=== PATIENT | female | born 1960 | race Caucasian/White ===

== ENCOUNTER 2017-03-10 09:42 | Emergency (ER) | payer MEDICARE, OTHER ==
[2017-03-10 09:48] VITALS: BP 132/76; PULSE 74; RESP 20; TEMP 98.1
--- NOTE | 2017-03-10 10:08 | ED ---
General Adult HPI - General Chief complaint: Extremity Injury, Lower Stated complaint: toe injury rt foot Time Seen by Provider: 03/10/17 09:52 Source: patient, RN notes reviewed Mode of arrival: ambulatory Limitations: no limitations - History of Present Illness Initial comments: Patient is a 57-year-old female who presents emergency room today with chief complaint of an injury to the right great toe. Patient does admit that she stubbed the toe which lifted the toenail up. She states very tender. She will to urgent care but because of her von Willebrand's disease. Advised come here to the emergency room. Patient denies any other complaints or symptoms. States locally tender. Patient denies any recent fever, chills, shortness of breath, chest pain, back pain, abdominal pain, nausea or vomiting, numbness or tingling, dysuria or hematuria, constipation or diarrhea, headaches or visual changes, or any other complaints. - Related Data Allergies Allergy/AdvReac Type Severity Reaction Status Date / Time aspirin Allergy Unknown Verified 03/10/17 09:57 codeine Allergy Unknown Verified 03/10/17 09:57 ibuprofen [From Motrin] Allergy Unknown Verified 03/10/17 09:57 Iodinated Contrast- Oral and Allergy Unknown Verified 03/10/17 09:57 IV Dye isosorbide [From Imdur] Allergy Unknown Verified 03/10/17 09:57 latex Allergy Unknown Verified 03/10/17 09:57 Review of Systems ROS Statement: Those systems with pertinent positive or pertinent negative responses have been documented in the HPI. ROS Other: All systems not noted in ROS Statement are negative. Past Medical History Past Medical History: GERD/Reflux Additional Past Medical History / Comment(s): von willebrand disease, diverticulitis, migraines, chronic back pain, RLS History of Any Multi-Drug Resistant Organisms: None Reported Past Psychological History: No Psychological Hx Reported Smoking Status: Former smoker Past Alcohol Use History: None Reported Past Drug Use History: None Reported General Exam - General Exam Comments Initial Comments: General: The patient is awake and alert, in no distress, and does not appear acutely ill. Neck: The neck is supple, there is no tenderness or JVD. Cardiovascular: There is a regular rate and rhythm. No murmur, rub or gallop is appreciated. Respiratory: Lungs are clear to auscultation, respirations are non-labored, breath sounds are equal. No wheezes, stridor, rales, or rhonchi. Musculoskeletal: Full range motion. Sensation intact. Pulses bilateral 2+ per strength 5/5. Neurological: A&O x 3. CN II-XII intact, There are no obvious motor or sensory deficits. Coordination appears grossly intact. Speech is normal. Skin: Patient's right great toe toenail is intact at the nail base. Psychiatric: Normal mood and affect. Limitations: no limitations Course Vital Signs 03/10/17 09:45 Temperature 98.1 F Pulse Rate 74 Respiratory 20 Rate Blood Pressure 132/76 O2 Sat by Pulse 100 Oximetry Medical Decision Making - Medical Decision Making Vital that if we are the toenail off that we would typically should back in underneath the nailbed to keep the nail fold open. Advised that we typically with stitch this in place. Offered to stitch in place other option is to leave the Band-Aid over top the nailbed along with to possibly follow up on its own. Disposition Clinical Impression: Injury of toenail of right foot Disposition: HOME SELF-CARE Condition: Good Instructions: Nail Avulsion (ED) Additional Instructions: Please us band aid over top to hold nail in place. Please be aware that the nail may fall off on its own. Please watch for any signs of infection which may include increased pain, redness, fever, chills. Please return for any signs of infection. Please return to emergency room if the symptoms increase or worsen or for any other concerns. Referrals: Stefan He DO [Primary Care Provider] - 1-2 days Time of Disposition: 10:08
== END 2017-03-10 10:39 | disposition home or self-care (01) ==
LOC: EC 09:42
DX: S99.921A Unspecified injury of right foot, initial encounter (principal); Z88.5 Allergy status to narcotic agent; Z88.6 Allergy status to analgesic agent; Z88.8 Allergy status to other drugs, medicaments and biological substances; Z91.040 Latex allergy status; Z91.041 Radiographic dye allergy status; Z87.891 Personal history of nicotine dependence; W22.09XA Striking against other stationary object, initial encounter
CPT/HCPCS: 99283

== ENCOUNTER → 2017-05-07 | Outpatient (CLI) | payer MEDICARE ==
[~2017-05-07] MED LIST: DENOSUMAB 60 MG/ML 1 ML SYRINGE SQ ONE; IRON SUCROSE 200 MG in SODIUM CHLORIDE 0.9% 100 ML IVPB ONE; SODIUM CHLORIDE 0.9% 500 ML in EMPTY BAG 1 BAG IV PRN
[2017-05-07 10:22] VITALS: BP 143/83; PULSE 83; RESP 16; TEMP 97.7
== END | disposition home or self-care (01) ==
LOC: PROCWHC3 09:53
PROVIDERS: ATTEND Physician Assistant
DX: M81.0 Age-related osteoporosis without current pathological fracture (principal); D50.8 Other iron deficiency anemias
CPT/HCPCS: J1756; J0897; 96365

== ENCOUNTER 2017-06-20 19:17 | Observation (INO) | payer MEDICARE ==
[2017-06-20] MEDS ORDERED: SODIUM CHLORIDE 0.9% 1,000 ML IV ONE (19:48)
[2017-06-20] MEDS ORDERED: ONDANSETRON 4 MG/2 ML VIAL IVP STA (19:49)
[2017-06-20 20:03] LABS: Anisocytosis Slight; Basophils % (A) 1 %; Eosinophils # (A) 0.3 k/uL (0-0.7); Eosinophils % (A) 4 %; HGB 11.3 gm/dL (11.4-16.0); Hypochromasia Slight; Lymphocytes # (A) 1.6 k/uL (1.0-4.8); Lymphocytes % (A) 22 %; MCH 26.2 pg (25.0-35.0); MCHC 31.3 g/dL (31.0-37.0); MCV 83.8 fL (80.0-100.0); Monocytes # (A) 0.4 k/uL (0-1.0); Monocytes % (A) 5 %; Neutrophils # (A) 4.9 k/uL (1.3-7.7); Neutrophils % (A) 66 %; Platelet Count 279 k/uL (150-450); RDW 17.2 % (11.5-15.5); WBC 7.4 k/uL (3.8-10.6)
[2017-06-20 20:11] LABS: INR 0.9 (<1.2); Partial Thromboplastin Time 23.8 sec (22.0-30.0); Prothrombin Time 9.4 sec (9.0-12.0)
[2017-06-20 20:12] LABS: ALT 34 U/L (9-52); AST 24 U/L (14-36); Albumin 3.6 g/dL (3.5-5.0); Alkaline Phosphatase 61 U/L (38-126); Anion Gap 8 mmol/L; Blood Urea Nitrogen 15 mg/dL (7-17); Calcium 7.8 mg/dL (8.4-10.2); Carbon Dioxide 24 mmol/L (22-30); Chloride 110 mmol/L (98-107); Glucose 105 mg/dL (74-99); Magnesium 2.3 mg/dL (1.6-2.3); Potassium 4.8 mmol/L (3.5-5.1); Sodium 142 mmol/L (137-145); Total Bilirubin 0.1 mg/dL (0.2-1.3); Total Protein 6.3 g/dL (6.3-8.2)
--- NOTE | 2017-06-20 20:27 | XR ---
EXAMINATION TYPE: XR chest 2V DATE OF EXAM: 06/20/2017 COMPARISON: NONE HISTORY: Syncopal episode. TECHNIQUE: Frontal and lateral views of the chest are obtained. FINDINGS: There is no focal air space opacity, pleural effusion, or pneumothorax seen. The cardiac silhouette size is upper limits of normal. The osseous structures are intact. Minimal multilevel de generative changes of the thoracic spine are noted. IMPRESSION: No acute cardiopulmonary process.
--- NOTE | 2017-06-20 20:53 | CT ---
EXAMINATION TYPE: CT abdomen pelvis wo con DATE OF EXAM: 06/20/2017 COMPARISON: NONE HISTORY: Vomiting, umbilical pain with history of gastric bypass. CT DLP: 1158 mGycm Automated exposure control for dose reduction was used. TECHNIQUE: Helical acquisition of images was performed from the lung bases through the pelvis. FINDINGS: There is limited evaluation of both the hollow and solid viscera given the lack of intraven ous and oral contrast. LUNG BASES: Minimal bibasilar subsegmental atelectasis is present. LIVER/GB: The liver is grossly unremarkable. Gallbladder surgically absent. PANCREAS: Unremarkable unenhanced morphology. SPLEEN: No splenomegaly. ADRENALS: No discrete nodule. KIDNEYS: No evidence of hydronephrosis. Punctate 1 to 2 mm right lower pole nonobstructing renal calc ulus is seen. No left-sided renal calculi. FREE AIR: No free air is visualized RETROPERITONEAL ADENOPATHY: None visualized REPRODUCTIVE ORGANS: The uterus is surgically absent. URINARY BLADDER: Incompletely distended. PELVIC ADENOPATHY: None visualized. OSSEOUS STRUCTURES: Mild multilevel degenerative changes of the visualized thoracal lumbar spine. Mi ld levoscoliotic curvature of the lumbar spine is noted. BOWEL: Surgical sutures are seen around the gastric fundus with a small hiatal hernia noted and arou nd the gastric body from a gastric bypass procedure. Gastric contents are noted within the gastric eli dy without dilation. Within the Judith limb there is no proximal dilatation. There is a normal course o f the attached small bowel without clustering or posterior position that would be concerning for inte rnal hernia. No swirling of vessels. Focal mild dilation of the entero-entero left mid abdominal anas tomotic site measures up to 4.3 cm and contains small bowel feces sign indicative of stasis. No proxi mal or distal bowel dilatation or decompression. The appendix is air-filled and within normal limits. Moderate amount retained stool is seen throughout the nondilated colon. Surgical aracelis are noted a long the right anterior abdominal wall creating spray artifact. IMPRESSION: 1. NO EVIDENCE OF BOWEL OBSTRUCTION. MILD FOCAL DILATATION OF THE LEFT MID ABDOMINAL ENTERO-ENTERO AN ASTOMOTIC SITE WITH SMALL BOWEL FECES SIGN AND RELATES TO ILEUS. NO OTHER EVIDENCE OF SMALL BOWEL OBS TRUCTION SUCH PROXIMAL DILATATION OR DISTAL DECOMPRESSION. 2. PUNCTATE NONOBSTRUCTING RIGHT 1 TO 2 MM LOWER POLE RENAL CALCULUS.
[2017-06-20] MEDS ORDERED: HYDROcodone/APAP 10-325MG 1 EACH TAB PO ONE (21:20)
[2017-06-20] MEDS ORDERED: ONDANSETRON 4 MG/2 ML VIAL IVP PRN (21:33)
[2017-06-20] MEDS ORDERED: NALOXONE 0.4 MG/ML 1 ML VIAL IV PRN (21:33)
--- NOTE | 2017-06-20 21:33 | ED ---
Syncope HPI - General Chief Complaint: Syncope Stated Complaint: syncope Time Seen by Provider: 06/20/17 19:33 Source: EMS Mode of arrival: EMS Limitations: no limitations - History of Present Illness Initial Comments: This is a 57-year-old female with a history of gastric bypass who presents emergency department for syncopal episode. The patient states that she was transferring from her chair to her couch when she suddenly and it up on the floor. The patient states that she does not remember any preceding symptoms. No lightheadedness, chest pain, shortness of breath. She states that she's been eating and drinking normally. She does admit to some vomiting and diarrhea today however states that this is intermittent because of her gastric bypass. She admits to a little bit a right-sided abdominal pain which is new. No fevers or chills. No palpitations at this time. She states that right now she feels a little generalized malaise but otherwise no other complaints. - Related Data Home Medications Medication Instructions Recorded Confirmed ALPRAZolam [Xanax] 0.5 mg PO TID PRN 06/20/17 06/20/17 Cholecalciferol (Vitamin D3) 2,000 unit PO DAILY 06/20/17 06/20/17 [Vitamin D3] Denosumab [Prolia] 60 mg SQ Q180D 06/20/17 06/20/17 Desmopressin [Ddavp] 0.2 mg PO DAILY PRN 06/20/17 06/20/17 Dexlansoprazole [Dexilant] 60 mg PO DAILY 06/20/17 06/20/17 Eplerenone 25 mg PO BID 06/20/17 06/20/17 Fluticasone Nasal [place] [Flonase 1 spray EA NOSTRIL DAILY 06/20/17 06/20/17 Nasal [place]] Hydrocodone/Acetaminophen [[place] 1 tab PO QID PRN 06/20/17 06/20/17 10-325] Neupro 8mg Patch 1 patch TOPICAL DAILY 06/20/17 06/20/17 Nystatin [Nystop] 1 applic TOPICAL TID 06/20/17 06/20/17 SUMAtriptan SUCCINATE [Imitrex] 100 mg PO DAILY PRN 06/20/17 06/20/17 buPROPion HCL [Wellbutrin SR] 150 mg PO TID 06/20/17 06/20/17 tiZANidine HCL [Zanaflex] 2 mg PO TID 06/20/17 06/20/17 Allergies Allergy/AdvReac Type Severity Reaction Status Date / Time aspirin Allergy Unknown Verified 06/20/17 19:35 codeine Allergy Unknown Verified 06/20/17 19:35 ibuprofen [From Motrin] Allergy Unknown Verified 06/20/17 19:35 Iodinated Contrast- Oral and Allergy Unknown Verified 06/20/17 19:35 IV Dye isosorbide [From Imdur] Allergy Unknown Verified 06/20/17 19:35 latex Allergy Unknown Verified 06/20/17 19:35 Sulfa (Sulfonamide Allergy Unknown Verified 06/20/17 19:35 Antibiotics) Review of Systems ROS Statement: Those systems with pertinent positive or pertinent negative responses have been documented in the HPI. ROS Other: All systems not noted in ROS Statement are negative. Past Medical History Past Medical History: GERD/Reflux Additional Past Medical History / Comment(s): von willebrand disease, diverticulitis, migraines, chronic back pain, RLS History of Any Multi-Drug Resistant Organisms: None Reported Past Surgical History: Adenoidectomy, Cholecystectomy, Hysterectomy, Joint Replacement, Orthopedic Surgery, Tonsillectomy Past Psychological History: No Psychological Hx Reported Smoking Status: Former smoker Past Alcohol Use History: Rare Past Drug Use History: None Reported General Exam - General Exam Comments Initial Comments: Constitutional: Awake alert Appears comfortable Head: Normocephalic atraumatic Eyes: no conjunctival injection No scleral icterus EOMI Neck: No JVD Supple Heart: Regular rate rhythm normal S1-S2 no murmurs Lungs: Clear to auscultation bilaterally No wheezing No rales Abdomen: Soft nondistended tenderness in the right upper quadrant Extremities: Non edematous DP pulses intact Radial pulses intact Neuro: A&Ox3 No focal neurologic deficits Psych: Appropriate mood and affect Limitations: no limitations Course Vital Signs 06/20/17 19:32 Temperature 98 F Pulse Rate 90 Respiratory 18 Rate Blood Pressure 148/85 O2 Sat by Pulse 96 Oximetry EKG Findings - EKG Comments: EKG Findings:: EKG showing normal sinus rhythm with a rate of 91. No abnormal ST segment changes or T-wave inversions. QTC is 455. Other intervals normal. No ectopy. Medical Decision Making - Medical Decision Making Is a 57-year-old female who presented for a single episode. Workup appears essentially unremarkable. EKG normal. I'm concerned because the patient had actually no preceding symptoms and feel that she needs monitoring in the hospital and possible cardiac evaluation. Spoke with Dr. Beck who accepts admission. The patient family were updated and agree. All questions were answered. - Lab Data Result diagrams: 06/20/17 19:20 06/20/17 19:20 Lab Results 06/20/17 06/20/17 06/20/17 Range/Units 19:20 19:20 19:20 WBC 7.4 (3.8-10.6) k/uL RBC 4.30 (3.80-5.40) m/uL Hgb 11.3 L (11.4-16.0) gm/dL Hct 36.0 (34.0-46.0) % MCV 83.8 (80.0-100.0) fL MCH 26.2 (25.0-35.0) pg MCHC 31.3 (31.0-37.0) g/dL RDW 17.2 H (11.5-15.5) % Plt Count 279 (150-450) k/uL Neutrophils % 66 % Lymphocytes % 22 % Monocytes % 5 % Eosinophils % 4 % Basophils % 1 % Neutrophils # 4.9 (1.3-7.7) k/uL Lymphocytes # 1.6 (1.0-4.8) k/uL Monocytes # 0.4 (0-1.0) k/uL Eosinophils # 0.3 (0-0.7) k/uL Basophils # 0.0 (0-0.2) k/uL Hypochromasia Slight Anisocytosis Slight PT (9.0-12.0) sec INR (<1.2) APTT (22.0-30.0) sec Sodium 142 (137-145) mmol/L Potassium 4.8 (3.5-5.1) mmol/L Chloride 110 H (98-107) mmol/L Carbon Dioxide 24 (22-30) mmol/L Anion Gap 8 mmol/L BUN 15 (7-17) mg/dL Creatinine 0.60 (0.52-1.04) mg/dL Est GFR (MDRD) Af Amer >60 (>60 ml/min/1.73 sqM) Est GFR (MDRD) Non-Af >60 (>60 ml/min/1.73 sqM) Glucose 105 H (74-99) mg/dL Calcium 7.8 L (8.4-10.2) mg/dL Magnesium 2.3 (1.6-2.3) mg/dL Total Bilirubin 0.1 L (0.2-1.3) mg/dL AST 24 (14-36) U/L ALT 34 (9-52) U/L Alkaline Phosphatase 61 (38-126) U/L Troponin I (0.000-0.034) ng/mL Total Protein 6.3 (6.3-8.2) g/dL Albumin 3.6 (3.5-5.0) g/dL Blood Type O Positive Blood Type Recheck No Antibody Screen NEGATIVE Spec Expiration Date 06/23/2017 - 231906/20/17 06/20/17 Range/Units 19:20 19:20 WBC (3.8-10.6) k/uL RBC (3.80-5.40) m/uL Hgb (11.4-16.0) gm/dL Hct (34.0-46.0) % MCV (80.0-100.0) fL MCH (25.0-35.0) pg MCHC (31.0-37.0) g/dL RDW (11.5-15.5) % Plt Count (150-450) k/uL Neutrophils % % Lymphocytes % % Monocytes % % Eosinophils % % Basophils % % Neutrophils # (1.3-7.7) k/uL Lymphocytes # (1.0-4.8) k/uL Monocytes # (0-1.0) k/uL Eosinophils # (0-0.7) k/uL Basophils # (0-0.2) k/uL Hypochromasia Anisocytosis PT 9.4 (9.0-12.0) sec INR 0.9 (<1.2) APTT 23.8 (22.0-30.0) sec Sodium (137-145) mmol/L Potassium (3.5-5.1) mmol/L Chloride (98-107) mmol/L Carbon Dioxide (22-30) mmol/L Anion Gap mmol/L BUN (7-17) mg/dL Creatinine (0.52-1.04) mg/dL Est GFR (MDRD) Af Amer (>60 ml/min/1.73 sqM) Est GFR (MDRD) Non-Af (>60 ml/min/1.73 sqM) Glucose (74-99) mg/dL Calcium (8.4-10.2) mg/dL Magnesium (1.6-2.3) mg/dL Total Bilirubin (0.2-1.3) mg/dL AST (14-36) U/L ALT (9-52) U/L Alkaline Phosphatase (38-126) U/L Troponin I <0.012 (0.000-0.034) ng/mL Total Protein (6.3-8.2) g/dL Albumin (3.5-5.0) g/dL Blood Type Blood Type Recheck Antibody Screen Spec Expiration Date Disposition Clinical Impression: Syncope Disposition: ADMITTED IP TO THIS [facility] Condition: Stable
[2017-06-20] MEDS ORDERED: ALPRAZolam 0.5 MG TAB PO PRN (21:34)
[2017-06-20] MEDS ORDERED: SUMAtriptan SUCCINATE 50 MG TAB PO PRN (21:34)
[2017-06-20] MEDS ORDERED: DESMOPRESSIN 0.2 MG TAB PO PRN (21:34)
[2017-06-20] MEDS ORDERED: HYDROcodone/APAP 10-325MG 1 EACH TAB PO PRN (21:34)
[2017-06-20] MEDS ORDERED: DENOSUMAB 60 MG/ML 1 ML SYRINGE SQ SCH (21:45)
--- NOTE | 2017-06-20 22:17 | XR ---
EXAMINATION TYPE: XR ankle complete RT DATE OF EXAM: 06/20/2017 COMPARISON: NONE HISTORY: Pain TECHNIQUE: 3 views FINDINGS: There is a large plantar calcaneal spur. There are screws fusing the navicular cuneiform celso int. Ankle mortise is anatomic. I see no fracture. IMPRESSION: Previous surgery. No fracture seen. Calcaneal spurring.
[2017-06-21] MEDS ORDERED: HYDROmorphone 1 MG/ML 1 ML SYRINGE IVP PRN (00:31)
[2017-06-21] MEDS ORDERED: SODIUM CHLORIDE 0.9% 1,000 ML IV SCH (00:45)
[2017-06-21] MEDS: NYSTATIN 100,000 UNIT/GM POWD 15 GM TOPICAL SCH ×2 (01:07→10:19)
[2017-06-21] MEDS: buPROPion SR 150 MG TABLET.ER PO SCH ×2 (01:07→12:09)
[2017-06-21 01:56] LABS: Appearance,Urine Clear (Clear); Bacteria,Urine Rare /hpf; Bilirubin,Urine Negative (Negative); Blood,Urine Negative (Negative); Color,Urine Yellow; Glucose,Urine (UA) Negative (Negative); Ketones,Urine Negative (Negative); Leukocyte Esterase,Urine Small (Negative); Mucus,Urine Rare /hpf; Nitrite,Urine Negative (Negative); PH, Urine 5.5 (5.0-8.0); Protein,Urine Negative (Negative); RBC,Urine 1 /hpf (0-5); Specific Gravity,Urine 1.017 (1.001-1.035); Squamous Epithelial Cell,Urine 2 /hpf (0-4); Urobilinogen,Urine <2.0 mg/dL (<2.0); WBC,Urine 3 /hpf (0-5)
[2017-06-21] MEDS ORDERED: PANTOPRAZOLE 40 MG TABLET PO SCH (07:30)
[2017-06-21 08:00] VITALS: BP 126/75; PULSE 89; RESP 18; TEMP 97.5
[2017-06-21] MEDS ORDERED: CHOLECALCIFEROL 1,000 UNIT TAB PO SCH (09:00)
[2017-06-21] MEDS ORDERED: FLUTICASONE 50MCG/SPRAY NASAL 16GM EA NOSTRIL SCH (09:00)
[2017-06-21] MEDS ORDERED: NEUPRO 8 MG TOPICAL SCH (09:00)
[2017-06-21] MEDS ORDERED: SPIRONOLACTONE 25 MG TAB PO SCH (09:00)
--- NOTE | 2017-06-21 11:01 | HP ---
HISTORY AND PHYSICAL DATE OF SERVICE: 06/20/2017. CHIEF COMPLAINT: Syncope. HISTORY OF PRESENT ILLNESS: This 57-year-old woman with a past medical history of GERD, von Willebrand disease, diverticulitis, migraines, chronic back pain, being followed by Dr. Erazo in the outpatient setting, has recently moved to the area. The patient apparently fell down when moving to the bed and patient apparent syncopal episode and the patient taken to [facility] and admitted for further evaluation and treatment. There is no history of any fever, rigors. No history of headache, loss of consciousness. The patient also had history of Judith-en-Y bypass. The patient also complaining of vague abdominal discomfort, especially on moving. The patient underwent abdominal- pelvis CAT scan which showed probably ileus. Otherwise, there is no history of any fever, rigors. No headache, loss of conscious or seizures. PAST MEDICAL HISTORY: Judith-en-Y bypass, GERD, von Willebrand disease, tonsillectomy and adenoidectomy. MEDICATIONS PRIOR TO ADMISSION: Include home medications are: 1. Imitrex 100 mg daily p.r.n. 2. [place] 1 tablet q.i.d. p.r.n. 3. Desmopressin 0.2 mg daily p.r.n. 4. Prolia 60 mg q.180. 5. Zanaflex 2 mg p.o. t.i.d. 6. Neupro 8 mg patch 1 patch daily. 7. Nystop 1 application b.i.d. 8. Flonase once daily. 9. Eplerenone 25 mg p.o. b.i.d. 10.Dexilant 60 mg. 11.Vitamin D3 2000 daily. 13.Xanax 0.5 mg t.i.d. p.r.n. ALLERGIES: ASPIRIN, CODEINE, IBUPROFEN, IODINATED CONTRAST, ISOSORBIDE, LATEX, SULFA. FAMILY HISTORY: No history of heart disease or strokes in the family. SOCIAL HISTORY: Rare alcohol intake and previous history of smoking. REVIEW OF SYSTEMS: ENT: No diminished hearing or diminished vision. CARDIOVASCULAR: No angina or palpitations. RESPIRATORY: As mentioned earlier. GI: As mentioned earlier. : No dysuria. NERVOUS: No numbness. Otherwise mentioned earlier. ALLERGY/IMMUNOLOGY: No asthma, hay fever. MUSCULOSKELETAL: As mentioned earlier. HEMATOLOGY/ONCOLOGY: No history of anemia. ENDOCRINE: No history of diabetes, hypothyroidism. CONSTITUTIONAL: As mentioned earlier. DERMATOLOGY: Negative. RHEUMATOLOGY: Negative. PSYCHIATRY: As mentioned earlier. PHYSICAL EXAMINATION: The patient alert and oriented x3. Pulse is 77, blood pressure is 119/75. No orthostatic dizziness. Respirations is 14, temp 98 degrees, pulse ox 94% on room air. HEENT: Conjunctivae normal. Oral mucosa moist. NECK: No jugular venous distention. No carotid bruits. No lymph node enlargement. CARDIOVASCULAR: S1, S2 muffled. No S3. No S4. RESPIRATORY: Breath sounds diminished in the bases. No rhonchi. No crackles. ABDOMEN: Soft, obese, nontender. No mass palpable. No guarding. No rigidity. LEGS: No edema. No swelling. NERVOUS SYSTEM: Higher functions as mentioned earlier. Moves all 4 limbs. No focal motor or sensory deficits. LYMPHATIC: No lymphadenopathy in neck or axillae. SKIN: No ulcer, rash or bleeding. LABS: At this time show WBC 7.8, hemoglobin is 11.3. Otherwise 0.1. ASSESSMENT: 1. Syncope for evaluation, possibly vasovagal. 2. Anemia, possibly nutritional. 3. History of Judith-en-Y bypass. 4. History of von Willebrand's. 5. History of diverticulitis. 6. History of migraine. 7. Chronic back pain. 8. History of restless legs. 9. History of cholecystectomy. 10.History of gastroesophageal reflux disease. RECOMMENDATIONS AND DISCUSSION: In this 57-year-old woman who presented with multiple complex medical issues, will monitor the patient closely. Continue the current medial management and symptomatic treatment. Will monitor the patient closely, orthostatic vitals. Otherwise, telemetry and IV fluids, surgical consultation. Resume the home medications. Prognosis guarded because of multiple complex medical issues. Further recommendations to follow. Will increase ambulation. Patient will need outpatient followup, also. Discussed with the patient, who understands and agrees. MMODL / IJN: [id number] / MTDD
[2017-06-21] MEDS ORDERED: SUMAtriptan SUCCINATE 50 MG TAB PO STA (12:03)
[2017-06-21 13:33] LABS: Urine Alcohol Negative (Negative); Urine Barbiturate Negative (Negative); Urine Cocaine Negative (Negative); Urine Methadone Negative (Negative); Urine Opiates Positive (Negative); Urine Phencyclidine Negative (Negative)
--- NOTE | 2017-06-21 14:27 | P.GSCN ---
History of Present Illness Reason for Consult: Abdominal pain History of present illness: The patient has been discharged. She can follow-up with her bariatric surgeon Past Medical History Past Medical History: GERD/Reflux Additional Past Medical History / Comment(s): von willebrand disease, diverticulitis, migraines, chronic back pain, RLS History of Any Multi-Drug Resistant Organisms: None Reported Past Surgical History: Adenoidectomy, Cholecystectomy, Hysterectomy, Joint Replacement, Orthopedic Surgery, Tonsillectomy Past Anesthesia/Blood Transfusion Reactions: No Reported Reaction Past Psychological History: No Psychological Hx Reported Smoking Status: Never smoker Past Alcohol Use History: Rare Past Drug Use History: None Reported Medications and Allergies Home Medications Medication Instructions Recorded Confirmed Type ALPRAZolam [Xanax] 0.5 mg PO TID PRN 06/20/17 06/20/17 History Cholecalciferol (Vitamin D3) 2,000 unit PO DAILY 06/20/17 06/20/17 History [Vitamin D3] Denosumab [Prolia] 60 mg SQ Q180D 06/20/17 06/20/17 History Desmopressin [Ddavp] 0.2 mg PO DAILY PRN 06/20/17 06/20/17 History Dexlansoprazole [Dexilant] 60 mg PO DAILY 06/20/17 06/20/17 History Eplerenone 25 mg PO BID 06/20/17 06/20/17 History Fluticasone Nasal [place] [Flonase 1 spray EA NOSTRIL DAILY 06/20/17 06/20/17 History Nasal [place]] Hydrocodone/Acetaminophen [[place] 1 tab PO QID PRN 06/20/17 06/20/17 History 10-325] Neupro 8mg Patch 1 patch TOPICAL DAILY 06/20/17 06/20/17 History Nystatin [Nystop] 1 applic TOPICAL TID 06/20/17 06/20/17 History SUMAtriptan SUCCINATE [Imitrex] 100 mg PO DAILY PRN 06/20/17 06/20/17 History buPROPion HCL [Wellbutrin SR] 150 mg PO TID 06/20/17 06/20/17 History tiZANidine HCL [Zanaflex] 2 mg PO TID 06/20/17 06/20/17 History Allergies Allergy/AdvReac Type Severity Reaction Status Date / Time aspirin Allergy Unknown Verified 06/20/17 19:35 codeine Allergy Unknown Verified 06/20/17 19:35 ibuprofen [From Motrin] Allergy Unknown Verified 06/20/17 19:35 Iodinated Contrast- Oral and Allergy Unknown Verified 06/20/17 19:35 IV Dye isosorbide [From Imdur] Allergy Unknown Verified 06/20/17 19:35 latex Allergy Unknown Verified 06/20/17 19:35 Sulfa (Sulfonamide Allergy Unknown Verified 06/20/17 19:35 Antibiotics) Surgical - Exam Osteopathic Statement: *. No significant issues noted on an osteopathic structural exam other than those noted in the History and Physical/Consult. Vital Signs Temp Pulse Resp BP Pulse Ox 98 F 90 18 148/85 96 06/20/17 19:32 06/20/17 19:32 06/20/17 19:32 06/20/17 19:32 06/20/17 19:32 Results - Labs 06/20/17 19:20 06/20/17 19:20 Abnormal Lab Results - Last 24 Hours (Table) 06/20/17 06/20/17 06/21/17 Range/Units 19:20 19:20 01:00 Hgb 11.3 L (11.4-16.0) gm/dL RDW 17.2 H (11.5-15.5) % Chloride 110 H (98-107) mmol/L Glucose 105 H (74-99) mg/dL Calcium 7.8 L (8.4-10.2) mg/dL Total Bilirubin 0.1 L (0.2-1.3) mg/dL Ur Leukocyte Esterase Small H (Negative) Urine Bacteria Rare H (None) /hpf Urine Mucus Rare H (None) /hpf Microbiology - Last 24 Hours (Table) 06/21/17 01:00 Urine Culture - Preliminary Urine,Clean Catch Diabetes panel 06/20/17 Range/Units 19:20 Sodium 142 (137-145) mmol/L Potassium 4.8 (3.5-5.1) mmol/L Chloride 110 H (98-107) mmol/L Carbon Dioxide 24 (22-30) mmol/L BUN 15 (7-17) mg/dL Creatinine 0.60 (0.52-1.04) mg/dL Glucose 105 H (74-99) mg/dL Calcium 7.8 L (8.4-10.2) mg/dL AST 24 (14-36) U/L ALT 34 (9-52) U/L Alkaline Phosphatase 61 (38-126) U/L Total Protein 6.3 (6.3-8.2) g/dL Albumin 3.6 (3.5-5.0) g/dL Calcium panel 06/20/17 Range/Units 19:20 Calcium 7.8 L (8.4-10.2) mg/dL Albumin 3.6 (3.5-5.0) g/dL Pituitary panel 06/20/17 Range/Units 19:20 Sodium 142 (137-145) mmol/L Potassium 4.8 (3.5-5.1) mmol/L Chloride 110 H (98-107) mmol/L Carbon Dioxide 24 (22-30) mmol/L BUN 15 (7-17) mg/dL Creatinine 0.60 (0.52-1.04) mg/dL Glucose 105 H (74-99) mg/dL Calcium 7.8 L (8.4-10.2) mg/dL Adrenal panel 06/20/17 Range/Units 19:20 Sodium 142 (137-145) mmol/L Potassium 4.8 (3.5-5.1) mmol/L Chloride 110 H (98-107) mmol/L Carbon Dioxide 24 (22-30) mmol/L BUN 15 (7-17) mg/dL Creatinine 0.60 (0.52-1.04) mg/dL Glucose 105 H (74-99) mg/dL Calcium 7.8 L (8.4-10.2) mg/dL Total Bilirubin 0.1 L (0.2-1.3) mg/dL AST 24 (14-36) U/L ALT 34 (9-52) U/L Alkaline Phosphatase 61 (38-126) U/L Total Protein 6.3 (6.3-8.2) g/dL Albumin 3.6 (3.5-5.0) g/dL Assessment and Plan Plan: Follow-up with bariatric surgery
--- NOTE | 2017-06-21 16:05 | P.DS ---
Providers Date of admission: 06/20/17 21:33 Attending physician: Mili Beck Consults: 06/21/17 00:34 Consult Physician Routine Consulting Provider: Hadley Crump Consult Reason/Comments: abd pain Do you want consulting provider notified?: Yes Primary care physician: Shiva Erazo [facility] Course: This 57-year-old woman with a past medical history multiple medical problems being followed by Dr. Shiva Miramontes in the outpatient setting was admitted with syncope possibly vasovagal syncope was considered. Patient improved significantly. The patient had no orthostatic hypotension. Patient also had vague abdominal discomfort. Ileus was suspected. Patient improved significantly. Patient be discharged in a stable condition with guarded prognosis with further plans to follow up with the primary physician and as well as surgery in the outpatient setting. An neurology evaluation also has been recommended. As an outpatient. On exam vitals are stable. Cardio S1 and S2 normal. Respirator system. Clear to auscultation. Abdomen soft nontender. Nervous system no focal deficit. Final diagnosis 1. Syncope for prevention possibly vasovagal 2. Anemia possibly nutritional 3. History of Vielka-en-Y bypass 4. History of von Willebrand's disease 5. History of diverticulitis. 6. History of migraine. 7. Chronic back continue 8. History of the restless leg syndrome. 9. History of cholecystectomy. 10. History of GERD. Patient Condition at Discharge: Stable Plan - Discharge Summary Discharge Rx Participant: No New Discharge Prescriptions: Continue Denosumab [Prolia] 60 mg SQ Q180D tiZANidine HCL [Zanaflex] 2 mg PO TID Neupro 8mg Patch 1 patch TOPICAL DAILY Hydrocodone/Acetaminophen [[place] 10-325] 1 tab PO QID PRN PRN Reason: Pain Nystatin [Nystop] 1 applic TOPICAL TID Fluticasone Nasal [place] [Flonase Nasal [place]] 1 spray EA NOSTRIL DAILY Eplerenone 25 mg PO BID Dexlansoprazole [Dexilant] 60 mg PO DAILY Cholecalciferol (Vitamin D3) [Vitamin D3] 2,000 unit PO DAILY buPROPion HCL [Wellbutrin SR] 150 mg PO TID ALPRAZolam [Xanax] 0.5 mg PO TID PRN PRN Reason: Anxiety SUMAtriptan SUCCINATE [Imitrex] 100 mg PO DAILY PRN PRN Reason: Migraine Headache Desmopressin [Ddavp] 0.2 mg PO DAILY PRN PRN Reason: BLEEDING DISORDER Discharge Medication List ALPRAZolam [Xanax] 0.5 mg PO TID PRN 06/20/17 [History] Cholecalciferol (Vitamin D3) [Vitamin D3] 2,000 unit PO DAILY 06/20/17 [History] Denosumab [Prolia] 60 mg SQ Q180D 06/20/17 [History] Desmopressin [Ddavp] 0.2 mg PO DAILY PRN 06/20/17 [History] Dexlansoprazole [Dexilant] 60 mg PO DAILY 06/20/17 [History] Eplerenone 25 mg PO BID 06/20/17 [History] Fluticasone Nasal [place] [Flonase Nasal [place]] 1 spray EA NOSTRIL DAILY 06/20/17 [History] Hydrocodone/Acetaminophen [[place] 10-325] 1 tab PO QID PRN 06/20/17 [History] Neupro 8mg Patch 1 patch TOPICAL DAILY 06/20/17 [History] Nystatin [Nystop] 1 applic TOPICAL TID 06/20/17 [History] SUMAtriptan SUCCINATE [Imitrex] 100 mg PO DAILY PRN 06/20/17 [History] buPROPion HCL [Wellbutrin SR] 150 mg PO TID 06/20/17 [History] tiZANidine HCL [Zanaflex] 2 mg PO TID 06/20/17 [History] Follow up Appointment(s)/Referral(s): Jose Harrington MD [STAFF PHYSICIAN] - 2 Weeks (syncope, ? tia??) Shiva Erazo DO [Primary Care Provider] - 1-2 days Hadley Crump MD [STAFF PHYSICIAN] - 1 Week (abd pain, vielka-n y) Patient Instructions/Handouts: Heart Healthy Diet (DC), Syncope (DC) Activity/Diet/Wound Care/Special Instructions: diet cardiac act limited till f/u Discharge Disposition: HOME SELF-CARE
== END 2017-06-21 14:51 | disposition home or self-care (01) ==
LOC: EC 19:17 → 5MS5E 21:33
PROVIDERS: ADMIT Hospitalist; ATTEND Hospitalist
DX: R55 Syncope and collapse (principal); R10.11 Right upper quadrant pain; D64.9 Anemia, unspecified; Z98.84 Bariatric surgery status; K21.9 Gastro-esophageal reflux disease without esophagitis; D68.0 Von Willebrand disease; G25.81 Restless legs syndrome; G43.909 Migraine, unspecified, not intractable, without status migrainosus; G89.29 Other chronic pain; M54.9 Dorsalgia, unspecified; K57.30 Diverticulosis of large intestine without perforation or abscess without bleeding; Z90.49 Acquired absence of other specified parts of digestive tract; Z87.891 Personal history of nicotine dependence; Z79.51 Long term (current) use of inhaled steroids; Z79.899 Other long term (current) drug therapy; Z88.5 Allergy status to narcotic agent; Z88.2 Allergy status to sulfonamides; Z88.8 Allergy status to other drugs, medicaments and biological substances; Z88.6 Allergy status to analgesic agent; Z91.041 Radiographic dye allergy status; Z91.040 Latex allergy status; W18.39XA Other fall on same level, initial encounter
CPT/HCPCS: 99285 ×2; 96374 ×2; 96361 ×3; 96376; 96375; 36415; 93005; 86900; 86901; 80053; 83735; 84484; 85025; 85610; 85730; 86850; 81001; 80306; 87086; 71020; 73610; 74176; G0378 ×2; S0106; J2405 ×2; J1170

== ENCOUNTER → 2017-07-08 | Outpatient (CLI) | payer MEDICARE ==
--- NOTE | 2017-07-09 10:33 | MM ---
Reason for exam: screening (asymptomatic). Last mammogram was performed 1 year and 2 months ago. Physical Findings: A clinical breast exam by your physician is recommended on an annual basis and results should be correlated with mammographic findings. MG 3D Screening Mammo W/Cad Bilateral CC, MLO, and XCCL view(s) were taken. Prior study comparison: April 30, 2016, mammogram, performed at [facility]. April 27, 2015, mammogram, performed at [facility]. March 17, 2014, mammogram, performed at [facility]. There are scattered fibroglandular densities. There is chronic nodularity bilaterally. No significant changes when compared with prior studies. ASSESSMENT: Benign, BI-RAD 2 RECOMMENDATION: Routine screening mammogram of both breasts in 1 year.
== END | disposition home or self-care (01) ==
LOC: RADMAMWWP 09:28
PROVIDERS: ATTEND Family Medicine
DX: Z12.31 Encounter for screening mammogram for malignant neoplasm of breast (principal)
CPT/HCPCS: 77063; 77067

== ENCOUNTER 2017-07-15 11:00 | Day surgery (SDC) | payer MEDICARE ==
[2017-07-11 10:18] VITALS: BMI 37.9
[~2017-07-15 11:00] MED LIST changes: -DENOSUMAB 60 MG/ML 1 ML SYRINGE SQ ONE; -IRON SUCROSE 200 MG in SODIUM CHLORIDE 0.9% 100 ML IVPB ONE; +LACTATED RINGERS 1,000 ML IV SCH; +LIDOCAINE 1% 20 ML VIAL (10MG/ML) FOR IV START INTRADERMA PRN; -SODIUM CHLORIDE 0.9% 500 ML in EMPTY BAG 1 BAG IV PRN
[2017-07-15 11:37] VITALS: RESP 18; TEMP 97.7
[2017-07-15] MEDS ORDERED: LIDOCAINE 1% INJ 10MG/ML (20 ML MDV) ONE (12:13)
[2017-07-15] MEDS ORDERED: PROPOFOL 10 MG/ML 20 ML VIAL IV ONE (12:13)
--- NOTE | 2017-07-15 12:17 | P.GSHP ---
History of Present Illness H&P Date: 07/15/17 Chief Complaint: GERD, GI bleed, diarrhea 77-year-old female who presents today for EGD and colonoscopy. She's had a previous history of gastric bypass. Patient's echo points of GERD diarrhea and GI bleed. Past Medical History Past Medical History: GERD/Reflux Additional Past Medical History / Comment(s): Von Willebrand Disease, diverticulitis, migraines, chronic back pain, RLS History of Any Multi-Drug Resistant Organisms: None Reported Past Surgical History: Adenoidectomy, Cholecystectomy, Hysterectomy, Joint Replacement, Orthopedic Surgery, Tonsillectomy Past Anesthesia/Blood Transfusion Reactions: No Reported Reaction Smoking Status: Never smoker - Past Family History Mother Family Medical History: Cancer Father Family Medical History: Cancer Medications and Allergies Home Medications Medication Instructions Recorded Confirmed Type ALPRAZolam [Xanax] 0.5 mg PO TID PRN 06/20/17 07/15/17 History Cholecalciferol (Vitamin D3) 2,000 unit PO DAILY 06/20/17 07/11/17 History [Vitamin D3] Denosumab [Prolia] 60 mg SQ Q180D 06/20/17 07/11/17 History Desmopressin [Ddavp] 0.2 mg NASAL DAILY PRN 06/20/17 07/11/17 History Dexlansoprazole [Dexilant] 60 mg PO DAILY 06/20/17 07/11/17 History Eplerenone 75 mg PO HS 06/20/17 07/15/17 History Fluticasone Nasal [place] [Flonase 1 spray EA NOSTRIL DAILY 06/20/17 07/11/17 History Nasal [place]] Hydrocodone/Acetaminophen [[place] 1 tab PO QID PRN 06/20/17 07/11/17 History 10-325] Neupro 8mg Patch 1 patch TOPICAL DAILY 06/20/17 07/11/17 History Nystatin [Nystop] 1 applic TOPICAL TID 06/20/17 07/15/17 History SUMAtriptan SUCCINATE [Imitrex] 100 mg PO DAILY PRN 06/20/17 07/15/17 History buPROPion HCL [Wellbutrin SR] 250 mg PO QAM 06/20/17 07/11/17 History tiZANidine HCL [Zanaflex] 2 mg PO TID 06/20/17 07/11/17 History Allergies Allergy/AdvReac Type Severity Reaction Status Date / Time aspirin Allergy has Von Verified 07/15/17 11:37 Willebrands Disease ibuprofen [From Motrin] Allergy has Von Verified 07/15/17 11:37 Willebrands Disease Iodinated Contrast- Oral and Allergy Anaphylaxis Verified 07/15/17 11:37 IV Dye isosorbide [From Imdur] Allergy Rash/Hives Verified 07/15/17 11:37 latex Allergy Anaphylaxis Verified 07/15/17 11:37 Sulfa (Sulfonamide Allergy Rash/Hives Verified 07/15/17 11:37 Antibiotics) codeine AdvReac agitation Verified 07/15/17 11:37 and restless leg symptoms increased Surgical - Exam Vital Signs Temp Pulse Resp BP Pulse Ox 97.7 F 80 18 126/84 97 07/15/17 11:34 07/15/17 11:34 07/15/17 11:34 07/15/17 11:34 07/15/17 11:34 - General well developed, no distress - Eyes PERRL - ENT normal pinna - Neck no masses - Respiratory normal expansion - Cardiovascular Rhythm: regular - Abdomen Abdomen: soft, non tender Assessment and Plan Assessment: GERD, GI bleed. We'll perform EGD and colonoscopy.
--- NOTE | 2017-07-15 12:47 | P.OP ---
Date of Procedure: 07/15/17 Preoperative Diagnosis: GERD GI bleed Diarrhea Postoperative Diagnosis: Status post Judith-en-Y gastric bypass Mild esophagitis Diverticulosis Mild internal hemorrhoids Procedure(s) Performed: EGD Colonoscopy Anesthesia: MAC Surgeon: Hadley Crump Pathology: other (Antrum) Condition: stable Disposition: PACU Description of Procedure: The patient's placed on the endoscopy table in the lateral position. She received IV sedation. The gastroscope was placed oropharynx and passed in the esophagus and the patient a previous Judith-en-Y gastric bypass. The gastrojejunostomy. We just below the GE junction at 38 cm. There is no incision any obstruction of the jejunum. The scope was brought back to the distal esophagus this was minimal inflamed a biopsies performed. Scope was then withdrawn. Next digital rectal exam was performed which revealed a few internal hemorrhoids. The flexible colonoscope was then placed patient anus passed throughout the entire colon. The ileocecal valve was visualized. The cecum, ascending and transverse colon appeared normal. In the descending and sigmoid colon there is mild diverticular changes. Scope was then brought back and rectum this appeared normal. Scope was withdrawn for patient.
[2017-07-15 13:15] VITALS: BP 113/77; PULSE 82
== END 2017-07-15 13:27 | disposition home or self-care (01) ==
LOC: ORWHC2ENDO 11:00
PROVIDERS: ATTEND Surgery
DX: K57.30 Diverticulosis of large intestine without perforation or abscess without bleeding (principal); K64.8 Other hemorrhoids; Z98.84 Bariatric surgery status; K21.0 Gastro-esophageal reflux disease with esophagitis; D68.0 Von Willebrand disease; G43.909 Migraine, unspecified, not intractable, without status migrainosus; M54.9 Dorsalgia, unspecified; G89.29 Other chronic pain; G25.81 Restless legs syndrome; F41.9 Anxiety disorder, unspecified; F32.9 Major depressive disorder, single episode, unspecified; Z79.51 Long term (current) use of inhaled steroids; Z79.899 Other long term (current) drug therapy; Z88.6 Allergy status to analgesic agent; Z91.041 Radiographic dye allergy status; Z88.8 Allergy status to other drugs, medicaments and biological substances; Z91.040 Latex allergy status; Z88.2 Allergy status to sulfonamides; Z88.5 Allergy status to narcotic agent; Z87.891 Personal history of nicotine dependence
CPT/HCPCS: 88305; 45378; 43239; J2001; J2704

== ENCOUNTER → 2017-09-11 | Outpatient (CLI) | payer MEDICARE ==
--- NOTE | 2017-09-11 13:37 | US ---
EXAMINATION TYPE: US carotid duplex BILAT DATE OF EXAM: 09/11/2017 COMPARISON: NONE CLINICAL HISTORY: R55 SYNCOPE. Pt states syncope EXAM MEASUREMENTS: RIGHT: Peak Systolic Velocity (PSV) cm/sec ----- Right CCA: 120.0 ----- Right ICA: 110.8 ----- Right ECA: 89.7 ICA/CCA ratio: 0.9 RIGHT: End Diastole cm/sec ----- Right CCA: 37.2 ----- Right ICA: 39.6 ----- Right ECA: 17.1 LEFT: Peak Systolic Velocity (PSV) cm/sec ----- Left CCA: 87.5 ----- Left ICA: 103.0 ----- Left ECA: 105.6 ICA/CCA ratio: 1.2 LEFT: End Diastole cm/sec ----- Left CCA: 23.7 ----- Left ICA: 44.8 ----- Left ECA: 7.2 VERTEBRALS (direction of flow): Right Vertebral: Antegrade Left Vertebral: Antegrade Rhythm: Normal No significant stenosis seen IMPRESSION: No evidence for hemodynamically significant stenosis. Criteria for Assigning % of Stenosis / Diameter reduction (Estimation based on the indirect measurements of the internal carotid artery velocities (ICA PSV). 1. Normal (no stenosis)=ICA PSV < 125 cm/s: ratio < 2.0: ICA EDV<40 cm/s. 2. Less than 50% stenosis=ICA PSV < 125 cm/s: ratio < 2.0: ICA EDV<40 cm/s. 3. 50 to 69% stenosis=ICA PSV of 125 to 230 cm/s: ration 2.0 ? 4.0: ICA EDV 40-100 cm/s. 4. Greater than 70% stenosis to near occlusion= ICA PSV > 230 cm/s: ratio > 4.0: ICA EDV > 100 cm/s. 5. Near occlusion= ICA PSV velocities may be low or undetectable: variable ratio and ICA EDV. 6. Total occlusion=unable to detect flow.
== END | disposition home or self-care (01) ==
LOC: RADUSWWP 12:56
PROVIDERS: ATTEND Psychiatry & Neurology Neurology
DX: R55 Syncope and collapse (principal)
CPT/HCPCS: 93880

== ENCOUNTER 2018-01-14 17:41 | Emergency (ER) | payer MEDICARE, OTHER ==
[2018-01-14 18:24] VITALS: RESP 20; TEMP 98
--- NOTE | 2018-01-14 19:23 | ED ---
Extremity Problem HPI - General Source: patient Mode of arrival: wheelchair Limitations: no limitations <Radha Jimenez - Last Filed: 01/15/18 17:05> <Emeka Whyte - Last Filed: 01/20/18 07:51> - General Chief complaint: Extremity Problem,Nontraumatic Stated complaint: bilat leg swelling Time Seen by Provider: 01/14/18 18:50 - History of Present Illness Initial comments: 58-year-old female patient presents to the emergency department today for evaluation of swelling to her bilateral lower extremities. Patient states that she has been dealing with swelling for the last several months. Patient states that she is being treated with Lasix by her primary care physician. States she is prescribed 40 mg daily however has to take 80 mg a day to see any relief and swelling. Patient states she has also been having exertional dyspnea with this. States she has been having intermittent palpitations. Patient states she did have an episode of chest pressure earlier today that did resolve. Patient denies any dizziness or weakness. Patient does have a history of von Willebrand's disease as well as DVT. She is not currently taking any anticoagulants. Patient is concerned she may have blood clots in her legs. States that she has new redness and shininess to her legs. States that she does have intermittent pain in her calves, but no tenderness. States that she has felt chilled over the last day and did have a temperature of 99.9F at home. She does take [place] at home for pain control. Patient denies any recent rash, abdominal pain, nausea, vomiting, diarrhea, constipation, back pain, numbness, tingling, dizziness, weakness, hematuria, dysuria, urinary urgency, urinary frequency, headache, visual changes, or any other complaints. (Radha Jimenez) - Related Data Home Medications Medication Instructions Recorded Confirmed ALPRAZolam [Xanax] 0.5 mg PO TID PRN 06/20/17 09/29/17 Cholecalciferol (Vitamin D3) 2,000 unit PO DAILY 06/20/17 09/29/17 [Vitamin D3] Denosumab [Prolia] 60 mg SQ Q180D 06/20/17 09/29/17 Desmopressin [Ddavp] 0.2 mg NASAL DAILY PRN 06/20/17 09/29/17 Dexlansoprazole [Dexilant] 60 mg PO AC-[id number] 06/20/17 09/29/17 Fluticasone Nasal [place] [Flonase 1 spray EA NOSTRIL DAILY PRN 06/20/17 09/29/17 Nasal [place]] Hydrocodone/Acetaminophen [[place] 1 tab PO QID PRN 06/20/17 09/29/17 10-325] Neupro 8mg Patch 1 patch TOPICAL DAILY 06/20/17 09/29/17 Nystatin [Nystop] 1 applic TOPICAL TID 06/20/17 09/29/17 SUMAtriptan SUCCINATE [Imitrex] 100 mg PO DAILY PRN 06/20/17 09/29/17 buPROPion HCL [Wellbutrin SR] 150 mg PO TID 06/20/17 09/29/17 tiZANidine HCL [Zanaflex] 2 mg PO TID 06/20/17 09/29/17 Iron Infusion 1 injection IM Q60D 09/29/17 09/29/17 Spironolactone [Aldactone] 25 mg PO BID 09/29/17 09/29/17 Previous Rx's Medication Instructions Recorded Furosemide [Lasix] 40 mg PO DAILY #30 tablet 09/30/17 Allergies Allergy/AdvReac Type Severity Reaction Status Date / Time aspirin Allergy has Von Verified 01/14/18 18:24 Willebrands Disease ibuprofen [From Motrin] Allergy has Von Verified 01/14/18 18:24 Willebrands Disease Iodinated Contrast- Oral and Allergy Anaphylaxis Verified 01/14/18 18:24 IV Dye isosorbide [From Imdur] Allergy Rash/Hives Verified 01/14/18 18:24 latex Allergy Anaphylaxis Verified 01/14/18 18:24 Sulfa (Sulfonamide Allergy Rash/Hives Verified 01/14/18 18:24 Antibiotics) codeine AdvReac agitation Verified 01/14/18 18:24 and restless leg symptoms increased Review of Systems ROS Other: All systems not noted in ROS Statement are negative. <Radha Jimenez - Last Filed: 01/15/18 17:05> ROS Other: All systems not noted in ROS Statement are negative. <Emeka Whyte - Last Filed: 01/20/18 07:51> ROS Statement: Those systems with pertinent positive or pertinent negative responses have been documented in the HPI. Past Medical History Past Medical History: Deep Vein Thrombosis (DVT), GERD/Reflux Additional Past Medical History / Comment(s): Von Willebrand Disease, diverticulitis, migraines, chronic back pain, RLS History of Any Multi-Drug Resistant Organisms: None Reported Past Surgical History: Adenoidectomy, Bariatric Surgery, Cholecystectomy, Hysterectomy, Joint Replacement, Orthopedic Surgery, Tonsillectomy Additional Past Surgical History / Comment(s): nury foot surgery, nury knee replaced, nury rotator cuffs, vielka en Y Past Anesthesia/Blood Transfusion Reactions: No Reported Reaction Past Psychological History: No Psychological Hx Reported Smoking Status: Former smoker Past Alcohol Use History: Rare Past Drug Use History: None Reported - Past Family History Mother Family Medical History: Cancer Father Family Medical History: Cancer <Radha Jimenez - Last Filed: 01/15/18 17:05> General Exam Limitations: no limitations General appearance: alert, in no apparent distress, other (This is a well- developed, well-nourished adult female patient in no acute distress. Vital signs upon presentation are temperature 98.0F, pulse 78, respirations 20, blood pressure 111/75, pulse ox 99% on room air.) Eye exam: Present: normal appearance, PERRL, EOMI. Absent: scleral icterus, conjunctival injection, periorbital swelling ENT exam: Present: normal exam, normal oropharynx, mucous membranes moist Respiratory exam: Present: normal lung sounds bilaterally. Absent: respiratory distress, wheezes, rales, rhonchi, stridor Cardiovascular Exam: Present: regular rate, normal rhythm, normal heart sounds. Absent: systolic murmur, diastolic murmur, rubs, gallop, clicks GI/Abdominal exam: Present: soft, normal bowel sounds. Absent: distended, tenderness, guarding, rebound, rigid Extremities exam: Present: full ROM, normal capillary refill, pedal edema (2+ pitting), other (Patient has 2+ pitting edema to the lower legs and bilateral feet. There is some minimal erythema, no warmth, skin is shiny. No wounds or drainage. Patient has multiple old scars to her bilateral feet from previous surgeries. Skin is otherwise pink, warm, and dry. Cap refills less than 3 seconds. Pedal and posttibial pulses are 2+ and equal bilaterally.). Absent: normal inspection, tenderness, joint swelling, calf tenderness Neurological exam: Present: alert, oriented X3, CN II-XII intact Psychiatric exam: Present: normal affect, normal mood Skin exam: Present: warm, dry, intact, normal color. Absent: rash <Radha Jimenez - Last Filed: 01/15/18 17:05> Vital Signs 01/14/18 01/14/18 18:22 21:00 Temperature 98.0 F Pulse Rate 78 70 Respiratory 20 20 Rate Blood Pressure 111/75 132/73 O2 Sat by Pulse 99 98 Oximetry Medical Decision Making - Lab Data Result diagrams: 01/14/18 20:55 01/14/18 20:55 - Radiology Data Radiology results: report reviewed <Radha Jimenez - Last Filed: 01/15/18 17:05> - Lab Data Result diagrams: 01/14/18 20:55 01/14/18 20:55 <Emeka Whyte - Last Filed: 01/20/18 07:51> - Medical Decision Making 58-year-old female patient presented to the emergency department today for evaluation of bilateral lower extremity swelling and pain. Physical examination did reveal 2+ pitting edema to the left and right lower leg and feet. Pulses were intact. Skin was warm, pink, and dry. Labs reviewed and are unremarkable. Ultrasound of both lower extremities is negative for DVT. There is no signs or symptoms of cellulitis or infection. Patient is afebrile. BNP was within normal range. I did discuss findings and results with the patient. She'll be given on IV dose of 40 mg of Lasix here in the department. She is instructed to continue taking her home Lasix as directed and to follow- up with her primary care physician for recheck as soon as possible to discuss Lasix dosing. She was instructed to keep legs elevated. Return parameters were discussed in detail. She verbalizes understanding and agrees with this plan. (Radha Jimenez) Resident/PA attestation: I, Dr. Emeka Whyte, personally saw and examined the patient. I have reviewed and agree with the resident/PA findings, including all diagnostic interpretations and treatment plans as written unless otherwise stated. I was present for the sosa portions of any procedures performed and inclusive time noted for any critical care statement. (Emeka Whyte) - Lab Data Lab Results 01/14/18 01/14/18 01/14/18 Range/Units 20:55 20:55 20:55 WBC 6.4 (3.8-10.6) k/uL RBC 4.14 (3.80-5.40) m/uL Hgb 12.6 (11.4-16.0) gm/dL Hct 37.7 (34.0-46.0) % MCV 91.0 (80.0-100.0) fL MCH 30.5 (25.0-35.0) pg MCHC 33.5 (31.0-37.0) g/dL RDW 13.3 (11.5-15.5) % Plt Count 257 (150-450) k/uL Neutrophils % 58 % Lymphocytes % 28 % Monocytes % 6 % Eosinophils % 6 % Basophils % 0 % Neutrophils # 3.7 (1.3-7.7) k/uL Lymphocytes # 1.8 (1.0-4.8) k/uL Monocytes # 0.4 (0-1.0) k/uL Eosinophils # 0.4 (0-0.7) k/uL Basophils # 0.0 (0-0.2) k/uL PT (9.0-12.0) sec INR (<1.2) APTT (22.0-30.0) sec D-Dimer (<0.60) mg/L FEU Sodium 141 (137-145) mmol/L Potassium 4.2 (3.5-5.1) mmol/L Chloride 108 H (98-107) mmol/L Carbon Dioxide 27 (22-30) mmol/L Anion Gap 6 mmol/L BUN 13 (7-17) mg/dL Creatinine 0.51 L (0.52-1.04) mg/dL Est GFR (CKD-EPI)AfAm >90 (>60 ml/min/1.73 sqM) Est GFR (CKD-EPI)NonAf >90 (>60 ml/min/1.73 sqM) Glucose 81 (74-99) mg/dL Calcium 8.8 (8.4-10.2) mg/dL Total Bilirubin 0.2 (0.2-1.3) mg/dL AST 30 (14-36) U/L ALT 34 (9-52) U/L Alkaline Phosphatase 65 (38-126) U/L Total Creatine Kinase 56 (30-135) U/L CK-MB (CK-2) 1.2 (0.0-2.4) ng/mL CK-MB (CK-2) Rel Index 2.1 Troponin I <0.012 (0.000-0.034) ng/mL NT-Pro-B Natriuret Pep pg/mL Total Protein 6.1 L (6.3-8.2) g/dL Albumin 3.6 (3.5-5.0) g/dL 01/14/18 01/14/18 Range/Units 20:55 20:55 WBC (3.8-10.6) k/uL RBC (3.80-5.40) m/uL Hgb (11.4-16.0) gm/dL Hct (34.0-46.0) % MCV (80.0-100.0) fL MCH (25.0-35.0) pg MCHC (31.0-37.0) g/dL RDW (11.5-15.5) % Plt Count (150-450) k/uL Neutrophils % % Lymphocytes % % Monocytes % % Eosinophils % % Basophils % % Neutrophils # (1.3-7.7) k/uL Lymphocytes # (1.0-4.8) k/uL Monocytes # (0-1.0) k/uL Eosinophils # (0-0.7) k/uL Basophils # (0-0.2) k/uL PT 9.5 (9.0-12.0) sec INR 1.0 (<1.2) APTT 23.6 (22.0-30.0) sec D-Dimer 0.37 (<0.60) mg/L FEU Sodium (137-145) mmol/L Potassium (3.5-5.1) mmol/L Chloride (98-107) mmol/L Carbon Dioxide (22-30) mmol/L Anion Gap mmol/L BUN (7-17) mg/dL Creatinine (0.52-1.04) mg/dL Est GFR (CKD-EPI)AfAm (>60 ml/min/1.73 sqM) Est GFR (CKD-EPI)NonAf (>60 ml/min/1.73 sqM) Glucose (74-99) mg/dL Calcium (8.4-10.2) mg/dL Total Bilirubin (0.2-1.3) mg/dL AST (14-36) U/L ALT (9-52) U/L Alkaline Phosphatase (38-126) U/L Total Creatine Kinase (30-135) U/L CK-MB (CK-2) (0.0-2.4) ng/mL CK-MB (CK-2) Rel Index Troponin I (0.000-0.034) ng/mL NT-Pro-B Natriuret Pep 395 pg/mL Total Protein (6.3-8.2) g/dL Albumin (3.5-5.0) g/dL - Radiology Data Venous Doppler duplex of the bilateral lower extremities was obtained. Report was reviewed in its entirety. Impression by Dr. Francis Dawson shows negative for DVT, right and left lower extremities. (Radha Jimenez) Disposition Is patient prescribed a controlled substance at d/c from ED?: No <Radha Jimenez - Last Filed: 01/15/18 17:05> <Emeka Whyte - Last Filed: 01/20/18 07:51> Clinical Impression: Lower extremity edema Disposition: HOME SELF-CARE Condition: Good Referrals: Shiva Erazo DO [Primary Care Provider] - 1-2 days
[2018-01-14 21:02] VITALS: BP 132/73; PULSE 70
--- NOTE | 2018-01-14 21:12 | US ---
EXAMINATION TYPE: US venous doppler duplex LE DATE OF EXAM: 01/14/2018 8:36 PM COMPARISON: NONE CLINICAL HISTORY: Pain. Pain and edema SIDE PERFORMED: Bilateral TECHNIQUE: The lower extremity deep venous system is examined utilizing real time linear array sonog amauri with graded compression, doppler sonography and color-flow sonography. VESSELS IMAGED: External Iliac Vein (EIV) Common Femoral Vein Deep Femoral Vein Greater Saphenous Vein * Femoral Vein Popliteal Vein Small Saphenous Vein * Proximal Calf Veins (* superficial vessels) DESCRIPTION: Grayscale, color doppler, spectral doppler imaging performed of the deep veins of the lo wer extremities. There is normal flow, compressibility, vascular waveforms. IMPRESSION: NEGATIVE FOR DVT, RIGHT AND LEFT LOWER EXTREMITIES.
[2018-01-14 21:13] LABS: Basophils % (A) 0 %; Eosinophils # (A) 0.4 k/uL (0-0.7); Eosinophils % (A) 6 %; HCT 37.7 % (34.0-46.0); HGB 12.6 gm/dL (11.4-16.0); Lymphocytes # (A) 1.8 k/uL (1.0-4.8); Lymphocytes % (A) 28 %; MCH 30.5 pg (25.0-35.0); MCHC 33.5 g/dL (31.0-37.0); Mean Platelet Volume 7.5; Monocytes # (A) 0.4 k/uL (0-1.0); Monocytes % (A) 6 %; Neutrophils # (A) 3.7 k/uL (1.3-7.7); Neutrophils % (A) 58 %; Platelet Count 257 k/uL (150-450); RBC 4.14 m/uL (3.80-5.40); RDW 13.3 % (11.5-15.5); WBC 6.4 k/uL (3.8-10.6)
[2018-01-14 21:21] LABS: ALT 34 U/L (9-52); AST 30 U/L (14-36); Albumin 3.6 g/dL (3.5-5.0); Alkaline Phosphatase 65 U/L (38-126); Anion Gap 6 mmol/L; Blood Urea Nitrogen 13 mg/dL (7-17); Calcium 8.8 mg/dL (8.4-10.2); Carbon Dioxide 27 mmol/L (22-30); Chloride 108 mmol/L (98-107); Glucose 81 mg/dL (74-99); Potassium 4.2 mmol/L (3.5-5.1); Sodium 141 mmol/L (137-145); Total Bilirubin 0.2 mg/dL (0.2-1.3); Total Protein 6.1 g/dL (6.3-8.2)
[2018-01-14 21:28] LABS: D-Dimer 0.37 mg/L FEU (<0.60); Partial Thromboplastin Time 23.6 sec (22.0-30.0); Prothrombin Time 9.5 sec (9.0-12.0)
[2018-01-14] MEDS ORDERED: SUMAtriptan SUCCINATE 50 MG TAB PO STA (21:53)
[2018-01-14 21:56] LABS: Creatine Kinase 56 U/L (30-135)
[2018-01-14] MEDS ORDERED: FUROSEMIDE 10 MG/ML 4 ML VIAL ONE (23:04)
[2018-01-15 04:09] LABS: Creatine Kinase MB 1.2 ng/mL (0.0-2.4); Troponin I <0.012 ng/mL (0.000-0.034)
== END 2018-01-14 23:45 | disposition home or self-care (01) ==
LOC: EC 17:41
DX: R60.0 Localized edema (principal); L53.9 Erythematous condition, unspecified; M79.661 Pain in right lower leg; M79.662 Pain in left lower leg; R06.00 Dyspnea, unspecified; R00.2 Palpitations; K21.9 Gastro-esophageal reflux disease without esophagitis; G25.81 Restless legs syndrome; G89.29 Other chronic pain; Z87.891 Personal history of nicotine dependence; Z79.899 Other long term (current) drug therapy; Z88.2 Allergy status to sulfonamides; Z88.5 Allergy status to narcotic agent; Z88.6 Allergy status to analgesic agent; Z88.8 Allergy status to other drugs, medicaments and biological substances; Z91.040 Latex allergy status; Z91.041 Radiographic dye allergy status; Z96.653 Presence of artificial knee joint, bilateral
CPT/HCPCS: 36415; 80053; 82550; 82553; 83880; 84484; 85025; 85379; 85610; 85730; 93970; 99284

== ENCOUNTER → 2019-06-02 | Outpatient (CLI) | payer MEDICARE ==
[2019-06-02 12:27] VITALS: BP 127/86; PULSE 99; RESP 16
--- NOTE | 2019-06-03 14:28 | P.PAINCN ---
History of Present Illness - Reason for Consult Consult date: 06/02/19 - History of Present Illness This is 59 years old female with a history of Von Willebrand disease, and chronic pain syndrome,she had chronic ,and severe low back pain, started more than 20 years ago, she is complaining of severe low back pain with radiation to the buttocks bilaterally and into the posterior and lateral aspect of both legs, the pain is constant and increased with any activity, she denies any fever or night sweats, she denies any change in the bowel movement or urination, but she reported that the intensity of the pain interfering with the quality of life, she tried interventional pain management at different institution without any long-term benefit, and she is currently on [place] 10/325 every 8 hours and Neurontin 600 mg twice a day, she is getting prescription refills from her primary care but she reports the current medication is not helping enough to control the pain, which she feels some weakness in her lower extremity, but she is able to ambulate without difficulty, and she had some numbness and tingling in the lower extremities Past Medical History Past Medical History: Deep Vein Thrombosis (DVT), GERD/Reflux Additional Past Medical History / Comment(s): Von Willebrand Disease, diverticulitis, migraines, chronic back pain, RLS History of Any Multi-Drug Resistant Organisms: None Reported Past Surgical History: Adenoidectomy, Bariatric Surgery, Cholecystectomy, Hysterectomy, Joint Replacement, Orthopedic Surgery, Tonsillectomy Additional Past Surgical History / Comment(s): nury foot surgery, nury knee replaced, nury rotator cuffs, vielka en Y Past Anesthesia/Blood Transfusion Reactions: No Reported Reaction Past Psychological History: No Psychological Hx Reported Smoking Status: Former smoker Past Alcohol Use History: Rare Past Drug Use History: None Reported - Past Family History Mother Family Medical History: Cancer Father Family Medical History: Cancer Medications and Allergies Home Medications Medication Instructions Recorded Confirmed Type Cholecalciferol (Vitamin D3) 2,000 unit PO DAILY 06/20/17 06/02/19 History [Vitamin D3] Fluticasone Nasal [place] [Flonase 1 spray EA NOSTRIL DAILY PRN 06/20/17 06/02/19 History Nasal [place]] Hydrocodone/Acetaminophen [[place] 10 tab PO TID 06/20/17 06/02/19 History 10-325] Neupro 8mg Patch 1 patch TOPICAL DAILY 06/20/17 06/02/19 History Nystatin [Nystop] 1 applic TOPICAL TID 06/20/17 06/02/19 History SUMAtriptan SUCCINATE [Imitrex] 100 mg PO DAILY PRN 06/20/17 06/02/19 History Iron Infusion 1 injection IM Q60D 09/29/17 06/02/19 History Furosemide [Lasix] 40 mg PO DAILY #30 tablet 09/30/17 06/02/19 Rx buPROPion SR [Wellbutrin Sr] 150 mg PO TID 05/07/18 06/02/19 History Ddavp 1 ml INTRANASAL DIRECTED 06/02/19 06/02/19 History Desmopressin Acetate [Ddavp Inj] 1 injection IM DIRECTED 06/02/19 06/02/19 History Desmopressin Intranasal [Ddavp 1 unit NASAL DIRECTED 06/02/19 06/02/19 History Nasal [place]] Furosemide [Lasix] 1 tab PO DAILY 06/02/19 06/02/19 History Gabapentin [Neurontin] 1 cap BID 06/02/19 06/02/19 History Protonix 40 mg PO BID 06/02/19 06/02/19 History Allergies Allergy/AdvReac Type Severity Reaction Status Date / Time aspirin Allergy has Von Verified 05/07/18 10:14 Willebrands Disease ibuprofen [From Motrin] Allergy has Von Verified 05/07/18 10:14 Willebrands Disease Iodinated Contrast Media Allergy Anaphylaxis Verified 05/07/18 10:14 [Iodinated Contrast- Oral and IV Dye] isosorbide [From Imdur] Allergy Rash/Hives Verified 05/07/18 10:14 latex Allergy Anaphylaxis Verified 05/07/18 10:14 Sulfa (Sulfonamide Allergy Rash/Hives Verified 05/07/18 10:14 Antibiotics) codeine AdvReac agitation Verified 05/07/18 10:14 and restless leg symptoms increased Physical Exam REVIEW OF ORGAN SYSTEMS: CONSTITUTIONAL: No fevers or chills. No recent weight loss. EYES: denies troubles with vision. HEENT: No difficulties with hearing. No nosebleeds. No difficulty swallowing. RESPIRATORY: Denies any troubles with breathing or dyspnea on exertion. CARDIOVASCULAR: Denies any chest pain, palpitations, or recent heart attacks. GASTROINTESTINAL: Denies fatty food intolerance. Has change in bowel habits and gas bloat. GENITOURINARY: Denies any blood in urine. Has increased urinary frequency. NEUROLOGICAL: + numbness and tingling along the distal extremities. No seizure disorders or headaches. MUSCULOSKELETAL: Has back pain with radiation to the buttock bilaterally. SKIN:no skin cancer. No rash. PSYCHIATRIC: Denies current depression or suicidal thoughts. ENDOCRINE: Denies current thyroid disorders. Denies any blood sugar glucose intolerance. HEME/LYMPHATIC: VON WILLBRAND Disease. History of deep v enous thrombosis. ALLERGY/IMMUNOLOGY: No immunoglobulin therapy. No immune deficiencies. BREAST: Denies current breast lumps, pain or nipple dis charge. Physical Examinations : Constitutiona : Cooperative , not in acute distress . HEENT : nech : supple , no Lymphadenopathy , normal thyroid size . : eyes no ptosis , no icterus, no photophobia . . neurologic : Cranial nerve II to XII intact , no focal neurological deffecit . psychatric : alert , oriented X 3 , appropriate affect , intact judgment and insight . Lymphatic : no Lymphadenopathy . musculoskeltal : Lumber spine moter stegnth lower extremities ,thigh and legs 5/5 Right side , 5/5 Left side deep tendon reflexes : normal Knee Jerk , normal ankle Jerk lumber facet Loading Test= positive Right , positive Left Range of motion of the lumbar spine Flexion 30 degrees, extension 10 degrees strait leg raising test , positive at 45 degree Fabere test= positive Right , and positive left . Sever tenderness over the Sacroiliac joint on the Right , and Left sides Gaenslen test= positive bilaterally. Seated flexion test= positive bilaterally. Results Comments: MRI of the lumbar spine( Thumb MRI )= multilevel lumbar degenerative disc disease at L3 4 and L4 5 and L5-S1 and multilevel lumbar facet arthropathy at L3 4 and L4 5 and L5-S1 Assessment and Plan Plan: Assessment and plan=1-bilateral sacroiliitis. 2-lumbar spondylosis with lumbar facet arthropathy. 3-lumbar degenerative disc disease. Currently most of the pain, is coming from the sacroiliitis, patient would be good candidate to have bilateral sacroiliac joint steroid injections under fluoroscopy guidance, and also we have to check if she needs DDAVP infusion before the procedure, if she continued to have pain after the sacroiliac joint steroid injection, then we will consider doing diagnostic medial branch block lumbar area, treatment plan discussed with the patient and she agreed with the preceding, patient currently using Spencer 10/325 when necessary and Neurontin twice a day and she is getting prescription refills from her primary care Time with Patient: Greater than 30 PQRS Measure Charge Sheet Measure #130: Documentation of Current Meds in Medical Chart: Patient's medications documented in chart Measure #226: Tobacco Use: Screen & Cessation Intervention: Pt screened for tobacco use AND intervention given Measure #111: Pneumonia Vaccination: Pneumococcal vaccine administered or previously received Measure #47: Advance Care Plan: Advance care planning discussed & documented, pt chose/unable to give Measure #412: Opioid Treatment Agreement: No documentation of signed opioid treatment agreement Measure #408: Opioid Therapy Follow-up Evaluation: Patient had NO f/u eval minimum every 3 months during opioid therapy Measure #317: Preventitive Care & Scrn High Bld Press & F/U: Normal blood pressure, f/u not required Measure #128: Body Mass Index (BMI) Screening & Follow-up: BMI documented ABOVE normal parameters - f/u documented Measure #131: Pain Assessment & Follow-up: Pain positive & plan documented, Follow-up scheduled Measure #431: Unhealthy Alcohol Use Preventative Care & Scrn: Patient identified as unhealthy alcohol user; counseling given PQRS Narrative: Smoking Status Former smoker Blood Pressure 127/86 Pain Intensity [Lower Back] 9 Scale Used Numeric (1 - 10) Hx Alcohol Use (MH) Yes: occasionally Home Medications: Ambulatory Orders Cholecalciferol (Vitamin D3) [Vitamin D3] 2,000 unit PO DAILY 06/20/17 Fluticasone Nasal [place] [Flonase Nasal [place]] 1 spray EA NOSTRIL DAILY PRN 06/20 Hydrocodone/Acetaminophen [[place] 10-325] 10 tab PO TID 06/20/17 Neupro 8mg Patch 1 patch TOPICAL DAILY 06/20/17 Nystatin [Nystop] 1 applic TOPICAL TID 06/20/17 SUMAtriptan SUCCINATE [Imitrex] 100 mg PO DAILY PRN 06/20/17 Iron Infusion 1 injection IM Q60D 09/29/17 Furosemide [Lasix] 40 mg PO DAILY #30 tablet 09/30/17 buPROPion SR [Wellbutrin Sr] 150 mg PO TID 05/07/18 Ddavp 1 ml INTRANASAL DIRECTED 06/02/19 Desmopressin Acetate [Ddavp Inj] 1 injection IM DIRECTED 06/02/19 Desmopressin Intranasal [Ddavp Nasal [place]] 1 unit NASAL DIRECTED 06/02/19 Furosemide [Lasix] 1 tab PO DAILY 06/02/19 Gabapentin [Neurontin] 1 cap BID 06/02/19 Protonix 40 mg PO BID 06/02/19
== END | disposition home or self-care (01) ==
LOC: PNWHC3 12:04
PROVIDERS: ATTEND Specialist
DX: M46.1 Sacroiliitis, not elsewhere classified (principal); M47.816 Spondylosis without myelopathy or radiculopathy, lumbar region; M51.36 Other intervertebral disc degeneration, lumbar region; G89.29 Other chronic pain; K21.9 Gastro-esophageal reflux disease without esophagitis; I82.409 Acute embolism and thrombosis of unspecified deep veins of unspecified lower extremity; Z88.8 Allergy status to other drugs, medicaments and biological substances; Z88.2 Allergy status to sulfonamides; Z88.5 Allergy status to narcotic agent; Z91.041 Radiographic dye allergy status; Z79.891 Long term (current) use of opiate analgesic; Z79.899 Other long term (current) drug therapy; Z87.891 Personal history of nicotine dependence
CPT/HCPCS: 99201

== ENCOUNTER 2019-06-24 08:51 | Emergency (ER) | payer MEDICARE ==
[2019-06-24 09:15] VITALS: RESP 20; TEMP 97.9
[2019-06-24] MEDS ORDERED: SODIUM CHLORIDE 0.9% 1,000 ML IV ONE (09:26)
[2019-06-24] MEDS ORDERED: PANTOPRAZOLE 40 MG/10 ML VIAL IVP STA (09:26)
--- NOTE | 2019-06-24 09:26 | ED ---
Fall HPI - General Chief Complaint: Fall Stated Complaint: Fall Time Seen by Provider: 06/24/19 09:01 Source: patient, EMS, RN notes reviewed, old records reviewed Mode of arrival: EMS - History of Present Illness Initial Comments: 59-year-old female presents emergency department today after a fall. Patient reports that she was on a step ladder reaching up into her cabinet when she stepped backward. Patient reports that she fell onto the edge of the counter and landed on her left hip, lower back and tailbone. Patient reports she's had pain with any movement. She states she laid on the ground for an hour and then called her chair and called EMS for help. Patient states that she's had history of von Willebrand disease. Patient has had previous orthopedic surgeries. Has a known history of degenerative changes within her spine. - Related Data Home Medications Medication Instructions Recorded Confirmed Fluticasone Nasal [place] [Flonase 1 spray EA NOSTRIL BID PRN 06/20/17 06/24/19 Nasal [place]] SUMAtriptan SUCCINATE [Imitrex] 100 mg PO BID PRN 06/20/17 06/24/19 buPROPion SR [Wellbutrin Sr] 450 mg PO DAILY 05/07/18 06/24/19 Desmopressin Intranasal [Ddavp 1 spray EA NOSTRIL DAILY PRN 06/02/19 06/24/19 Nasal [place]] Furosemide [Lasix] 80 mg PO DAILY 06/02/19 06/24/19 EPINEPHrine (Auto Inject) [Epipen] 0.3 mg IM ONCE PRN 06/24/19 06/24/19 Gabapentin 600 mg PO DAILY 06/24/19 06/24/19 Gabapentin [Neurontin] 1,200 mg PO HS 06/24/19 06/24/19 Pantoprazole [Protonix] 40 mg PO BID 06/24/19 06/24/19 Previous Rx's Medication Instructions Recorded HYDROcodone/APAP 5-325MG [[place] 1 tab PO Q6HR PRN 3 Days #12 tab 06/24/19 5-325] Allergies Allergy/AdvReac Type Severity Reaction Status Date / Time aspirin Allergy has Von Verified 06/24/19 10:04 Willebrands Disease ibuprofen [From Motrin] Allergy has Von Verified 06/24/19 10:04 Willebrands Disease Iodinated Contrast Media Allergy Anaphylaxis Verified 06/24/19 10:04 [Iodinated Contrast- Oral and IV Dye] isosorbide [From Imdur] Allergy Rash/Hives Verified 06/24/19 10:04 latex Allergy Anaphylaxis Verified 06/24/19 10:04 Sulfa (Sulfonamide Allergy Rash/Hives Verified 06/24/19 10:04 Antibiotics) codeine AdvReac agitation Verified 06/24/19 10:04 and restless leg symptoms increased Review of Systems ROS Statement: Those systems with pertinent positive or pertinent negative responses have been documented in the HPI. ROS Other: All systems not noted in ROS Statement are negative. Past Medical History Past Medical History: Deep Vein Thrombosis (DVT), GERD/Reflux Additional Past Medical History / Comment(s): Von Willebrand Disease, diverticulitis, migraines, chronic back pain, RLS History of Any Multi-Drug Resistant Organisms: None Reported Past Surgical History: Adenoidectomy, Bariatric Surgery, Cholecystectomy, Hysterectomy, Joint Replacement, Orthopedic Surgery, Tonsillectomy Additional Past Surgical History / Comment(s): nury foot surgery, nury knee replaced, nury rotator cuffs, vielka en Y Past Anesthesia/Blood Transfusion Reactions: No Reported Reaction Past Psychological History: No Psychological Hx Reported Smoking Status: Former smoker Past Alcohol Use History: Rare Past Drug Use History: None Reported - Past Family History Mother Family Medical History: Cancer Father Family Medical History: Cancer General Exam - General Exam Comments Initial Comments: Pleasant 59-year-old female. Alert and oriented 3. Limitations: no limitations General appearance: alert, in no apparent distress Head exam: Present: atraumatic, normocephalic, normal inspection Eye exam: Present: normal appearance, PERRL, EOMI. Absent: scleral icterus, conjunctival injection, periorbital swelling ENT exam: Present: normal exam, mucous membranes moist Neck exam: Present: normal inspection. Absent: tenderness, meningismus, lymphadenopathy Respiratory exam: Present: normal lung sounds bilaterally. Absent: respiratory distress, wheezes, rales, rhonchi, stridor Cardiovascular Exam: Present: regular rate, normal rhythm, normal heart sounds. Absent: systolic murmur, diastolic murmur, rubs, gallop, clicks GI/Abdominal exam: Present: soft, normal bowel sounds. Absent: distended, tenderness, guarding, rebound, rigid Extremities exam: Present: normal inspection, normal capillary refill. Absent: full ROM, tenderness, pedal edema, joint swelling, calf tenderness Right Shoulder Exam: Present: normal inspection, full ROM, tenderness, swelling Upper Arm exam: Present: normal inspection, full ROM Elbow exam: Present: normal inspection, full ROM Forearm Wrist exam: Present: normal inspection, full ROM Hand Wrist exam: Present: normal inspection, full ROM Neuro motor exam: Present: wrist extension intact Vascular: Present: normal capillary refill Left Knee exam: Present: normal inspection, full ROM Lower Leg exam: Present: normal inspection, full ROM Ankle exam: Present: tenderness, swelling. Absent: normal inspection, full ROM, abrasion, laceration, ecchymosis, deformity, crepitus, dislocation Foot/Toe exam: Present: normal inspection, full ROM Neurovascular tendon exam: Present: no vascular compromise Gait: observed and normal Back exam: Present: normal inspection, full ROM Neurological exam: Present: alert, oriented X3, CN II-XII intact Psychiatric exam: Present: normal affect, normal mood Course Vital Signs 06/24/19 06/24/19 06/24/19 09:12 09:15 10:15 Temperature 97.9 F Pulse Rate 85 78 Respiratory 20 20 20 Rate Blood Pressure 103/63 116/78 120/70 O2 Sat by Pulse 98 Oximetry 06/24/19 06/24/19 06/24/19 11:15 12:15 13:15 Temperature Pulse Rate 75 72 78 Respiratory 20 20 20 Rate Blood Pressure 123/72 115/77 117/79 O2 Sat by Pulse Oximetry 06/24/19 06/24/19 14:00 15:10 Temperature Pulse Rate 85 89 Respiratory 20 20 Rate Blood Pressure 112/65 109/67 O2 Sat by Pulse 98 97 Oximetry Procedures - Orthopedic Splinting/Casting Injury #1 Side: left Lower Extremity Injury Location: short leg Lower Extremity Immobilizer: posterior splint Other Orthopedic Equipment: crutches, walker Medical Decision Making - Medical Decision Making 59-year-old female presents after fall. Patient complains of right shoulder pain, left ankle pain, back and tailbone pain. Patient reports she is unable to ambulate afterwards. She reviewed mass. Patient had extensive workup. Laboratory was reviewed and unremarkable. Patient's hip and pelvis x-ray initially showed no fracture. She still not ambulate. EC of the pelvis was reviewed and continues his sternal fractures. There is evidence of degenerative disc disease but no compression fractures in her spine. She also Left foot and ankle pain. Patient had history of multiple surgeries on her left foot. X-ray of the left foot did show evidence of fracture or hardware within the first metatarsal. Patient was placed in a posterior splint. Patient reports that she follows with orthopedic Dr. Macedo in [place]. And prefers to follow-up with him. Patient also complains of some pain over her right shoulder. She did have recent rotator cuff surgery by Dr. Rascon. X-ray of the shoulder shows no fracture with possible rotator cuff injury with increasing space of the subacromial area likely related to rotator cuff tear. Patient this time was given a sling for right shoulder. I discussed the Patient is to follow-up promptly with orthopedic. Discharged with a short course of pain medication. Patient is agreeable treatment plan. - Lab Data Result diagrams: 06/24/19 09:59 06/24/19 09:59 Lab Results 06/24/19 06/24/19 06/24/19 Range/Units 09:59 09:59 09:59 WBC 7.3 (3.8-10.6) k/uL RBC 4.29 (3.80-5.40) m/uL Hgb 12.3 (11.4-16.0) gm/dL Hct 37.3 (34.0-46.0) % MCV 87.0 (80.0-100.0) fL MCH 28.6 (25.0-35.0) pg MCHC 32.9 (31.0-37.0) g/dL RDW 13.9 (11.5-15.5) % Plt Count 285 (150-450) k/uL Neutrophils % 66 % Lymphocytes % 22 % Monocytes % 6 % Eosinophils % 3 % Basophils % 0 % Neutrophils # 4.8 (1.3-7.7) k/uL Lymphocytes # 1.6 (1.0-4.8) k/uL Monocytes # 0.5 (0-1.0) k/uL Eosinophils # 0.2 (0-0.7) k/uL Basophils # 0.0 (0-0.2) k/uL PT 9.9 (9.0-12.0) sec INR 0.9 (<1.2) APTT 24.1 (22.0-30.0) sec Sodium 139 (137-145) mmol/L Potassium 3.9 (3.5-5.1) mmol/L Chloride 105 (98-107) mmol/L Carbon Dioxide 29 (22-30) mmol/L Anion Gap 5 mmol/L BUN 18 H (7-17) mg/dL Creatinine 0.54 (0.52-1.04) mg/dL Est GFR (CKD-EPI)AfAm >90 (>60 ml/min/1.73 sqM) Est GFR (CKD-EPI)NonAf >90 (>60 ml/min/1.73 sqM) Glucose 93 (74-99) mg/dL Calcium 9.0 (8.4-10.2) mg/dL Total Bilirubin 0.4 (0.2-1.3) mg/dL AST 22 (14-36) U/L ALT 17 (4-34) U/L Alkaline Phosphatase 80 (38-126) U/L Troponin I (0.000-0.034) ng/mL Total Protein 6.3 (6.3-8.2) g/dL Albumin 3.5 (3.5-5.0) g/dL 06/24/19 Range/Units 09:59 WBC (3.8-10.6) k/uL RBC (3.80-5.40) m/uL Hgb (11.4-16.0) gm/dL Hct (34.0-46.0) % MCV (80.0-100.0) fL MCH (25.0-35.0) pg MCHC (31.0-37.0) g/dL RDW (11.5-15.5) % Plt Count (150-450) k/uL Neutrophils % % Lymphocytes % % Monocytes % % Eosinophils % % Basophils % % Neutrophils # (1.3-7.7) k/uL Lymphocytes # (1.0-4.8) k/uL Monocytes # (0-1.0) k/uL Eosinophils # (0-0.7) k/uL Basophils # (0-0.2) k/uL PT (9.0-12.0) sec INR (<1.2) APTT (22.0-30.0) sec Sodium (137-145) mmol/L Potassium (3.5-5.1) mmol/L Chloride (98-107) mmol/L Carbon Dioxide (22-30) mmol/L Anion Gap mmol/L BUN (7-17) mg/dL Creatinine (0.52-1.04) mg/dL Est GFR (CKD-EPI)AfAm (>60 ml/min/1.73 sqM) Est GFR (CKD-EPI)NonAf (>60 ml/min/1.73 sqM) Glucose (74-99) mg/dL Calcium (8.4-10.2) mg/dL Total Bilirubin (0.2-1.3) mg/dL AST (14-36) U/L ALT (4-34) U/L Alkaline Phosphatase (38-126) U/L Troponin I <0.012 (0.000-0.034) ng/mL Total Protein (6.3-8.2) g/dL Albumin (3.5-5.0) g/dL 06/24/19 09:55 EKG performed at 926 shows normal sinus rhythm with voltage hears. Abnormal EKG. Ventricular rate of 83 beats a minute. Was 160 ms. She scientology is 84 ms. QTC 372/437 ms. - Radiology Data Radiology results: report reviewed Primary fracture of the distal fixation plate of the distal first metatarsal. No malalignment. Erosion of the distal aspect of the fifth proximal phalanx either for possible surgical intervention arthropathy. Diffuse edema. Disposition Clinical Impression: Fracture, foot, Rotator cuff injury, DDD (degenerative disc disease), lumbosacral, Fall Disposition: HOME SELF-CARE Condition: Good Instructions (If sedation given, give patient instructions): Rotator Cuff Injury (ED), Foot Fracture in Adults (ED) Additional Instructions: Patient is advised to follow-up with hvac specialist Dr. Diaz or Dr. Bynum. Patient should limit weightbearing. Use walker and crutches. He recommended wearing the splint as discussed until falling up with or wit ortho. Also using a sling for shoulder. Motrin Tylenol for pain. Take pain medicine as prescribed. Prescriptions: HYDROcodone/APAP 5-325MG [[place] 5-325] 1 tab PO Q6HR PRN 3 Days #12 tab PRN Reason: Pain Is patient prescribed a controlled substance at d/c from ED?: Yes If prescribed controlled substance>3 days was MAPS reviewed?: Prescribed <3 Days If opioid is for acute pain is fill amount 7 days or less?: Yes If Rx opioid, was Start Talking consent form obtained?: Yes Referrals: Kaleb Quick MD [Primary Care Provider] - 1-2 days Aleksey Luciano DO [REFERRING] - 1-2 days Hemant Ahmadi DO [Medical Doctor] - 1-2 days Time of Disposition: 15:05
[2019-06-24] MEDS ORDERED: MORPHINE SULFATE 4 MG/ML SYRINGE IVP STA ×3 (09:27→14:54)
[2019-06-24] MEDS ORDERED: ONDANSETRON 4 MG/2 ML VIAL IVP STA (09:27)
[2019-06-24 10:21] LABS: Basophils % (A) 0 %; Eosinophils # (A) 0.2 k/uL (0-0.7); Eosinophils % (A) 3 %; HCT 37.3 % (34.0-46.0); HGB 12.3 gm/dL (11.4-16.0); Lymphocytes # (A) 1.6 k/uL (1.0-4.8); Lymphocytes % (A) 22 %; MCH 28.6 pg (25.0-35.0); MCHC 32.9 g/dL (31.0-37.0); Mean Platelet Volume 8.2; Monocytes # (A) 0.5 k/uL (0-1.0); Monocytes % (A) 6 %; Neutrophils # (A) 4.8 k/uL (1.3-7.7); Neutrophils % (A) 66 %; Platelet Count 285 k/uL (150-450); RBC 4.29 m/uL (3.80-5.40); RDW 13.9 % (11.5-15.5); WBC 7.3 k/uL (3.8-10.6)
[2019-06-24 10:22] LABS: INR 0.9 (<1.2); Partial Thromboplastin Time 24.1 sec (22.0-30.0); Prothrombin Time 9.9 sec (9.0-12.0)
[2019-06-24 10:23] LABS: ALT 17 U/L (4-34); AST 22 U/L (14-36); African American GFR (CKD) >90 (>60 ml/min/1.73 sqM); Albumin 3.5 g/dL (3.5-5.0); Alkaline Phosphatase 80 U/L (38-126); Anion Gap 5 mmol/L; Blood Urea Nitrogen 18 mg/dL (7-17); Carbon Dioxide 29 mmol/L (22-30); Chloride 105 mmol/L (98-107); Glucose 93 mg/dL (74-99); Non-African American GFR(CKD) >90 (>60 ml/min/1.73 sqM); Potassium 3.9 mmol/L (3.5-5.1); Sodium 139 mmol/L (137-145); Total Bilirubin 0.4 mg/dL (0.2-1.3); Total Protein 6.3 g/dL (6.3-8.2)
--- NOTE | 2019-06-24 10:47 | XR ---
EXAMINATION TYPE: XR chest 1V DATE OF EXAM: 06/24/2019 COMPARISON: 09/29/2017 HISTORY: 59-year-old female with fall and pain TECHNIQUE: Single frontal view of the chest is obtained. FINDINGS: Patient rotated towards the right altering the normal cardiac and mediastinal contours. Heart mildly enlarged. Possible tortuosity/ectasia of the thoracic aorta, appearing to probably due to the degree of rotation. I don't exclude patchy medial right basilar opacity. Diffuse interstitial prominence as a chronic appearance. Suture anchors right humeral head. Loss of the subacromial space could reflect rotator cuff re-tear. IMPRESSION: Limited, rotated exam. Unable to exclude ectasia of the thoracic aorta or patchy atelectasis/infiltra te at the medial right base. Recommend repeat appropriately positioned AP or PA view of the chest.
--- NOTE | 2019-06-24 10:48 | XR ---
EXAMINATION TYPE: XR shoulder complete RT DATE OF EXAM: 06/24/2019 COMPARISON: NONE HISTORY: 59-year-old female with fall and pain TECHNIQUE: 3 views FINDINGS: Loss of the subacromial space. Some rounded appearance to the greater tuberosity. Multiple suture anc hors within the humeral head. AC joint appears congruent. No acute fracture or dislocation seen. IMPRESSION: Right rotator cuff repair with multiple suture anchors in the humeral head. However, loss of the suba cromial space suggests possible rotator cuff re-tear. No acute osseous abnormality seen.
--- NOTE | 2019-06-24 10:51 | XR ---
EXAMINATION TYPE: XR lumbar spine 2 or 3V DATE OF EXAM: 06/24/2019 CLINICAL HISTORY: Back pain after a fall TECHNIQUE: Frontal and lateral images of the lumbar spine are obtained. COMPARISON: CT dated 06/20/2017 FINDINGS: There is a levoscoliosis of the lumbar spine. There are 5 lumbar type vertebral bodies id entified. The lumbar spine shows satisfactory grade 1 anterolisthesis of L4 on L5, likely on a degen erative basis. Vertebral body heights are grossly maintained however crosstable lateral is suboptimal given patient body habitus. Mild to moderate degenerative disc disease is seen throughout the lumbar spine. Surgical clips are seen in the abdomen. IMPRESSION: Crosstable lateral view is suboptimal given patient body habitus however no gross evidenc e of vertebral body height loss. Grade 1 anterolisthesis of L4 on L5 is likely on a degenerative basi s with mild to moderate degenerative disc disease throughout.
--- NOTE | 2019-06-24 10:51 | XR ---
EXAMINATION TYPE: AP view pelvis and 2 views left hip DATE OF EXAM: 06/24/2019 COMPARISON: CT 06/20/2017 HISTORY: 59-year-old female with fall and pain FINDINGS: SI joints appear symmetric and intact. Small delineation to the arcuate lines of the sacrum. Hip join t space is relatively maintained. Limited visualization of the lower right femoral neck due to verify rep al rotation of the hip. While there is osteopenia, nondisplaced fracture seen along the proximal left femur. There is new osteitis pubis with sclerosis and ill-defined margins as compared to the CT of 7. IMPRESSION: 1. Osteopenia without displaced fracture. 2. New osteitis pubis as compared to 06/20/2017
[2019-06-24] MEDS ORDERED: MAG HYDROX/AL HYDROX/SIMETH 30 ML, HYOSCYAMINE ELIXIR 10 ML, LIDOCAINE VISCOUS 2% 10 ML PO STA ×3 (11:42)
[2019-06-24] MEDS ORDERED: diphenhydrAMINE 50 MG/ML 1 ML VIAL IVP STA (13:03)
--- NOTE | 2019-06-24 13:14 | XR ---
EXAMINATION TYPE: XR ankle complete LT DATE OF EXAM: 06/24/2019 COMPARISON: NONE HISTORY: 59-year-old female with fall and pain TECHNIQUE: 3 views FINDINGS: Circumferential soft tissue swelling at the ankle. Smooth delineation to be distended. Moderate plant ar calcaneal spur. Additional generalized soft tissue swelling extends throughout the visualized foot . Direct fractured fixation plate located along the first metatarsal. Ankle mortise is congruent with preservation of the distal tibiofibular overlap. Talar dome is intact. No acute fracture, subluxatio n, or dislocation seen. Additional plate and screw fixation along the first TMT joint. IMPRESSION: 1. Generalized soft tissue swelling of the ankle and foot. 2. Ankle without acute osseous abnormality seen. 3. Suspect a fractured orthopedic fixation plate along the first metatarsal. Age indeterminate.
--- NOTE | 2019-06-24 13:19 | CT ---
EXAMINATION TYPE: CT lumbar spine wo con DATE OF EXAM: 06/24/2019 COMPARISON: 06/20/2017 HISTORY: 59-year-old female low back pain, left hip pain, inability to ambulate post fall TECHNIQUE: Contiguous axial scanning of the lumbar spine without IV contrast. Coronal and sagittal re constructions performed. CT DLP: 1865.8 mGycm Automated exposure control for dose reduction was used. FINDINGS: There is some surgical change noted along the stomach, likely Judith-en-Y gastric bypass. Nonobstructiv e 3 mm right renal calculus. Stable line from prior resection and reanastomosis at the rectosigmoid j unction. Mild degenerative change at the SI joints. Mild levoconvex scoliosis. There is vascular disease with degenerative thinning of the interspinous ligaments in abutment to yael r abutment of the spinous processes. Facet arthropathy throughout, greater towards the site of concavity on the right. Moderate degenerative disc disease throughout. Grade 1 anterolisthesis at L4-L5. Vertebral body heights are preserved. Bulging disks are suggested at L2-L3, L3-L4, L4-L5, L5-S1. No b juan carlos spinal canal compromise. On the left, changes resulting in mild neuroforaminal narrowing throughout, more moderate at L5-S1. On the right, changes result in moderate neuroforaminal stenosis at L3-L4, mild to moderate at L1-L2 and L2-L3. IMPRESSION: 1. NO VERTEBRAL COMPRESSION COLLAPSE. FACET ARTHROPATHY WITH GRADE 1 ANTEROLISTHESIS AT L4-L5. 2. BAASTRUP'S DISEASE. 3. MODERATE DEGENERATIVE DISC DISEASE THROUGHOUT. MRI COULD BETTER ASSESS THE SPINAL CANAL. BY CT, NO OBVIOUS CANAL COMPROMISE. 4. MODERATE NEUROFORAMINAL STENOSES ON THE RIGHT AT L3-L4 AND ON THE LEFT L5-S1. MILD TO MODERATE ON THE RIGHT AT L1-L2 AND L2-L3.
--- NOTE | 2019-06-24 13:22 | CT ---
EXAMINATION TYPE: CT pelvis wo con DATE OF EXAM: 06/24/2019 COMPARISON: None HISTORY: 59-year-old female low back pain, left hip pain, inability to ambulate post fall TECHNIQUE: Contiguous axial scanning of the pelvis without IV contrast. Coronal and sagittal reconstr uctions performed. CT DLP: 592.9 mGycm Automated exposure control for dose reduction was used. FINDINGS: There is osteopenia limiting assessment. Sacrum appears intact. Mild degenerative change at the SI celso ints. Some prior abdominal wall mesh repair along the infraumbilical midline. Resection and reanastom osis along the rectosigmoid junction. Osteitis pubis. Mild degenerative changes at the hips. No acute fracture identified IMPRESSION: OSTEITIS PUBIS. MILD DEGENERATIVE CHANGE AT THE SI JOINTS. VERY MILD DEGENERATIVE CHANGE OF THE HIPS. OSTEOPENIA WITHOUT DISPLACED PELVIC OR HIP FRACTURE.
--- NOTE | 2019-06-24 13:59 | XR ---
EXAMINATION TYPE: XR foot complete LT DATE OF EXAM: 06/24/2019 CLINICAL HISTORY: Left foot pain with prior fracture and fixation. TECHNIQUE: Frontal, lateral, and oblique images of the left foot are obtained. COMPARISON: None FINDINGS: Fixation plate is seen of the first tarsometatarsal joint and of the distal first metatars al from prior fracture fixation. There is fracture through the distal fixation plate. There are 2 terrance gical screws on the distal second and third metatarsals from prior fixation deformities. There is ero mariana of the proximal fifth phalanx at its distal aspect that may be from arthropathy, prior infection or postsurgical. There is generalized diffuse osseous demineralization and subcutaneous emphysema. N o acute fracture is identified. Moderate plantar heel spur is seen. IMPRESSION: 1. Hardware fracture of the distal fixation plate along the distal first metatarsal. No malalignment on the prior fracture site. 2. Erosion of the distal aspect of the fifth proximal phalanx either from prior surgical intervention , arthropathy, or prior infection. 3. Diffuse mild subcutaneous edema.
[2019-06-24 15:11] VITALS: BP 109/67; PULSE 89
== END 2019-06-24 15:15 | disposition home or self-care (01) ==
LOC: EC 08:51
DX: S46.001A Unspecified injury of muscle(s) and tendon(s) of the rotator cuff of right shoulder, initial encounter (principal); T84.213A Breakdown (mechanical) of internal fixation device of bones of foot and toes, initial encounter; M51.37 Other intervertebral disc degeneration, lumbosacral region; S22.20XA Unspecified fracture of sternum, initial encounter for closed fracture; K21.9 Gastro-esophageal reflux disease without esophagitis; Z87.891 Personal history of nicotine dependence; Z88.2 Allergy status to sulfonamides; Z88.5 Allergy status to narcotic agent; Z88.6 Allergy status to analgesic agent; Z88.8 Allergy status to other drugs, medicaments and biological substances; Z91.040 Latex allergy status; Z91.041 Radiographic dye allergy status; Z86.69 Personal history of other diseases of the nervous system and sense organs; Z86.2 Personal history of diseases of the blood and blood-forming organs and certain disorders involving the immune mechanism; Z96.653 Presence of artificial knee joint, bilateral; Z98.890 Other specified postprocedural states; W11.XXXA Fall on and from ladder, initial encounter; Y93.89 Activity, other specified; Y92.009 Unspecified place in unspecified non-institutional (private) residence as the place of occurrence of the external cause
CPT/HCPCS: 99285; 29515; 96374; 96375 ×3; 96376 ×2; 96361; 36415; 93005; 80053; 84484; 85025; 85610; 85730; 72100; 73502; 73030; 73610; 73630; 71045; 72192; 72131; J2270; J1200; J2405; C9113

== ENCOUNTER 2019-06-26 10:29 | Emergency (ER) | payer MEDICARE ==
[2019-06-26] MEDS ORDERED: SODIUM CHLORIDE 0.9% 1,000 ML IV STA (11:43)
[2019-06-26] MEDS ORDERED: MORPHINE SULFATE 4 MG/ML SYRINGE IVP STA (11:43)
[2019-06-26] MEDS ORDERED: MAG HYDROX/AL HYDROX/SIMETH 30 ML, HYOSCYAMINE ELIXIR 10 ML, LIDOCAINE VISCOUS 2% 10 ML PO STA ×3 (11:44)
[2019-06-26 13:02] LABS: Basophils % (A) 1 %; Eosinophils # (A) 0.2 k/uL (0-0.7); Eosinophils % (A) 3 %; HCT 35.7 % (34.0-46.0); HGB 11.8 gm/dL (11.4-16.0); Lymphocytes # (A) 1.1 k/uL (1.0-4.8); Lymphocytes % (A) 15 %; MCH 28.3 pg (25.0-35.0); MCV 85.9 fL (80.0-100.0); Mean Platelet Volume 8.2; Monocytes # (A) 0.5 k/uL (0-1.0); Monocytes % (A) 6 %; Neutrophils # (A) 5.5 k/uL (1.3-7.7); Neutrophils % (A) 74 %; Platelet Count 253 k/uL (150-450); RBC 4.15 m/uL (3.80-5.40); RDW 13.9 % (11.5-15.5); WBC 7.5 k/uL (3.8-10.6)
[2019-06-26 13:10] LABS: ALT 137 U/L (4-34); AST 90 U/L (14-36); African American GFR (CKD) >90 (>60 ml/min/1.73 sqM); Albumin 3.3 g/dL (3.5-5.0); Alkaline Phosphatase 130 U/L (38-126); Anion Gap 4 mmol/L; Blood Urea Nitrogen 15 mg/dL (7-17); Calcium 8.8 mg/dL (8.4-10.2); Carbon Dioxide 31 mmol/L (22-30); Chloride 103 mmol/L (98-107); Glucose 94 mg/dL (74-99); Non-African American GFR(CKD) >90 (>60 ml/min/1.73 sqM); Sodium 138 mmol/L (137-145); Total Bilirubin 0.4 mg/dL (0.2-1.3); Total Protein 6.1 g/dL (6.3-8.2)
--- NOTE | 2019-06-26 13:21 | CT ---
EXAMINATION TYPE: CT thoracic spine wo con DATE OF EXAM: 06/26/2019 COMPARISON: None HISTORY: 59-year-old female Thoracic pain, post fall on TECHNIQUE: Contiguous axial scanning of the thoracic spine without IV contrast. Coronal and sagittal reconstructions performed. CT DLP: 5.2 mGycm Automated exposure control for dose reduction was used. FINDINGS: The technologist reports that the patient is unable to bring arms above the head due to possible brok en shoulder. Accentuated midthoracic kyphosis. Moderate to severe degenerative disc disease mid to lower thoracic spine. Vertebral body heights are preserved and alignment is maintained. No acute fracture identified in the thoracic spine. Vertebral body heights are preserved. Scattered facet arthropathy. On the left, results in mild neural foraminal narrowing particularly at T3-T4, T4-T5, and T10-T11. On the right, mild bony neuroforaminal narrowing T4-T5. No bony spinal canal compromise Large caliber to the main right and the pulmonary arteries measuring up to the 2.8 cm and be seen wit h pulmonary artery hypertension. There is a moderate-sized hiatal hernia with some surgical change, possible gastric bypass. IMPRESSION: 1. THE TECHNOLOGIST REPORTS THAT THE PATIENT IS UNABLE TO BRING ARMS ABOVE THE HEAD DUE TO POSSIBLE B ROKEN SHOULDER. CLINICALLY CORRELATE. 2. MODERATE TO SEVERE DEGENERATIVE DISC DISEASE MID TO LOWER THORACIC SPINE. NO VERTEBRAL COMPRESSION COLLAPSE, MALALIGNMENT, OR ACUTE FRACTURE IDENTIFIED. 3. ACCENTUATED MIDTHORACIC KYPHOSIS. 4. CORRELATE FOR UNDERLYING PULMONARY ARTERIAL HYPERTENSION. 5. MODERATE-SIZED HIATAL HERNIA. SOME SURGICAL CHANGE IS PRESENT HERE POSSIBLY RELATED TO PRIOR GASTR IC BYPASS.
--- NOTE | 2019-06-26 13:23 | XR ---
EXAMINATION TYPE: XR chest 2V DATE OF EXAM: 06/26/2019 COMPARISON: 06/24/2019 HISTORY: 59 year-old female chest pain and shortness of breath TECHNIQUE: AP and lateral views FINDINGS: Heart mildly enlarged. Mild interstitial prominence. No consolidation or pleural effusion seen. Sutur e anchors at the right humeral head from prior cuff repair. IMPRESSION: Mild cardiomegaly. Interstitial changes which may in part be chronic. Correlate for possible mild pul monary vascular congestion. No pulmonary edema.
--- NOTE | 2019-06-26 14:59 | CT ---
EXAMINATION TYPE: CT abdomen pelvis wo con DATE OF EXAM: 06/26/2019 COMPARISON: CT pelvis 06/24/2019 HISTORY: 59-year-old female acute, nonlocalized generalized abdominal pain CT DLP: 1647.2 mGycm. Automated exposure control for dose reduction was used. TECHNIQUE: Contiguous axial scanning of the abdomen and pelvis without IV contrast. Coronal and sagit marilyn reconstructions performed. FINDINGS: Heart mildly enlarged. Some patchy atelectasis in the lower lungs without pleural effusion. There is a moderate-sized hiatal hernia with surgical change that seems to reflect Judith-en-Y gastric bypass. A hiatal hernia is 2 including the gastrojejunostomy. Lack of IV contrast limits assessment of the solid abdominal viscera, lymph nodes, and vascular struc tures. Liver enlarged at 20.5 cm. Cholecystectomy clips are present. Mild low density thickening left adrenal gland. Right adrenal gland, left kidney, spleen, and pancrea s show no gross anomaly. Tiny punctate 2 mm right renal calculus. There seems to be some metallic anchors within the anterior mid abdomen likely from prior feeding tub e. Some mesh material is also present in this region. No dilated small bowel, free fluid, or free air. No mesenteric or retroperitoneal lymphadenopathy. No rmal appendix. Moderate overall stool burden, particularly in the right side of the abdomen. Some focal fat stranding along the anterior abdominal subcutaneous adipose. Staple line along the distal sigmoid from prior resection and re-anastomosis. Mild diverticular hernández e along the distal sigmoid colon. No pericolonic inflammatory changes. Bladder distended. Uterus surgically absent. No adnexal abnormality or pelvic free fluid seen. Bones: Osteitis pubis. Degenerative changes lower lumbar spine with grade 1 anterolisthesis at L4-L5. Additional degenerative changes within the visualized lower thoracic spine. Levoconvex scoliosis. IMPRESSION: 1. Postsurgical changes of Judith-en-Y gastric bypass. However, note that there is a moderate sized hia marilyn hernia which includes the proximal anastomosis/gastrojejunostomy. 2. Distal sigmoid diverticulosis with prior resection and reanastomosis at this level. No evidence fo r acute diverticulitis. Moderate stool in the right side of the abdomen. 3. A 1 to 2 mm nonobstructive right renal calculus. 4. Prior mid abdominal wall mesh repair. There is some mild fat stranding within the anterior subcuta neous adipose overlying this level probably representing scarring. Correlate for any focal pain to ex clude inflammation.
--- NOTE | 2019-06-26 15:20 | ED ---
Back Pain HPI - General Source: patient Limitations: no limitations <Mehul Barr - Last Filed: 06/26/19 21:44> <Gisell Turner - Last Filed: 06/27/19 22:09> - General Chief Complaint: Back Pain/Injury Stated Complaint: back pain Time Seen by Provider: 06/26/19 11:03 - History of Present Illness Initial Comments: Patient is 59-year-old female presenting to the emergency department with a chief complaint of thoracic pain. Patient reports she was in the ED 2 days ago after fall. Patient states she had reinjured her right rotator cuff. She also fractured the left foot. Today she reports increased abdominal pain in thoracic region that is exacerbated with inspiration. She states there is also abdominal pain but that has not changed since the fall. Patient also reports some nausea and one episode of vomiting but states that is most likely due to her significant hiatal hernia. Patient denies any fevers or chills. Denies hematuria, hematochezia or melena. (Mehul Barr) - Related Data Home Medications Medication Instructions Recorded Confirmed Fluticasone Nasal [place] [Flonase 1 spray EA NOSTRIL BID PRN 06/20/17 06/24/19 Nasal [place]] SUMAtriptan SUCCINATE [Imitrex] 100 mg PO BID PRN 06/20/17 06/24/19 buPROPion SR [Wellbutrin Sr] 450 mg PO DAILY 05/07/18 06/24/19 Desmopressin Intranasal [Ddavp 1 spray EA NOSTRIL DAILY PRN 06/02/19 06/24/19 Nasal [place]] Furosemide [Lasix] 80 mg PO DAILY 06/02/19 06/24/19 EPINEPHrine (Auto Inject) [Epipen] 0.3 mg IM ONCE PRN 06/24/19 06/24/19 Gabapentin 600 mg PO DAILY 06/24/19 06/24/19 Gabapentin [Neurontin] 1,200 mg PO HS 06/24/19 06/24/19 Pantoprazole [Protonix] 40 mg PO BID 06/24/19 06/24/19 Previous Rx's Medication Instructions Recorded HYDROcodone/APAP 5-325MG [[place] 1 tab PO Q6HR PRN 3 Days #12 tab 06/24/19 5-325] Allergies Allergy/AdvReac Type Severity Reaction Status Date / Time aspirin Allergy has Von Verified 06/26/19 10:47 Willebrands Disease ibuprofen [From Motrin] Allergy has Von Verified 06/26/19 10:47 Willebrands Disease Iodinated Contrast Media Allergy Anaphylaxis Verified 06/26/19 10:47 [Iodinated Contrast- Oral and IV Dye] isosorbide [From Imdur] Allergy Rash/Hives Verified 06/26/19 10:47 latex Allergy Anaphylaxis Verified 06/26/19 10:47 Sulfa (Sulfonamide Allergy Rash/Hives Verified 06/26/19 10:47 Antibiotics) codeine AdvReac agitation Verified 06/26/19 10:47 and restless leg symptoms increased Review of Systems ROS Other: All systems not noted in ROS Statement are negative. <Mehul Barr - Last Filed: 06/26/19 21:44> ROS Other: All systems not noted in ROS Statement are negative. <Gisell Turner - Last Filed: 06/27/19 22:09> ROS Statement: Those systems with pertinent positive or pertinent negative responses have been documented in the HPI. Past Medical History Past Medical History: Deep Vein Thrombosis (DVT), GERD/Reflux Additional Past Medical History / Comment(s): Von Willebrand Disease, diverticulitis, migraines, chronic back pain, RLS History of Any Multi-Drug Resistant Organisms: None Reported Past Surgical History: Adenoidectomy, Bariatric Surgery, Cholecystectomy, Hysterectomy, Joint Replacement, Orthopedic Surgery, Tonsillectomy Additional Past Surgical History / Comment(s): nury foot surgery, nury knee replaced, nury rotator cuffs, vielka en Y Past Anesthesia/Blood Transfusion Reactions: No Reported Reaction Past Psychological History: No Psychological Hx Reported Smoking Status: Former smoker Past Alcohol Use History: Rare Past Drug Use History: None Reported - Past Family History Mother Family Medical History: Cancer Father Family Medical History: Cancer <Mehul Barr - Last Filed: 06/26/19 21:44> General Exam Limitations: no limitations General appearance: alert, in no apparent distress Head exam: Present: atraumatic, normocephalic, normal inspection Eye exam: Present: normal appearance, PERRL, EOMI Pupils: Present: normal accommodation ENT exam: Present: normal exam, normal oropharynx, mucous membranes moist, TM's normal bilaterally, normal external ear exam Neck exam: Present: normal inspection, full ROM. Absent: tenderness, lymphadenopathy Respiratory exam: Present: normal lung sounds bilaterally. Absent: respiratory distress, wheezes, rales, rhonchi, stridor, chest wall tenderness, accessory muscle use GI/Abdominal exam: Present: soft, tenderness (Mild diffuse abdominal tenderness). Absent: distended Extremities exam: Present: normal inspection, tenderness (Tenderness at the right shoulder.), normal capillary refill, other (+2 ulnar and radial pulses bilaterally. Splint on the left foot.). Absent: full ROM (Limited range of motion of the right shoulder due to pain.) Back exam: Present: normal inspection, tenderness, paraspinal tenderness, vertebral tenderness (Paraspinal and vertebral tenderness in the thoracic region.). Absent: full ROM (Limited range of motion with left and right rotation due to pain.), CVA tenderness (R), CVA tenderness (L), muscle spasm Neurological exam: Present: alert, oriented X3 Psychiatric exam: Present: normal affect, normal mood Skin exam: Present: warm, dry, intact, normal color <Mehul Barr - Alli Filed: 06/26/19 21:44> Course Vital Signs 06/26/19 06/26/19 06/26/19 10:43 10:47 11:47 Temperature 98.2 F Pulse Rate 92 92 Respiratory 16 20 20 Rate Blood Pressure 99/48 96/78 O2 Sat by Pulse 99 97 Oximetry 06/26/19 06/26/19 06/26/19 12:00 12:28 12:30 Temperature Pulse Rate 89 Respiratory 20 Rate Blood Pressure 119/75 119/62 O2 Sat by Pulse 97 100 98 Oximetry 06/26/19 06/26/19 06/26/19 13:00 13:30 14:00 Temperature Pulse Rate 78 80 Respiratory Rate Blood Pressure 96/78 111/78 115/72 O2 Sat by Pulse 96 95 96 Oximetry 06/26/19 16:16 Temperature 98 F Pulse Rate 87 Respiratory 18 Rate Blood Pressure 119/82 O2 Sat by Pulse 97 Oximetry Medical Decision Making - Lab Data Result diagrams: 06/26/19 12:38 06/26/19 12:38 <Mehul Barr - Alli Filed: 06/26/19 21:44> - Lab Data Result diagrams: 06/26/19 12:38 06/26/19 12:38 <Gisell Turner - Last Filed: 06/27/19 22:09> - Medical Decision Making Patient is 59-year-old female presenting to the emergency department with a chief complaint of back pain. She was in the ED 2 days ago for a fall. Patient was found to have a fracture foot and reinjured right rotator cuff. Examination patient does have pain in the right shoulder. She also has diffuse abdominal pain. The episode of nausea vomiting is mostly secondary to the significant mathis hernia. Patient is well aware of this. Laboratory results indicate elevation in liver enzymes. Patient denies drinking or taking a lot of Tylenol recently. Chest x-ray shows myocardium megaly. Interstitial changes may be a chronic issue. CT of the thoracic spine shows the patient was unable to fully extend her arms above her head due to the pain from the injured shoulder. Moderate to severe disc degenerative disease noted in the thoracic spine. However, there was no signs of vertebral compression collapse or any acute fractures. Moderate-sized hiatal hernia also noted however, this is known. CT of the abdomen and pelvis was performed to rule out any acute intra-abdominal pathologies. Noncontrast CT was obtained because the patient is ALLERGIC to contrast. Distal sigmoid diverticulosis noted with no signs of diverticulitis. Moderate stool in the right abdomen noted as well. Small renal calculus noted on the right side. Otherwise no acute pathologies. Patient was given analgesia and fluids. At this time patient states her symptoms are mostly under control. She Feels comfortable going home. Patient advised to continue her appointment for orthopedics. Strict return parameters were thoroughly discussed the patient was understanding and agreeable. Case discussed with physician. (Mehul Barr) I was available for consultation in the emergency department. The history and physical exam were done by the midlevel provider. I was consulted for this patients care. I reviewed the case with the midlevel provider and based on their presentation of the patient, I agree with the assessment, medical decision making and plan of care as documented. Chart was dictated using [employer] dictation software. Attempts were made to correct any dictation errors however some typographical errors may persist. (Gisell Turner) - Lab Data Lab Results 06/26/19 06/26/19 Range/Units 12:38 12:38 WBC 7.5 (3.8-10.6) k/uL RBC 4.15 (3.80-5.40) m/uL Hgb 11.8 (11.4-16.0) gm/dL Hct 35.7 (34.0-46.0) % MCV 85.9 (80.0-100.0) fL MCH 28.3 (25.0-35.0) pg MCHC 33.0 (31.0-37.0) g/dL RDW 13.9 (11.5-15.5) % Plt Count 253 (150-450) k/uL Neutrophils % 74 % Lymphocytes % 15 % Monocytes % 6 % Eosinophils % 3 % Basophils % 1 % Neutrophils # 5.5 (1.3-7.7) k/uL Lymphocytes # 1.1 (1.0-4.8) k/uL Monocytes # 0.5 (0-1.0) k/uL Eosinophils # 0.2 (0-0.7) k/uL Basophils # 0.0 (0-0.2) k/uL Sodium 138 (137-145) mmol/L Potassium 4.0 (3.5-5.1) mmol/L Chloride 103 (98-107) mmol/L Carbon Dioxide 31 H (22-30) mmol/L Anion Gap 4 mmol/L BUN 15 (7-17) mg/dL Creatinine 0.61 (0.52-1.04) mg/dL Est GFR (CKD-EPI)AfAm >90 (>60 ml/min/1.73 sqM) Est GFR (CKD-EPI)NonAf >90 (>60 ml/min/1.73 sqM) Glucose 94 (74-99) mg/dL Calcium 8.8 (8.4-10.2) mg/dL Total Bilirubin 0.4 (0.2-1.3) mg/dL AST 90 H (14-36) U/L ALT 137 H (4-34) U/L Alkaline Phosphatase 130 H (38-126) U/L Total Protein 6.1 L (6.3-8.2) g/dL Albumin 3.3 L (3.5-5.0) g/dL Disposition Is patient prescribed a controlled substance at d/c from ED?: No Time of Disposition: 15:16 <Mehul Barr - Last Filed: 06/26/19 21:44> <Gisell Turner - Last Filed: 06/27/19 22:09> Clinical Impression: Back pain, Degenerative disc disease, Hiatal hernia Disposition: HOME SELF-CARE Condition: Good Instructions (If sedation given, give patient instructions): Hiatal Hernia (ED), Back Pain (ED) Additional Instructions: Please follow up with primary and orthopedic surgeon.. Please return to emergency department if symptoms worsen. Referrals: Kaleb Quick MD [Primary Care Provider] - 1-2 days
[2019-06-26] MEDS ORDERED: HYDROcodone/APAP 7.5-325MG 1 EACH TAB PO ONE (15:30)
[2019-06-26 16:18] VITALS: BP 119/82; PULSE 87; RESP 18; TEMP 98
== END 2019-06-26 16:10 | disposition home or self-care (01) ==
LOC: EC 10:29
DX: M51.34 Other intervertebral disc degeneration, thoracic region (principal); K44.9 Diaphragmatic hernia without obstruction or gangrene; M25.511 Pain in right shoulder; R74.8 Abnormal levels of other serum enzymes; I51.7 Cardiomegaly; K57.30 Diverticulosis of large intestine without perforation or abscess without bleeding; N20.0 Calculus of kidney; K21.9 Gastro-esophageal reflux disease without esophagitis; G89.29 Other chronic pain; Z87.891 Personal history of nicotine dependence; Z88.2 Allergy status to sulfonamides; Z88.5 Allergy status to narcotic agent; Z88.6 Allergy status to analgesic agent; Z88.8 Allergy status to other drugs, medicaments and biological substances; Z91.040 Latex allergy status; Z91.041 Radiographic dye allergy status; Z79.899 Other long term (current) drug therapy; Z96.653 Presence of artificial knee joint, bilateral; Z87.828 Personal history of other (healed) physical injury and trauma; Z91.81 History of falling; Z90.49 Acquired absence of other specified parts of digestive tract; Z98.84 Bariatric surgery status; Z98.890 Other specified postprocedural states
CPT/HCPCS: 36415; 80053; 85025; 71046; 72128; 74176; 99284; 96374; 96361; J2270

== ENCOUNTER → 2019-07-20 | Day surgery (SDC) | payer MEDICARE, OTHER ==
[2019-07-16 11:53] VITALS: BMI 39.9
[~2019-07-20] MED LIST changes: +BUPIVACAINE (PF) 0.5% 30 ML VIAL ONE; +DESMOPRESSIN ACETATE IV NR; +IV FLUID CONTINUATION 1,000 ML IV ONE; +LIDOCAINE 1% 20 ML VIAL (10MG/ML) FOR IV START INTRADERMA ONE; -LIDOCAINE 1% 20 ML VIAL (10MG/ML) FOR IV START INTRADERMA PRN; +MIDAZOLAM 2 MG/2 ML VIAL ONE; +SODIUM CHLORIDE 0.9% 500 ML 500 ML in EMPTY BAG 1 BAG IV PRN; +SODIUM CHLORIDE 0.9% IV NR; +TRIAMCINOLONE ACETONIDE 40 MG/ML 1 ML VIAL ONE; +fentaNYL (PF) 50 MCG/ML 2 ML AMP ONE
[2019-07-20 10:05] VITALS: TEMP 98.9
[2019-07-20 12:04] VITALS: BP 106/67; PULSE 102; RESP 16
--- NOTE | 2019-07-20 12:08 | P.PCN ---
Date of Procedure: 07/20/19 Procedure(s) Performed: Preoperative diagnoses: bilateral sacroilitis Postoperative diagnoses: bilateral sacroilitis. Procedure: bilateral sacroiliac joint steroid injection under fluoroscopic guidance. Surgeon: Sonny Lewis MD Anesthesia: [2 mL of 1% lidocaine and IV sedation per hospital guidelines], sedation time 11 minutes Fluoroscopy was used for the procedure and fluoroscopic images were saved to the radiology portion of the patient's chart. EBL: None Procedure indication: The patient had a history of severe chronic low back pain, diagnosed with sacroiliitis unresponsive to conservative treatment. Procedure description: The patient was seen and identified in the preoperative holding area, risks and benefits and alternative of the procedure and possible complications discussed with the patient, and patient agreed with the preceding, patient signed the consent, an IV was started, and vital signs were monitored and were stable throughout the procedure, patient was placed in the prone position on table and the lumbosacral area was prepped and draped with a sterile fashion, vital signs were closely monitored during the procedure, the fluoroscopy camera was placed in the contralateral oblique view on the bilateral sacroiliac joint and the lower part of the joint was identified . Then the skin and subcutaneous tissue was anesthetized using 2 mL of 1% lidocaine then a 22- gauge Quincke-type spinal needle advanced slowly under fluoroscopy and placed in the posterior and inferior border of the right sacroiliac joint, placement confirmed with AP and lateral view, and after appropriate needle placement confirmed and after negative aspiration for heme, a solution consisting of 2 ml of ropivacaine 0.5% and 40 mg of Kenalog injected after negative aspiration, no paresthesia during the injection, no resistance to injection, and the needle was removed. The procedure was then repeated on the left side. Total of 80 mg of Kenalog was used for the procedure. Patient tolerated the procedure well without any complication. Contrast dye was not used for the procedure, the patient is ALLERGIC. 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 The patient was returned to supine position after the back was cleaned and a Band-Aid applied, the patient was transported to recovery room in stable condition and monitored for 30 minutes before being discharged home. The patient will follow up with the pain clinic in a few weeks
--- NOTE | 2019-07-20 13:36 | FL ---
EXAMINATION TYPE: FL guided pain mgmt statistic DATE OF EXAM: 07/20/2019 CLINICAL HISTORY: Bilateral sacroiliac joint pain. TECHNIQUE: Fluoroscopy. COMPARISON: None. FINDINGS: Fluoroscopic guidance was provided during pain relief procedure performed by Dr. Lewis . A total of 9 seconds of fluoroscopic time was utilized during the procedure and 3 spot images are acqui red. Images acquired shows needle localization at level of sacroiliac joint and sacrum. IMPRESSION: As Above.
== END ==
LOC: ORPAIN 09:18
PROVIDERS: ATTEND Anesthesiology
DX: G89.29 Other chronic pain (principal); M46.1 Sacroiliitis, not elsewhere classified; Z91.041 Radiographic dye allergy status; D68.0 Von Willebrand disease; Z91.040 Latex allergy status
CPT/HCPCS: 27096; J2250; J3301; J3010; J2597; 99152

== ENCOUNTER 2019-12-05 21:07 | Emergency (ER) | payer MEDICARE ==
[2019-12-05] MEDS ORDERED: ONDANSETRON 4 MG/2 ML VIAL IVP STA (21:42)
[2019-12-05] MEDS ORDERED: MORPHINE SULFATE 4 MG/ML SYRINGE IVP STA (21:42)
--- NOTE | 2019-12-05 21:55 | XR ---
EXAMINATION TYPE: XR ankle complete RT DATE OF EXAM: 12/05/2019 COMPARISON: NONE HISTORY: Ankle pain TECHNIQUE: 2 views FINDINGS: Ankle mortise is anatomic. I see no fracture nor dislocation. There is calcaneal spurring. There is previous surgery at the navicular cuneiform joint. IMPRESSION: Previous surgery. Soft tissue swelling around the lower leg and ankle. No fracture seen.
--- NOTE | 2019-12-05 21:56 | XR ---
EXAMINATION TYPE: XR knee complete RT DATE OF EXAM: 12/05/2019 COMPARISON: NONE HISTORY: Knee pain TECHNIQUE: 3 views FINDINGS: There is right knee prosthesis. Components are in anatomic position. I see no fracture. The re is no sign of joint effusion. IMPRESSION: No fracture seen.
--- NOTE | 2019-12-05 22:23 | XR ---
EXAMINATION TYPE: XR wrist complete RT DATE OF EXAM: 12/05/2019 COMPARISON: NONE HISTORY: Wrist pain TECHNIQUE: 4 views FINDINGS: There is narrowing of the first carpometacarpal joint space with extensive spurring and scl erosis. The radiocarpal joint is intact. I see no fracture nor dislocation. Metacarpals are intact. IMPRESSION: Moderate osteoarthritis at the base of the thumb. No fracture seen.
--- NOTE | 2019-12-05 22:33 | XR ---
EXAMINATION TYPE: XR shoulder complete RT DATE OF EXAM: 12/05/2019 COMPARISON: June 24, 2019 HISTORY: Pain TECHNIQUE: 3 views FINDINGS: There is right shoulder prosthesis. Components are in anatomic position. The AC joint is in tact. IMPRESSION: Right shoulder surgery. No acute bony abnormality. No fracture seen.
--- NOTE | 2019-12-05 22:34 | XR ---
EXAMINATION TYPE: XR humerus RT DATE OF EXAM: 12/05/2019 COMPARISON: NONE HISTORY: Pain TECHNIQUE: 3 views FINDINGS: There is right shoulder prosthesis. Elbow joint is intact. I see no fracture nor dislocatio n. IMPRESSION: No acute abnormality of the right humerus.
[2019-12-05] MEDS ORDERED: PANTOPRAZOLE 40 MG/10 ML VIAL IVP STA (22:48)
[2019-12-05] MEDS ORDERED: MAG HYDROX/AL HYDROX/SIMETH 30 ML, HYOSCYAMINE ELIXIR 10 ML, LIDOCAINE VISCOUS 2% 10 ML PO STA ×3 (23:02)
[2019-12-05] MEDS ORDERED: FAMOTIDINE 20 MG/2 ML VIAL IV STA (23:06)
--- NOTE | 2019-12-05 23:09 | ED ---
Fall HPI - General Chief Complaint: Fall Stated Complaint: Fall, shoulder injury Time Seen by Provider: 12/05/19 21:10 Source: patient Mode of arrival: EMS - History of Present Illness Initial Comments: The patient is a 59-year-old female with recent right shoulder replacement who presents to the emergency room after she sustained a fall. Patient states that she was wearing fuzzy slippers and got her slippers stuck underneath a rug. She fell forward and landed on the lateral aspect of her right shoulder. She just had a reverse shoulder replacement done by Dr. Hoang out of [facility] on Friday. She has been wearing her shoulder brace. She is taking OxyContin at home for pain and last one at 6 PM. After the injury she had increasing pain in her right shoulder as well as her right wrist, right knee and right ankle. She lives alone when the injury happened she had to crawl to the door and scream for neighbors. She was able to bear weight on the right lower extremity with assistance of EMS. She denies blunt head trauma or loss of consciousness. Denies numbness, tingling or weakness in the extremities. No back or flank pain. 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 - Related Data Home Medications Medication Instructions Recorded Confirmed Fluticasone Nasal [place] [Flonase 1 spray EA NOSTRIL BID PRN 06/20/17 07/20/19 Nasal [place]] SUMAtriptan SUCCINATE [Imitrex] 100 mg PO BID PRN 06/20/17 07/20/19 buPROPion SR [Wellbutrin Sr] 450 mg PO DAILY 05/07/18 07/20/19 Desmopressin Intranasal [Ddavp 1 spray EA NOSTRIL DAILY PRN 06/02/19 07/20/19 Nasal [place]] Furosemide [Lasix] 80 mg PO DAILY 06/02/19 07/20/19 EPINEPHrine (Auto Inject) [Epipen] 0.3 mg IM ONCE PRN 06/24/19 07/20/19 Gabapentin 600 mg PO DAILY PRN 06/24/19 07/20/19 Gabapentin [Neurontin] 1,200 mg PO HS 06/24/19 07/20/19 Pantoprazole [Protonix] 40 mg PO BID 06/24/19 07/20/19 Allergies Allergy/AdvReac Type Severity Reaction Status Date / Time aspirin Allergy has Von Verified 12/11/19 18:52 Willebrands Disease ibuprofen [From Motrin] Allergy has Von Verified 12/11/19 18:52 Willebrands Disease Iodinated Contrast Media Allergy Anaphylaxis Verified 12/11/19 18:52 [Iodinated Contrast- Oral and IV Dye] isosorbide [From Imdur] Allergy Rash/Hives Verified 12/11/19 18:52 latex Allergy Anaphylaxis Verified 12/11/19 18:52 Sulfa (Sulfonamide Allergy Rash/Hives Verified 12/11/19 18:52 Antibiotics) codeine AdvReac agitation Verified 12/11/19 18:52 and restless leg symptoms increased Review of Systems ROS Statement: Those systems with pertinent positive or pertinent negative responses have been documented in the HPI. ROS Other: All systems not noted in ROS Statement are negative. Past Medical History Past Medical History: Deep Vein Thrombosis (DVT), GERD/Reflux Additional Past Medical History / Comment(s): Von Willebrand Disease, diverticu litis, migraines, chronic back pain, DVT bilat. Restless leg syndrome. Fell off her ladder last week and fx. L foot. History of Any Multi-Drug Resistant Organisms: None Reported Past Surgical History: Adenoidectomy, Bariatric Surgery, Cholecystectomy, Hysterectomy, Joint Replacement, Orthopedic Surgery, Tonsillectomy Additional Past Surgical History / Comment(s): nury foot surgery, nury knee replaced, nury rotator cuffs, Judith en Y approx 5 years, bowel surgery. right shoulder replacement Past Anesthesia/Blood Transfusion Reactions: Postoperative Nausea & Vomiting (PONV) Past Psychological History: No Psychological Hx Reported Smoking Status: Former smoker Past Alcohol Use History: None Reported Past Drug Use History: None Reported - Past Family History Mother Family Medical History: Cancer Father Family Medical History: Cancer General Exam Limitations: no limitations General appearance: alert, in no apparent distress Head exam: Present: atraumatic, normocephalic, normal inspection Eye exam: Present: normal appearance, PERRL, EOMI. Absent: scleral icterus, conjunctival injection, periorbital swelling ENT exam: Present: normal exam, mucous membranes moist Neck exam: Present: normal inspection. Absent: tenderness, meningismus, lymphadenopathy Respiratory exam: Present: normal lung sounds bilaterally. Absent: respiratory distress, wheezes, rales, rhonchi, stridor Cardiovascular Exam: Present: regular rate, normal rhythm, normal heart sounds. Absent: systolic murmur, diastolic murmur, rubs, gallop, clicks GI/Abdominal exam: Present: soft, normal bowel sounds. Absent: distended, tenderness, guarding, rebound, rigid Extremities exam: Present: tenderness (right proximal humerus and glenohumeraljoint. Patient in shoulder immobilizer. 2+ radial and ulnar pusles. incisions c/d/i. 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 Absent: pedal edema, joint swelling, calf tenderness Back exam: Present: normal inspection Neurological exam: Present: alert, oriented X3, CN II-XII intact Psychiatric exam: Present: normal affect, normal mood Skin exam: Present: warm, dry, intact, normal color. Absent: rash Course Vital Signs 12/05/19 12/05/19 21:10 23:27 Temperature 98.3 F 98.0 F Pulse Rate 95 90 Respiratory 20 18 Rate Blood Pressure 125/76 134/83 O2 Sat by Pulse 95 97 Oximetry Medical Decision Making - Medical Decision Making Upon arrival patient placed in room 10. Thorough history of physical exam is performed. Patient is sent over for x-rays of the patient's right shoulder, right humerus, right wrist, right knee and right ankle. Images are read by radiologist as negative for any acute fractures. She was given 4 mg of morphine for pain control as well as 4 mg of Zofran. She does have significant reflux because of the medication and therefore did give her a GI cocktail as well as Pepcid and Protonix. I discussed results of the patient. She is seen in the room using both extremities to techs on her cell phone. She is able to get up and ambulate around the room. At this time patient will be discharged home. Instructed her to call Dr. Hoang in the morning to let him know about the injury she sustained. She has any new or worsening symptoms she should return to the emergency room. Patient was in agreement. Plan she was discharged home in stable condition Disposition Clinical Impression: Fall, Right shoulder pain, Right wrist pain, Right knee pain, Right ankle pain Disposition: HOME SELF-CARE Condition: Stable Instructions (If sedation given, give patient instructions): Fall Prevention (ED) Additional Instructions: Please call Dr. Prabhakar in the morning and notify him of your injury. Take your medications as directed. Wear your shoulder brace. Return to the emergency department for any new or worsening symptoms Is patient prescribed a controlled substance at d/c from ED?: No Referrals: Willard Grant III, MD [Primary Care Provider] - 1-2 days Time of Disposition: 23:08
[2019-12-05 23:28] VITALS: BP 134/83; PULSE 90; RESP 18; TEMP 98
== END 2019-12-05 23:42 | disposition home or self-care (01) ==
LOC: EC 21:07
DX: M25.511 Pain in right shoulder (principal); M25.561 Pain in right knee; M25.531 Pain in right wrist; M25.571 Pain in right ankle and joints of right foot; K21.9 Gastro-esophageal reflux disease without esophagitis; G43.909 Migraine, unspecified, not intractable, without status migrainosus; Z88.2 Allergy status to sulfonamides; Z88.5 Allergy status to narcotic agent; Z88.6 Allergy status to analgesic agent; Z88.8 Allergy status to other drugs, medicaments and biological substances; Z91.041 Radiographic dye allergy status; Z91.040 Latex allergy status; Z87.891 Personal history of nicotine dependence; Z96.653 Presence of artificial knee joint, bilateral; Z96.611 Presence of right artificial shoulder joint; Z86.718 Personal history of other venous thrombosis and embolism; W01.0XXA Fall on same level from slipping, tripping and stumbling without subsequent striking against object, initial encounter; Y93.01 Activity, walking, marching and hiking; Y92.009 Unspecified place in unspecified non-institutional (private) residence as the place of occurrence of the external cause
CPT/HCPCS: 73030; 73060; 73110; 73562; 73610; 99283; 96374; 96375 ×3; J2270; J2405; C9113

== ENCOUNTER 2019-12-11 18:46 | Emergency (ER) | payer MEDICARE ==
[2019-12-11 18:57] VITALS: RESP 18
[2019-12-11] MEDS ORDERED: HYDROcodone/APAP 5-325MG 1 EACH TAB PO STA (19:33)
--- NOTE | 2019-12-11 19:40 | ED ---
General Adult HPI - General Chief complaint: Skin/Abscess/Foreign Body Stated complaint: recheck - fall Time Seen by Provider: 12/11/19 19:03 Source: patient, RN notes reviewed, old records reviewed Mode of arrival: ambulatory Limitations: no limitations - History of Present Illness Initial comments: 59-year-old female patient past history significant for von Willebrand's disease, recent fall on 12/04 on the right side presents to ED for chief complaint of right lower extremity pain. Patient worked that she has had new onset bruising within the last 24 hours. Reports that she is having pain from the knee down. Denies any trauma to head or neck. Denies abdominal pain back pain or any other complaints at this time. Systemic: Pt denies fatigue, fever/chills, rash. Pt denies weakness, night sweats, weight loss. Neuro: Pt denies headache, visual disturbances, syncope or pre-syncope. HEENT: Pt denies ocular discharge or irritation, otalgia, rhinorrhea, pharyngitis or notable lymphadenopathy. Cardiopulmonary: Pt denies chest pain, SOB, heart palpitations, dyspnea on exertion. Abdominal/GI: Pt denies abdominal pain, n/v/d. : Pt denies dysuria, burning w/ urination, frequency/urgency. Denies new onset urinary or bowel incontinence. Neuro: Pt denies new onset weakness, paresthesias. - Related Data Home Medications Medication Instructions Recorded Confirmed Fluticasone Nasal Start [Flonase 1 spray EA NOSTRIL BID PRN 06/20/17 07/20/19 Nasal Start] SUMAtriptan SUCCINATE [Imitrex] 100 mg PO BID PRN 06/20/17 07/20/19 buPROPion SR [Wellbutrin Sr] 450 mg PO DAILY 05/07/18 07/20/19 Desmopressin Intranasal [Ddavp 1 spray EA NOSTRIL DAILY PRN 06/02/19 07/20/19 Nasal Start] Furosemide [Lasix] 80 mg PO DAILY 06/02/19 07/20/19 EPINEPHrine (Auto Inject) [Epipen] 0.3 mg IM ONCE PRN 06/24/19 07/20/19 Gabapentin 600 mg PO DAILY PRN 06/24/19 07/20/19 Gabapentin [Neurontin] 1,200 mg PO HS 06/24/19 07/20/19 Pantoprazole [Protonix] 40 mg PO BID 06/24/19 07/20/19 Allergies Allergy/AdvReac Type Severity Reaction Status Date / Time aspirin Allergy has Von Verified 12/11/19 18:52 Willebrands Disease ibuprofen [From Motrin] Allergy has Von Verified 12/11/19 18:52 Willebrands Disease Iodinated Contrast Media Allergy Anaphylaxis Verified 12/11/19 18:52 [Iodinated Contrast- Oral and IV Dye] isosorbide [From Imdur] Allergy Rash/Hives Verified 12/11/19 18:52 latex Allergy Anaphylaxis Verified 12/11/19 18:52 Sulfa (Sulfonamide Allergy Rash/Hives Verified 12/11/19 18:52 Antibiotics) codeine AdvReac agitation Verified 12/11/19 18:52 and restless leg symptoms increased Review of Systems ROS Statement: Those systems with pertinent positive or pertinent negative responses have been documented in the HPI. ROS Other: All systems not noted in ROS Statement are negative. Past Medical History Past Medical History: Deep Vein Thrombosis (DVT), GERD/Reflux Additional Past Medical History / Comment(s): Von Willebrand Disease, diverticulitis, migraines, chronic back pain, DVT bilat. Restless leg syndrome. Fell off her ladder last week and fx. L foot. History of Any Multi-Drug Resistant Organisms: None Reported Past Surgical History: Adenoidectomy, Bariatric Surgery, Cholecystectomy, Hysterectomy, Joint Replacement, Orthopedic Surgery, Tonsillectomy Additional Past Surgical History / Comment(s): nury foot surgery, nury knee replaced, nury rotator cuffs, Judith en Y approx 5 years, bowel surgery. right shoulder replacement Past Anesthesia/Blood Transfusion Reactions: Postoperative Nausea & Vomiting (PONV) Past Psychological History: No Psychological Hx Reported Smoking Status: Former smoker Past Alcohol Use History: None Reported Past Drug Use History: None Reported - Past Family History Mother Family Medical History: Cancer Father Family Medical History: Cancer General Exam - General Exam Comments Initial Comments: Constitutional: NAD, AOX3, Pt has pleasant affect. HEENT: NC/AT, trachea midline, neck supple, no lymphadenopathy. Posterior pharynx non erythematous, without exudates. External ears appear normal, without discharge. Mucous membranes moist. Eyes PERRLA, EOM intact. There is no scleral icterus. No pallor noted. Cardiopulmonary: RRR, no murmurs, rubs or gallops, no JVD noted. Lungs CTAB in anterior and posterior griffith. No peripheral edema. Abdominal exam: Abdomen soft and non-distended. Abdomen non-tender to palpation in all 4 quadrants. Bowel sounds active in LLQ. No hepatosplenomegaly. No ecchymosis. No cervical thoracic or lumbar tenderness. No posterior ecchymoses are noted. Neuro: CN II-XII grossly intact. No nuchal rigidity. No raccon eyes, no pandey sign, no hemotympanum. No cervical spinal tenderness. MSK: Right-sided Anterior ecchymoses are noted from the midshaft tibia fibula down to the foot. No posterior ecchymoses are noted. There is tenderness from the anterior knee down to the foot. Tenderness is all anterior. No posterior tenderness. Full active range of motion of the knees and ankles. Neurovascularly intact. Posterior tibialis pulse, dorsalis pedis pulse +2. The re is no hip tenderness there is no femur tenderness bilaterally. There is no tenderness to left lower extremity. Limitations: no limitations Course Vital Signs 12/11/19 18:53 Temperature 98.4 F Pulse Rate 90 Respiratory 18 Rate Blood Pressure 132/80 O2 Sat by Pulse 100 Oximetry Medical Decision Making - Medical Decision Making 59-year-old female patient past history significant for von Willebrand's disease, recent fall on 12/04 on the right side presents to ED for chief complaint of right lower extremity pain. Patient worked that she has had new onset bruising within the last 24 hours. Reports that she is having pain from the knee down. Denies any trauma to head or neck. Denies abdominal pain back pain or any other complaints at this time. Patient vital signs are stable, afebrile. Physical exam displayed: Right-sided Anterior ecchymoses are noted from the midshaft tibia fibula down to the foot. No posterior ecchymoses are noted. There is tenderness from the anterior knee down to the foot. Tenderness is all anterior. No posterior tenderness. Full active range of motion of the knees and ankles. Neurovascularly intact. Posterior tibialis pulse, dorsalis pedis pulse +2. Osteopenia generalized soft tissue swelling of the tibia- fibula and ankle. On the right foot there are postsurgical changes with some angular deformity of the metatarsal necks. Recommend correlation with patient also films for stability and to exclude nondisplaced but angulated fractures. Patient was ambulatory without difficulty. Laboratory investigations did reveal a hemoglobin of 10.2. Previous hemoglobin most recently of 12.6 in august. Patient did recently have a shoulder replacement surgery which could account for this drop. Patient was administered analgesic emergency department. As patient does have a immobilizer on her shoulder from her shoulder replacement surgery she is not a candidate for splinting and crutches. Patient will be placed in a postoperative shoe. We'll bear weight as tolerated. Will follow-up with both her primary care provider as well as orthopedic surgeon tomorrow. Will return to ER if condition worsens in any way. Case discussed with Dr. Whyte. - Lab Data Result diagrams: 12/11/19 19:40 12/11/19 19:40 Lab Results 12/11/19 12/11/19 Range/Units 19:40 19:40 WBC 7.4 (3.8-10.6) k/uL RBC 3.66 L (3.80-5.40) m/uL Hgb 10.2 L (11.4-16.0) gm/dL Hct 31.1 L (34.0-46.0) % MCV 85.0 (80.0-100.0) fL MCH 27.9 (25.0-35.0) pg MCHC 32.8 (31.0-37.0) g/dL RDW 14.9 (11.5-15.5) % Plt Count 409 (150-450) k/uL Neutrophils % 69 % Lymphocytes % 17 % Monocytes % 7 % Eosinophils % 4 % Basophils % 1 % Neutrophils # 5.1 (1.3-7.7) k/uL Lymphocytes # 1.3 (1.0-4.8) k/uL Monocytes # 0.5 (0-1.0) k/uL Eosinophils # 0.3 (0-0.7) k/uL Basophils # 0.1 (0-0.2) k/uL Hypochromasia Slight Sodium 136 L (137-145) mmol/L Potassium 4.0 (3.5-5.1) mmol/L Chloride 100 (98-107) mmol/L Carbon Dioxide 29 (22-30) mmol/L Anion Gap 7 mmol/L BUN 15 (7-17) mg/dL Creatinine 0.66 (0.52-1.04) mg/dL Est GFR (CKD-EPI)AfAm >90 (>60 ml/min/1.73 sqM) Est GFR (CKD-EPI)NonAf >90 (>60 ml/min/1.73 sqM) Glucose 92 (74-99) mg/dL Calcium 8.8 (8.4-10.2) mg/dL Total Bilirubin 0.3 (0.2-1.3) mg/dL AST 22 (14-36) U/L ALT 21 (4-34) U/L Alkaline Phosphatase 109 (38-126) U/L Total Protein 6.5 (6.3-8.2) g/dL Albumin 3.6 (3.5-5.0) g/dL Disposition Clinical Impression: Leg pain, Fall Disposition: HOME SELF-CARE Condition: Stable Instructions (If sedation given, give patient instructions): Fall Prevention for Older Adults (ED) Additional Instructions: Follow-up with primary care provider tomorrow. Follow with previously established orthopedic surgeon tomorrow. Recommend repeat CBC drawn tomorrow to monitor hemoglobin, results will be sent to PCP. Wear postop walking shoe until you're evaluated by orthopedic surgeon for possibility of non-displaced foot fracture. Return to ER if condition worsens in any way. Is patient prescribed a controlled substance at d/c from ED?: No Referrals: Willard Grant III, MD [Primary Care Provider] - 1-2 days
[2019-12-11 20:02] LABS: Basophils # (A) 0.1 k/uL (0-0.2); Basophils % (A) 1 %; Eosinophils # (A) 0.3 k/uL (0-0.7); Eosinophils % (A) 4 %; HCT 31.1 % (34.0-46.0); HGB 10.2 gm/dL (11.4-16.0); Hypochromasia Slight; Lymphocytes # (A) 1.3 k/uL (1.0-4.8); Lymphocytes % (A) 17 %; MCH 27.9 pg (25.0-35.0); MCHC 32.8 g/dL (31.0-37.0); Mean Platelet Volume 7.7; Monocytes # (A) 0.5 k/uL (0-1.0); Monocytes % (A) 7 %; Neutrophils # (A) 5.1 k/uL (1.3-7.7); Neutrophils % (A) 69 %; Platelet Count 409 k/uL (150-450); RBC 3.66 m/uL (3.80-5.40); RDW 14.9 % (11.5-15.5); WBC 7.4 k/uL (3.8-10.6)
[2019-12-11 20:10] LABS: ALT 21 U/L (4-34); AST 22 U/L (14-36); African American GFR (CKD) >90 (>60 ml/min/1.73 sqM); Albumin 3.6 g/dL (3.5-5.0); Alkaline Phosphatase 109 U/L (38-126); Anion Gap 7 mmol/L; Blood Urea Nitrogen 15 mg/dL (7-17); Calcium 8.8 mg/dL (8.4-10.2); Carbon Dioxide 29 mmol/L (22-30); Chloride 100 mmol/L (98-107); Glucose 92 mg/dL (74-99); Non-African American GFR(CKD) >90 (>60 ml/min/1.73 sqM); Sodium 136 mmol/L (137-145); Total Bilirubin 0.3 mg/dL (0.2-1.3); Total Protein 6.5 g/dL (6.3-8.2)
--- NOTE | 2019-12-11 20:25 | XR ---
EXAMINATION TYPE: XR ankle complete 3 views RT, XR tibia fibula 2 views RT, XR knee 4V RT, XR foot complete 3 views RT DATE OF EXAM: 12/11/2019 COMPARISON: NONE HISTORY: 59-year-old female fall and continued pain FINDINGS: Knee: There is a total knee arch plasty. Both distal femoral and proximal tibial components of the prosthes is appear well seated. No periprosthetic fracture seen. Trace knee joint effusion is nonspecific. The patellar remains a peripherally situated along the trochlear groove. Alignment grossly anatomic. Tibia/fibula: Generalized soft tissue swelling of the leg. No tibial or fibular shaft fracture. Ankle: Osteopenia. Talar dome appears intact. Ankle mortise appears congruent. Generalized soft tissue swell ing. No acute fracture, subluxation, dislocation seen. Moderate-sized plantar calcaneal spur. Foot: Status post bunionectomy. There is prior cortical screw fixation across the navicular cuneiform joint s. Prior osteotomies with fixation at the second and third metatarsal necks. Some angulation deformit ies here and clinical correlation is recommended. Prior osteotomies of the second through fourth prox imal phalangeal heads. Some degenerative change at the calcaneal cuboidal joint. Generalized soft tis [place] swelling. Moderate size plantar calcaneal spur. IMPRESSION: 1. Knee: Uncomplicated right total knee arthroplasty. Trace knee joint effusion is nonspecific. 2. Tibia/fibula and ankle: Osteopenia and generalized soft tissue swelling. No acute osseous abnormal ity seen. 3. Right foot: Status post bunionectomy. Prior surgical arthrodesis across the navicular cuneiform celso ints. Hallux valgus deformity with prior osteotomies at the second and third metatarsal necks with in ternal fixation screws. There is some angulation deformity here at the metatarsal necks. This should be correlated with patient's outside prior exams for stability and to exclude nondisplaced but angula donna fractures here.
[2019-12-11] MEDS ORDERED: ACET/COD 300 MG/30 MG STARTER PACK 6 TAB BTL PO STA (21:14)
--- NOTE | 2019-12-11 21:55 | ED ---
Medical Decision Making - Medical Decision Making Constitutional: NAD, AOX3, Pt has pleasant affect. HEENT: NC/AT, trachea midline, neck supple, no lymphadenopathy. Posterior pharynx non erythematous, without exudates. External ears appear normal, without discharge. Mucous membranes moist. Eyes PERRLA, EOM intact. There is no scleral icterus. No pallor noted. Cardiopulmonary: RRR, no murmurs, rubs or gallops, no JVD noted. Lungs CTAB in anterior and posterior griffith. No peripheral edema. Abdominal exam: Abdomen soft and non-distended. Abdomen non-tender to palpation in all 4 quadrants. Bowel sounds active in LLQ. No hepatosplenomegaly. No ecchymosis. No cervical thoracic or lumbar tenderness. No posterior ecchymoses are noted. Neuro: CN II-XII grossly intact. No nuchal rigidity. No raccon eyes, no pandey sign, no hemotympanum. No cervical spinal tenderness. MSK: Right-sided Anterior ecchymoses are noted from the midshaft tibia fibula down to the foot. No posterior ecchymoses are noted. There is tenderness from the anterior knee down to the foot. Tenderness is all anterior. No posterior tenderness. Full active range of motion of the knees and ankles. Neurovascularly intact. Posterior tibialis pulse, dorsalis pedis pulse +2. Equal bilaterally. There is no hip tenderness there is no femur tenderness nury aterally. There is no tenderness to left lower extremity. - Lab Data Result diagrams: 12/11/19 19:40 12/11/19 19:40 Lab Results 12/11/19 12/11/19 Range/Units 19:40 19:40 WBC 7.4 (3.8-10.6) k/uL RBC 3.66 L (3.80-5.40) m/uL Hgb 10.2 L (11.4-16.0) gm/dL Hct 31.1 L (34.0-46.0) % MCV 85.0 (80.0-100.0) fL MCH 27.9 (25.0-35.0) pg MCHC 32.8 (31.0-37.0) g/dL RDW 14.9 (11.5-15.5) % Plt Count 409 (150-450) k/uL Neutrophils % 69 % Lymphocytes % 17 % Monocytes % 7 % Eosinophils % 4 % Basophils % 1 % Neutrophils # 5.1 (1.3-7.7) k/uL Lymphocytes # 1.3 (1.0-4.8) k/uL Monocytes # 0.5 (0-1.0) k/uL Eosinophils # 0.3 (0-0.7) k/uL Basophils # 0.1 (0-0.2) k/uL Hypochromasia Slight Sodium 136 L (137-145) mmol/L Potassium 4.0 (3.5-5.1) mmol/L Chloride 100 (98-107) mmol/L Carbon Dioxide 29 (22-30) mmol/L Anion Gap 7 mmol/L BUN 15 (7-17) mg/dL Creatinine 0.66 (0.52-1.04) mg/dL Est GFR (CKD-EPI)AfAm >90 (>60 ml/min/1.73 sqM) Est GFR (CKD-EPI)NonAf >90 (>60 ml/min/1.73 sqM) Glucose 92 (74-99) mg/dL Calcium 8.8 (8.4-10.2) mg/dL Total Bilirubin 0.3 (0.2-1.3) mg/dL AST 22 (14-36) U/L ALT 21 (4-34) U/L Alkaline Phosphatase 109 (38-126) U/L Total Protein 6.5 (6.3-8.2) g/dL Albumin 3.6 (3.5-5.0) g/dL Disposition Clinical Impression: Leg pain, Fall Disposition: HOME SELF-CARE Condition: Stable Instructions (If sedation given, give patient instructions): Fall Prevention for Older Adults (ED) Additional Instructions: Follow-up with primary care provider tomorrow. Follow with previously established orthopedic surgeon tomorrow. Recommend repeat CBC drawn tomorrow to monitor hemoglobin, results will be sent to PCP. Wear postop walking shoe until you're evaluated by orthopedic surgeon for possibility of non-displaced foot fracture. Return to ER if condition worsens in any way. Is patient prescribed a controlled substance at d/c from ED?: No Referrals: Willard Grant III, MD [Primary Care Provider] - 1-2 days
[2019-12-11 22:06] VITALS: BP 130/76; PULSE 88; TEMP 98.2
== END 2019-12-11 22:00 | disposition home or self-care (01) ==
LOC: EC 18:46
DX: S80.11XA Contusion of right lower leg, initial encounter (principal); K21.9 Gastro-esophageal reflux disease without esophagitis; Z86.718 Personal history of other venous thrombosis and embolism; Z86.2 Personal history of diseases of the blood and blood-forming organs and certain disorders involving the immune mechanism; Z96.653 Presence of artificial knee joint, bilateral; Z96.611 Presence of right artificial shoulder joint; Z87.891 Personal history of nicotine dependence; Z79.899 Other long term (current) drug therapy; Z88.6 Allergy status to analgesic agent; Z91.041 Radiographic dye allergy status; Z88.8 Allergy status to other drugs, medicaments and biological substances; Z91.040 Latex allergy status; Z88.2 Allergy status to sulfonamides; Z88.5 Allergy status to narcotic agent; W01.0XXA Fall on same level from slipping, tripping and stumbling without subsequent striking against object, initial encounter
CPT/HCPCS: 36415; 80053; 85025; 99284

== ENCOUNTER 2019-12-30 14:15 | Emergency (ER) | payer MEDICARE ==
[2019-12-30] MEDS ORDERED: ACET/COD 300 MG/30 MG STARTER PACK 6 TAB BTL PO STA (15:02)
--- NOTE | 2019-12-30 15:03 | ED ---
General Adult HPI - General Chief complaint: Recheck/Abnormal Lab/Rx Stated complaint: SX incision drainage Time Seen by Provider: 12/30/19 14:42 Source: patient, RN notes reviewed Mode of arrival: ambulatory Limitations: no limitations - History of Present Illness Initial comments: 59-year-old female presents to the emergency department for a chief complaint of leaking from the right shoulder incision. Patient states she had shoulder surgery on November 29 for her rotator cuff. Patient states that she had a small area on the incision that has been leaking. Patient states home health nurse came to the house today and was concerned and requests that she call her orthopedic surgeon. When she called patient states there is no doctor in the office by office staff told her to go to the ER to make sure it was not infected. Patient denies any fevers or chills. Denies any redness of the right shoulder. Denies any decreased range of motion.Patient has no other complaints at this time including shortness of breath, chest pain, abdominal pain, nausea or vomiting, headache, or visual changes. - Related Data Home Medications Medication Instructions Recorded Confirmed Fluticasone Nasal [place] [Flonase 1 spray EA NOSTRIL BID PRN 06/20/17 07/20/19 Nasal [place]] SUMAtriptan SUCCINATE [Imitrex] 100 mg PO BID PRN 06/20/17 07/20/19 buPROPion SR [Wellbutrin Sr] 450 mg PO DAILY 05/07/18 07/20/19 Desmopressin Intranasal [Ddavp 1 spray EA NOSTRIL DAILY PRN 06/02/19 07/20/19 Nasal [place]] Furosemide [Lasix] 80 mg PO DAILY 06/02/19 07/20/19 EPINEPHrine (Auto Inject) [Epipen] 0.3 mg IM ONCE PRN 06/24/19 07/20/19 Gabapentin 600 mg PO DAILY PRN 06/24/19 07/20/19 Gabapentin [Neurontin] 1,200 mg PO HS 06/24/19 07/20/19 Pantoprazole [Protonix] 40 mg PO BID 06/24/19 07/20/19 Allergies Allergy/AdvReac Type Severity Reaction Status Date / Time aspirin Allergy has Von Verified 12/30/19 14:27 Willebrands Disease ibuprofen [From Motrin] Allergy has Von Verified 12/30/19 14:27 Willebrands Disease Iodinated Contrast Media Allergy Anaphylaxis Verified 12/30/19 14:27 [Iodinated Contrast- Oral and IV Dye] isosorbide [From Imdur] Allergy Rash/Hives Verified 12/30/19 14:27 latex Allergy Anaphylaxis Verified 12/30/19 14:27 Sulfa (Sulfonamide Allergy Rash/Hives Verified 12/30/19 14:27 Antibiotics) codeine AdvReac agitation Verified 12/30/19 14:27 and restless leg symptoms increased Review of Systems ROS Statement: Those systems with pertinent positive or pertinent negative responses have been documented in the HPI. ROS Other: All systems not noted in ROS Statement are negative. Past Medical History Past Medical History: Deep Vein Thrombosis (DVT), GERD/Reflux Additional Past Medical History / Comment(s): Von Willebrand Disease, diverticulitis, migraines, chronic back pain, DVT bilat. Restless leg syndrome. History of Any Multi-Drug Resistant Organisms: None Reported Past Surgical History: Adenoidectomy, Bariatric Surgery, Cholecystectomy, Hysterectomy, Joint Replacement, Orthopedic Surgery, Tonsillectomy Additional Past Surgical History / Comment(s): nury foot surgery, nury knee replaced, nury rotator cuffs, Judith en Y approx 5 years, bowel surgery. right shoulder replacement Past Anesthesia/Blood Transfusion Reactions: Postoperative Nausea & Vomiting (PONV) Past Psychological History: No Psychological Hx Reported Smoking Status: Former smoker Past Alcohol Use History: None Reported Past Drug Use History: None Reported - Past Family History Mother Family Medical History: Cancer Father Family Medical History: Cancer General Exam Limitations: no limitations General appearance: alert, in no apparent distress Head exam: Present: atraumatic, normocephalic, normal inspection Eye exam: Present: normal appearance, PERRL, EOMI. Absent: scleral icterus, conjunctival injection, periorbital swelling ENT exam: Present: normal exam, mucous membranes moist Neck exam: Present: normal inspection, full ROM. Absent: tenderness, meningismus, lymphadenopathy Respiratory exam: Present: normal lung sounds bilaterally. Absent: respiratory distress, wheezes, rales, rhonchi, stridor Cardiovascular Exam: Present: regular rate, normal rhythm, normal heart sounds. Absent: systolic murmur, diastolic murmur, rubs, gallop, clicks Extremities exam: Present: normal capillary refill (Capillary refill less than 2 seconds, radial pulse 2+ in the right upper extremity.), other (Patient is a very small healing 1 cm area of wound dehiscence along the incision of the right shoulder. There is no purulent drainage. Minimal serous drainage. There is no surrounding erythema or signs of infection.). Absent: full ROM (Patient has about 45 abduction of the right shoulder, 30 extension. Patient states that this is normal range of motion after her surgery.), tenderness (No tenderness of the right shoulder joint.), pedal edema, joint swelling (There is no edema or erythema of the right shoulder.), calf tenderness Course Vital Signs 12/30/19 14:23 Temperature 98 F Pulse Rate 91 Respiratory 18 Rate Blood Pressure 113/72 O2 Sat by Pulse 98 Oximetry Medical Decision Making - Medical Decision Making Physical exam reveals small area of wound dehiscence without any signs of infection. Vitals are stable. Steri-Strips were applied after the area was cleaned. Patient was given a medication for home. Patient will follow up with her orthopedic surgeon. She'll return here for any worsening symptoms. Disposition Clinical Impression: Wound dehiscence Disposition: HOME SELF-CARE Condition: Good Instructions (If sedation given, give patient instructions): Wound Dehiscence (ED) Additional Instructions: Please monitor for signs infection such as spreading redness, fevers, increased joint pain, decreased range of motion, or any other concerning symptoms. Follow-up with your orthopedic surgeon. Return to the emergency room for any worsening symptoms. Is patient prescribed a controlled substance at d/c from ED?: No Referrals: Willard Grant III, MD [Primary Care Provider] - 1-2 days Time of Disposition: 15:03
[2019-12-31 10:15] VITALS: BP 113/72; PULSE 91; RESP 18; TEMP 98
== END 2019-12-30 15:13 | disposition home or self-care (01) ==
LOC: EC 14:15
DX: T81.30XA Disruption of wound, unspecified, initial encounter (principal); K21.9 Gastro-esophageal reflux disease without esophagitis; G43.909 Migraine, unspecified, not intractable, without status migrainosus; G25.81 Restless legs syndrome; Z79.899 Other long term (current) drug therapy; Z88.6 Allergy status to analgesic agent; Z91.041 Radiographic dye allergy status; Z88.8 Allergy status to other drugs, medicaments and biological substances; Z91.040 Latex allergy status; Z88.5 Allergy status to narcotic agent; Z86.718 Personal history of other venous thrombosis and embolism; Z87.891 Personal history of nicotine dependence; Z86.2 Personal history of diseases of the blood and blood-forming organs and certain disorders involving the immune mechanism; Z96.653 Presence of artificial knee joint, bilateral; Z96.611 Presence of right artificial shoulder joint
CPT/HCPCS: 99283

== ENCOUNTER 2020-03-26 15:40 | Emergency (ER) | payer MEDICARE ==
[2020-03-26 15:46] VITALS: RESP 18
[2020-03-26] MEDS ORDERED: DESMOPRESSIN NASAL STA (15:56)
--- NOTE | 2020-03-26 16:26 | XR ---
EXAMINATION TYPE: XR foot complete LT DATE OF EXAM: 03/26/2020 COMPARISON: NONE HISTORY: Pain TECHNIQUE: 3 views FINDINGS: There are plates and screws fixing the first tarsometatarsal joint and the first MP joint. There is a fracture of the plate fusing the first tarsometatarsal joint. There are scattered screws i n the second and third metatarsal heads. I see no focal bone destruction. There is old osteotomy of t he head of the fourth and fifth proximal phalanges. The big toe appears intact. IMPRESSION: Previous surgery. Successful fusion surgery. No evidence of osteomyelitis.
[2020-03-26] MEDS ORDERED: LIDOCAINE 1% INJ 10MG/ML (20 ML MDV) SQ ONE (17:18)
[2020-03-26] MEDS ORDERED: CEPHALEXIN 500 MG CAP PO STA (17:53)
--- NOTE | 2020-03-26 18:08 | ED ---
General Adult HPI - General Chief complaint: Skin/Abscess/Foreign Body Stated complaint: abscess Time Seen by Provider: 03/26/20 15:48 Source: patient Mode of arrival: ambulatory Limitations: no limitations - History of Present Illness Initial comments: 60-year-old female past history of von Willebrant's disease who presents emergency room and reported redness and pain to her left great toe. Patient woke up this morning and found the top of her left great toe to be swollen with surrounding erythema and a central scab. Reports that she's been getting clear drainage from the site. She does have underlying hardware. Reports a throbbing pain. Denies increased pain with range of motion. Noted that the red streaking began going up her toe on the top of her foot and therefore came into her chart evaluation. Denies any fevers or chills. No history of gout. Denies trauma to the site. No other alleviating, precipitating or modifying factors - Related Data Home Medications Medication Instructions Recorded Confirmed Fluticasone Nasal [place] [Flonase 1 spray EA NOSTRIL BID PRN 06/20/17 03/23/20 Nasal [place]] SUMAtriptan SUCCINATE [Imitrex] 100 mg PO BID PRN 06/20/17 03/23/20 buPROPion SR [Wellbutrin Sr] 450 mg PO DAILY 05/07/18 03/23/20 Desmopressin Intranasal [Ddavp 1 spray EA NOSTRIL DAILY PRN 06/02/19 03/23/20 Nasal [place]] Furosemide [Lasix] 80 mg PO DAILY 06/02/19 03/23/20 EPINEPHrine (Auto Inject) [Epipen] 0.3 mg IM ONCE PRN 06/24/19 03/23/20 Gabapentin 600 mg PO DAILY PRN 06/24/19 03/23/20 Gabapentin [Neurontin] 1,200 mg PO HS 06/24/19 03/23/20 Pantoprazole [Protonix] 40 mg PO BID 06/24/19 03/23/20 Previous Rx's Medication Instructions Recorded Cephalexin [Keflex] 500 mg PO Q6HR 1 Days #28 cap 03/26/20 Allergies Allergy/AdvReac Type Severity Reaction Status Date / Time aspirin Allergy has Von Verified 03/26/20 15:46 Willebrands Disease ibuprofen [From Motrin] Allergy has Von Verified 10/04/20 15:46 Willebrands Disease Iodinated Contrast Media Allergy Anaphylaxis Verified 03/26/20 15:46 [Iodinated Contrast- Oral and IV Dye] isosorbide [From Imdur] Allergy Rash/Hives Verified 03/26/20 15:46 latex Allergy Anaphylaxis Verified 03/26/20 15:46 Sulfa (Sulfonamide Allergy Rash/Hives Verified 03/26/20 15:46 Antibiotics) codeine AdvReac agitation Verified 03/26/20 15:46 and restless leg symptoms increased Review of Systems ROS Statement: Those systems with pertinent positive or pertinent negative responses have been documented in the HPI. ROS Other: All systems not noted in ROS Statement are negative. Past Medical History Past Medical History: Deep Vein Thrombosis (DVT), GERD/Reflux Additional Past Medical History / Comment(s): Von Willebrand Disease, diverticulitis, migraines, chronic back pain, DVT bilat. Restless leg syndrome. History of Any Multi-Drug Resistant Organisms: None Reported Past Surgical History: Adenoidectomy, Bariatric Surgery, Cholecystectomy, Hysterectomy, Joint Replacement, Orthopedic Surgery, Tonsillectomy Additional Past Surgical History / Comment(s): nury foot surgery, nury knee replaced, nury rotator cuffs, Judith en Y approx 5 years, bowel surgery. right s houlder replacement Past Anesthesia/Blood Transfusion Reactions: Postoperative Nausea & Vomiting (PONV) Past Psychological History: No Psychological Hx Reported Smoking Status: Former smoker Past Alcohol Use History: None Reported Past Drug Use History: None Reported - Past Family History Mother Family Medical History: Cancer Father Family Medical History: Cancer General Exam Limitations: no limitations General appearance: alert, in no apparent distress Extremities exam: Present: other (chronic deformity left great toe. dorsal ip there is an area of swelling with central scabbing. this overlies a well healed surgical scar. mild erythema with tracking up the scar. ) Course Vital Signs 03/26/20 03/26/20 15:44 18:08 Temperature 97.4 F L 98.1 F Pulse Rate 99 93 Respiratory 18 18 Rate Blood Pressure 134/87 125/85 O2 Sat by Pulse 98 96 Oximetry Procedures - Incision & Drainage Consent Obtained: verbal consent Site: other (left great toe) Anesthetic Used: lidocaine 1% Amount (mLs): 5 I&D Cleaning Method: Alcohol Wipe Scalpel Used: #11 I&D Drainage Obtained: Blood Culture Obtained?: No Patient Tolerated Procedure: well, no complications Medical Decision Making - Medical Decision Making Upon arrival the patient is placed into room 16. A thorough history and physical exam is performed. Patient was given a dose of intranasal DDAVP. She was sent for an x-ray of her left foot which demonstrates previous surgery. Successful fusion surgery. No evidence of osteo-myelitis. The area was then numbed using 5 mL of 1% lidocaine without epinephrine. I then unroofed the central scab which demonstrated bright red blood. The wound was expressed there is no pustular drainage. Pressure dressing was placed. Patient was given a dose of Keflex in the emergency room. Patient will be discharged home on Keflex. She needs follow up with the primary care physician for reevaluation of suspected cellulitis. Return to the emergency room for any new or worsening symptoms. Patient was discharged home in stable condition Disposition Clinical Impression: Cellulitis, Von Willebrand disease Disposition: HOME SELF-CARE Condition: Stable Instructions (If sedation given, give patient instructions): Cellulitis (ED), Abscess Incision and Drainage (DC) Additional Instructions: Please follow up with your primary care doctor within 2-4 days. Return to the emergency room for any new or worsening symptoms Prescriptions: Cephalexin [Keflex] 500 mg PO Q6HR 1 Days #28 cap Is patient prescribed a controlled substance at d/c from ED?: No Referrals: Willard Grant III, MD [Primary Care Provider] - 1-2 days Mark Escobedo DPM [STAFF PHYSICIAN] - 1-2 days Time of Disposition: 17:57
[2020-03-26 18:09] VITALS: BP 125/85; PULSE 93; TEMP 98.1
== END 2020-03-26 18:09 | disposition home or self-care (01) ==
LOC: EC 15:40
DX: L03.032 Cellulitis of left toe (principal); D68.0 Von Willebrand disease; G43.909 Migraine, unspecified, not intractable, without status migrainosus; K21.9 Gastro-esophageal reflux disease without esophagitis; Z79.899 Other long term (current) drug therapy; Z88.6 Allergy status to analgesic agent; Z91.041 Radiographic dye allergy status; Z88.8 Allergy status to other drugs, medicaments and biological substances; Z91.040 Latex allergy status; Z88.2 Allergy status to sulfonamides; Z88.5 Allergy status to narcotic agent; Z96.653 Presence of artificial knee joint, bilateral; Z96.611 Presence of right artificial shoulder joint; Z87.891 Personal history of nicotine dependence; Z86.718 Personal history of other venous thrombosis and embolism
CPT/HCPCS: 99283; 10060; 73630; J2001

== ENCOUNTER → 2020-04-12 | Day surgery (SDC) | payer MEDICARE ==
[2020-04-07 15:24] VITALS: BMI 38.9
[~2020-04-12] MED LIST changes: -BUPIVACAINE (PF) 0.5% 30 ML VIAL ONE; +DESMOPRESSIN ACETATE 34 MCG in SODIUM CHLORIDE 0.9% 50 ML IVPB STA; -DESMOPRESSIN ACETATE IV NR; -IV FLUID CONTINUATION 1,000 ML IV ONE; +LIDOCAINE 1% (10MG/ML) FOR IV START INTRADERMA PRN; -LIDOCAINE 1% 20 ML VIAL (10MG/ML) FOR IV START INTRADERMA ONE; -MIDAZOLAM 2 MG/2 ML VIAL ONE; +ONDANSETRON 4 MG/2 ML VIAL ONE; +PROPOFOL 10 MG/ML 20 ML VIAL IV ONE; +SCOPOLAMINE 1.5MG/72HR PATCH TRANSDERM ONE; -SODIUM CHLORIDE 0.9% 500 ML 500 ML in EMPTY BAG 1 BAG IV PRN; -SODIUM CHLORIDE 0.9% IV NR; -TRIAMCINOLONE ACETONIDE 40 MG/ML 1 ML VIAL ONE; -fentaNYL (PF) 50 MCG/ML 2 ML AMP ONE
[2020-04-12 10:16] VITALS: RESP 16; TEMP 98.7
[2020-04-12 10:42] LABS: Anisocytosis Moderate; Basophils % (A) 1 %; Eosinophils # (A) 0.1 k/uL (0-0.7); Eosinophils % (A) 2 %; Lymphocytes # (A) 1.1 k/uL (1.0-4.8); Lymphocytes % (A) 20 %; MCH 26.8 pg (25.0-35.0); MCHC 32.6 g/dL (31.0-37.0); MCV 82.2 fL (80.0-100.0); Mean Platelet Volume 8.1; Microcytosis Slight; Monocytes # (A) 0.3 k/uL (0-1.0); Monocytes % (A) 6 %; Neutrophils # (A) 3.6 k/uL (1.3-7.7); Neutrophils % (A) 69 %; Platelet Count 272 k/uL (150-450); RBC 4.86 m/uL (3.80-5.40); RDW 22.5 % (11.5-15.5); WBC 5.2 k/uL (3.8-10.6)
--- NOTE | 2020-04-12 11:20 | P.PCN ---
Date of Procedure: 04/12/20 Procedure(s) Performed: Brief history: Patient is a pleasant 60-year-old white female scheduled for an elective upper endoscopy as well as colonoscopy as a part of evaluation of abdominal pain/chronic diarrhea and recent weight loss of 50 pounds in the last 1 month duration. She has history of 1 minute grams disease and was given DDAVP preoperatively. Procedure performed: Esophagogastroduodenoscopy with biopsy Colonoscopy with biopsy and snare polypectomy Preoperative diagnosis: GERD Chronic diarrhea and weight loss Anesthesia: MAC Procedure: After informed consent was obtained from the patient was brought into the endoscopy unit and IV sedation was administered by anesthesia under continuous monitoring. Initially upper endoscopy was done. The Olympus GF 160 video endoscope was inserted inserted into the mouth and esophagus intubated without any difficulty and was gradually advanced into the stomach there was evidence of previous gastric bypass surgery noted. The gastric pouch appeared normal. The scope was advanced to the anastomosis into the proximal jejunum that appeared normal. Biopsies were done from the jejunum to rule out celiac disease. The scope was then withdrawn into the esophagus. The GE junction was located at 38 cm to the incisors. It appeared regular with no erythema erosions or ulcerations. Rest of the esophagus appeared normal. Patient tolerated the procedure well. At this time the patient continued to remain sedation. Initial digital rectal examination was normal. Olympus CF 160 video colonoscope was then inserted into the rectum and gradually advanced to the cecum without any difficulty. Careful examination was performed as the scope was gradually being withdrawn. The prep was fair. The cecum, appeared normal. In the ascending colon there was a 5 mm polyp that was removed by snare polypectomy. In the descending colon there were 3 polyps measuring between 5 and 7 mm in size all of which were removed by snare polypectomy. Scattered sigmoidal diverticulosis seen. Random biopsies were done from the ascending colon and from the sigmoid colon to rule out microscopic/collagenous colitis. Rest of the ascending colon, transverse colon, descending colon, sigmoid colon and rectum appeared normal. Retroflexion was performed in the rectum and no lesions were noted. Patient tolerated the procedure well. Impression: 1. Upper endoscopy revealed evidence of previous gastric bypass surgery with Judith-en-Y anastomosis appeared normal 2. Colonoscopy revealed: a) 5 mm ascending colon polyp status post polypectomy b) 5 mm 1 and 7 mm transverse descending colon polyps snare polypectomy c) scattered sigmoid diverticulosis Recommendations: Findings of this examination were discussed with the patient as well as a family. She was advised to follow with the biopsy results. If the biopsy reveals adenoma she can have a repeat colonoscopy in 3-5 years
[2020-04-12 11:35] VITALS: BP 103/69; PULSE 90
== END ==
LOC: ORWHC2ENDO 09:12
PROVIDERS: ATTEND Internal Medicine Gastroenterology
DX: D12.2 Benign neoplasm of ascending colon (principal); D12.4 Benign neoplasm of descending colon; K57.30 Diverticulosis of large intestine without perforation or abscess without bleeding; D68.0 Von Willebrand disease; K21.9 Gastro-esophageal reflux disease without esophagitis; Z90.49 Acquired absence of other specified parts of digestive tract; Z90.710 Acquired absence of both cervix and uterus; Z98.890 Other specified postprocedural states; Z98.84 Bariatric surgery status; Z88.6 Allergy status to analgesic agent; Z79.899 Other long term (current) drug therapy; Z91.040 Latex allergy status; Z88.5 Allergy status to narcotic agent; Z88.2 Allergy status to sulfonamides; Z91.041 Radiographic dye allergy status; Z91.048 Other nonmedicinal substance allergy status
CPT/HCPCS: 88305; 83540; 85025; 45380; 45385; 43239; J2405; J2704; J2597

== ENCOUNTER → 2020-06-09 | Outpatient (CLI) | payer MEDICARE ==
--- NOTE | 2020-06-09 08:15 | MR ---
EXAMINATION TYPE: MR brain wo con DATE OF EXAM: 06/09/2020 COMPARISON: NONE HISTORY: Unsteadiness on feet TECHNIQUE: Multiplanar, multisequence imaging of the brain and brainstem is performed without IV cont rast. FINDINGS: Exam suboptimal as there is motion artifact degradation. Diffusion weighted images demonstrate no evidence of a recent infarct or other diffusion abnormality. There is no worrisome extra-axial fluid collection. Diffuse ventricular and sulcal prominence. Scatte red areas of T2 hyperintensity are noted throughout the white matter bilaterally. Approximately 30-40 scattered lesions. Midline structures demonstrate normal morphology. The craniocervical junction appears within normal limits. Normal vascular flow voids are present. The visualized sinuses are clear and the globes are i ntact. Susceptibility artifact noted from surgical change near left TMJ. IMPRESSION: Mild diffuse cerebral atrophy and moderate nonspecific white matter changes favored on th e basis of product of chronic small vessel ischemic change in patient of this age.
== END | disposition home or self-care (01) ==
LOC: RADMRIMAIN 07:20
PROVIDERS: ATTEND Family Medicine
DX: R90.82 White matter disease, unspecified (principal); G31.1 Senile degeneration of brain, not elsewhere classified; I67.82 Cerebral ischemia
CPT/HCPCS: 70551

== ENCOUNTER 2020-06-19 17:48 | Emergency (ER) | payer MEDICARE, OTHER ==
[2020-06-19 17:54] VITALS: RESP 18; TEMP 97.9
--- NOTE | 2020-06-19 18:09 | ED ---
General Adult HPI - General Chief complaint: Arrhythmia/Palpitations Stated complaint: Palpitations Time Seen by Provider: 06/19/20 17:56 Source: patient Mode of arrival: wheelchair Limitations: no limitations - History of Present Illness Initial comments: Dictation was produced using [employer] dictation software. please excuse any grammatical, word or spelling errors. This patient was cared for during a federal and state declared state of emergen cy secondary to Covid 19 Chief Complaint: 60-year-old female with 4 days of palpitations History of Present Illness: 60-year-old female she presents today with 4 days of palpitations. Patient states she gets these 30 to 42nd episodes of palpitations. She states she gets approximately 30 episodes per day. Patient is remote history of atrial fibrillation. Patient denies chest pain or shortness of breath. She states her heart rate usually in the 90s. She has history of von Willebrand's disease. She does not take any anticoagulation medications. The ROS documented in this emergency department record has been reviewed and confirmed by me. Those systems with pertinent positive or negative responses have been documented in the HPI. All other systems are other negative and/or noncontributory. PHYSICAL EXAM: General Impression: Alert and oriented x3, not in acute distress HEENT: Normocephalic atraumatic, extra-ocular movements intact, pupils equal and reactive to light bilaterally, mucous membranes moist. Cardiovascular: Heart regular rate and rhythm Chest: Able to complete full sentences, no retractions, no tachypnea Abdomen: abdomen soft, non-tender, non-distended, no organomegaly Musculoskeletal: Pulses present and equal in all extremities, no peripheral edema Motor: no focal deficits noted Neurological: CN II-XII grossly intact, no focal motor or sensory deficits noted Skin: Intact with no visualized rashes Psych: Normal affect and mood ED course: 60-year-old female with chief complaint of palpitations. Signs upon arrival are within acceptable limits. EKG is normal sinus rhythm. Laboratory evaluation obtained. CBC, coag panel, metabolic panel is u nremarkable. Patient does have slight dehydration. Cardiac enzymes negative. TSH is negative. Chest x-ray is nonacute. Patient was complaining of palpitations while I was at bedside. And her heel layer was normal. Patient appeared to be slightly anxious and tearful. Her lungs were also auscultated and were found to be clear. She was notified of her lab results and x-ray imaging studies. She was given disposition options. She is given the option be admitted to observation with consultation to cardiology.. Patient is agreeable for discharge. She is given a referral to cardiology. Return parameters discussed. At this point there is no identifiable high-risk features. Patient medically stable. She has stable vitals. Patient instructed to call hemodialysis charge nurse tomorrow to set up an appointment. EKG interpretation: Ventricular rate 91, normal sinus rhythm, NM interval 152, QRS 90, QTc 445. No NM prolongation, no QTC prolongation, no ST or T-wave changes noted. EKG compared to generous 2019 showing no changes. Overall, this EKG is unremarkable - Related Data Home Medications Medication Instructions Recorded Confirmed Fluticasone Nasal [place] [Flonase 1 spray EA NOSTRIL BID PRN 06/20/17 04/12/20 Nasal [place]] SUMAtriptan SUCCINATE [Imitrex] 100 mg PO BID PRN 06/20/17 04/12/20 buPROPion SR [Wellbutrin Sr] 450 mg PO DAILY 05/07/18 04/12/20 Desmopressin Intranasal [Ddavp 1 spray EA NOSTRIL DAILY PRN 06/02/19 04/12/20 Nasal [place]] Furosemide [Lasix] 80 mg PO DAILY 06/02/19 04/12/20 EPINEPHrine (Auto Inject) [Epipen] 0.3 mg IM ONCE PRN 06/24/19 04/07/20 Pantoprazole [Protonix] 40 mg PO BID 06/24/19 04/12/20 DULoxetine HCL [Cymbalta] 60 mg PO QAM 04/07/20 04/12/20 Diclofenac Sodium [Voltaren Gel] 2 gram TOPICAL DIRECTED PRN 04/07/20 04/12/20 Ketoconazole [Ketoconazole 2%] 1 applic TOPICAL DAILY 04/07/20 04/12/20 Neupro Patch 1 patch TRANSDERM DAILY 04/07/20 04/12/20 Nystatin 1 applic MISCELLANE TID 04/07/20 04/12/20 Pramipexole Di-HCl [Mirapex] 0.25 mg PO HS 04/07/20 04/12/20 traZODone HCL 300 mg PO HS 04/07/20 04/12/20 Allergies Allergy/AdvReac Type Severity Reaction Status Date / Time aspirin Allergy has Von Verified 06/19/20 17:55 Willebrands Disease ibuprofen [From Motrin] Allergy has Von Verified 06/19/20 17:55 Willebrands Disease Iodinated Contrast Media Allergy Anaphylaxis Verified 06/19/20 17:55 [Iodinated Contrast- Oral and IV Dye] isosorbide [From Imdur] Allergy Rash/Hives Verified 06/19/20 17:55 latex Allergy Anaphylaxis Verified 06/19/20 17:55 Sulfa (Sulfonamide Allergy Rash/Hives Verified 06/19/20 17:55 Antibiotics) codeine AdvReac agitation Verified 06/19/20 17:55 and restless leg symptoms increased Review of Systems ROS Statement: Those systems with pertinent positive or pertinent negative responses have been documented in the HPI. ROS Other: All systems not noted in ROS Statement are negative. Past Medical History Past Medical History: Deep Vein Thrombosis (DVT), GERD/Reflux Additional Past Medical History / Comment(s): Von Willebrand Disease, diverticulitis, migraines, chronic back pain, DVT bilat. Restless leg syndrome. History of Any Multi-Drug Resistant Organisms: None Reported Past Surgical History: Adenoidectomy, Bariatric Surgery, Cholecystectomy, Hysterectomy, Joint Replacement, Orthopedic Surgery, Tonsillectomy Additional Past Surgical History / Comment(s): nury foot surgery, nury knee replaced, nury rotator cuffs, Judith en Y approx 5 years, bowel surgery. right shoulder replacement Past Anesthesia/Blood Transfusion Reactions: Postoperative Nausea & Vomiting (PONV) Past Psychological History: No Psychological Hx Reported Smoking Status: Former smoker Past Alcohol Use History: None Reported Past Drug Use History: None Reported - Past Family History Mother Family Medical History: Cancer Father Family Medical History: Cancer General Exam Limitations: no limitations Course Vital Signs 06/19/20 17:50 Temperature 97.9 F Pulse Rate 99 Respiratory 18 Rate Blood Pressure 121/81 O2 Sat by Pulse 96 Oximetry Medical Decision Making - Lab Data Result diagrams: 06/19/20 18:20 06/19/20 17:57 Lab Results 06/19/20 06/19/20 06/19/20 Range/Units 17:57 18:20 18:20 WBC 7.0 (3.8-10.6) k/uL RBC 4.56 (3.80-5.40) m/uL Hgb 14.1 (11.4-16.0) gm/dL Hct 40.0 (34.0-46.0) % MCV 87.7 (80.0-100.0) fL MCH 30.8 (25.0-35.0) pg MCHC 35.1 (31.0-37.0) g/dL RDW 18.2 H (11.5-15.5) % Plt Count 257 (150-450) k/uL MPV 7.4 Neutrophils % 62 % Lymphocytes % 25 % Monocytes % 7 % Eosinophils % 3 % Basophils % 1 % Neutrophils # 4.3 (1.3-7.7) k/uL Lymphocytes # 1.8 (1.0-4.8) k/uL Monocytes # 0.5 (0-1.0) k/uL Eosinophils # 0.2 (0-0.7) k/uL Basophils # 0.1 (0-0.2) k/uL Anisocytosis Slight Microcytosis Slight PT 9.9 (9.0-12.0) sec INR 0.9 (<1.2) APTT 24.9 (22.0-30.0) sec Sodium 136 L (137-145) mmol/L Potassium 3.8 (3.5-5.1) mmol/L Chloride 103 (98-107) mmol/L Carbon Dioxide 27 (22-30) mmol/L Anion Gap 6 mmol/L BUN 19 H (7-17) mg/dL Creatinine 0.56 (0.52-1.04) mg/dL Est GFR (CKD-EPI)AfAm >90 (>60 ml/min/1.73 sqM) Est GFR (CKD-EPI)NonAf >90 (>60 ml/min/1.73 sqM) Glucose 84 (74-99) mg/dL Calcium 8.8 (8.4-10.2) mg/dL Magnesium 2.0 (1.6-2.3) mg/dL Total Bilirubin 0.6 (0.2-1.3) mg/dL AST 31 (14-36) U/L ALT 19 (4-34) U/L Alkaline Phosphatase 64 (38-126) U/L Troponin I (0.000-0.034) ng/mL Total Protein 6.7 (6.3-8.2) g/dL Albumin 3.8 (3.5-5.0) g/dL TSH 1.480 (0.465-4.680) mIU/L 06/19/20 Range/Units 18:20 WBC (3.8-10.6) k/uL RBC (3.80-5.40) m/uL Hgb (11.4-16.0) gm/dL Hct (34.0-46.0) % MCV (80.0-100.0) fL MCH (25.0-35.0) pg MCHC (31.0-37.0) g/dL RDW (11.5-15.5) % Plt Count (150-450) k/uL MPV Neutrophils % % Lymphocytes % % Monocytes % % Eosinophils % % Basophils % % Neutrophils # (1.3-7.7) k/uL Lymphocytes # (1.0-4.8) k/uL Monocytes # (0-1.0) k/uL Eosinophils # (0-0.7) k/uL Basophils # (0-0.2) k/uL Anisocytosis Microcytosis PT (9.0-12.0) sec INR (<1.2) APTT (22.0-30.0) sec Sodium (137-145) mmol/L Potassium (3.5-5.1) mmol/L Chloride (98-107) mmol/L Carbon Dioxide (22-30) mmol/L Anion Gap mmol/L BUN (7-17) mg/dL Creatinine (0.52-1.04) mg/dL Est GFR (CKD-EPI)AfAm (>60 ml/min/1.73 sqM) Est GFR (CKD-EPI)NonAf (>60 ml/min/1.73 sqM) Glucose (74-99) mg/dL Calcium (8.4-10.2) mg/dL Magnesium (1.6-2.3) mg/dL Total Bilirubin (0.2-1.3) mg/dL AST (14-36) U/L ALT (4-34) U/L Alkaline Phosphatase (38-126) U/L Troponin I <0.012 (0.000-0.034) ng/mL Total Protein (6.3-8.2) g/dL Albumin (3.5-5.0) g/dL TSH (0.465-4.680) mIU/L Disposition Clinical Impression: Palpitations Disposition: HOME SELF-CARE Condition: Good Instructions (If sedation given, give patient instructions): Heart Palpitations (ED) Is patient prescribed a controlled substance at d/c from ED?: No Referrals: Ronaldo Montano MD [STAFF PHYSICIAN] - 1-2 days Time of Disposition: 19:50
[2020-06-19 18:34] LABS: Anisocytosis Slight; Basophils # (A) 0.1 k/uL (0-0.2); Basophils % (A) 1 %; Eosinophils # (A) 0.2 k/uL (0-0.7); Eosinophils % (A) 3 %; HGB 14.1 gm/dL (11.4-16.0); Lymphocytes # (A) 1.8 k/uL (1.0-4.8); Lymphocytes % (A) 25 %; MCH 30.8 pg (25.0-35.0); MCHC 35.1 g/dL (31.0-37.0); MCV 87.7 fL (80.0-100.0); Mean Platelet Volume 7.4; Microcytosis Slight; Monocytes # (A) 0.5 k/uL (0-1.0); Monocytes % (A) 7 %; Neutrophils # (A) 4.3 k/uL (1.3-7.7); Neutrophils % (A) 62 %; Platelet Count 257 k/uL (150-450); RBC 4.56 m/uL (3.80-5.40); RDW 18.2 % (11.5-15.5)
--- NOTE | 2020-06-19 18:44 | XR ---
EXAMINATION TYPE: XR chest 1V portable DATE OF EXAM: 06/19/2020 COMPARISON: 06/26/2019 HISTORY: Short of breath. Dysrhythmia TECHNIQUE: FINDINGS: There is no heart failure nor confluent pneumonic infiltrate. Costophrenic angles are clear . There are no hilar masses. There is right shoulder prosthesis. Costophrenic angles are clear. IMPRESSION: No active cardiopulmonary disease. Inspiration improved slightly compared to old exam.
[2020-06-19 18:45] LABS: ALT 19 U/L (4-34); AST 31 U/L (14-36); African American GFR (CKD) >90 (>60 ml/min/1.73 sqM); Albumin 3.8 g/dL (3.5-5.0); Alkaline Phosphatase 64 U/L (38-126); Anion Gap 6 mmol/L; Blood Urea Nitrogen 19 mg/dL (7-17); Calcium 8.8 mg/dL (8.4-10.2); Carbon Dioxide 27 mmol/L (22-30); Chloride 103 mmol/L (98-107); Glucose 84 mg/dL (74-99); Non-African American GFR(CKD) >90 (>60 ml/min/1.73 sqM); Potassium 3.8 mmol/L (3.5-5.1); Sodium 136 mmol/L (137-145); Total Bilirubin 0.6 mg/dL (0.2-1.3); Total Protein 6.7 g/dL (6.3-8.2)
[2020-06-19 18:47] LABS: INR 0.9 (<1.2); Partial Thromboplastin Time 24.9 sec (22.0-30.0); Prothrombin Time 9.9 sec (9.0-12.0)
[2020-06-19] MEDS ORDERED: ALPRAZolam 0.5 MG TAB PO STA (19:56)
[2020-06-19 20:31] VITALS: BP 114/88; PULSE 91
== END 2020-06-19 20:30 | disposition home or self-care (01) ==
LOC: EC 17:48
DX: R00.2 Palpitations (principal); E86.0 Dehydration; G89.29 Other chronic pain; M54.9 Dorsalgia, unspecified; D68.0 Von Willebrand disease; K21.9 Gastro-esophageal reflux disease without esophagitis; G25.81 Restless legs syndrome; G43.909 Migraine, unspecified, not intractable, without status migrainosus; Z79.899 Other long term (current) drug therapy; Z88.6 Allergy status to analgesic agent; Z91.040 Latex allergy status; Z91.041 Radiographic dye allergy status; Z88.2 Allergy status to sulfonamides; Z88.8 Allergy status to other drugs, medicaments and biological substances; Z88.5 Allergy status to narcotic agent; Z87.891 Personal history of nicotine dependence; Z96.653 Presence of artificial knee joint, bilateral; Z96.611 Presence of right artificial shoulder joint; Z86.718 Personal history of other venous thrombosis and embolism
CPT/HCPCS: 36415; 71045; 80053; 83735; 84443; 84484; 85025; 85610; 85730; 93005; 99285

== ENCOUNTER → 2020-06-22 | Outpatient (CLI) | payer MEDICARE ==
--- NOTE | 2020-06-26 14:10 | MM ---
Reason for exam: screening (asymptomatic). Last mammogram was performed 2 years and 11 months ago. Physical Findings: A clinical breast exam by your physician is recommended on an annual basis and results should be correlated with mammographic findings. MG 3D Screening Mammo W/Cad Bilateral CC and MLO view(s) were taken. Prior study comparison: July 08, 2017, bilateral MG 3d screening mammo w/cad. April 30, 2016, mammogram, performed at [facility]. There are scattered fibroglandular densities. There is chronic nodularity bilaterally. There is no discrete abnormality. ASSESSMENT: Benign, BI-RAD 2 RECOMMENDATION: Routine screening mammogram of both breasts in 1 year.
== END | disposition home or self-care (01) ==
LOC: RADMAMWWP 11:19
PROVIDERS: ATTEND Family Medicine
DX: Z12.31 Encounter for screening mammogram for malignant neoplasm of breast (principal)
CPT/HCPCS: 77063; 77067

== ENCOUNTER → 2020-08-07 | Outpatient (CLI) | payer MEDICARE, OTHER ==
--- NOTE | 2020-08-08 05:19 | MR ---
EXAMINATION TYPE: MR cspine/lspine wo con DATE OF EXAM: 08/07/2020 COMPARISON: None HISTORY: 60-year-old female M51.36, M54.5, Pain in the lower back and neck TECHNIQUE: Multiplanar, multisequence imaging of the cervical followed by the lumbar spine without IV contrast. FINDINGS: The technologist notes that the patient was breathing heavily throughout the scan resulting in extens muna motion. CERVICAL SPINE: There is a slight levoconvex curvature of the cervical spine. In addition, there is reversal of the n ormal cervical lordosis. There may be a trace grade 1 anterolisthesis at C5-C6. Otherwise, alignment is maintained. Extensive motion artifact limits the exam. Mildly heterogeneous marrow signal likely relating to red marrow hyperplasia. No craniocervical junction abnormality, predental space widening, or prevertebral soft tissue swellin g. Mild to moderate degenerative disc disease throughout with variable disc desiccation and small transcribing operator head ior disc ossific complexes. Additional scattered facet and uncovertebral joint arthropathy. At C2-C3, no canal or foraminal stenosis. At C3-C4, minimal posterior central disc bulge with facet and uncovertebral joint arthropathy particu larly on the right resulting in a moderate right neuroforaminal stenosis. No significant spinal canal stenosis. At C4-C5, there is a central disc protrusion causing a mild central spinal canal narrowing. There is focally abuts and indents the ventral cord but dorsal CSF signal is maintained. Facet and uncovertebr al joint arthropathy particularly on the right without significant neural foraminal stenosis. At C5-C6, broad-based disc osteophyte complex with uncovertebral joint and facet arthropathy. No sign ificant canal or foraminal stenosis. At C6/C7, broad-based discussed by complex with uncovertebral joint and facet arthropathy particularl y on the right. There is impression on the ventral thecal sac with minimal narrowing of the spinal ca nal. At least a moderate right neural foraminal stenosis. At C7-T1, hypertrophic facet arthropathy without significant canal or foraminal stenosis. Assessment for any T2-weighted cord signal abnormality is limited due to extensive artifacts projecti ng over the cord. No obvious myelopathic cord signal change. LUMBAR SPINE: Levoconvex scoliosis of the lumbar spine. Heterogeneous marrow signal likely red marrow hyperplasia. Some scattered fatty Modic type II endplat e changes present suggest an T10-T11, L2-L3, and L5-S1. Mild superior endplate deformity of L3 shows no associated edematous change or paravertebral soft tis [place] abnormality suggesting an remote mild compression injury. Hypertrophic facet arthropathy throughout the lumbar spine especially along the site of the cavity on the right. Trace grade 1 anterolisthesis at L4-L5. Moderate degenerative disc disease with desiccated, narrowed, and bulging discs throughout. Ligamentum flavum thickening mid to lower lumbar spine. Conus medullaris is normal. No prevertebral or paravertebral soft tissue abnormality seen. At T12-L1, mild disc bulge and ligamentum flavum thickening. Facet arthropathy particularly on the ri ght resulting in at least moderate right neuroforaminal stenosis. No significant spinal canal stenosi s. At L1-L2, disc bulge with ligamentum flavum thickening and facet arthropathy particularly on the righ t. Changes result in at least moderate right neuroforaminal stenosis. No significant spinal canal kiana nosis. At L2-L3, disc bulge with ligamentum flavum thickening and hypertrophic facet arthropathy. Changes re sult in moderate right neuroforaminal stenosis without significant canal stenosis. At L3-L4, disc bulge with hypertrophic facet arthropathy and ligamentum flavum thickening. There is m oderate right neuroforaminal stenosis. No spinal canal stenosis. At L4-L5, diffuse disc bulge with hypertrophic facet arthropathy, ligamentum flavum thickening, and g rade 1 anterolisthesis. There is circumferential attenuation of the thecal sac without significant sp inal canal stenosis. Mild bilateral neuroforaminal stenosis. At L5-S1, minimal disc bulge with left greater than right hypertrophic facet arthropathy. There is mi ld left neuroforaminal stenosis without spinal canal stenosis. COMBINED IMPRESSION: CERVICAL SPINE: 1. Slight levoconvex curvature of the cervical spine along with reversal of the normal cervical lordo sis and a trace degenerative grade 1 anterolisthesis at C5-C6. 2. [id number] multilevel degenerative disc disease and scattered facet and uncovertebral joint arthropathy. 3. Small central posterior disc protrusion at C4-C5 focally abuts and indents the ventral cord, very mildly narrowing the central canal. Dorsal CSF signal is maintained at this level arguing against any cord compression or maranda canal compromise. Note that extensive motion artifact limits assessment fo r any T2-weighted cord signal change. No obvious myelopathic signal changes. 4. Right-sided neuroforaminal stenoses as outlined above, moderate on the right at C3-C4 and at least moderate on the right at C6-C7. LUMBAR SPINE: 1. Levoconvex scoliosis. Hypertrophic facet arthropathy especially along the right throughout most of the lumbar spine and on the left at L5-S1 secondary to the curvature. Degenerative grade 1 anterolis thesis at L4-L5. 2. Remote mild superior endplate compression deformity at L3. Otherwise, no vertebral compression col lapse. 3. Moderate multilevel degenerative disc disease and scattered ligamentum flavum thickening. There is circumferential attenuation of the thecal sac at L4-L5 without significant spinal canal stenosis. 4. Moderate neuroforaminal stenosis on the right from T12 down through L4. Mild on both sides at L4-L 5 and mild on the left at L5-S1.
== END | disposition home or self-care (01) ==
LOC: RADMRIMAIN 11:15
PROVIDERS: ATTEND Psychiatry & Neurology Pain Medicine
DX: M48.02 Spinal stenosis, cervical region (principal); M50.20 Other cervical disc displacement, unspecified cervical region; M50.30 Other cervical disc degeneration, unspecified cervical region; M47.812 Spondylosis without myelopathy or radiculopathy, cervical region; M48.061 Spinal stenosis, lumbar region without neurogenic claudication; M43.16 Spondylolisthesis, lumbar region; M51.36 Other intervertebral disc degeneration, lumbar region; M47.816 Spondylosis without myelopathy or radiculopathy, lumbar region; M24.28 Disorder of ligament, vertebrae; M40.46 Postural lordosis, lumbar region; M43.8X2 Other specified deforming dorsopathies, cervical region; G95.29 Other cord compression
CPT/HCPCS: 72141; 72148

== ENCOUNTER 2020-11-13 18:25 | Emergency (ER) | payer OTHER ==
[2020-11-13 18:42] VITALS: BP 112/74; PULSE 86; RESP 18; TEMP 98.1
--- NOTE | 2020-11-13 19:21 | ED ---
General Adult HPI - General Chief complaint: Recheck/Abnormal Lab/Rx Stated complaint: rib pain Time Seen by Provider: 11/13/20 18:59 Source: patient Mode of arrival: wheelchair Limitations: no limitations - History of Present Illness Initial comments: 60 year-old male patient presents to the emergency department for evaluation of left rib pain. Patient states about 5 days ago she was sitting on her bed struggling to get the bottom drawer of her nightstand open. States that she felt something "flip" and "snap" in her left ribs and had onset of pain. Patient states that she had quite a bit of pain over the last few days, it started to get better, then snapped again causing worse pain. Reports worse pain with movement, bending, or lifting. Patient states it hurts to take a breath. Denies any nausea, sweats, shortness of breath or cough. Denies fever or chills. Reports multiple rib fractures as a child. Denies any recent falls. Does take Warwick at home. - Related Data Home Medications Medication Instructions Recorded Confirmed RX: Fluticasone Nasal [place] 1 spray EA NOSTRIL BID PRN 06/20/17 04/12/20 [Flonase Nasal [place]] RX: SUMAtriptan SUCCINATE [Imitrex] 100 mg PO BID PRN 06/20/17 04/12/20 buPROPion SR [Wellbutrin Sr] 450 mg PO DAILY 05/07/18 04/12/20 Furosemide [Lasix] 80 mg PO DAILY 06/02/19 04/12/20 RX: Desmopressin Intranasal [Ddavp 1 spray EA NOSTRIL DAILY PRN 06/02/19 04/12/20 Nasal [place]] EPINEPHrine (Auto Inject) [Epipen] 0.3 mg IM ONCE PRN 06/24/19 04/07/20 Pantoprazole [Protonix] 40 mg PO BID 06/24/19 04/12/20 DULoxetine HCL [Cymbalta] 60 mg PO QAM 04/07/20 04/12/20 Diclofenac Sodium [Voltaren Gel] 2 gram TOPICAL DIRECTED PRN 04/07/20 04/12/20 Ketoconazole [Ketoconazole 2%] 1 applic TOPICAL DAILY 04/07/20 04/12/20 Neupro Patch 1 patch TRANSDERM DAILY 04/07/20 04/12/20 Pramipexole Di-HCl [Mirapex] 0.25 mg PO HS 04/07/20 04/12/20 RX: Nystatin 1 applic MISCELLANE TID 04/07/20 04/12/20 RX: traZODone HCL 300 mg PO HS 04/07/20 04/12/20 Previous Rx's Medication Instructions Recorded HYDROcodone/APAP 5-325MG [[place] 5] 1 each PO Q6HR PRN #12 tab 11/13/20 Allergies Allergy/AdvReac Type Severity Reaction Status Date / Time aspirin Allergy has Von Verified 11/13/20 18:39 Willebrands Disease ibuprofen [From Motrin] Allergy has Von Verified 11/13/20 18:39 Willebrands Disease Iodinated Contrast Media Allergy Anaphylaxis Verified 11/13/20 18:39 [Iodinated Contrast- Oral and IV Dye] isosorbide [From Imdur] Allergy Rash/Hives Verified 11/13/20 18:39 latex Allergy Anaphylaxis Verified 11/13/20 18:39 Sulfa (Sulfonamide Allergy Rash/Hives Verified 11/13/20 18:39 Antibiotics) codeine AdvReac agitation Verified 11/13/20 18:39 and restless leg symptoms increased Review of Systems ROS Statement: Those systems with pertinent positive or pertinent negative responses have been documented in the HPI. ROS Other: All systems not noted in ROS Statement are negative. Past Medical History Past Medical History: Deep Vein Thrombosis (DVT), GERD/Reflux Additional Past Medical History / Comment(s): Von Willebrand Disease, diverticulitis, migraines, chronic back pain, DVT bilat. Restless leg syndrome. History of Any Multi-Drug Resistant Organisms: None Reported Past Surgical History: Adenoidectomy, Bariatric Surgery, Cholecystectomy, Hysterectomy, Joint Replacement, Orthopedic Surgery, Tonsillectomy Additional Past Surgical History / Comment(s): nury foot surgery, nury knee replaced, nury rotator cuffs, Judith en Y approx 5 years, bowel surgery. right shoulder replacement Past Anesthesia/Blood Transfusion Reactions: Postoperative Nausea & Vomiting (PONV) Past Psychological History: No Psychological Hx Reported Smoking Status: Former smoker Past Alcohol Use History: None Reported Past Drug Use History: None Reported - Past Family History Mother Family Medical History: Cancer Father Family Medical History: Cancer General Exam Limitations: no limitations General appearance: alert, in no apparent distress, other (This is a well- developed, well-nourished adult female patient in mild distress related to pain. Vital signs upon presentation To 98.1F, pulse 86, respirations 18, blood pressure 112/74, pulse ox 98% on room air. ) Eye exam: Present: normal appearance, PERRL, EOMI. Absent: scleral icterus, conjunctival injection, periorbital swelling ENT exam: Present: normal exam, normal oropharynx, mucous membranes moist Respiratory exam: Present: normal lung sounds bilaterally, chest wall tenderness (Left anterior rib pain and tenderness). Absent: respiratory distress, wheezes, rales, rhonchi, stridor Cardiovascular Exam: Present: regular rate, normal rhythm, normal heart sounds. Absent: systolic murmur, diastolic murmur, rubs, gallop, clicks GI/Abdominal exam: Present: soft, normal bowel sounds. Absent: distended, tenderness, guarding, rebound, rigid Neurological exam: Present: alert, oriented X3, CN II-XII intact Psychiatric exam: Present: normal affect, normal mood Skin exam: Present: warm, dry, intact, normal color. Absent: rash Course Vital Signs 11/13/20 18:39 Temperature 98.1 F Pulse Rate 86 Respiratory 18 Rate Blood Pressure 112/74 O2 Sat by Pulse 98 Oximetry Medical Decision Making - Medical Decision Making 60-year-old female patient presented to the emergency department today reporting left rib pain. X-ray did show a nondisplaced left rib fracture. Patient was driving herself unable to take narcotic pain medication while here, unable to get a ride. She is unable to take NSAIDs due to history of von Willebrand's. She is given samples of salon pas pain relief patch. She'll be discharged follow-up with her primary care physician for recheck in 1-2 days. Will give prescription for Warwick for pain control. She is instructed to apply ice use incentive spirometer. Return parameters were discussed in detail. She verbalizes understanding and agrees with this plan. Case discussed with my attending Dr. Freeman. - Radiology Data Radiology results: report reviewed, image reviewed Nondisplaced left rib fracture. No pleural effusion or pneumothorax. Mild pulmonary fibrotic changes. Disposition Clinical Impression: Left rib fracture Disposition: HOME SELF-CARE Condition: Good Instructions (If sedation given, give patient instructions): Rib Fracture (ED) Additional Instructions: Apply ice to the painful areas 20 minutes at a time at least 4 times daily. Take medications as directed. Use incentive spirometer as directed to avoid developing pneumonia. Return to the emergency department for further evaluation for any new, worsening, or concerning symptoms. Prescriptions: HYDROcodone/APAP 5-325MG [[place] 5] 1 each PO Q6HR PRN #12 tab PRN Reason: Pain Is patient prescribed a controlled substance at d/c from ED?: Yes When asked, does pt state using other controlled substances?: Yes If prescribed controlled substance>3 days was MAPS reviewed?: Prescribed <3 Days If opioid is for acute pain is fill amount 7 days or less?: Yes If Rx opioid, was Start Talking consent form obtained?: Yes Referrals: Stefan He MD [Primary Care Provider] - 1-2 days Time of Disposition: 19:57
--- NOTE | 2020-11-13 19:45 | XR ---
EXAMINATION TYPE: XR ribs LT w pa chest xray DATE OF EXAM: 11/13/2020 COMPARISON: NONE HISTORY: Pain TECHNIQUE: 5 views FINDINGS: Heart is normal. Lungs are clear of consolidation. There is mild pulmonary fibrotic changes . There is right shoulder prosthesis. There is a small step deformity lateral left sixth rib suggesti ve of an acute nondisplaced fracture. IMPRESSION: Nondisplaced left rib fracture. No pleural effusion or pneumothorax. Mild pulmonary fibro tic changes.
== END 2020-11-13 20:21 | disposition home or self-care (01) ==
LOC: EC 18:25
DX: S22.32XA Fracture of one rib, left side, initial encounter for closed fracture (principal); K21.9 Gastro-esophageal reflux disease without esophagitis; G43.909 Migraine, unspecified, not intractable, without status migrainosus; Z86.718 Personal history of other venous thrombosis and embolism; Z87.891 Personal history of nicotine dependence; X58.XXXA Exposure to other specified factors, initial encounter
CPT/HCPCS: 99283

== ENCOUNTER → 2020-11-30 | Outpatient (CLI) | payer MEDICARE ==
--- NOTE | 2020-11-30 16:39 | BD ---
EXAMINATION TYPE: Axial Bone Density DATE OF EXAM: 11/30/2020 COMPARISON: NONE CLINICAL HISTORY: Height: 64 Weight: 219.4 FRAX RISK QUESTIONS: Alcohol (3 or more units per day): no Family History (Parent hip fracture): no Glucocorticoids (More than 3mos): no (Ex: prednisone, prednisolone, methylprednisolone, dexamethasone, and hydrocortisone). History of Fracture in Adulthood: yes Secondary Osteoporosis: 1. Type 1 Diabetes: no 2. Hyperthyroidism: no 3. Menopause before 45: yes 4. Malnutrition: no 5. Chronic liver disease: no Rheumatoid Arthritis: no Current Tobacco Use: no RISK FACTORS HISTORY OF: Surgery to Spine/Hip(right/left)/Wrist (right/left): no Family History of Osteoporosis: no Active: sometimes Diet low in dairy products/other sources of calcium: no Postmenopausal woman: age 40 Lost more than 2 inches in height since high school: yes MEDICATIONS: last shot of prolia was two years ago Additional History: EXAM MEASUREMENTS: Bone mineral densitometry was performed using the [employer] Radar System. Bone mineral density as measured about the Lumbar spine is: ----- L1-L4(G/cm2): 1.110 T Score Values are as follows: ----- L2: -0.4 ----- L3: -0.6 ----- L4: -0.7 ----- L1-L4: -0.6 Bone mineral density : baseline here Bone mineral density about the R hip (g/cm2): 0.686 Bone mineral density about the L hip (g/cm2): 0.715 T Score values are as follows: -----R Neck: -2.5 -----L Neck: -2.3 -----R Total: -2.9 -----L Total: -2.8 Bone mineral density : baseline IMPRESSION: Osteoporosis (T Score less than -2.5). There is increased fracture risk and therapy is usually indicated based on age. Re-Screen 1-2 years. NOTE: T-SCORE=SD OF THE YOUNG ADULT MEAN.
== END | disposition home or self-care (01) ==
LOC: RADBDWWP 13:16
PROVIDERS: ATTEND Internal Medicine
DX: Z13.820 Encounter for screening for osteoporosis (principal); M81.0 Age-related osteoporosis without current pathological fracture; Z78.0 Asymptomatic menopausal state
CPT/HCPCS: 77080

== ENCOUNTER 2021-01-03 22:59 | Emergency (ER) | payer MEDICARE ==
[2021-01-03 23:02] VITALS: RESP 18; TEMP 97.8
[2021-01-04 00:08] VITALS: BP 104/67; PULSE 75
[2021-01-04] MEDS ORDERED: BACITRACIN OINT 1 EACH PACKET TOPICAL STA (00:40)
--- NOTE | 2021-01-04 00:41 | ED ---
Lower Extremity Injury HPI - General Chief Complaint: Extremity Injury, Lower Stated Complaint: toe injury Time Seen by Provider: 01/03/21 23:46 Source: patient Mode of arrival: ambulatory Limitations: no limitations - History of Present Illness Initial Comments: 61-year-old female patient presents to the emergency department today for evaluation of injury to the toenail on the left middle toe. Physical examination did reveal loose toenail, no active bleeding. Patient states that she actually kicked a chair causing the injury. Denies numbness or tingling. Denies any other injuries or concerns. Patient is requesting to have her toenail removed. - Related Data Home Medications Medication Instructions Recorded Confirmed Fluticasone Nasal [place] [Flonase 1 spray EA NOSTRIL BID PRN 06/20/17 04/12/20 Nasal [place]] SUMAtriptan SUCCINATE [Imitrex] 100 mg PO BID PRN 06/20/17 04/12/20 buPROPion SR [Wellbutrin Sr] 450 mg PO DAILY 05/07/18 04/12/20 Desmopressin Intranasal [Ddavp 1 spray EA NOSTRIL DAILY PRN 06/02/19 04/12/20 Nasal [place]] Furosemide [Lasix] 80 mg PO DAILY 06/02/19 04/12/20 EPINEPHrine (Auto Inject) [Epipen] 0.3 mg IM ONCE PRN 06/24/19 04/07/20 Pantoprazole [Protonix] 40 mg PO BID 06/24/19 04/12/20 DULoxetine HCL [Cymbalta] 60 mg PO QAM 04/07/20 04/12/20 Diclofenac Sodium [Voltaren Gel] 2 gram TOPICAL DIRECTED PRN 04/07/20 04/12/20 Ketoconazole [Ketoconazole 2%] 1 applic TOPICAL DAILY 04/07/20 04/12/20 Neupro Patch 1 patch TRANSDERM DAILY 04/07/20 04/12/20 Nystatin 1 applic MISCELLANE TID 04/07/20 04/12/20 Pramipexole Di-HCl [Mirapex] 0.25 mg PO HS 04/07/20 04/12/20 traZODone HCL 300 mg PO HS 04/07/20 04/12/20 Previous Rx's Medication Instructions Recorded HYDROcodone/APAP 5-325MG [[place] 5] 1 each PO Q6HR PRN #12 tab 11/13/20 Allergies Allergy/AdvReac Type Severity Reaction Status Date / Time aspirin Allergy has Von Verified 01/03/21 23:03 Willebrands Disease ibuprofen [From Motrin] Allergy has Von Verified 01/03/21 23:03 Willebrands Disease Iodinated Contrast Media Allergy Anaphylaxis Verified 01/03/21 23:03 [Iodinated Contrast- Oral and IV Dye] isosorbide [From Imdur] Allergy Rash/Hives Verified 01/03/21 23:03 latex Allergy Anaphylaxis Verified 01/03/21 23:03 Sulfa (Sulfonamide Allergy Rash/Hives Verified 01/03/21 23:03 Antibiotics) codeine AdvReac agitation Verified 01/03/21 23:03 and restless leg symptoms increased Review of Systems ROS Statement: Those systems with pertinent positive or pertinent negative responses have been documented in the HPI. ROS Other: All systems not noted in ROS Statement are negative. Past Medical History Past Medical History: Deep Vein Thrombosis (DVT), GERD/Reflux Additional Past Medical History / Comment(s): Von Willebrand Disease, diverticulitis, migraines, chronic back pain, DVT bilat. Restless leg syndrome. History of Any Multi-Drug Resistant Organisms: None Reported Past Surgical History: Adenoidectomy, Bariatric Surgery, Cholecystectomy, Hy sterectomy, Joint Replacement, Orthopedic Surgery, Tonsillectomy Additional Past Surgical History / Comment(s): nury foot surgery, nury knee replaced, nury rotator cuffs, Judith en Y approx 5 years, bowel surgery. right shoulder replacement Past Anesthesia/Blood Transfusion Reactions: Postoperative Nausea & Vomiting (PONV) Past Psychological History: No Psychological Hx Reported Smoking Status: Former smoker Past Alcohol Use History: None Reported Past Drug Use History: None Reported - Past Family History Mother Family Medical History: Cancer Father Family Medical History: Cancer General Exam Limitations: no limitations General appearance: alert, in no apparent distress, other (This is a well-d eveloped, well-nourished adult female patient in no acute distress. Vital signs upon presentation are temperature 97.8F, pulse 73, respirations 18, blood pressure 125/79, pulse ox 97% on room air.) Respiratory exam: Present: normal lung sounds bilaterally. Absent: respiratory distress, wheezes, rales, rhonchi, stridor Cardiovascular Exam: Present: regular rate, normal rhythm, normal heart sounds. Absent: systolic murmur, diastolic murmur, rubs, gallop, clicks Extremities exam: Present: full ROM, normal capillary refill, other (Loose toenail left middle toe, no active bleeding. Mild tenderness over the toe. No ecchymosis or swelling.). Absent: tenderness, pedal edema, joint swelling, calf tenderness Neurological exam: Present: alert, oriented X3, CN II-XII intact Psychiatric exam: Present: normal affect, normal mood Skin exam: Present: warm, dry, intact, normal color. Absent: rash Course Vital Signs 01/03/21 01/04/21 23:00 00:04 Temperature 97.8 F Pulse Rate 73 75 Respiratory 18 18 Rate Blood Pressure 125/79 104/67 O2 Sat by Pulse 97 96 Oximetry Medical Decision Making - Medical Decision Making 61-year-old female patient presents to the emergency department today for evaluation of injury to the left middle toenail. Physical examination did reveal toenail lifted from the nail bed, no active bleeding. Patient requested I remove the toenail. I did try to trim the nail, patient then proceeded to pull the toenail off. I removed it the rest of the way. No bleeding. Patient tolerated this well. She declined xray of the toe. Area was cleansed and bacitracin applied. He is instructed to follow-up with her primary care physician for recheck in 1-2 days. Return parameters discussed in detail. She verbalizes understanding and agrees with this plan. Case discussed with my attending Dr. Silverman. Disposition Clinical Impression: Nail avulsion, toe Disposition: HOME SELF-CARE Condition: Good Instructions (If sedation given, give patient instructions): Nail Avulsion (ED) Additional Instructions: Keep area clean and dry. Follow up with the primary care physician for recheck in 1-2 days. Return for any new, worsening, or concerning symptoms. Is patient prescribed a controlled substance at d/c from ED?: No Referrals: Stefan He MD [Primary Care Provider] - 1-2 days Time of Disposition: 00:41
== END 2021-01-04 00:52 | disposition home or self-care (01) ==
LOC: EC 22:59
DX: S91.205A Unspecified open wound of left lesser toe(s) with damage to nail, initial encounter (principal); K21.9 Gastro-esophageal reflux disease without esophagitis; G43.909 Migraine, unspecified, not intractable, without status migrainosus; G25.81 Restless legs syndrome; Z86.718 Personal history of other venous thrombosis and embolism; Z87.891 Personal history of nicotine dependence; W22.03XA Walked into furniture, initial encounter
CPT/HCPCS: 11730; 99283

== ENCOUNTER → 2021-01-10 | Outpatient (CLI) | payer MEDICARE ==
[2021-01-10 18:39] LABS: Basophils # (A) 0.05 X 10*3/uL (0.00-0.10); Basophils % (A) 0.8 %; Eosinophils # (A) 0.28 X 10*3/uL (0.04-0.35); Eosinophils % (A) 4.8 %; HCT 40.6 % (37.2-46.3); HGB 13.4 g/dL (12.0-15.0); Lymphocytes # (A) 1.43 X 10*3/uL (0.90-5.00); Lymphocytes % (A) 24.3 %; MCH 32.3 pg (27.0-32.0); MCV 97.8 fL (80.0-97.0); Mean Platelet Volume 10.9 fL (9.5-12.2); Monocytes # (A) 0.54 X 10*3/uL (0.20-1.00); Monocytes % (A) 9.2 %; Neutrophils # (A) 3.57 X 10*3/uL (1.80-7.70); Neutrophils % (A) 60.6 %; Platelet Count 249 X 10*3/uL (140-440); RBC 4.15 X 10*6/uL (4.10-5.20); RDW 12.8 % (11.5-14.5); WBC 5.89 X 10*3/uL (4.50-10.00)
[2021-01-11 04:59] LABS: Folate, Serum >24.0 ng/mL
[2021-01-11 05:13] LABS: ALT 18 U/L (8-44); AST 19 U/L (13-35); African American GFR (CKD) 112.4 (60.0-200.0); Albumin/Globulin Ratio 1.64 (1.60-3.17); Alkaline Phosphatase 73 U/L (41-126); BUN/Creat Ratio 28.33 Ratio (12.00-20.00); Calcium 8.9 mg/dL (8.7-10.3); Carbon Dioxide 30.4 mmol/L (21.6-31.8); Chloride 104 mmol/L (96-109); Globulin 2.5 g/dL (1.6-3.3); Glucose 89 mg/dL (70-110); Magnesium 2.1 mg/dL (1.5-2.4); Phosphorus 4.5 mg/dL (2.4-5.1); Sodium 139 mmol/L (135-145); Total Bilirubin 0.6 mg/dL (0.3-1.2); Total Protein 6.6 g/dL (6.2-8.2)
[2021-01-12 05:38] LABS: Vit B1(Thiamine) 63 ug/L (38-122)
[2021-01-12 12:50] LABS: Zinc, Serum 63 ug/dL (60-130)
== END | disposition home or self-care (01) ==
LOC: LABWHC1 08:02
PROVIDERS: ATTEND Internal Medicine
DX: M81.0 Age-related osteoporosis without current pathological fracture (principal); E53.8 Deficiency of other specified B group vitamins; Z98.84 Bariatric surgery status
CPT/HCPCS: 36415; 80053; 82306; 82607; 82746; 83735; 83970; 84100; 84425; 84443; 84630; 85025

== ENCOUNTER 2021-03-22 16:33 | Emergency (ER) | payer MEDICARE ==
[2021-03-22] MEDS ORDERED: SODIUM CHLORIDE 0.9% 500 ML 500 ML IV STA (17:24)
[2021-03-22 17:44] LABS: Basophils # (A) 0.1 k/uL (0-0.2); Basophils % (A) 1 %; Eosinophils # (A) 0.3 k/uL (0-0.7); Eosinophils % (A) 6 %; HGB 13.5 gm/dL (11.4-16.0); Lymphocytes # (A) 1.4 k/uL (1.0-4.8); Lymphocytes % (A) 25 %; MCHC 37.4 g/dL (31.0-37.0); MCV 93.5 fL (80.0-100.0); Mean Platelet Volume 8.2; Monocytes # (A) 0.4 k/uL (0-1.0); Monocytes % (A) 8 %; Neutrophils # (A) 3.2 k/uL (1.3-7.7); Neutrophils % (A) 58 %; Platelet Count 227 k/uL (150-450); RBC 3.85 m/uL (3.80-5.40); RDW 13.3 % (11.5-15.5); WBC 5.5 k/uL (3.8-10.6)
[2021-03-22 17:47] LABS: Appearance,Urine Clear (Clear); Bilirubin,Urine Negative (Negative); Blood,Urine Negative (Negative); Color,Urine Light Yellow; Glucose,Urine (UA) Negative (Negative); Ketones,Urine Negative (Negative); Leukocyte Esterase,Urine Negative (Negative); Nitrite,Urine Negative (Negative); PH, Urine 5.5 (5.0-8.0); Protein,Urine Negative (Negative); Specific Gravity,Urine 1.011 (1.001-1.035); Urobilinogen,Urine <2.0 mg/dL (<2.0)
[2021-03-22 17:49] LABS: Prothrombin Time 10.6 sec (9.0-12.0)
[2021-03-22 17:56] LABS: ALT 16 U/L (4-34); AST 28 U/L (14-36); African American GFR (CKD) >90 (>60 ml/min/1.73 sqM); Albumin 3.6 g/dL (3.5-5.0); Alkaline Phosphatase 55 U/L (38-126); Anion Gap 5 mmol/L; Blood Urea Nitrogen 19 mg/dL (7-17); Calcium 8.7 mg/dL (8.4-10.2); Carbon Dioxide 29 mmol/L (22-30); Chloride 101 mmol/L (98-107); Glucose 89 mg/dL (74-99); Non-African American GFR(CKD) >90 (>60 ml/min/1.73 sqM); Potassium 4.4 mmol/L (3.5-5.1); Sodium 135 mmol/L (137-145); Total Bilirubin 0.5 mg/dL (0.2-1.3); Total Protein 6.4 g/dL (6.3-8.2)
--- NOTE | 2021-03-22 17:56 | ED ---
General Adult HPI - General Chief complaint: Weakness Stated complaint: Hypotensive, heart palpations, light headed Time Seen by Provider: 03/22/21 17:06 Source: patient, RN notes reviewed, old records reviewed Mode of arrival: wheelchair Limitations: no limitations - History of Present Illness Initial comments: This is a 61-year-old female patient, alert and oriented 4, presents to the emergency room with complaints of fatigue, lightheadedness and palpitations. She did see her primary care doctor on Friday for this. She states her blood pressure has been low and her heart rate has also been low. She states she also has been having a headache but this is typical of her normal migraine headaches. She denies any fevers or nausea and vomiting. She believes this may be related to her medications. She also states that she did get a flu shot approximately 2 weeks ago and her symptoms started 1 week ago. She is not sure if her symptoms are related. -: week(s) (1) Severity scale (1-10): 0 Associated Symptoms: headaches, malaise, nausea/vomiting, other (palpitations) Treatments Prior to Arrival: none - Related Data Home Medications Medication Instructions Recorded Confirmed Fluticasone Nasal [place] [Flonase 1 spray EA NOSTRIL BID PRN 06/20/17 04/12/20 Nasal [place]] SUMAtriptan SUCCINATE [Imitrex] 100 mg PO BID PRN 06/20/17 04/12/20 buPROPion SR [Wellbutrin Sr] 450 mg PO DAILY 05/07/18 04/12/20 Desmopressin Intranasal [Ddavp 1 spray EA NOSTRIL DAILY PRN 06/02/19 04/12/20 Nasal [place]] Furosemide [Lasix] 80 mg PO DAILY 06/02/19 04/12/20 EPINEPHrine (Auto Inject) [Epipen] 0.3 mg IM ONCE PRN 06/24/19 04/07/20 Pantoprazole [Protonix] 40 mg PO BID 06/24/19 04/12/20 DULoxetine HCL [Cymbalta] 60 mg PO QAM 04/07/20 04/12/20 Diclofenac Sodium [Voltaren Gel] 2 gram TOPICAL DIRECTED PRN 04/07/20 04/12/20 Ketoconazole [Ketoconazole 2%] 1 applic TOPICAL DAILY 04/07/20 04/12/20 Neupro Patch 1 patch TRANSDERM DAILY 04/07/20 04/12/20 Nystatin 1 applic MISCELLANE TID 04/07/20 04/12/20 Pramipexole Di-HCl [Mirapex] 0.25 mg PO HS 04/07/20 04/12/20 traZODone HCL 300 mg PO HS 04/07/20 04/12/20 Previous Rx's Medication Instructions Recorded HYDROcodone/APAP 5-325MG [[place] 5] 1 each PO Q6HR PRN #12 tab 11/13/20 Allergies Allergy/AdvReac Type Severity Reaction Status Date / Time aspirin Allergy has Von Verified 03/22/21 16:37 Willebrands Disease ibuprofen [From Motrin] Allergy has Von Verified 03/22/21 16:37 Willebrands Disease Iodinated Contrast Media Allergy Anaphylaxis Verified 03/22/21 16:37 [Iodinated Contrast- Oral and IV Dye] isosorbide [From Imdur] Allergy Rash/Hives Verified 03/22/21 16:37 latex Allergy Anaphylaxis Verified 03/22/21 16:37 Sulfa (Sulfonamide Allergy Rash/Hives Verified 03/22/21 16:37 Antibiotics) codeine AdvReac agitation Verified 03/22/21 16:37 and restless leg symptoms increased Review of Systems ROS Statement: Those systems with pertinent positive or pertinent negative responses have been documented in the HPI. ROS Other: All systems not noted in ROS Statement are negative. Past Medical History Past Medical History: Deep Vein Thrombosis (DVT), GERD/Reflux Additional Past Medical History / Comment(s): Von Willebrand Disease, divert iculitis, migraines, chronic back pain, DVT bilat. Restless leg syndrome. History of Any Multi-Drug Resistant Organisms: None Reported Past Surgical History: Adenoidectomy, Bariatric Surgery, Cholecystectomy, Hysterectomy, Joint Replacement, Orthopedic Surgery, Tonsillectomy Additional Past Surgical History / Comment(s): nury foot surgery, nury knee replaced, nury rotator cuffs, Judith en Y approx 5 years, bowel surgery. right shoulder replacement Past Anesthesia/Blood Transfusion Reactions: Postoperative Nausea & Vomiting (PONV) Past Psychological History: No Psychological Hx Reported Smoking Status: Former smoker Past Alcohol Use History: None Reported Past Drug Use History: None Reported - Past Family History Mother Family Medical History: Cancer Father Family Medical History: Cancer General Exam Limitations: no limitations General appearance: alert, in no apparent distress Head exam: Present: atraumatic, normocephalic, normal inspection Eye exam: Present: normal appearance, EOMI. Absent: scleral icterus ENT exam: Present: normal exam, mucous membranes moist Neck exam: Present: normal inspection, full ROM. Absent: tenderness, meni ngismus, lymphadenopathy, thyromegaly Respiratory exam: Present: normal lung sounds bilaterally. Absent: respiratory distress, wheezes, rales, rhonchi, stridor, chest wall tenderness, accessory muscle use, decreased breath sounds Cardiovascular Exam: Present: regular rate, normal rhythm, normal heart sounds. Absent: systolic murmur, diastolic murmur, rubs, gallop, clicks GI/Abdominal exam: Present: soft, normal bowel sounds. Absent: distended, tenderness, guarding, rebound, rigid Extremities exam: Present: full ROM, normal capillary refill. Absent: tenderness, pedal edema, calf tenderness Back exam: Present: normal inspection. Absent: CVA tenderness (R), CVA ten derness (L), rash noted Neurological exam: Present: alert, oriented X3 Psychiatric exam: Present: normal affect, normal mood Skin exam: Present: warm, dry, intact, normal color. Absent: rash, cyanosis, diaphoretic, petechiae, pallor Course Vital Signs 03/22/21 03/22/21 03/22/21 16:37 17:12 17:30 Temperature 98.1 F Pulse Rate 68 62 Pulse Rate [ Pulse Oximetery ] Respiratory 16 18 18 Rate Blood Pressure 142/80 109/70 Blood Pressure [Right Arm Sitting] Blood Pressure [Right Arm Standing] Blood Pressure [Right Arm Supine] O2 Sat by Pulse 98 96 97 Oximetry 03/22/21 03/22/21 03/22/21 18:00 18:30 19:00 Temperature Pulse Rate 66 67 Pulse Rate [ Pulse Oximetery ] Respiratory 18 18 Rate Blood Pressure 109/73 111/76 Blood Pressure [Right Arm Sitting] Blood Pressure [Right Arm Standing] Blood Pressure [Right Arm Supine] O2 Sat by Pulse 96 94 L Oximetry 03/22/21 03/22/21 19:32 19:55 Temperature 98.5 F Pulse Rate 64 Pulse Rate [ 65 Pulse Oximetery ] Respiratory 16 Rate Blood Pressure 133/86 Blood Pressure 126/82 [Right Arm Sitting] Blood Pressure 129/85 [Right Arm Standing] Blood Pressure 115/72 [Right Arm Supine] O2 Sat by Pulse 98 Oximetry EKG Findings - EKG Results: EKG: sinus rhythm (Ventricular rate 65, HI interval 0.152, QRS 0.84, QTC 0.432) Medical Decision Making - Medical Decision Making EKG shows normal sinus rhythm, troponin is negative at 0.012. Electrolytes are unremarkable. Her urinalysis is clear of infection. Hemoglobin is stable at 15.5 and there is no evidence of leukocytosis. Chest x-ray shows no acute pulmonary process. His vital signs are stable. She was given a 500 mL normal saline bolus in the emergency room. She states that she does feel well enough to go home and follow up with her primary care doctor. Case discussed with Dr. Turner. - Lab Data Result diagrams: 03/22/21 17:29 03/22/21 17:29 Lab Results 03/22/21 03/22/21 03/22/21 Range/Units 17:29 17:29 17:29 WBC 5.5 (3.8-10.6) k/uL RBC 3.85 (3.80-5.40) m/uL Hgb 13.5 (11.4-16.0) gm/dL Hct 36.0 (34.0-46.0) % MCV 93.5 (80.0-100.0) fL MCH 35.0 (25.0-35.0) pg MCHC 37.4 H (31.0-37.0) g/dL RDW 13.3 (11.5-15.5) % Plt Count 227 (150-450) k/uL MPV 8.2 Neutrophils % 58 % Lymphocytes % 25 % Monocytes % 8 % Eosinophils % 6 % Basophils % 1 % Neutrophils # 3.2 (1.3-7.7) k/uL Lymphocytes # 1.4 (1.0-4.8) k/uL Monocytes # 0.4 (0-1.0) k/uL Eosinophils # 0.3 (0-0.7) k/uL Basophils # 0.1 (0-0.2) k/uL PT 10.6 (9.0-12.0) sec INR 1.0 (<1.2) Sodium 135 L (137-145) mmol/L Potassium 4.4 (3.5-5.1) mmol/L Chloride 101 (98-107) mmol/L Carbon Dioxide 29 (22-30) mmol/L Anion Gap 5 mmol/L BUN 19 H (7-17) mg/dL Creatinine 0.60 (0.52-1.04) mg/dL Est GFR (CKD-EPI)AfAm >90 (>60 ml/min/1.73 sqM) Est GFR (CKD-EPI)NonAf >90 (>60 ml/min/1.73 sqM) Glucose 89 (74-99) mg/dL Plasma Lactic Acid Lj (0.7-2.0) mmol/L Calcium 8.7 (8.4-10.2) mg/dL Total Bilirubin 0.5 (0.2-1.3) mg/dL AST 28 (14-36) U/L ALT 16 (4-34) U/L Alkaline Phosphatase 55 (38-126) U/L Troponin I (0.000-0.034) ng/mL Total Protein 6.4 (6.3-8.2) g/dL Albumin 3.6 (3.5-5.0) g/dL Urine Color Urine Appearance (Clear) Urine pH (5.0-8.0) Ur Specific [place] (1.001-1.035) Urine Protein (Negative) Urine Glucose (UA) (Negative) Urine Ketones (Negative) Urine Blood (Negative) Urine Nitrite (Negative) Urine Bilirubin (Negative) Urine Urobilinogen (<2.0) mg/dL Ur Leukocyte Esterase (Negative) 03/22/21 03/22/21 03/22/21 Range/Units 17:29 17:29 17:38 WBC (3.8-10.6) k/uL RBC (3.80-5.40) m/uL Hgb (11.4-16.0) gm/dL Hct (34.0-46.0) % MCV (80.0-100.0) fL MCH (25.0-35.0) pg MCHC (31.0-37.0) g/dL RDW (11.5-15.5) % Plt Count (150-450) k/uL MPV Neutrophils % % Lymphocytes % % Monocytes % % Eosinophils % % Basophils % % Neutrophils # (1.3-7.7) k/uL Lymphocytes # (1.0-4.8) k/uL Monocytes # (0-1.0) k/uL Eosinophils # (0-0.7) k/uL Basophils # (0-0.2) k/uL PT (9.0-12.0) sec INR (<1.2) Sodium (137-145) mmol/L Potassium (3.5-5.1) mmol/L Chloride (98-107) mmol/L Carbon Dioxide (22-30) mmol/L Anion Gap mmol/L BUN (7-17) mg/dL Creatinine (0.52-1.04) mg/dL Est GFR (CKD-EPI)AfAm (>60 ml/min/1.73 sqM) Est GFR (CKD-EPI)NonAf (>60 ml/min/1.73 sqM) Glucose (74-99) mg/dL Plasma Lactic Acid Lj 0.7 (0.7-2.0) mmol/L Calcium (8.4-10.2) mg/dL Total Bilirubin (0.2-1.3) mg/dL AST (14-36) U/L ALT (4-34) U/L Alkaline Phosphatase (38-126) U/L Troponin I <0.012 (0.000-0.034) ng/mL Total Protein (6.3-8.2) g/dL Albumin (3.5-5.0) g/dL Urine Color Light Yellow Urine Appearance Clear (Clear) Urine pH 5.5 (5.0-8.0) Ur Specific [place] 1.011 (1.001-1.035) Urine Protein Negative (Negative) Urine Glucose (UA) Negative (Negative) Urine Ketones Negative (Negative) Urine Blood Negative (Negative) Urine Nitrite Negative (Negative) Urine Bilirubin Negative (Negative) Urine Urobilinogen <2.0 (<2.0) mg/dL Ur Leukocyte Esterase Negative (Negative) Disposition Clinical Impression: Fatigue Disposition: HOME SELF-CARE Condition: Good Additional Instructions: Follow-up with your primary care doctor next week. Return to the emergency room with any new or worsening symptoms including chest pain or shortness of breath. Is patient prescribed a controlled substance at d/c from ED?: No Referrals: Stefan He MD [Primary Care Provider] - 1-2 days Time of Disposition: 19:36
--- NOTE | 2021-03-22 18:52 | XR ---
EXAMINATION: XR chest 2V DATE AND TIME: 03/22/2021 6:03 PM CLINICAL INDICATION: PHH; fatigue TECHNIQUE: Departmental protocol COMPARISON: None FINDINGS: The overlying soft tissues are prominent. Lungs are well-expanded and appear to be clear. The pleural spaces are negative. The cardiac silhouette is not enlarged. The remainder of the mediastinal silhouette is unremarkable. The skeletal structures and soft tissues are negative for acute findings. IMPRESSION: No acute radiographic process.
[2021-03-22 19:56] VITALS: BP 133/86; PULSE 64; RESP 16; TEMP 98.5
== END 2021-03-22 19:55 | disposition home or self-care (01) ==
LOC: EC 16:33
DX: R53.83 Other fatigue (principal); K21.9 Gastro-esophageal reflux disease without esophagitis; Z88.5 Allergy status to narcotic agent; Z88.6 Allergy status to analgesic agent; Z88.2 Allergy status to sulfonamides; Z91.040 Latex allergy status; Z86.718 Personal history of other venous thrombosis and embolism; Z90.49 Acquired absence of other specified parts of digestive tract; Z90.710 Acquired absence of both cervix and uterus; Z90.89 Acquired absence of other organs; Z96.653 Presence of artificial knee joint, bilateral; Z87.891 Personal history of nicotine dependence
CPT/HCPCS: 36415; 71046; 80053; 81003; 83605; 84484; 85025; 85610; 93005; 96360; 99285

== ENCOUNTER 2021-03-27 12:21 | Inpatient (IN) | payer MEDICARE ==
[2021-03-27] MEDS ORDERED: PANTOPRAZOLE 40 MG/10 ML VIAL IVP STA (12:29)
[2021-03-27] MEDS ORDERED: HYDROmorphone 0.5 MG/0.5 ML SYRINGE IVP STA ×2 (12:30→13:28)
--- NOTE | 2021-03-27 12:36 | ED ---
General Adult HPI - General Stated complaint: Fall-Hip Pain Time Seen by Provider: 03/27/21 12:21 Source: patient, RN notes reviewed, old records reviewed - History of Present Illness Initial comments: This a 61-year-old female presents emergency Department complaining of a fall and right hip pain. Patient has a past medical history significant for von Willebrand's disease. Patient states today she was in the epigastric door and slipped and fell and landed on her right side. Patient states since that time she's had severe right hip pain. Patient also states she has a small area of tenderness in the right upper arm. Patient denies hitting her head or neck. Patient denies any chest or back pain. Patient denies any other problems at this time. - Related Data Home Medications Medication Instructions Recorded Confirmed Fluticasone Nasal [place] [Flonase 1 spray EA NOSTRIL BID PRN 06/20/17 03/27/21 Nasal [place]] SUMAtriptan SUCCINATE [Imitrex] 100 mg PO BID PRN 06/20/17 03/27/21 Desmopressin Intranasal [Ddavp 1 spray EA NOSTRIL DAILY PRN 06/02/19 03/27/21 Nasal [place]] EPINEPHrine (Auto Inject) [Epipen] 0.3 mg IM ONCE PRN 06/24/19 03/27/21 Pantoprazole [Protonix] 40 mg PO BID 06/24/19 03/27/21 DULoxetine HCL [Cymbalta] 30 mg PO DAILY 04/07/20 03/27/21 Diclofenac Sodium [Voltaren Gel] 1 applic TOPICAL QID PRN 04/07/20 03/27/21 Pramipexole Di-HCl [Mirapex] 0.5 mg PO HS 04/07/20 03/27/21 DULoxetine HCL [Cymbalta] 60 mg PO HS 03/27/21 03/27/21 Furosemide [Lasix] 40 mg PO BID 03/27/21 03/27/21 Nadolol [Corgard] 20 mg PO DAILY 03/27/21 03/27/21 Neupro 8mg/24 Hr Patch 1 patch TOPICAL DAILY@1700 03/27/21 03/27/21 buPROPion XL [Wellbutrin XL] 450 mg PO DAILY 03/27/21 03/27/21 traZODone HCL [Desyrel] 100 - 300 mg PO HS 03/27/21 03/27/21 Previous Rx's Medication Instructions Recorded HYDROcodone/APAP 5-325MG [[place] 5] 1 each PO Q6HR PRN #12 tab 11/13/20 Allergies Allergy/AdvReac Type Severity Reaction Status Date / Time aspirin Allergy has Von Verified 03/27/21 13:44 Willebrands Disease ibuprofen [From Motrin] Allergy has Von Verified 03/27/21 13:44 Willebrands Disease Iodinated Contrast Media Allergy Anaphylaxis Verified 03/27/21 13:44 [Iodinated Contrast- Oral and IV Dye] isosorbide [From Imdur] Allergy Rash/Hives Verified 03/27/21 13:44 latex Allergy Anaphylaxis Verified 03/27/21 13:44 Sulfa (Sulfonamide Allergy Rash/Hives Verified 03/27/21 13:44 Antibiotics) codeine AdvReac agitation Verified 03/27/21 13:44 and restless leg symptoms increased Review of Systems ROS Statement: Those systems with pertinent positive or pertinent negative responses have been documented in the HPI. ROS Other: All systems not noted in ROS Statement are negative. Past Medical History Past Medical History: Deep Vein Thrombosis (DVT), GERD/Reflux Additional Past Medical History / Comment(s): Von Willebrand Disease, diverticulitis, migraines, chronic back pain, DVT bilat. Restless leg syndrome. History of Any Multi-Drug Resistant Organisms: None Reported Past Surgical History: Adenoidectomy, Bariatric Surgery, Cholecystectomy, Hysterectomy, Joint Replacement, Orthopedic Surgery, Tonsillectomy Additional Past Surgical History / Comment(s): nury foot surgery, nury knee rep laced, nury rotator cuffs, Judith en Y approx 5 years, bowel surgery. right shoulder replacement Past Anesthesia/Blood Transfusion Reactions: Postoperative Nausea & Vomiting (PONV) Past Psychological History: No Psychological Hx Reported Smoking Status: Former smoker Past Alcohol Use History: None Reported Past Drug Use History: None Reported - Past Family History Mother Family Medical History: Cancer Father Family Medical History: Cancer General Exam - General Exam Comments Initial Comments: GENERAL: Patient is well-developed and well-nourished. Patient is nontoxic and well- hydrated and is in moderate distress. ENT: Neck is soft and supple. No significant lymphadenopathy is noted. Oropharynx is clear. Moist mucous membranes. Neck has full range of motion without eliciting any pain. EYES: The sclera were anicteric and conjunctiva were pink and moist. Extraocular movements were intact and pupils were equal round and reactive to light. Eyelids were unremarkable. PULMONARY: Unlabored respirations. Good breath sounds bilaterally. No audible rales rhonchi or wheezing was noted. CARDIOVASCULAR: There is a regular rate and rhythm without any murmurs gallops or rubs. ABDOMEN: Soft and nontender with normal bowel sounds. SKIN: Skin is clear with no lesions or rashes and otherwise unremarkable. NEUROLOGIC: Patient is alert and oriented x3. Cranial nerves II through XII are grossly intact. Motor and sensory are also intact. Normal speech, volume and content. Symmetrical smile. MUSCULOSKELETAL: Patient is very tender on the anterior and lateral aspect of her right hip any movement causes excruciating pain. LYMPHATICS: No significant lymphadenopathy is noted PSYCHIATRIC: Normal psychiatric evaluation. Course Vital Signs 03/27/21 12:39 Temperature 97.5 F L Pulse Rate 70 Respiratory 18 Rate Blood Pressure 90/80 O2 Sat by Pulse 97 Oximetry Medical Decision Making - Medical Decision Making EKG shows normal sinus rhythm at 72 bpm TX interval 264 QRS is 86 QT interval 14 QTC is 457 per patient's EKG shows no ST segment elevation or depression. No Q- wave abnormalities are noted. X-ray of the hip shows a intertrochanteric fracture. Chest x-ray shows no acute abnormalities. I spoke with Dr. Powell he agreed to admit the patient admitted the patient w rote admitting orders. I consulted [facility] physician's for medical clearance - Lab Data Result diagrams: 03/27/21 13:45 03/27/21 13:45 Lab Results 03/27/21 03/27/21 03/27/21 Range/Units 13:45 13:45 13:45 WBC 8.3 (3.8-10.6) k/uL RBC 4.01 (3.80-5.40) m/uL Hgb 13.1 (11.4-16.0) gm/dL Hct 37.6 (34.0-46.0) % MCV 93.8 (80.0-100.0) fL MCH 32.5 (25.0-35.0) pg MCHC 34.7 (31.0-37.0) g/dL RDW 13.4 (11.5-15.5) % Plt Count 223 (150-450) k/uL MPV 8.3 Neutrophils % 80 % Lymphocytes % 12 % Monocytes % 5 % Eosinophils % 2 % Basophils % 0 % Neutrophils # 6.6 (1.3-7.7) k/uL Lymphocytes # 1.0 (1.0-4.8) k/uL Monocytes # 0.4 (0-1.0) k/uL Eosinophils # 0.1 (0-0.7) k/uL Basophils # 0.0 (0-0.2) k/uL PT 11.3 (9.0-12.0) sec INR 1.1 (<1.2) APTT 25.9 (22.0-30.0) sec Sodium 137 (137-145) mmol/L Potassium 3.5 (3.5-5.1) mmol/L Chloride 105 (98-107) mmol/L Carbon Dioxide 27 (22-30) mmol/L Anion Gap 5 mmol/L BUN 12 (7-17) mg/dL Creatinine 0.46 L (0.52-1.04) mg/dL Est GFR (CKD-EPI)AfAm >90 (>60 ml/min/1.73 sqM) Est GFR (CKD-EPI)NonAf >90 (>60 ml/min/1.73 sqM) Glucose 93 (74-99) mg/dL Calcium 8.3 L (8.4-10.2) mg/dL Total Bilirubin 0.6 (0.2-1.3) mg/dL AST 77 H (14-36) U/L ALT 32 (4-34) U/L Alkaline Phosphatase 75 (38-126) U/L Total Protein 6.1 L (6.3-8.2) g/dL Albumin 3.4 L (3.5-5.0) g/dL Disposition Clinical Impression: Intertrochanteric fracture, Von Willebrands disease Disposition: ADMITTED IP TO THIS [facility] Referrals: Stefan He MD [Primary Care Provider] - 1-2 days Time of Disposition: 14:47
[2021-03-27] MEDS ORDERED: LORazepam 2 MG/ML INJ IV STA (13:28)
[2021-03-27] MEDS: LACTATED RINGERS 1,000 ML IV SCH ×2 (14:15→17:59)
[2021-03-27 14:16] LABS: INR 1.1 (<1.2); Partial Thromboplastin Time 25.9 sec (22.0-30.0); Prothrombin Time 11.3 sec (9.0-12.0)
[2021-03-27 14:21] LABS: ALT 32 U/L (4-34); AST 77 U/L (14-36); African American GFR (CKD) >90 (>60 ml/min/1.73 sqM); Albumin 3.4 g/dL (3.5-5.0); Alkaline Phosphatase 75 U/L (38-126); Anion Gap 5 mmol/L; Basophils % (A) 0 %; Blood Urea Nitrogen 12 mg/dL (7-17); Calcium 8.3 mg/dL (8.4-10.2); Carbon Dioxide 27 mmol/L (22-30); Chloride 105 mmol/L (98-107); Eosinophils # (A) 0.1 k/uL (0-0.7); Eosinophils % (A) 2 %; Glucose 93 mg/dL (74-99); HCT 37.6 % (34.0-46.0); HGB 13.1 gm/dL (11.4-16.0); Lymphocytes % (A) 12 %; MCH 32.5 pg (25.0-35.0); MCHC 34.7 g/dL (31.0-37.0); MCV 93.8 fL (80.0-100.0); Mean Platelet Volume 8.3; Monocytes # (A) 0.4 k/uL (0-1.0); Monocytes % (A) 5 %; Neutrophils # (A) 6.6 k/uL (1.3-7.7); Neutrophils % (A) 80 %; Non-African American GFR(CKD) >90 (>60 ml/min/1.73 sqM); Platelet Count 223 k/uL (150-450); Potassium 3.5 mmol/L (3.5-5.1); RBC 4.01 m/uL (3.80-5.40); RDW 13.4 % (11.5-15.5); Sodium 137 mmol/L (137-145); Total Bilirubin 0.6 mg/dL (0.2-1.3); Total Protein 6.1 g/dL (6.3-8.2); WBC 8.3 k/uL (3.8-10.6)
--- NOTE | 2021-03-27 14:44 | XR ---
EXAMINATION TYPE: XR chest 1V DATE OF EXAM: 03/27/2021 COMPARISON: Chest x-ray March 22, 2021 HISTORY: Chest pain and difficulty in breathing. TECHNIQUE: Single frontal supine view of the chest is obtained. FINDINGS: There chronic right pleural changes bilaterally without suspicious focal air space opacity , pleural effusion, or pneumothorax seen. The cardiac silhouette size is stable and mildly enlarged with ectatic aortic knob causing right-sided tracheal deviation. Surgical change right shoulder parti ally imaged. Stimulator leads in the mid to lower thoracic spinal canal redemonstrated. IMPRESSION: Chronic changes and cardiomegaly without acute pulmonary process.
--- NOTE | 2021-03-27 14:46 | XR ---
EXAMINATION TYPE: XR Hip RT and AP Pelvis DATE OF EXAM: 03/27/2021 COMPARISON: NONE HISTORY: Pain after fall injury. TECHNIQUE: A single AP view of the pelvis is obtained. Two views of the right hip are obtained. FINDINGS: Osseous structures are demineralized. There is acute comminuted impacted fracture through t he basicervical level of the right proximal femur. No hip joint dislocation. Moderate superior joint space loss both hips right greater than left. The symphysis is intact. Sacroiliac joints are preserved. Surgical clips overlie the L4 vertebra. IMPRESSION: There is acute impacted basicervical fracture femoral neck level right proximal femur.
[2021-03-27] MEDS ORDERED: SODIUM CHLORIDE 0.9% 1,000 ML IV ONE (14:47)
[2021-03-27] MEDS ORDERED: HYDROmorphone 0.5 MG/0.5 ML SYRINGE IVP PRN (14:48)
[2021-03-27] MEDS ORDERED: DEXAMETHASONE SOD PHOSPHATE 4 MG/ML 1 ML VIAL IV ONE (17:00)
[2021-03-27] MEDS ORDERED: ONDANSETRON 4 MG/2 ML VIAL IVP ONE ×2 (17:00→17:30)
[2021-03-27] MEDS ORDERED: DESMOPRESSIN ACETATE 30 MCG in SODIUM CHLORIDE 0.9% 50 ML IVPB ONE (17:00)
--- NOTE | 2021-03-27 17:10 | P.HPOR ---
<Nicky Lo K - Last Filed: 03/27/21 17:09> History of Present Illness H&P Date: 03/27/21 This patient is a 61-year-old female with past medical history of von Willebrand's disease that presented to [facility] emergency department via EMS with complaints of right hip pain following a fall. The patient states she is trying to open a door and the door blew open, and she fell directly onto the right hip. She was unable to get up following the fall due to the pain. She was transported to [facility] ER via ambulance. X-rays of the right hip in the emergency department revealed a right basicervical femoral neck fracture. The patient was admitted under the care of orthopedic surgery for operative fixation of her right hip fracture. Patient is seen and examined bedside in the emergency department. She complains of right hip pain, as well as right shoulder pain. The patient states she has a history of right total shoulder replacement a few years ago. She also has a history of bilateral total knee replacements at [facility] at least 10 years ago. She is not having knee pain at this time. She also has a neurostimulator implant for chronic back pain. She denies chest pain, shortness of breath, nausea, vomiting, fevers, chills. She otherwise feels well, despite her right hip pain. Vital signs stable. Past Medical History Past Medical History: Deep Vein Thrombosis (DVT), GERD/Reflux Additional Past Medical History / Comment(s): Von Willebrand Disease, diverticulitis, migraines, chronic back pain, DVT bilat. Restless leg syndrome. History of Any Multi-Drug Resistant Organisms: None Reported Past Surgical History: Adenoidectomy, Bariatric Surgery, Cholecystectomy, Hysterectomy, Joint Replacement, Orthopedic Surgery, Tonsillectomy Additional Past Surgical History / Comment(s): nury foot surgery, nury knee replaced, nury rotator cuffs, Judith en Y approx 5 years, bowel surgery. right shoulder replacement Past Anesthesia/Blood Transfusion Reactions: Postoperative Nausea & Vomiting (PONV) Past Psychological History: No Psychological Hx Reported Smoking Status: Former smoker Past Alcohol Use History: None Reported Past Drug Use History: None Reported - Past Family History Mother Family Medical History: Cancer Father Family Medical History: Cancer Medications and Allergies Home Medications Medication Instructions Recorded Confirmed Type Fluticasone Nasal [place] [Flonase 1 spray EA NOSTRIL BID PRN 06/20/17 03/27/21 History Nasal [place]] SUMAtriptan SUCCINATE [Imitrex] 100 mg PO BID PRN 06/20/17 03/27/21 History Desmopressin Intranasal [Ddavp 1 spray EA NOSTRIL DAILY PRN 06/02/19 03/27/21 History Nasal [place]] EPINEPHrine (Auto Inject) [Epipen] 0.3 mg IM ONCE PRN 06/24/19 03/27/21 History Pantoprazole [Protonix] 40 mg PO BID 06/24/19 03/27/21 History DULoxetine HCL [Cymbalta] 30 mg PO DAILY 04/07/20 03/27/21 History Diclofenac Sodium [Voltaren Gel] 1 applic TOPICAL QID PRN 04/07/20 03/27/21 History Pramipexole Di-HCl [Mirapex] 0.5 mg PO HS 04/07/20 03/27/21 History HYDROcodone/APAP 5-325MG [[place] 5] 1 each PO Q6HR PRN #12 tab 11/13/20 03/27/21 Rx DULoxetine HCL [Cymbalta] 60 mg PO HS 03/27/21 03/27/21 History Furosemide [Lasix] 40 mg PO BID 03/27/21 03/27/21 History Nadolol [Corgard] 20 mg PO DAILY 03/27/21 03/27/21 History Neupro 8mg/24 Hr Patch 1 patch TOPICAL DAILY@1700 03/27/21 03/27/21 History buPROPion XL [Wellbutrin XL] 450 mg PO DAILY 03/27/21 03/27/21 History traZODone HCL [Desyrel] 100 - 300 mg PO HS 03/27/21 03/27/21 History Allergies Allergy/AdvReac Type Severity Reaction Status Date / Time aspirin Allergy has Von Verified 03/27/21 13:44 Willebrands Disease ibuprofen [From Motrin] Allergy has Von Verified 03/27/21 13:44 Willebrands Disease Iodinated Contrast Media Allergy Anaphylaxis Verified 03/27/21 13:44 [Iodinated Contrast- Oral and IV Dye] isosorbide [From Imdur] Allergy Rash/Hives Verified 03/27/21 13:44 latex Allergy Anaphylaxis Verified 03/27/21 13:44 Sulfa (Sulfonamide Allergy Rash/Hives Verified 03/27/21 13:44 Antibiotics) codeine AdvReac agitation Verified 03/27/21 13:44 and restless leg symptoms increased Physical Examination On examination, the patient is lying in bed in no apparent distress. She is alert and oriented 3. On inspection of the right shoulder, there are healed incisions with no signs of infection. There is a small area of ecchymosis at the anterolateral shoulder. There is diffuse pain with palpation of the right shoulder. No pain with palpation of the right elbow, forearm, wrist, hand. Motor and sensory function is intact of the right upper extremity. Radial pulse palpable. On inspection of the left upper extremity, there are no obvious deformities or signs of trauma. On inspection of the left lower extremity, there are no obvious deformities or signs of trauma. On inspection of the right hip, there are no lacerations, abrasions. No open wounds. There is diffuse pain on palpation of the right hip. No pain on palpation of the thigh, knee, lower leg, ankle, foot. Healed incision at the anterior knee consistent with a prior TKA. Zomal-ed-lghmcb of the hip is not tested at this time. Patient has good strength and [id number] of the right ankle. Motor and sensory function is intact of the right lower extremity. Dorsalis pedis pulse palpable. The right lower extremity is warm and well- perfused with brisk capillary refill distally. Calves are soft and nontender to palpation bilaterally. Results Right hip x-ray 03/27/21: Displaced basicervical femoral neck fracture. - Labs Labs: Abnormal Lab Results - Last 24 Hours (Table) 03/27/21 Range/Units 13:45 Creatinine 0.46 L (0.52-1.04) mg/dL Calcium 8.3 L (8.4-10.2) mg/dL AST 77 H (14-36) U/L Total Protein 6.1 L (6.3-8.2) g/dL Albumin 3.4 L (3.5-5.0) g/dL H & H 03/27/21 Range/Units 13:45 Hgb 13.1 (11.4-16.0) gm/dL Hct 37.6 (34.0-46.0) % Coagulation 03/27/21 Range/Units 13:45 INR 1.1 (<1.2) Result Diagrams: 03/27/21 13:45 03/27/21 13:45 Assessment and Plan Assessment: Right basicervical femoral neck fracture Plan: - Clinical and imaging findings were discussed with the patient. The patient was discussed with Dr. Riggins. Recommended surgical fixation of the right hip fracture with a short gamma nail. Surgical risks were discussed with the patient. The patient provides verbal consent for surgery bedside today. We will possibly plan for OR this afternoon. - Pain management as needed. Strict nonweightbearing right lower extremity. - We will obtain x-rays of the right shoulder. - NPO diet. <Alexis Riggins - Last Filed: 03/27/21 17:17> Results - Labs Labs: Abnormal Lab Results - Last 24 Hours (Table) 03/27/21 Range/Units 13:45 Creatinine 0.46 L (0.52-1.04) mg/dL Calcium 8.3 L (8.4-10.2) mg/dL AST 77 H (14-36) U/L Total Protein 6.1 L (6.3-8.2) g/dL Albumin 3.4 L (3.5-5.0) g/dL H & H 03/27/21 Range/Units 13:45 Hgb 13.1 (11.4-16.0) gm/dL Hct 37.6 (34.0-46.0) % Coagulation 03/27/21 Range/Units 13:45 INR 1.1 (<1.2) Result Diagrams: 03/27/21 13:45 03/27/21 13:45 Assessment and Plan Plan: Agree with H&P by Nicky Lo PA-C. The patient has a basicervical femoral neck fracture. I recommended operative fixation with a short gamma nail. I met with the patient prior to surgery to discuss her injury, treatment options and the potential risks and complications. She has a known history of von Willebrand's disease and we will treat her with desmopressin, levy-examic acid and will use lidocaine with epi as local around her incisions. She provided her consent to go forward with surgery understanding the potential risks.
[2021-03-27] MEDS ORDERED: SCOPOLAMINE 1.5MG/72HR PATCH TRANSDERM ONE (17:30)
[2021-03-27] MEDS ORDERED: fentaNYL (PF) 50 MCG/ML 2 ML AMP IVP ONE (17:38)
[2021-03-27] MEDS ORDERED: SODIUM CHLORIDE 0.9% 100 ML BAG ONE (18:02)
[2021-03-27] MEDS ORDERED: fentaNYL (PF) 50 MCG/ML 2 ML AMP ONE (18:02)
[2021-03-27] MEDS ORDERED: PHENYLEPHRINE-0.9% NACL SYG 1,000 MCG/10 ML SYRINGE ONE (18:02)
[2021-03-27] MEDS ORDERED: ceFAZolin 1,000 MG VIAL ONE (18:02)
[2021-03-27] MEDS ORDERED: SUCCINYLCHOLINE CHLORIDE 100 MG/5 ML SYR IV ONE (18:02)
[2021-03-27] MEDS ORDERED: PROPOFOL 10 MG/ML 20 ML VIAL IV ONE (18:02)
[2021-03-27] MEDS ORDERED: GLYCOPYRROLATE 0.2 MG/ML 2 ML VIAL ONE (18:02)
[2021-03-27] MEDS ORDERED: HYDROmorphone (PF) 1 MG/ML ONE (18:02)
[2021-03-27] MEDS ORDERED: LIDOCAINE 1% INJ 10MG/ML (20 ML MDV) ONE (18:02)
[2021-03-27] MEDS ORDERED: ROCURONIUM 10 MG/ML (5 ML VIAL) IV ONE (18:02)
[2021-03-27] MEDS ORDERED: NEOSTIGMINE 1 MG/ML 10 ML VIAL ONE (18:02)
[2021-03-27] MEDS ORDERED: ePHEDrine SULFATE/0.9% NACL/PF 50 MG/5 ML SYRINGE IV ONE (18:02)
[2021-03-27] MEDS ORDERED: LIDOCAINE 2%-EPI 1:100,000 20 ML VIAL SQ ONE ×2 (19:35→20:01)
[2021-03-27] MEDS ORDERED: HYDROmorphone 0.2 MG/1 ML SYRINGE IVP PRN (20:20)
[2021-03-27] MEDS ORDERED: HYDROmorphone 1 MG/ML 1 ML SYRINGE IVP PRN (20:20)
[2021-03-27] MEDS ORDERED: NALOXONE 0.4 MG/ML 1 ML VIAL IV PRN (20:20)
[2021-03-27] MEDS ORDERED: HYDROcodone/APAP 5-325MG 1 EACH TAB PO PRN (20:20)
--- NOTE | 2021-03-27 20:29 | P.OP ---
Date of Procedure: 03/27/21 Preoperative Diagnosis: 1. Right basicervical femoral neck fracture 2. BMI 35 3. Von Willebrand's disease 4. History of DVT Postoperative Diagnosis: Same Procedure(s) Performed: Operative fixation of right basicervical femoral neck fracture with int ramedullary hip screw Anesthesia: GERONIMO Surgeon: Alexis Riggins Breakfast Server #1: Nicky Lo Estimated Blood Loss (ml): 300 IV fluids (ml): 1,000 Pathology: none sent Condition: stable Disposition: PACU Indications for Procedure: The patient is a very pleasant 61-year-old female with a medical history significant for von Willebrand's disease and having a BMI of 35. She sustained a fall earlier today resulting in a displaced right basicervical femoral neck fracture. I met with the patient preoperatively to discuss treatment. My recommendation was an attempt to salvage her hip with an intramedullary hip screw. We discussed potential risks and complications of surgery including but not limited to risk of anesthesia, superficial or deep infection, nonunion, ma lunion, varus collapse and hardware failure, bleeding complications from von Willebrand's disease, DVT, posterior medical arthritis, chronic pain, acute coronary event, other medical complications, need for further surgery including total hip arthroplasty, and possibly loss of life or limb. The patient voiced understanding of these potential complications and also acknowledges that other less common complications are possible. She provided her verbal and written consent to go forward with surgery. Description of Procedure: The patient was identified in preop holding and the correct right leg was marked with my initials. I reviewed the consent form with the patient and all of her questions were answered. She was given desmopressin due to her von Willebrand's disease. She was then brought back to the operating room. She was given a general anesthetic on the [place]. Preoperative antibiotics and tranexamic acid were given. Boots were placed on the gurney. She was then carefully transferred onto the [place] table. All bony prominences were well-padded. A timeout was performed identifying the correct patient, operative extremity, and procedure. The fracture was then reduced using a combination of traction to the table, internal rotation, and adduction. Biplanar fluoroscopy was used to verify reduction of the fracture. The fracture was also confirmed to be a basicervical neck fracture. Decision was made to proceed with an intramedullary hip screw. The right leg was then prepped and draped in the standard sterile fashion. I began by making a small stab incision in line with the femur just proximal to the greater trochanter. Dissection was carried down to the tip of the greater trochanter. An awl was used to create a start site just medial to the tip of the greater trochanter on the AP view and: Near with the shaft on the lateral view. A 3.2 mm guide pin was then placed through the awl into the proximal femur. An opening reamer was used followed by removal of the 3.2 mm guide pin and placement of a ball-tipped guidewire. A short nail was then dispensed to the targeting arm. I verified that the trochars lined up through the targeting arm to the slots in the nail. The ball-tipped guidewire was used to place the nail into the proximal femur. Once the nail was sunk to an appropriate depth the ball-tipped guidewire was removed. The trocar was placed through the targeting arm down to the lateral skin incision was made through the skin and fascia down to the lateral cortex of the femur. A guidepin was then placed through the trocar into the low center position on the AP view and centered in the femoral head on the lateral view. The guidepin was measured, reamed, and an appropriately sized lag screw was placed. As the lag screw was being fully seated there was some malreduction due to rotation of the fracture. Two 3.2 mm guide pins were placed anteriorly and posterior in the femoral head to act as derotation devices. The lag screw was then fully seated and the fracture was anatomically reduced. The set screw was placed proximally. The provisionally placed guide pins were removed. The distal interlock was then placed through a stab incision and targeting arm. A derotation screw was then placed anteriorly in the neck to help with additional fixation. Final fluoroscopic images were taken. All wounds were thoroughly irrigated and closed in layers. Sterile dressings were applied. The patient was then transferred off of the [place] table, extubated, and brought to recovery having tolerated the procedure well. Nicky Lo PA-C was required as a skilled orthopedic physician assistant due to complexity of the case. Plan: The patient is going to be admitted under my care. She should toe-touch weight-bear on the right lower extremity. She will need 2 doses of postoperative antibiotics. Due to her history of both von Willebrand's disease and DVT I will defer to internal medicine for choice and duration of DVT prophylaxis. Would also like to check a vitamin D level and start her on both calcium and vitamin D supplementation.
[2021-03-27] MEDS: SENNOSIDES-DOCUSATE SODIUM 1 EACH TAB PO SCH (22:26)
--- NOTE | 2021-03-27 22:37 | XR ---
EXAMINATION TYPE: XR shoulder complete RT DATE OF EXAM: 03/27/2021 COMPARISON: 12/05/2019 HISTORY: Shoulder pain. Fall. TECHNIQUE: 3 views FINDINGS: There is right shoulder prosthesis. Components appear in anatomic position. I see no acute fracture nor dislocation. AC joint is intact. IMPRESSION: No acute abnormality of the right shoulder. No change.
--- NOTE | 2021-03-27 22:38 | XR ---
EXAMINATION TYPE: XR Hip Limited RT DATE OF EXAM: 03/27/2021 COMPARISON: Today HISTORY: Surgery. TECHNIQUE: Single view FINDINGS: There is intramedullary my with transverse screws fixing the intertrochanteric fracture of the right femur in anatomic position. IMPRESSION: No complicating process seen.
[2021-03-28] MEDS: HYDROmorphone 0.5 MG/0.5 ML SYRINGE IVP PRN ×2 (02:27→19:32)
[2021-03-28 06:21] LABS: Basophils % (A) 0 %; Eosinophils # (A) 0.3 k/uL (0-0.7); Eosinophils % (A) 3 %; HCT 33.3 % (34.0-46.0); HGB 11.2 gm/dL (11.4-16.0); Lymphocytes # (A) 0.8 k/uL (1.0-4.8); Lymphocytes % (A) 8 %; MCH 32.2 pg (25.0-35.0); MCHC 33.5 g/dL (31.0-37.0); Mean Platelet Volume 8.4; Monocytes # (A) 0.6 k/uL (0-1.0); Monocytes % (A) 6 %; Neutrophils # (A) 8.3 k/uL (1.3-7.7); Neutrophils % (A) 82 %; Platelet Count 263 k/uL (150-450); RBC 3.47 m/uL (3.80-5.40); RDW 13.5 % (11.5-15.5); WBC 10.2 k/uL (3.8-10.6)
[2021-03-28] MEDS: HYDROcodone/APAP 5-325MG 1 EACH TAB PO PRN ×2 (06:21→11:51)
[2021-03-28] MEDS ORDERED: HYDROmorphone 0.5 MG/0.5 ML SYRINGE IVP PRN (07:00)
[2021-03-28] MEDS ORDERED: FLUTICASONE 50MCG/SPRAY NASAL 16GM EA NOSTRIL PRN (07:58)
--- NOTE | 2021-03-28 08:33 | FL ---
Fluoroscopy INDICATION: Pain FINDINGS: Fluoroscopy time: 2 minutes 30 seconds. Images obtained: 6. IMPRESSIONS: 1. Documentation of fluoroscopy.
[2021-03-28] MEDS: hydrOXYzine pamoate 25 MG CAP PO PRN ×3 (09:33→17:06)
[2021-03-28] MEDS: DULoxetine HCL 30 MG CAPSULE.DR PO SCH (10:10)
[2021-03-28] MEDS: buPROPion XL 150 MG TAB.ER.24H PO SCH (10:10)
[2021-03-28] MEDS: PANTOPRAZOLE 40 MG TABLET PO SCH ×2 (10:10→17:07)
[2021-03-28] MEDS ORDERED: SUMAtriptan succinate 50 MG TAB PO PRN (10:29)
[2021-03-28] MEDS: NEUPRO 8 MG/24 HR TOPICAL SCH (10:45)
[2021-03-28] MEDS: LACTATED RINGERS 1,000 ML IV SCH ×3 (11:29→17:07)
--- NOTE | 2021-03-28 14:09 | P.CONS ---
History of Present Illness - Reason for Consult Consult date: 03/28/21 - Chief Complaint Right hip pain - History of Present Illness This is a 61-year-old female with past medical history noted below Presented to the emergency room yesterday after sustaining a fall at home and was complaining of right hip pain on presentation. Patient was found to have right femoral neck fracture status post intramedullary hip screw yesterday. Patient is postoperative day #1. She was up working with physical therapy when I saw her. Her pain is not well controlled. She does not have any other complaints otherwise. I was asked to see her for medical management. Review of Systems Review of system: 14 points review of systems were obtained and were negative except to what were mentioned in the HPI. Past Medical History Past Medical History: Deep Vein Thrombosis (DVT), GERD/Reflux Additional Past Medical History / Comment(s): Von Willebrand Disease, diverticulitis, migraines, chronic back pain, DVT bilat. Restless leg syndrome. History of Any Multi-Drug Resistant Organisms: None Reported Past Surgical History: Adenoidectomy, Bariatric Surgery, Cholecystectomy, Hysterectomy, Joint Replacement, Orthopedic Surgery, Tonsillectomy Additional Past Surgical History / Comment(s): nury foot surgery, nury knee replaced, nury rotator cuffs, Judith en Y approx 5 years, bowel surgery. right shoulder replacement Past Anesthesia/Blood Transfusion Reactions: Postoperative Nausea & Vomiting (PONV) Past Psychological History: No Psychological Hx Reported Smoking Status: Former smoker Past Alcohol Use History: None Reported Past Drug Use History: None Reported - Past Family History Mother Family Medical History: Cancer Father Family Medical History: Cancer Medications and Allergies Home Medications Medication Instructions Recorded Confirmed Type Fluticasone Nasal [place] [Flonase 1 spray EA NOSTRIL BID PRN 06/20/17 03/27/21 History Nasal [place]] SUMAtriptan SUCCINATE [Imitrex] 100 mg PO BID PRN 06/20/17 03/27/21 History Desmopressin Intranasal [Ddavp 1 spray EA NOSTRIL DAILY PRN 06/02/19 03/27/21 History Nasal [place]] EPINEPHrine (Auto Inject) [Epipen] 0.3 mg IM ONCE PRN 06/24/19 03/27/21 History Pantoprazole [Protonix] 40 mg PO BID 06/24/19 03/27/21 History DULoxetine HCL [Cymbalta] 30 mg PO DAILY 04/07/20 03/27/21 History Diclofenac Sodium [Voltaren Gel] 1 applic TOPICAL QID PRN 04/07/20 03/27/21 History Pramipexole Di-HCl [Mirapex] 0.5 mg PO HS 04/07/20 03/27/21 History HYDROcodone/APAP 5-325MG [[place] 5] 1 each PO Q6HR PRN #12 tab 11/13/20 03/27/21 Rx DULoxetine HCL [Cymbalta] 60 mg PO HS 03/27/21 03/27/21 History Furosemide [Lasix] 40 mg PO BID 03/27/21 03/27/21 History Nadolol [Corgard] 20 mg PO DAILY 03/27/21 03/27/21 History Neupro 8mg/24 Hr Patch 1 patch TOPICAL DAILY@1700 03/27/21 03/27/21 History buPROPion XL [Wellbutrin XL] 450 mg PO DAILY 03/27/21 03/27/21 History traZODone HCL [Desyrel] 100 - 300 mg PO HS 03/27/21 03/27/21 History Allergies Allergy/AdvReac Type Severity Reaction Status Date / Time aspirin Allergy has Von Verified 03/27/21 13:44 Willebrands Disease ibuprofen [From Motrin] Allergy has Von Verified 03/27/21 13:44 Willebrands Disease Iodinated Contrast Media Allergy Anaphylaxis Verified 03/27/21 13:44 [Iodinated Contrast- Oral and IV Dye] isosorbide [From Imdur] Allergy Rash/Hives Verified 03/27/21 13:44 latex Allergy Anaphylaxis Verified 03/27/21 13:44 Sulfa (Sulfonamide Allergy Rash/Hives Verified 03/27/21 13:44 Antibiotics) codeine AdvReac agitation Verified 03/27/21 13:44 and restless leg symptoms increased Physical Exam Vitals: Vital Signs Temp Pulse Pulse Pulse Resp BP BP 03/28/21 13:16 97.8 F 86 18 98/64 03/28/21 10:17 74 18 03/28/21 07:40 97.4 F L 74 18 90/54 03/28/21 02:00 97.4 F L 69 16 89/61 03/27/21 23:26 73 100/61 03/27/21 22:57 73 84/55 03/27/21 22:26 76 113/76 03/27/21 22:11 76 108/71 03/27/21 21:57 75 111/74 03/27/21 21:42 98.2 F 80 16 94/63 03/27/21 21:04 83 16 96/53 03/27/21 20:47 81 16 113/65 03/27/21 20:30 84 16 104/61 03/27/21 20:17 97 F L 84 16 101/58 03/27/21 17:27 107/58 03/27/21 17:12 98.0 F 73 16 03/27/21 16:05 83 20 94/64 Pulse Ox 03/28/21 13:16 97 03/28/21 10:17 03/28/21 07:40 93 L 03/28/21 02:00 99 03/27/21 23:26 99 03/27/21 22:57 03/27/21 22:26 97 03/27/21 22:11 91 L 03/27/21 21:57 98 03/27/21 21:42 95 03/27/21 21:04 94 L 03/27/21 20:47 97 03/27/21 20:30 97 03/27/21 20:17 97 03/27/21 17:27 03/27/21 17:12 96 03/27/21 16:05 Intake and Output 03/27/21 03/28/21 03/28/21 22:59 06:59 14:59 Intake Total 1150 Output Total 300 500 Balance 850 -500 Intake: IV 1150 Output: Urine 500 Estimated Blood Loss 300 Other: Voiding Method Bedside Commode # Voids 2 Weight 97.522 kg 106.5 kg General: The patient is awake and alert, in no distress Eye: there is normal conjunctiva bilaterally. Neck: The neck is supple, there is no JVD. Cardiovascular: Normal S1-S2, no S3-S4, no murmurs. Respiratory: Lungs clear to auscultation bilaterally Gastrointestinal: Abdomen is soft, nontender Musculoskeletal: There is no pedal edema. Neurological:. Speech is normal. Skin: Skin is warm and dry Results CBC & Chem 7: 03/28/21 05:45 03/27/21 13:45 Labs: Abnormal Lab Results - Last 24 Hours (Table) 03/27/21 03/28/21 03/28/21 Range/Units 13:45 05:45 05:45 RBC 3.47 L (3.80-5.40) m/uL Hgb 11.2 L (11.4-16.0) gm/dL Hct 33.3 L (34.0-46.0) % Neutrophils # 8.3 H (1.3-7.7) k/uL Lymphocytes # 0.8 L (1.0-4.8) k/uL Creatinine 0.46 L (0.52-1.04) mg/dL Calcium 8.3 L (8.4-10.2) mg/dL AST 77 H (14-36) U/L Total Protein 6.1 L (6.3-8.2) g/dL Albumin 3.4 L (3.5-5.0) g/dL Vitamin D 25-Hydroxy 28.0 L (30.0-100.0) ng/mL Assessment and Plan Assessment: 1. Fall with right femoral fracture postoperative day #1 status post intramedullary hip screw. Postoperative management, pain control, DVT prophylaxis by orthopedic 2. Chronic medical problems: Underlying depression and anxiety, insomnia: Resume home medications Today, I reviewed her medication list and lab work results. Continue current regimen. Discharge planning per primary team.
--- NOTE | 2021-03-28 19:06 | P.PN ---
Subjective Progress Note Date: 03/28/21 This patient is a 61-year-old female with past medical history of von Willebrand's disease that presented to [facility] emergency department via EMS with complaints of right hip pain following a fall. The patient states she is trying to open a door and the door blew open, and she fell directly onto the right hip. She was unable to get up following the fall due to the pain. She was transported to [facility] ER via ambulance. X-rays of the right hip in the emergency department revealed a right basicervical femoral neck fracture. The patient was admitted under the care of orthopedic surgery for operative fixation of her right hip fracture. Patient underwent operative fixation of right basicervical femoral neck fracture with intramedullary hip screw on 03/27/21. 03/28/21: Patient is seen and examined bedside this morning. Today is post- operative day #1. She states she is experiencing moderate pain in the right hip at this time. She was up with physical therapy to the bedside chair this morning. She states she feels well. She tolerated her breakfast well. Patient denies chest pain, shortness of breath, nausea, vomiting. Patient has been mildly hypotensive, otherwise vital signs stable. Objective - Vital Signs Vital signs: Vital Signs Temp 97.8 F 03/28/21 13:16 Pulse 86 03/28/21 13:16 Resp 18 03/28/21 13:16 BP 98/64 03/28/21 13:16 Pulse Ox 97 03/28/21 13:16 Intake & Output 03/27/21 03/28/21 03/28/21 18:59 06:59 18:59 Intake Total 1000 150 Output Total 300 500 Balance 1000 -150 -500 Weight 97.522 kg 106.5 kg Intake: IV 1000 150 Output: Urine 500 Estimated Blood Loss 300 Other: Voiding Method Bedside Commode # Voids 2 - Exam On examination, patient is sitting up in the bedside chair in no apparent distress. She is alert and orientated x3. On inspection of the right hip, there is a clean, dry, intact surgical dressing in place. No bleeding or drainage through the dressing. There is mild swelling of the thigh, the thigh is soft and compressible. Motor and sensory function intact of the right lower extremity. Patient has good strength and wshgl-[id number] of the right ankle. The right lower extremity is warm and well perfused with brisk capillary refill distally. Calf is soft and non-tender. - Labs CBC & Chem 7: 03/28/21 05:45 03/27/21 13:45 Labs: Abnormal Lab Results - Last 24 Hours (Table) 03/28/21 03/28/21 Range/Units 05:45 05:45 RBC 3.47 L (3.80-5.40) m/uL Hgb 11.2 L (11.4-16.0) gm/dL Hct 33.3 L (34.0-46.0) % Neutrophils # 8.3 H (1.3-7.7) k/uL Lymphocytes # 0.8 L (1.0-4.8) k/uL Vitamin D 25-Hydroxy 28.0 L (30.0-100.0) ng/mL Assessment and Plan Assessment: Status-post operative fixation of right basicervical femoral neck fracture with intramedullary hip screw on 03/27/21. Post-operative day #1. Plan: - Toe-touch weight bearing on operative leg. Up with assistance, up with a walker. - Physical therapy for gait and balance training. - Post-operative antibiotics complete. - Pain management as needed. Decrease use of IV diluadid as tolerated. - DVT prophylaxis per internal medicine team, as patient has history of DVT and Von Willebrand's disease. - Social work consulted for discharge planning.
[2021-03-28] MEDS ORDERED: LORazepam 1 MG TAB PO PRN (20:18)
[2021-03-28] MEDS: PRAMIPEXOLE 0.25 MG TAB PO SCH (23:03)
[2021-03-28] MEDS: traZODone HCL 100 MG TAB PO SCH (23:04)
[2021-03-28] MEDS: DULoxetine HCL 60 MG CAPSULE.DR PO SCH (23:04)
[2021-03-28] MEDS: SENNOSIDES-DOCUSATE SODIUM 1 EACH TAB PO SCH (23:04)
[2021-03-29] MEDS: LACTATED RINGERS 1,000 ML IV SCH ×3 (01:07→23:09)
[2021-03-29] MEDS: PANTOPRAZOLE 40 MG TABLET PO SCH ×2 (07:16→16:59)
[2021-03-29] MEDS: DULoxetine HCL 30 MG CAPSULE.DR PO SCH (07:16)
[2021-03-29] MEDS: buPROPion XL 150 MG TAB.ER.24H PO SCH (08:05)
[2021-03-29] MEDS: HYDROcodone/APAP 5-325MG 1 EACH TAB PO PRN (08:07)
[2021-03-29] MEDS: hydrOXYzine pamoate 25 MG CAP PO PRN (11:16)
--- NOTE | 2021-03-29 13:07 | P.PN ---
Subjective Progress Note Date: 03/29/21 This patient is a 61-year-old female with past medical history of von Willebrand's disease that presented to [facility] emergency department via EMS with complaints of right hip pain following a fall. The patient states she is trying to open a door and the door blew open, and she fell directly onto the right hip. She was unable to get up following the fall due to the pain. She was transported to [facility] ER via ambulance. X-rays of the right hip in the emergency department revealed a right basicervical femoral neck fracture. The patient was admitted under the care of orthopedic surgery for operative fixation of her right hip fracture. Patient underwent operative fixation of right basicervical femoral neck fracture with intramedullary hip screw on 03/27/21. 03/28/21: Patient is seen and examined bedside this morning. Today is post- operative day #2. She states her muscle spasms and right hip pain are more controlled today. She states she feels tired this morning. Patient is tolerating her diet well. Patient has not had a bowel movement post-operatively but denies abdominal pain. Patient denies chest pain, shortness of breath, nausea, vomiting. Vital signs stable. Objective - Vital Signs Vital signs: Vital Signs Temp 98.2 F 03/29/21 08:00 Pulse 76 03/29/21 08:00 Resp 18 03/29/21 08:00 BP 105/68 03/29/21 08:00 Pulse Ox 93 L 03/29/21 08:00 Intake & Output 03/28/21 03/29/21 03/29/21 18:59 06:59 18:59 Output Total 294 917 6806 Balance -500 -900 -1000 Output: Urine 327 134 6190 Other: Voiding Method Bedside Commode Bedside Commode - Exam On examination, patient is sitting up in the bedside chair in no apparent distress. She is alert and orientated x3. On inspection of the right hip, there is a clean, dry, intact surgical dressing in place. No bleeding or drainage through the dressing. There is mild swelling of the thigh, the thigh is soft and compressible. Motor and sensory function intact of the right lower extremity. Patient has good strength and efzmx-ol-toplgv of the right ankle. The right lower extremity is warm and well perfused with brisk capillary refill distally. Calf is soft and non-tender, no evidence of DVT. - Labs CBC & Chem 7: 03/28/21 05:45 03/27/21 13:45 Assessment and Plan Assessment: Status-post operative fixation of right basicervical femoral neck fracture with intramedullary hip screw on 03/27/21. Post-operative day #2. Plan: - Toe-touch weight bearing on operative leg. Up with assistance, up with a walker. - Physical therapy for gait and balance training. - Pain management as needed. Decrease use of IV diluadid as tolerated. - DVT prophylaxis per internal medicine team, as patient has history of DVT and Von Willebrand's disease. - Social work consulted for discharge planning. Anticipate discharge to rehab tomorrow, pending medical clearance.
[2021-03-29 13:33] LABS: Basophils % (A) 1 %; Eosinophils # (A) 0.3 k/uL (0-0.7); Eosinophils % (A) 4 %; HGB 10.7 gm/dL (11.4-16.0); Lymphocytes # (A) 1.1 k/uL (1.0-4.8); Lymphocytes % (A) 14 %; MCH 32.9 pg (25.0-35.0); MCHC 34.6 g/dL (31.0-37.0); MCV 95.1 fL (80.0-100.0); Mean Platelet Volume 8.4; Monocytes # (A) 0.5 k/uL (0-1.0); Monocytes % (A) 7 %; Neutrophils # (A) 5.7 k/uL (1.3-7.7); Neutrophils % (A) 73 %; Platelet Count 200 k/uL (150-450); RBC 3.26 m/uL (3.80-5.40); RDW 13.7 % (11.5-15.5); WBC 7.8 k/uL (3.8-10.6)
--- NOTE | 2021-03-29 16:17 | P.PN ---
Subjective Patient is doing well today. No acute events overnight. Objective - Vital Signs Vital signs: Vital Signs Temp 97.8 F 03/29/21 14:00 Pulse 77 03/29/21 14:00 Resp 16 03/29/21 14:00 BP 114/75 03/29/21 14:00 Pulse Ox 94 L 03/29/21 14:00 Intake & Output 03/28/21 03/29/21 03/29/21 18:59 06:59 18:59 Output Total 323 089 7818 Balance -500 -900 -1000 Output: Urine 585 617 8604 Other: Voiding Method Bedside Commode Bedside Commode - Exam General: The patient is awake and alert, in no distress Eye: there is normal conjunctiva bilaterally. Neck: The neck is supple, there is no JVD. Cardiovascular: Normal S1-S2, no S3-S4, no murmurs. Respiratory: Lungs clear to auscultation bilaterally Gastrointestinal: Abdomen is soft, nontender Musculoskeletal: There is no pedal edema. Neurological:. Speech is normal. Skin: Skin is warm and dry - Labs CBC & Chem 7: 03/29/21 13:07 03/27/21 13:45 Labs: Abnormal Lab Results - Last 24 Hours (Table) 03/29/21 Range/Units 13:07 RBC 3.26 L (3.80-5.40) m/uL Hgb 10.7 L (11.4-16.0) gm/dL Hct 31.0 L (34.0-46.0) % Assessment and Plan Assessment: 1. Fall with right femoral fracture postoperative day #2 status post intramedullary hip screw. Postoperative management, pain control, DVT prophylaxis by orthopedic 2. Chronic medical problems: Underlying depression and anxiety, insomnia: Resume home medications Today, I reviewed her medication list and lab work results. Continue current regimen. Discharge planning per primary team.
[2021-03-29] MEDS: NEUPRO 8 MG/24 HR TOPICAL SCH (16:58)
[2021-03-29] MEDS: HYDROcodone/APAP 7.5-325MG 1 EACH TAB PO PRN ×2 (16:58→21:58)
--- NOTE | 2021-03-29 20:51 | P.PN ---
Progress Note - Text Progress Note Date: 03/29/21 Patient with history of von Willebrand disease as well as DVT. Due to her elevated risk orthopaedics has deferred DVT prophlyaxis to internal medicine given both her risk of bleeding and DVT. Per nursing, Internal medicine would like to hold any DVT chemoprophylaxis due to the patient's risk of bleeding from her von Willebrand disease. She currently has SCDs and is being mobilized out-of-bed to chair. We appreciate IM assistance of perioperative medical management and will continue to defer DVT prophylaxis.
[2021-03-29] MEDS: DULoxetine HCL 60 MG CAPSULE.DR PO SCH (21:58)
[2021-03-29] MEDS: traZODone HCL 100 MG TAB PO SCH (21:58)
[2021-03-29] MEDS: PRAMIPEXOLE 0.25 MG TAB PO SCH (21:58)
[2021-03-29] MEDS: SENNOSIDES-DOCUSATE SODIUM 1 EACH TAB PO SCH (21:59)
[2021-03-29 22:03] LABS: Basophils % (A) 0 %; Eosinophils # (A) 0.3 k/uL (0-0.7); Eosinophils % (A) 3 %; HCT 28.7 % (34.0-46.0); HGB 9.8 gm/dL (11.4-16.0); Lymphocytes # (A) 1.2 k/uL (1.0-4.8); Lymphocytes % (A) 15 %; MCH 32.3 pg (25.0-35.0); MCV 94.9 fL (80.0-100.0); Mean Platelet Volume 8.7; Monocytes # (A) 0.6 k/uL (0-1.0); Monocytes % (A) 7 %; Neutrophils # (A) 5.7 k/uL (1.3-7.7); Neutrophils % (A) 73 %; Platelet Count 163 k/uL (150-450); RBC 3.03 m/uL (3.80-5.40); RDW 13.1 % (11.5-15.5); WBC 7.9 k/uL (3.8-10.6)
[2021-03-30] MEDS: HYDROcodone/APAP 7.5-325MG 1 EACH TAB PO PRN ×3 (01:50→11:00)
[2021-03-30 02:20] VITALS: RESP 18
[2021-03-30] MEDS: PANTOPRAZOLE 40 MG TABLET PO SCH (07:05)
[2021-03-30] MEDS: DULoxetine HCL 30 MG CAPSULE.DR PO SCH (07:05)
[2021-03-30] MEDS: buPROPion XL 150 MG TAB.ER.24H PO SCH (07:05)
[2021-03-30 07:40] VITALS: BP 107/71; PULSE 87; TEMP 98
--- NOTE | 2021-03-30 09:41 | P.PN ---
Subjective Patient is doing well today. She informs me that she has underlying von Willebrand disease and had extensive bleeding in the past including intra-a bdominal bleed as well as joint bleeding in her knee Objective - Vital Signs Vital signs: Vital Signs Temp 98.0 F 03/30/21 07:39 Pulse 87 03/30/21 07:39 Resp 18 03/30/21 07:39 BP 107/71 03/30/21 07:39 Pulse Ox 97 03/30/21 07:39 Intake & Output 03/29/21 03/30/21 03/30/21 18:59 06:59 18:59 Output Total 1000 1350 Balance -1000 -1350 Output: Urine 1000 1350 Other: Voiding Method Bedside Commode External Catheter - Exam General: The patient is awake and alert, in no distress Eye: there is normal conjunctiva bilaterally. Neck: The neck is supple, there is no JVD. Cardiovascular: Normal S1-S2, no S3-S4, no murmurs. Respiratory: Lungs clear to auscultation bilaterally Gastrointestinal: Abdomen is soft, nontender Musculoskeletal: There is no pedal edema. Neurological:. Speech is normal. Skin: Skin is warm and dry - Labs CBC & Chem 7: 03/29/21 21:46 03/27/21 13:45 Labs: Abnormal Lab Results - Last 24 Hours (Table) 03/29/21 03/29/21 Range/Units 13:07 21:46 RBC 3.26 L 3.03 L (3.80-5.40) m/uL Hgb 10.7 L 9.8 L (11.4-16.0) gm/dL Hct 31.0 L 28.7 L (34.0-46.0) % Assessment and Plan Assessment: 1. Fall with right femoral fracture postoperative day #3 status post intramedullary hip screw. Postoperative management, pain control by orthopedic 2. Chronic medical problems: Underlying depression and anxiety, insomnia: Resume home medications 3. History of underlying von Willebrand's disease Today, I reviewed her medication list and lab work results. Patient will be discharged to [facility] on the [place] for physical therapy. Avoid any anticoagula tion at this time. DVT prophylaxis with early ambulation and SCDs when in bed. Follow-up with hematology as directed.
[2021-03-30] MEDS: LACTATED RINGERS 1,000 ML IV SCH (10:51)
--- NOTE | 2021-03-30 11:03 | P.DS ---
Providers Date of admission: 03/27/21 14:47 Expected date of discharge: 03/30/21 Attending physician: Lexx Powell Consults: 03/27/21 14:47 Consult Physician Urgent Consulting Provider: Phyllis Gong Consult Reason/Comments: Medical clearance for surgery Do you want consulting provider notified?: Yes Primary care physician: Stefan He MD Hospital Course: This is a 61-year-old female the past medical history of von Willebrand's disease who is admitted to [facility] on 03/27/21 after a ground-level fall and sustaining injury to the right hip. X-rays in the emergency department revealed a right basicervical femoral neck fracture. She is admitted to our service for surgical intervention and care. Patient was taken to surgery for operative fixation of her right hip fracture with a short intramedullary hip screw on 03/27/[address] Riggins. The procedure was performed without complication or sequelae. The patient is doing fairly well postoperatively. Vital signs and labs are stable on postoperative day #3. Patient was examined bedside today. She states the pain in her right hip is well controlled. She has been remaining toe touch weightbearing on the right lower extremity with a walker. She is transferring to the chair with a walker without issue. She is tolerating her diet well. Patient is voiding without issue. She has not yet had a bowel movement, although she denies abdominal pain. Patient has no complaints today. She denies chest pain, shortness breath, nausea, vomiting, fevers, chills. On examination, the patient is sitting up in a bedside chair in no apparent distress. She is alert and noted 3. On inspection of the right hip, they are clean, dry, intact surgical dressings in place. Dressings were taken down and reveals benign surgical incisions with no surrounding erythema, warmth. No drainage. Mild swelling of the thigh. The thigh soft and compressible. Motor and sensory function is intact of the right lower extremity. right lower extremities were well perfused. Calf is soft and nontender, no evidence of DVT. Patient is discharged to rehab in good condition, pending medical clearance. Patient will follow-up with Dr. Riggins in the office in 2 weeks. Please see med rec for accurate list of discharge medication. Patient is not taking anti-coagulation, per internal medicine recommendations due to her history of von Willebrand's disease. Plan - Discharge Summary Discharge Rx Participant: No New Discharge Prescriptions: New Docusate [Colace] 100 mg PO BID 30 Days #60 cap HYDROcodone/APAP 7.5-325MG [[place] 7.5-325] 1 tab PO Q4-6H PRN #28 tab PRN Reason: Pain Continue Fluticasone Nasal [place] [Flonase Nasal [place]] 1 spray EA NOSTRIL BID PRN PRN Reason: Allergy Symptoms SUMAtriptan SUCCINATE [Imitrex] 100 mg PO BID PRN PRN Reason: Migraine Headache Desmopressin Intranasal [Ddavp Nasal [place]] 1 spray EA NOSTRIL DAILY PRN PRN Reason: NASAL BLEEDING EPINEPHrine (Auto Inject) [Epipen] 0.3 mg IM ONCE PRN PRN Reason: Anaphylaxis Pantoprazole [Protonix] 40 mg PO BID DULoxetine HCL [Cymbalta] 30 mg PO DAILY Pramipexole Di-HCl [Mirapex] 0.5 mg PO HS Diclofenac Sodium [Voltaren Gel] 1 applic TOPICAL QID PRN PRN Reason: Pain HYDROcodone/APAP 5-325MG [[place] 5-325] 1 each PO Q6HR PRN #12 tab PRN Reason: Pain Neupro 8mg/24 Hr Patch 1 patch TOPICAL DAILY@1700 Nadolol [Corgard] 20 mg PO DAILY DULoxetine HCL [Cymbalta] 60 mg PO HS buPROPion XL [Wellbutrin XL] 450 mg PO DAILY traZODone HCL [Desyrel] 100 - 300 mg PO HS Furosemide [Lasix] 40 mg PO BID Discharge Medication List Fluticasone Nasal [place] [Flonase Nasal [place]] 1 spray EA NOSTRIL BID PRN 06/20/17 [History] SUMAtriptan SUCCINATE [Imitrex] 100 mg PO BID PRN 06/20/17 [History] Desmopressin Intranasal [Ddavp Nasal [place]] 1 spray EA NOSTRIL DAILY PRN 06/02/19 [History] EPINEPHrine (Auto Inject) [Epipen] 0.3 mg IM ONCE PRN 06/24/19 [History] Pantoprazole [Protonix] 40 mg PO BID 06/24/19 [History] DULoxetine HCL [Cymbalta] 30 mg PO DAILY 04/07/20 [History] Diclofenac Sodium [Voltaren Gel] 1 applic TOPICAL QID PRN 10/16/20 [History] Pramipexole Di-HCl [Mirapex] 0.5 mg PO HS 04/07/20 [History] HYDROcodone/APAP 5-325MG [[place] 5-325] 1 each PO Q6HR PRN #12 tab 11/13/20 [Rx] DULoxetine HCL [Cymbalta] 60 mg PO HS 03/27/21 [History] Furosemide [Lasix] 40 mg PO BID 03/27/21 [History] Nadolol [Corgard] 20 mg PO DAILY 03/27/21 [History] Neupro 8mg/24 Hr Patch 1 patch TOPICAL DAILY@1700 03/27/21 [History] buPROPion XL [Wellbutrin XL] 450 mg PO DAILY 03/27/21 [History] traZODone HCL [Desyrel] 100 - 300 mg PO HS 03/27/21 [History] Docusate [Colace] 100 mg PO BID 30 Days #60 cap 03/30/21 [Rx] HYDROcodone/APAP 7.5-325MG [[place] 7.5-325] 1 tab PO Q4-6H PRN #28 tab 03/30/21 [Rx] Follow up Appointment(s)/Referral(s): Stefan He MD [Primary Care Provider] - 1-2 days Alexis Riggins MD [Medical Doctor] - 1 Week Activity/Diet/Wound Care/Special Instructions: Toe touch weight bearing operative leg. Discharge Disposition: TRANSFER TO SNF/ECF
--- NOTE | 2021-03-30 11:53 | P.PN ---
Progress Note - Text Progress Note Date: 03/30/[address] Carrillo for recommendations on anti-coagulation, who the patient follows with in regards to her von Willebrand's disease. Dr. Carrillo is out of the office today, therefore I spoke with Dr. Wharton. Per his chart review of the patient, he does not see a history of DVT. Per his chart review of the patient, he does not recommend anti-coagulation at this time. He recommendations 4 weeks of thigh high compression stockings, to be worn at all times while in bed. Patient last saw Dr. Carrillo in the office in September 2020, and she has a follow-up appointment with Dr. Carrillo on 04/16/21. I advised the patient to keep this appointment and follow-up with Dr. Carrillo at that time for re-evaluation.
== END 2021-03-30 12:17 | DRG 481 ==
LOC: EC 12:21 → 4SSUR 14:47
PROVIDERS: ADMIT Orthopaedic Surgery Sports Medicine; ATTEND Orthopaedic Surgery Sports Medicine
PROC: 0QS636Z Reposition Right Upper Femur with Intramedullary Internal Fixation Device, Percutaneous Approach (ICD-10-PCS; principal; 2021-03-27 17:00)
DX: S72.141A Displaced intertrochanteric fracture of right femur, initial encounter for closed fracture (principal); D68.0 Von Willebrand disease; W01.0XXA Fall on same level from slipping, tripping and stumbling without subsequent striking against object, initial encounter; Y92.009 Unspecified place in unspecified non-institutional (private) residence as the place of occurrence of the external cause; G25.81 Restless legs syndrome; Z20.822 Contact with and (suspected) exposure to COVID-19; F32.9 Major depressive disorder, single episode, unspecified; F41.9 Anxiety disorder, unspecified; G47.00 Insomnia, unspecified; G89.29 Other chronic pain; Z68.35 Body mass index [BMI] 35.0-35.9, adult; G43.909 Migraine, unspecified, not intractable, without status migrainosus; Z98.84 Bariatric surgery status; M54.9 Dorsalgia, unspecified; Z90.89 Acquired absence of other organs; K21.9 Gastro-esophageal reflux disease without esophagitis; Z79.899 Other long term (current) drug therapy; Z86.718 Personal history of other venous thrombosis and embolism; Z87.891 Personal history of nicotine dependence; Z90.710 Acquired absence of both cervix and uterus; Z96.611 Presence of right artificial shoulder joint; Z96.653 Presence of artificial knee joint, bilateral; Z88.8 Allergy status to other drugs, medicaments and biological substances; Z88.6 Allergy status to analgesic agent; Z91.041 Radiographic dye allergy status; Z91.040 Latex allergy status; Z88.2 Allergy status to sulfonamides
CPT/HCPCS: 36415; 71045; 73501; 73502; 80053; 82306; 85025; 85610; 85730; 87635; 96374; 96375; 99285

== ENCOUNTER 2021-04-04 08:37 | Emergency (ER) | payer MEDICARE ==
[2021-04-04 08:49] VITALS: BP 101/65; PULSE 70; RESP 18; TEMP 98.2
--- NOTE | 2021-04-04 09:49 | ED ---
General Adult HPI - General Chief complaint: Extremity Problem,Nontraumatic Stated complaint: RT hip post op. Time Seen by Provider: 04/04/21 08:39 Source: patient, EMS, RN notes reviewed, old records reviewed Mode of arrival: EMS Limitations: no limitations - History of Present Illness Initial comments: 61-year-old female with von Willebrand's syndrome, recent right femoral neck fracture status post repair. She is presenting today with drainage from her incision. No reported fever. She was started on Keflex yesterday evening and has had one dose. She does report pain in the leg. - Related Data Home Medications Medication Instructions Recorded Confirmed Fluticasone Nasal [place] [Flonase 1 spray EA NOSTRIL BID PRN 06/20/17 03/27/21 Nasal [place]] SUMAtriptan SUCCINATE [Imitrex] 100 mg PO BID PRN 06/20/17 03/27/21 Desmopressin Intranasal [Ddavp 1 spray EA NOSTRIL DAILY PRN 06/02/19 03/27/21 Nasal [place]] EPINEPHrine (Auto Inject) [Epipen] 0.3 mg IM ONCE PRN 06/24/19 03/27/21 Pantoprazole [Protonix] 40 mg PO BID 06/24/19 03/27/21 DULoxetine HCL [Cymbalta] 30 mg PO DAILY 04/07/20 03/27/21 Diclofenac Sodium [Voltaren Gel] 1 applic TOPICAL QID PRN 04/07/20 03/27/21 Pramipexole Di-HCl [Mirapex] 0.5 mg PO HS 04/07/20 03/27/21 DULoxetine HCL [Cymbalta] 60 mg PO HS 03/27/21 03/27/21 Furosemide [Lasix] 40 mg PO BID 03/27/21 03/27/21 Nadolol [Corgard] 20 mg PO DAILY 03/27/21 03/27/21 Neupro 8mg/24 Hr Patch 1 patch TOPICAL DAILY@1700 03/27/21 03/27/21 buPROPion XL [Wellbutrin XL] 450 mg PO DAILY 03/27/21 03/27/21 traZODone HCL [Desyrel] 100 - 300 mg PO HS 03/27/21 03/27/21 Previous Rx's Medication Instructions Recorded HYDROcodone/APAP 5-325MG [[place] 1 each PO Q6HR PRN #12 tab 11/13/20 5-325] Docusate [Colace] 100 mg PO BID 30 Days #60 cap 03/30/21 HYDROcodone/APAP 7.5-325MG [[place] 1 tab PO Q4-6H PRN #28 tab 03/30/21 7.5-325] Allergies Allergy/AdvReac Type Severity Reaction Status Date / Time aspirin Allergy has Von Verified 03/27/21 13:44 Willebrands Disease ibuprofen [From Motrin] Allergy has Von Verified 03/27/21 13:44 Willebrands Disease Iodinated Contrast Media Allergy Anaphylaxis Verified 03/27/21 13:44 [Iodinated Contrast- Oral and IV Dye] isosorbide [From Imdur] Allergy Rash/Hives Verified 03/27/21 13:44 latex Allergy Anaphylaxis Verified 03/27/21 13:44 Sulfa (Sulfonamide Allergy Rash/Hives Verified 03/27/21 13:44 Antibiotics) codeine AdvReac agitation Verified 03/27/21 13:44 and restless leg symptoms increased Review of Systems ROS Statement: Those systems with pertinent positive or pertinent negative responses have been documented in the HPI. ROS Other: All systems not noted in ROS Statement are negative. Past Medical History Past Medical History: Deep Vein Thrombosis (DVT), GERD/Reflux Additional Past Medical History / Comment(s): Von Willebrand Disease, diverticulitis, migraines, chronic back pain, DVT bilat. Restless leg syndrome. History of Any Multi-Drug Resistant Organisms: None Reported Past Surgical History: Adenoidectomy, Bariatric Surgery, Cholecystectomy, Hysterectomy, Joint Replacement, Orthopedic Surgery, Tonsillectomy Additional Past Surgical History / Comment(s): nury foot surgery, nury knee replaced, nury rotator cuffs, Judith en Y approx 5 years, bowel surgery. right shoulder replacement Past Anesthesia/Blood Transfusion Reactions: Postoperative Nausea & Vomiting (PONV) Past Psychological History: No Psychological Hx Reported Smoking Status: Former smoker Past Alcohol Use History: None Reported Past Drug Use History: None Reported - Past Family History Mother Family Medical History: Cancer Father Family Medical History: Cancer General Exam Limitations: no limitations General appearance: alert, in no apparent distress Head exam: Present: atraumatic, normocephalic Eye exam: Present: normal appearance, PERRL ENT exam: Present: normal exam Neck exam: Present: normal inspection. Absent: tenderness, meningismus Respiratory exam: Present: normal lung sounds bilaterally. Absent: respiratory distress Cardiovascular Exam: Present: regular rate, normal rhythm GI/Abdominal exam: Present: soft. Absent: distended, tenderness, guarding Extremities exam: Present: other (Right leg: Incisions are well-healed, there is ecchymosis, there is some serosanguineous drainage from the most distal incision site. No purulence, no induration.) Course Vital Signs 04/04/21 08:44 Temperature 98.2 F Pulse Rate 70 Respiratory 18 Rate Blood Pressure 101/65 O2 Sat by Pulse 97 Oximetry Medical Decision Making - Medical Decision Making 61-year-old female presented with drainage from her right lateral hip incision status post femoral neck repair. Patient is afebrile well-appearing. There is some minimal serosanguineous drainage from the incision, there is no associated signs of infection, no induration or fluctuance. The remainder of the leg exam does reveal some mild ecchymosis and swelling. Ultrasound is performed which is negative for DVT. She has a improving hemoglobin, normal white blood cell count, her left lateral lites are within normal limits. I did speak with orthopedics who was able to place a wound VAC on the incision. The patient may be discharged back to [facility]. She has an appointment with orthopedics tomorrow for follow-up. - Lab Data Result diagrams: 04/04/21 10:25 04/04/21 10:25 Lab Results 04/04/21 04/04/21 04/04/21 Range/Units 10:25 10:25 10:25 WBC 7.0 (3.8-10.6) k/uL RBC 3.03 L (3.80-5.40) m/uL Hgb 10.0 L (11.4-16.0) gm/dL Hct 28.6 L (34.0-46.0) % MCV 94.5 (80.0-100.0) fL MCH 33.1 (25.0-35.0) pg MCHC 35.1 (31.0-37.0) g/dL RDW 14.3 (11.5-15.5) % Plt Count 384 D (150-450) k/uL MPV 8.6 Neutrophils % 69 % Lymphocytes % 17 % Monocytes % 7 % Eosinophils % 5 % Basophils % 1 % Neutrophils # 4.8 (1.3-7.7) k/uL Lymphocytes # 1.2 (1.0-4.8) k/uL Monocytes # 0.5 (0-1.0) k/uL Eosinophils # 0.4 (0-0.7) k/uL Basophils # 0.0 (0-0.2) k/uL Sodium 136 L (137-145) mmol/L Potassium 4.8 (3.5-5.1) mmol/L Chloride 102 (98-107) mmol/L Carbon Dioxide 28 (22-30) mmol/L Anion Gap 6 mmol/L BUN 13 (7-17) mg/dL Creatinine 0.42 L (0.52-1.04) mg/dL Est GFR (CKD-EPI)AfAm >90 (>60 ml/min/1.73 sqM) Est GFR (CKD-EPI)NonAf >90 (>60 ml/min/1.73 sqM) Glucose 89 (74-99) mg/dL Plasma Lactic Acid Lj 1.2 (0.7-2.0) mmol/L Calcium 8.4 (8.4-10.2) mg/dL Total Bilirubin 1.0 (0.2-1.3) mg/dL AST 41 H (14-36) U/L ALT 43 H (4-34) U/L Alkaline Phosphatase 117 (38-126) U/L Total Protein 6.1 L (6.3-8.2) g/dL Albumin 3.1 L (3.5-5.0) g/dL Disposition Clinical Impression: Postoperative complication of skin involving drainage from surgical wound Disposition: HOME SELF-CARE Condition: Good Is patient prescribed a controlled substance at d/c from ED?: No Referrals: Stefan He MD [Primary Care Provider] - 1-2 days Alexis Riggins MD [Medical Doctor] - 1-2 days Time of Disposition: 13:23
--- NOTE | 2021-04-04 10:27 | US ---
EXAMINATION TYPE: US venous doppler duplex LE RT DATE OF EXAM: 04/04/2021 9:45 AM COMPARISON: 01/14/2018 CLINICAL HISTORY: dvt. Hip surgery last Friday. Pain. Not on blood thinners SIDE PERFORMED: Right TECHNIQUE: The lower extremity deep venous system is examined utilizing real time linear array sonog amauri with graded compression, doppler sonography and color-flow sonography. VESSELS IMAGED: Common Femoral Vein Deep Femoral Vein Greater Saphenous Vein * Femoral Vein Popliteal Vein Small Saphenous Vein * Proximal Calf Veins- not well visualized (* superficial vessels) Right Leg: Negative for DVT IMPRESSION: 1. Right lower extremity ultrasound negative for deep venous thrombosis.
[2021-04-04 10:49] LABS: Basophils % (A) 1 %; Eosinophils # (A) 0.4 k/uL (0-0.7); Eosinophils % (A) 5 %; HCT 28.6 % (34.0-46.0); Lymphocytes # (A) 1.2 k/uL (1.0-4.8); Lymphocytes % (A) 17 %; MCH 33.1 pg (25.0-35.0); MCHC 35.1 g/dL (31.0-37.0); MCV 94.5 fL (80.0-100.0); Mean Platelet Volume 8.6; Monocytes # (A) 0.5 k/uL (0-1.0); Monocytes % (A) 7 %; Neutrophils # (A) 4.8 k/uL (1.3-7.7); Neutrophils % (A) 69 %; RBC 3.03 m/uL (3.80-5.40); RDW 14.3 % (11.5-15.5)
[2021-04-04 10:55] LABS: ALT 43 U/L (4-34); AST 41 U/L (14-36); African American GFR (CKD) >90 (>60 ml/min/1.73 sqM); Albumin 3.1 g/dL (3.5-5.0); Alkaline Phosphatase 117 U/L (38-126); Anion Gap 6 mmol/L; Blood Urea Nitrogen 13 mg/dL (7-17); Calcium 8.4 mg/dL (8.4-10.2); Carbon Dioxide 28 mmol/L (22-30); Chloride 102 mmol/L (98-107); Glucose 89 mg/dL (74-99); Non-African American GFR(CKD) >90 (>60 ml/min/1.73 sqM); Sodium 136 mmol/L (137-145); Total Protein 6.1 g/dL (6.3-8.2)
[2021-04-04 11:01] LABS: Potassium 4.8 mmol/L (3.5-5.1)
[2021-04-04] MEDS ORDERED: MORPHINE SULFATE 4 MG/ML SYRINGE IM STA (11:02)
[2021-04-04 11:11] LABS: Platelet Count 384 k/uL (150-450)
--- NOTE | 2021-04-04 16:26 | P.PN ---
Progress Note - Text Progress Note Date: 04/04/21 This patient is a 61-year-old female with a past medical history of von Willebrand's disease who is status-post operative fixation of right basicervical femoral neck fracture with intramedullary hip screw on 03/27/21. She presented to the emergency department from [facility] with complaints of right hip pain and drainage. The patient contacted the office yesterday complaining of drainage from her hip. An appointment was made to follow-up with Dr. Riggins in the office on , 04/05/21. Patient states she believes the drainage increased, therefore she was brought to the emergency department. Patient was started on Keflex last night at [facility]. Doppler US of the right lower extremity performed in the emergency department today is negative for DVT. Patient was examined bedside in the emergency department. On inspection of the right hip, there are 3 incisions of the right hip that are healing very well. There is very minimal serious drainage at this time. No surrounding erythema, warmth. No purulence. No fluctuance. No signs of infection at this time. There is ecchymosis and mild swelling of the thigh. The thigh soft and compressible. Motor and sensory function is intact of the right lower extremity. Dorsalis please pulse +2, right lower extremity is warm and well perfused. I explained to the patient there are no signs of infection of her right hip incisions at this time. We will place a Prevena incisional wound VAC bedside today in the emergency department over the most proximal incision. She will follow-up in the office with Dr. Riggins as previously scheduled. We also recommended antibiotic prophylaxis with doxycycline 100 mg BID for 2 weeks.
== END 2021-04-04 15:48 | disposition home or self-care (01) ==
LOC: EC 08:37
DX: T81.89XA Other complications of procedures, not elsewhere classified, initial encounter (principal); D68.0 Von Willebrand disease; K21.9 Gastro-esophageal reflux disease without esophagitis; Z88.2 Allergy status to sulfonamides; Z88.5 Allergy status to narcotic agent; Z91.040 Latex allergy status; Z88.6 Allergy status to analgesic agent; Z86.718 Personal history of other venous thrombosis and embolism; Z90.89 Acquired absence of other organs; Z98.84 Bariatric surgery status; Z90.49 Acquired absence of other specified parts of digestive tract; Z90.710 Acquired absence of both cervix and uterus; Z96.653 Presence of artificial knee joint, bilateral; Z87.891 Personal history of nicotine dependence; Z96.611 Presence of right artificial shoulder joint; Y83.8 Other surgical procedures as the cause of abnormal reaction of the patient, or of later complication, without mention of misadventure at the time of the procedure
CPT/HCPCS: 99284; 96372; 36415; 80053; 83605; 85025; 93971; J2270

== ENCOUNTER 2021-04-07 12:24 | Emergency (ER) | payer MEDICARE ==
[2021-04-07 12:31] VITALS: BP 113/63; PULSE 82; RESP 16; TEMP 97.6
--- NOTE | 2021-04-07 13:57 | US ---
EXAMINATION TYPE: US venous doppler duplex LE RT DATE OF EXAM: 04/07/2021 1:42 PM COMPARISON: NONE CLINICAL HISTORY: Rule out dvt. hip sx Oct 5 due to fracture, on thinners, swollen, painful right leg SIDE PERFORMED: Right TECHNIQUE: The lower extremity deep venous system is examined utilizing real time linear array sonog amauri with graded compression, doppler sonography and color-flow sonography. VESSELS IMAGED: Common Femoral Vein Deep Femoral Vein Greater Saphenous Vein * Femoral Vein Popliteal Vein Small Saphenous Vein * Proximal Calf Veins (* superficial vessels) patient unable to tolerate distal FV compression, good blood flow seen throughout study Right Leg: Negative for DVT IMPRESSION: Grayscale, color doppler, spectral doppler imaging performed of the deep veins of the lo wer extremities. There is normal flow, compressibility, vascular waveforms. No evidence of right lo wer extremity DVT.
--- NOTE | 2021-04-07 14:57 | ED ---
Recheck HPI - General Chief Complaint: Recheck/Abnormal Lab/Rx Stated Complaint: R Leg Pain, Poss DVT Time Seen by Provider: 04/07/21 14:39 Source: patient, RN/MD, RN notes reviewed, old records reviewed Mode of arrival: EMS Limitations: no limitations - History of Present Illness Initial Comments: Patient is a 61-year-old female presenting to the emergency department via EMS from [facility] for concerns of possible DVT of the right lower extremity. Patient has been having some swelling of her lower extremities after having hip surgery on 03/27/2021. Dr. Kothari ordered a stat DVT yesterday however was never done so [facility] sent her into the ER to rule out DVT. She's been having increase in swelling over the last couple days. No redness, no fevers, no nausea or vomiting. She has been tolerating her pain well. She has no further complaints. Her vital signs are stable. - Related Data Home Medications Medication Instructions Recorded Confirmed Fluticasone Nasal [place] [Flonase 1 spray EA NOSTRIL BID PRN 06/20/17 03/27/21 Nasal [place]] SUMAtriptan SUCCINATE [Imitrex] 100 mg PO BID PRN 06/20/17 03/27/21 Desmopressin Intranasal [Ddavp 1 spray EA NOSTRIL DAILY PRN 06/02/19 03/27/21 Nasal [place]] EPINEPHrine (Auto Inject) [Epipen] 0.3 mg IM ONCE PRN 06/24/19 03/27/21 Pantoprazole [Protonix] 40 mg PO BID 06/24/19 03/27/21 DULoxetine HCL [Cymbalta] 30 mg PO DAILY 04/07/20 03/27/21 Diclofenac Sodium [Voltaren Gel] 1 applic TOPICAL QID PRN 04/07/20 03/27/21 Pramipexole Di-HCl [Mirapex] 0.5 mg PO HS 04/07/20 03/27/21 DULoxetine HCL [Cymbalta] 60 mg PO HS 03/27/21 03/27/21 Furosemide [Lasix] 40 mg PO BID 03/27/21 03/27/21 Nadolol [Corgard] 20 mg PO DAILY 03/27/21 03/27/21 Neupro 8mg/24 Hr Patch 1 patch TOPICAL DAILY@1700 03/27/21 03/27/21 buPROPion XL [Wellbutrin XL] 450 mg PO DAILY 03/27/21 03/27/21 traZODone HCL [Desyrel] 100 - 300 mg PO HS 03/27/21 03/27/21 Previous Rx's Medication Instructions Recorded HYDROcodone/APAP 5-325MG [[place] 1 each PO Q6HR PRN #12 tab 11/13/20 5-325] Docusate [Colace] 100 mg PO BID 30 Days #60 cap 03/30/21 HYDROcodone/APAP 7.5-325MG [[place] 1 tab PO Q4-6H PRN #28 tab 03/30/21 7.5-325] ALPRAZolam [Xanax] 0.5 mg PO BID PRN 6 Days #12 tablet 04/04/21 Allergies Allergy/AdvReac Type Severity Reaction Status Date / Time aspirin Allergy has Von Verified 04/07/21 12:32 Willebrands Disease ibuprofen [From Motrin] Allergy has Von Verified 04/07/21 12:32 Willebrands Disease Iodinated Contrast Media Allergy Anaphylaxis Verified 04/07/21 12:32 [Iodinated Contrast- Oral and IV Dye] isosorbide [From Imdur] Allergy Rash/Hives Verified 04/07/21 12:32 latex Allergy Anaphylaxis Verified 04/07/21 12:32 Sulfa (Sulfonamide Allergy Rash/Hives Verified 04/07/21 12:32 Antibiotics) codeine AdvReac agitation Verified 04/07/21 12:32 and restless leg symptoms increased Review of Systems ROS Statement: Those systems with pertinent positive or pertinent negative responses have been documented in the HPI. ROS Other: All systems not noted in ROS Statement are negative. Past Medical History Past Medical History: Deep Vein Thrombosis (DVT), GERD/Reflux Additional Past Medical History / Comment(s): Von Willebrand Disease, diverticulitis, migraines, chronic back pain, DVT bilat. Restless leg syndrome. History of Any Multi-Drug Resistant Organisms: None Reported Past Surgical History: Adenoidectomy, Bariatric Surgery, Cholecystectomy, Hysterectomy, Joint Replacement, Orthopedic Surgery, Tonsillectomy Additional Past Surgical History / Comment(s): nury foot surgery, nury knee replaced, nury rotator cuffs, Judith en Y approx 5 years, bowel surgery. right shoulder replacement Past Anesthesia/Blood Transfusion Reactions: Postoperative Nausea & Vomiting (PONV) Past Psychological History: No Psychological Hx Reported Smoking Status: Former smoker Past Alcohol Use History: None Reported Past Drug Use History: None Reported - Past Family History Mother Family Medical History: Cancer Father Family Medical History: Cancer General Exam - General Exam Comments Initial Comments: GENERAL: Patient is well-developed and well-nourished. Patient is nontoxic and in no acute distress. HEAD: Atraumatic, normocephalic. EYES: Pupils equal round and reactive to light, extraocular movements intact, sclera anicteric, conjunctiva are normal. Eyelids were unremarkable. ENT: Moist mucous membranes. NECK: Normal range of motion, supple without lymphadenopathy or JVD. LUNGS: Unlabored respirations. Breath sounds clear to auscultation bilaterally and equal. No wheezes rales or rhonchi. HEART: Regular rate and rhythm without murmurs, rubs or gallops. ABDOMEN: Soft, nontender, normoactive bowel sounds. MUSCULOSKELETAL: Patient has limited range of motion of the right lower extremity secondary to recent surgery. She has some [id number] bilateral lower leg edema, neurovascular intact bilateral lower legs. There is no erythema, no signs of infection. No clubbing or cyanosis. NEUROLOGICAL: Patient is alert and oriented x 3. Symmetrical smile. Normal speech. PSYCH: Normal mood, normal affect. SKIN: Warm, Dry, normal turgor, no rashes or lesions noted. Limitations: no limitations Course Vital Signs 04/07/21 12:28 Temperature 97.6 F Pulse Rate 82 Respiratory 16 Rate Blood Pressure 113/63 O2 Sat by Pulse 96 Oximetry Medical Decision Making - Medical Decision Making Patient is 61-year-old female sent in to rule out a DVT of the right lower extremity. She is status post 11 days right hip fracture repair. She's had increase in lower leg swelling. It ultrasound today reveals no evidence of DVT. She is neurovascular intact, no signs of infection. We discussed elevation, she states its hard to elevate her legs at [facility]. I discussed doing leg palms, elevation above the heart level. She is in agreement with this plan of care and she is stable for discharge to [facility]. Disposition Clinical Impression: Edema of right lower leg Disposition: HOME SELF-CARE Condition: Stable Instructions (If sedation given, give patient instructions): Leg Edema (ED) Additional Instructions: Please return to the Emergency Department if symptoms worsen or any other concerns. Continue to try to elevate the legs above the heart level, ankle pumps throughou t the day. Follow-up with PCP/surgeon. Is patient prescribed a controlled substance at d/c from ED?: No Referrals: Stefan He MD [Primary Care Provider] - 1-2 days Time of Disposition: 14:57
== END 2021-04-07 15:38 | disposition home or self-care (01) ==
LOC: EC 12:24
DX: R60.0 Localized edema (principal); M79.604 Pain in right leg; G25.81 Restless legs syndrome; K21.9 Gastro-esophageal reflux disease without esophagitis; D68.0 Von Willebrand disease; Z79.1 Long term (current) use of non-steroidal anti-inflammatories (NSAID); Z86.718 Personal history of other venous thrombosis and embolism; Z87.891 Personal history of nicotine dependence; Z88.2 Allergy status to sulfonamides; Z88.5 Allergy status to narcotic agent; Z88.6 Allergy status to analgesic agent; Z88.8 Allergy status to other drugs, medicaments and biological substances; Z90.49 Acquired absence of other specified parts of digestive tract; Z91.040 Latex allergy status; Z96.611 Presence of right artificial shoulder joint
CPT/HCPCS: 99284

== ENCOUNTER 2021-09-23 21:52 | Emergency (ER) | payer MEDICARE, OTHER ==
[2021-09-23 21:58] VITALS: RESP 16; TEMP 98.1
--- NOTE | 2021-09-23 22:00 | ED ---
General Adult HPI - General Chief complaint: Fall Stated complaint: Fall Time Seen by Provider: 09/23/21 22:00 Source: patient, EMS Mode of arrival: EMS Limitations: no limitations - History of Present Illness Initial comments: Patient presents to the ED by ambulance for evaluation status post fall. 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 She states that she hit the right side of her forehead on her TV stand, then fell onto her right hip. Patient is currently complaining of having right hip and right lumbar back pain. Patient also admits to having a mild generalized headache. Patient denies LOC. Patient denies anticoagulant medication use, but she states that she does have von Willebrand's disease. Patient states that she had surgery for a right hip fracture in March. Patient denies any other injury or site of pain, focal numbness/weakness/neuro deficit, visual changes, neck/upper back pain, upper extremity any pain, chest pain or pressure, dyspnea, dizziness, abdominal pain, nausea/vomiting, or any other symptoms or complaints. Patient states that her tetanus is up-to-date. - Related Data Home Medications Medication Instructions Recorded Confirmed Fluticasone Nasal [place] [Flonase 2 spr EA NOSTRIL DAILY 06/20/17 09/23/21 Nasal [place]] SUMAtriptan SUCCINATE [Imitrex] 100 mg PO BID PRN 06/20/17 09/23/21 Desmopressin Intranasal [Ddavp 1 spray EA NOSTRIL DAILY PRN 06/02/19 09/23/21 Nasal [place]] EPINEPHrine (Auto Inject) [Epipen] 0.3 mg IM ONCE PRN 06/24/19 09/23/21 Pantoprazole [Protonix] 40 mg PO BID 06/24/19 09/23/21 DULoxetine HCL [Cymbalta] 30 mg PO DAILY 04/07/20 09/23/21 Diclofenac Sodium [Voltaren Gel] 2 - 4 applic TOPICAL QID PRN 04/07/20 09/23/21 Pramipexole Di-HCl [Mirapex] 0.75 mg PO HS 04/07/20 09/23/21 DULoxetine HCL [Cymbalta] 60 mg PO HS 03/27/21 09/23/21 Furosemide [Lasix] 80 mg PO DAILY 03/27/21 09/23/21 Nadolol [Corgard] 20 mg PO DAILY 03/27/21 09/23/21 Neupro 8mg/24 Hr Patch 1 patch TRANSDERM DAILY 03/27/21 09/23/21 buPROPion XL [Wellbutrin XL] 450 mg PO DAILY 03/27/21 09/23/21 traZODone HCL [Desyrel] 300 mg PO HS 03/27/21 09/23/21 Cholecalciferol [Vitamin D3 (25 25 mcg PO DAILY 09/23/21 09/23/21 Mcg = 1000 Iu)] Cyanocobalamin [Vitamin B-12 1,000 mcg SQ Q30D 09/23/21 09/23/21 Injection] Gabapentin 300 mg PO TID 09/23/21 09/23/21 HYDROcodone/APAP 5-325MG [[place] 1 tab PO BID PRN 09/23/21 09/23/21 5-325] Ketoconazole 2% Cream [Nizoral 2%] 1 applic TOPICAL DAILY PRN 09/23/21 09/23/21 Midodrine [ProAmatine] 5 mg PO TID 09/23/21 09/23/21 Naloxone HCl [Narcan] 4 mg NASAL ONCE PRN 09/23/21 09/23/21 Nystatin 100,000 Unit/gm Powd 1 applic TOPICAL DAILY PRN 09/23/21 09/23/21 [Mycostatin Powder] tiZANidine [Zanaflex] 4 mg PO TID PRN 09/23/21 09/23/21 Allergies Allergy/AdvReac Type Severity Reaction Status Date / Time aspirin Allergy has Von Verified 09/23/21 22:35 Willebrands Disease ibuprofen [From Motrin] Allergy has Von Verified 09/23/21 22:35 Willebrands Disease Iodinated Contrast Media Allergy Anaphylaxis Verified 09/23/21 22:35 [Iodinated Contrast- Oral and IV Dye] isosorbide [From Imdur] Allergy Rash/Hives Verified 09/23/21 22:35 latex Allergy Anaphylaxis Verified 09/23/21 22:35 Sulfa (Sulfonamide Allergy Rash/Hives Verified 09/23/21 22:35 Antibiotics) codeine AdvReac agitation Verified 09/23/21 22:35 and restless leg symptoms increased Review of Systems ROS Statement: Those systems with pertinent positive or pertinent negative responses have been documented in the HPI. ROS Other: All systems not noted in ROS Statement are negative. Past Medical History Past Medical History: Deep Vein Thrombosis (DVT), GERD/Reflux Additional Past Medical History / Comment(s): Von Willebrand Disease, diverticulitis, migraines, chronic back pain, DVT bilat. Restless leg syndrome. History of Any Multi-Drug Resistant Organisms: None Reported Past Surgical History: Adenoidectomy, Bariatric Surgery, Cholecystectomy, Hysterectomy, Joint Replacement, Orthopedic Surgery, Tonsillectomy Additional Past Surgical History / Comment(s): nury foot surgery, nury knee replaced, nury rotator cuffs, Judith en Y approx 5 years, bowel surgery. right shoulder replacement Past Anesthesia/Blood Transfusion Reactions: Postoperative Nausea & Vomiting (PONV) Past Psychological History: No Psychological Hx Reported Smoking Status: Former smoker Past Alcohol Use History: None Reported Past Drug Use History: None Reported - Past Family History Mother Family Medical History: Cancer Father Family Medical History: Cancer General Exam Limitations: no limitations General appearance: alert, in no apparent distress Head exam: Present: other (A superficial, linear abrasion is noted patient's right forehead) Eye exam: Present: normal appearance, PERRL, EOMI ENT exam: Present: mucous membranes moist, TM's normal bilaterally Neck exam: Present: normal inspection, other (Trachea is in midline). Absent: tenderness Respiratory exam: Present: normal lung sounds bilaterally. Absent: respiratory distress, wheezes, rales, rhonchi, stridor, chest wall tenderness Cardiovascular Exam: Present: regular rate, normal rhythm, normal heart sounds, other (Normal radial and dorsalis pedis pulses bilaterally) GI/Abdominal exam: Present: soft. Absent: distended, tenderness, guarding Extremities exam: Present: other (Right lateral and posterior hip tenderness; pelvis is stable). Absent: pedal edema Back exam: Present: other (Mild right lumbar back tenderness) Neurological exam: Present: alert, oriented X3, CN II-XII intact, other (No evidence of lower extremity neurological deficit or saddle anesthesia on exami nation). Absent: motor sensory deficit Psychiatric exam: Present: normal affect, normal mood Skin exam: Present: warm, dry, intact, normal color Course Vital Signs 09/23/21 21:54 Temperature 98.1 F Pulse Rate 62 Respiratory 16 Rate Blood Pressure 108/71 O2 Sat by Pulse 98 Oximetry - Reevaluation(s) Reevaluation #1: 09/23/21 23:42 Patient states that her pain has improved with ED treatment, but she is requesting another dose of pain medication prior to being discharged from the ED. Patient denies development of any new pain or symptoms while in the ED. Patient is aware of her imaging findings, and she feels comfortable being discharged home at this time. Patient states that she will call her daughter for ride home from the ED tonight. Patient was made aware of her L2 compression fracture, and she states that she had an MRI done at an outside facility not too long ago that demonstrated the same compression fracture at that time. Patient was counseled about head injuries, lumbar compression fractures and hip contusions. Patient was clearly explained return and follow-up instructions, and she feels comfortable with this plan. Patient was instructed to follow up closely with her primary care provider. Medical Decision Making - Medical Decision Making Patient's imaging studies are fairly unremarkable except for finding of an L2 compression fracture, which patient states was seen on a prior MRI. Patient has no evidence of neurological deficit. Will discharge patient home at this time. Patient to get a ride home from the ED tonight. Patient feels comfortable with this plan. - Radiology Data Noncontrast head CT: No acute intracranial abnormality. There is probably small lacunar infarct in the anterior internal capsule bilaterally. Noncontrast lumbar spine CT: There is L2 compression fracture which appears acute and appears new compared to old CT scan. Spondylotic changes in the lumbar spine. Noncontrast right hip CT: Right hip surgery. No change in position compared to 03/27/2021 x-ray exam. No acute fracture seen. Disposition Clinical Impression: Fall, Head injury, Facial abrasion, Lumbar back pain, Contusion of right hip, Compression fracture of L2 Disposition: HOME SELF-CARE Condition: Stable Instructions (If sedation given, give patient instructions): Fall Prevention (ED), Abrasion (ED), Head Injury (ED), Vertebral Compression Fracture (ED), Hip Contusion (ED) Additional Instructions: Return to the ER immediately should you develop new or worsening pain, numbness or weakness, trouble controlling your bladder or bowels, feeling dizzy or faint, shortness of breath, or new or worsening symptoms. Follow up closely with your primary care provider. Is patient prescribed a controlled substance at d/c from ED?: No Referrals: Whateley,Stefan, MD [Primary Care Provider] - 1-2 days Time of Disposition: 23:47
[2021-09-23] MEDS ORDERED: MAG HYDROX/AL HYDROX/SIMETH 30 ML CUP PO STA (22:13)
[2021-09-23] MEDS ORDERED: MORPHINE SULFATE 4 MG/ML SYRINGE IVP STA ×2 (22:13→23:43)
--- NOTE | 2021-09-23 22:54 | CT ---
EXAMINATION TYPE: CT brain wo con DATE OF EXAM: 09/23/2021 COMPARISON: None HISTORY: fall, head injury CT DLP: 1099.4 mGycm Automated exposure control for dose reduction was used. Images of the brain obtained with no contrast. Ventricles have normal size. There is no mass effect or midline shift. There is no sign of intracrani al hemorrhage. There is some mild hypodensity in the anterior internal capsule bilaterally consistent with small lacunar infarcts. Skull base is intact. There is normal aeration of the mastoid sinuses. There is a plate fixating the left temporal bone in the region of the temporomandibular joint. IMPRESSION: No acute intracranial abnormality. There is probably small lacunar infarct in the anterior internal c apsule bilaterally.
--- NOTE | 2021-09-23 23:16 | CT ---
EXAMINATION TYPE: CT lumbar spine wo con DATE OF EXAM: 09/23/2021 COMPARISON: 06/26/2019 HISTORY: fall, pain CT DLP: mGycm Automated exposure control for dose reduction was used. Images obtained from the level of L2 to the bottom of the coccyx without contrast. There is compression of the L2 vertebral body with 20% anterior wedging. There is vacuum disc at L5-S 1. The posterior elements are intact. There is some hypertrophic facet arthropathy in the lumbar spin e. There is no lumbar paraspinal mass. Sacroiliac joints are intact. The sacrum and coccyx appear int act there is no paraspinal mass. There is no evidence of lumbar spinal stenosis. IMPRESSION: There is L2 compression fracture which appears acute and appears new compared to old CT scan. Spondyl otic changes in the lumbar spine.
--- NOTE | 2021-09-23 23:19 | CT ---
EXAMINATION TYPE: CT hip RT wo con DATE OF EXAM: 09/23/2021 COMPARISON: None HISTORY: fall, pain CT DLP: mGycm Automated exposure control for dose reduction was used. Images obtained from the mid ilium to the midshaft of the right femur without contrast. There is intramedullary my in the proximal right femur with transverse screws fixing old intertrocha nteric fracture of the right femur. Fragments are in anatomic position. Fracture line still visible. There is a 2 cm chip fracture of the greater trochanter of the femur. Acetabulum is intact. Hip joint space is fairly normal. IMPRESSION: Right hip surgery. No change in position compared to 03/27/2021 hip x-ray exam. No acute fracture seen .
[2021-09-24 00:12] VITALS: BP 122/85; PULSE 78
== END 2021-09-24 00:46 | disposition home or self-care (01) ==
LOC: EC 21:52
DX: S70.01XA Contusion of right hip, initial encounter (principal); S32.020A Wedge compression fracture of second lumbar vertebra, initial encounter for closed fracture; S00.81XA Abrasion of other part of head, initial encounter; K21.9 Gastro-esophageal reflux disease without esophagitis; Z88.6 Allergy status to analgesic agent; Z91.040 Latex allergy status; Z88.5 Allergy status to narcotic agent; Z88.2 Allergy status to sulfonamides; Z86.718 Personal history of other venous thrombosis and embolism; Z98.84 Bariatric surgery status; Z90.49 Acquired absence of other specified parts of digestive tract; Z90.710 Acquired absence of both cervix and uterus; Z96.653 Presence of artificial knee joint, bilateral; Z87.891 Personal history of nicotine dependence; W01.10XA Fall on same level from slipping, tripping and stumbling with subsequent striking against unspecified object, initial encounter
CPT/HCPCS: 99284; 96374; 96376; 72131; 70450; 73700; J2270

== ENCOUNTER → 2021-10-19 | Outpatient (CLI) | payer MEDICARE, OTHER ==
[~2021-10-19] MED LIST changes: -DESMOPRESSIN ACETATE 34 MCG in SODIUM CHLORIDE 0.9% 50 ML IVPB STA; -LACTATED RINGERS 1,000 ML IV SCH; -LIDOCAINE 1% (10MG/ML) FOR IV START INTRADERMA PRN; -ONDANSETRON 4 MG/2 ML VIAL ONE; -PROPOFOL 10 MG/ML 20 ML VIAL IV ONE; -SCOPOLAMINE 1.5MG/72HR PATCH TRANSDERM ONE; +SODIUM CHLORIDE 0.9% 500 ML 500 ML in EMPTY BAG 1 BAG IV PRN; +ZOLEDRONIC ACID 5 MG in SODIUM CHLORIDE 0.9% 100 ML IV NR
[2021-10-19 08:46] VITALS: BP 131/78; PULSE 92; RESP 18; TEMP 97.6
== END ==
LOC: PROCWHC3 08:30
PROVIDERS: ATTEND Internal Medicine
DX: M81.0 Age-related osteoporosis without current pathological fracture (principal); Z88.6 Allergy status to analgesic agent; Z91.040 Latex allergy status; Z88.2 Allergy status to sulfonamides; Z88.5 Allergy status to narcotic agent; Z91.041 Radiographic dye allergy status; F17.210 Nicotine dependence, cigarettes, uncomplicated
CPT/HCPCS: 96365; J3489

== ENCOUNTER → 2021-11-02 | Outpatient (CLI) | payer MEDICARE ==
--- NOTE | 2021-11-02 15:11 | NM ---
EXAMINATION TYPE: NM parathyroid w/spect DATE OF EXAM: 11/02/2021 COMPARISON: NONE HISTORY: E21.3 Hyperparathyroidism TECHNIQUE: Following administration of 26.2 mCi Tc99m Sestamibi. Anterior projection images of the neck and ches t were obtained 10 minutes and 3 hours post injection. SPECT images of the neck and chest were obtai sean and reconstructed in three axes. FINDINGS: Thyroid tracer washout: Delayed images demonstrate near-complete tracer washout from the thyroid. Parathyroid uptake: None. The two-hour delayed images do not demonstrate any focal abnormal persisten t uptake in the region of the parathyroid glands to suggest parathyroid adenoma. Normal uptake: There is physiological tracer uptake in the myocardium, liver, salivary glands, and th yroid gland. IMPRESSION: Normal parathyroid imaging study. No evidence for mediastinal uptake to suggest mediastinal parathyro id adenoma
== END | disposition home or self-care (01) ==
LOC: RADNMMAIN 10:23
PROVIDERS: ATTEND Internal Medicine
DX: E21.3 Hyperparathyroidism, unspecified (principal)
CPT/HCPCS: 78071; A9500

== ENCOUNTER 2021-11-28 12:55 | Inpatient (IN) | payer MEDICARE ==
[2021-11-28] MEDS ORDERED: HYDROmorphone 0.5 MG/0.5 ML SYRINGE IVP STA ×2 (13:11→16:07)
[2021-11-28] MEDS ORDERED: SODIUM CHLORIDE 0.9% 500 ML 500 ML IV STA (13:11)
[2021-11-28] MEDS ORDERED: ONDANSETRON 4 MG/2 ML VIAL IVP STA (13:11)
--- NOTE | 2021-11-28 13:34 | ED ---
General Adult HPI - General Source: patient, RN notes reviewed, old records reviewed Mode of arrival: ambulatory Limitations: no limitations <Alvarado Santiago - Last Filed: 11/28/21 14:50> <Gamal Recinos - Last Filed: 11/28/21 16:57> - General Chief complaint: Abdominal Pain Stated complaint: diverticulitis Time Seen by Provider: 11/28/21 13:06 - History of Present Illness Initial comments: 61-year-old female presenting for evaluation of lower abdominal pain and diarrhea. Patient was sent in by primary care physician with concern for diverticulitis. Her symptoms have been present for the past one week. She's had nausea and vomiting as well. She has previous history of colon resection for diverticulosis. (Alvarado Santiago) - Related Data Home Medications Medication Instructions Recorded Confirmed Fluticasone Nasal [place] [Flonase 1 spr EA NOSTRIL DAILY 06/20/17 11/28/21 Nasal [place]] SUMAtriptan SUCCINATE [Imitrex] 100 mg PO DAILY PRN 06/20/17 11/28/21 EPINEPHrine (Auto Inject) [Epipen] 0.3 mg IM ONCE PRN 06/24/19 11/28/21 Pantoprazole [Protonix] 40 mg PO BID 06/24/19 11/28/21 DULoxetine HCL [Cymbalta] 30 mg PO DAILY 04/07/20 11/28/21 Pramipexole Di-HCl [Mirapex] 0.25 mg PO HS 04/07/20 11/28/21 DULoxetine HCL [Cymbalta] 60 mg PO HS 03/27/21 11/28/21 Furosemide [Lasix] 40 mg PO BID 03/27/21 11/28/21 Nadolol [Corgard] 20 mg PO DAILY 03/27/21 11/28/21 Neupro 8mg/24 Hr Patch 1 patch TRANSDERM DAILY 03/27/21 11/28/21 buPROPion XL [Wellbutrin XL] 450 mg PO DAILY 03/27/21 11/28/21 traZODone HCL [Desyrel] 100 - 300 mg PO HS 03/27/21 11/28/21 Cyanocobalamin [Vitamin B-12 1,000 mcg SQ Q30D 09/23/21 11/28/21 Injection] Gabapentin 300 mg PO TID 09/23/21 11/28/21 Midodrine [ProAmatine] 5 mg PO TID 09/23/21 11/28/21 Naloxone HCl [Narcan] 4 mg NASAL ONCE PRN 09/23/21 11/28/21 Nystatin 100,000 Unit/gm Powd 1 applic TOPICAL DAILY PRN 09/23/21 11/28/21 [Mycostatin Powder] tiZANidine [Zanaflex] 2 - 4 mg PO TID PRN 09/23/21 11/28/21 Ergocalciferol [Vitamin D2 (1250 1,250 mcg PO WE 11/28/21 11/28/21 Mcg = 99094 Iu)] Folic Acid 1 mg PO DAILY 11/28/21 11/28/21 Pramipexole [Mirapex] 0.25 mg PO DAILY PRN 11/28/21 11/28/21 Topiramate [Topamax] 25 mg PO HS 11/28/21 11/28/21 Allergies Allergy/AdvReac Type Severity Reaction Status Date / Time aspirin Allergy has Von Verified 11/28/21 14:24 Willebrands Disease ibuprofen [From Motrin] Allergy has Von Verified 11/28/21 14:24 Willebrands Disease Iodinated Contrast Media Allergy Anaphylaxis Verified 11/28/21 14:24 [Iodinated Contrast- Oral and IV Dye] isosorbide [From Imdur] Allergy Rash/Hives Verified 11/28/21 14:24 latex Allergy Anaphylaxis Verified 11/28/21 14:24 Sulfa (Sulfonamide Allergy Rash/Hives Verified 11/28/21 14:24 Antibiotics) codeine AdvReac agitation Verified 11/28/21 14:24 and restless leg symptoms increased Review of Systems ROS Other: All systems not noted in ROS Statement are negative. <Alvarado Santiago - Last Filed: 11/28/21 14:50> ROS Other: All systems not noted in ROS Statement are negative. <Gamal Recinos - Last Filed: 11/28/21 16:57> ROS Statement: Those systems with pertinent positive or pertinent negative responses have been documented in the HPI. Past Medical History Past Medical History: Deep Vein Thrombosis (DVT), GERD/Reflux Additional Past Medical History / Comment(s): Von Willebrand Disease, diverticulitis, migraines, chronic back pain, DVT bilat. Restless leg syndrome. History of Any Multi-Drug Resistant Organisms: None Reported Past Surgical History: Adenoidectomy, Bariatric Surgery, Cholecystectomy, Hysterectomy, Joint Replacement, Orthopedic Surgery, Tonsillectomy Additional Past Surgical History / Comment(s): nury foot surgery, nury knee replaced, nury rotator cuffs, Judith en Y approx 5 years, bowel surgery. right shoulder replacement Past Anesthesia/Blood Transfusion Reactions: Postoperative Nausea & Vomiting (PONV) Past Psychological History: No Psychological Hx Reported Smoking Status: Former smoker Past Alcohol Use History: None Reported Past Drug Use History: None Reported - Past Family History Mother Family Medical History: Cancer Father Family Medical History: Cancer <Alvarado Santiago - Last Filed: 11/28/21 14:50> General Exam Limitations: no limitations General appearance: alert, in no apparent distress Head exam: Present: atraumatic, normocephalic Eye exam: Present: normal appearance, PERRL ENT exam: Present: normal exam Neck exam: Present: normal inspection. Absent: tenderness, meningismus Respiratory exam: Present: normal lung sounds bilaterally. Absent: respiratory distress, wheezes Cardiovascular Exam: Present: regular rate, normal rhythm GI/Abdominal exam: Present: soft, tenderness. Absent: distended Extremities exam: Present: normal inspection, normal capillary refill. Absent: pedal edema Neurological exam: Present: alert, oriented X3, CN II-XII intact. Absent: motor sensory deficit Psychiatric exam: Present: normal affect, normal mood Skin exam: Present: warm, dry, intact. Absent: cyanosis, diaphoretic <Alvarado Santiago - Last Filed: 11/28/21 14:50> Course <Alvarado Santiago - Last Filed: 11/28/21 14:50> Vital Signs 11/28/21 11/28/21 11/28/21 12:57 15:42 16:00 Temperature 97.6 F Pulse Rate 72 74 78 Respiratory 16 20 18 Rate Blood Pressure 117/71 117/78 113/75 O2 Sat by Pulse 95 96 98 Oximetry - Reevaluation(s) Reevaluation #1: 11/28/21 1500 Patient care signed out to Dr. Recinos at shift change awaiting CT imaging. (Alvarado Santiago) Medical Decision Making - Lab Data Result diagrams: 11/28/21 13:21 11/28/21 13:21 <Alvarado Santiago Edin - Last Filed: 11/28/21 14:50> - Lab Data Result diagrams: 11/28/21 13:21 11/28/21 13:21 - Radiology Data Radiology results: report reviewed (Computed tomography scan concerning for diverticulitis) <Gamal Recinos - Last Filed: 11/28/21 16:57> - Medical Decision Making Patient reevaluated and still complain discomfort. Patient updated on results. Case discussed with Dr. Mcconnell, who will admit covering Dr. Sidhu (Gamal Recinos) - Lab Data Lab Results 11/28/21 11/28/21 11/28/21 Range/Units 13:21 13:21 13:21 WBC 9.3 (3.8-10.6) k/uL RBC 4.31 (3.80-5.40) m/uL Hgb 13.4 (11.4-16.0) gm/dL Hct 41.0 (34.0-46.0) % MCV 95.2 (80.0-100.0) fL MCH 31.2 (25.0-35.0) pg MCHC 32.8 (31.0-37.0) g/dL RDW 12.7 (11.5-15.5) % Plt Count 288 (150-450) k/uL MPV 8.2 Neutrophils % 75 % Lymphocytes % 14 % Monocytes % 6 % Eosinophils % 3 % Basophils % 1 % Neutrophils # 7.0 (1.3-7.7) k/uL Lymphocytes # 1.3 (1.0-4.8) k/uL Monocytes # 0.5 (0-1.0) k/uL Eosinophils # 0.3 (0-0.7) k/uL Basophils # 0.1 (0-0.2) k/uL PT (9.0-12.0) sec INR (<1.2) APTT (22.0-30.0) sec Sodium 135 L (137-145) mmol/L Potassium 4.2 (3.5-5.1) mmol/L Chloride 103 (98-107) mmol/L Carbon Dioxide 27 (22-30) mmol/L Anion Gap 5 mmol/L BUN 13 (7-17) mg/dL Creatinine 0.47 L (0.52-1.04) mg/dL Est GFR (CKD-EPI)AfAm >90 (>60 ml/min/1.73 sqM) Est GFR (CKD-EPI)NonAf >90 (>60 ml/min/1.73 sqM) Glucose 85 (74-99) mg/dL Plasma Lactic Acid Lj (0.7-2.0) mmol/L Calcium 7.7 L (8.4-10.2) mg/dL Total Bilirubin 0.7 (0.2-1.3) mg/dL AST 26 (14-36) U/L ALT 16 (4-34) U/L Alkaline Phosphatase 59 (38-126) U/L Total Protein 6.6 (6.3-8.2) g/dL Albumin 3.8 (3.5-5.0) g/dL Amylase 45 (30-110) U/L Lipase 102 (23-300) U/L Urine Color Yellow Urine Appearance Clear (Clear) Urine pH 5.5 (5.0-8.0) Ur Specific [place] 1.013 (1.001-1.035) Urine Protein Negative (Negative) Urine Glucose (UA) Negative (Negative) Urine Ketones Negative (Negative) Urine Blood Negative (Negative) Urine Nitrite Negative (Negative) Urine Bilirubin Negative (Negative) Urine Urobilinogen <2.0 (<2.0) mg/dL Ur Leukocyte Esterase Negative (Negative) 11/28/21 11/28/21 Range/Units 13:21 13:21 WBC (3.8-10.6) k/uL RBC (3.80-5.40) m/uL Hgb (11.4-16.0) gm/dL Hct (34.0-46.0) % MCV (80.0-100.0) fL MCH (25.0-35.0) pg MCHC (31.0-37.0) g/dL RDW (11.5-15.5) % Plt Count (150-450) k/uL MPV Neutrophils % % Lymphocytes % % Monocytes % % Eosinophils % % Basophils % % Neutrophils # (1.3-7.7) k/uL Lymphocytes # (1.0-4.8) k/uL Monocytes # (0-1.0) k/uL Eosinophils # (0-0.7) k/uL Basophils # (0-0.2) k/uL PT 9.9 (9.0-12.0) sec INR 0.9 (<1.2) APTT 24.2 (22.0-30.0) sec Sodium (137-145) mmol/L Potassium (3.5-5.1) mmol/L Chloride (98-107) mmol/L Carbon Dioxide (22-30) mmol/L Anion Gap mmol/L BUN (7-17) mg/dL Creatinine (0.52-1.04) mg/dL Est GFR (CKD-EPI)AfAm (>60 ml/min/1.73 sqM) Est GFR (CKD-EPI)NonAf (>60 ml/min/1.73 sqM) Glucose (74-99) mg/dL Plasma Lactic Acid Lj 0.6 L (0.7-2.0) mmol/L Calcium (8.4-10.2) mg/dL Total Bilirubin (0.2-1.3) mg/dL AST (14-36) U/L ALT (4-34) U/L Alkaline Phosphatase (38-126) U/L Total Protein (6.3-8.2) g/dL Albumin (3.5-5.0) g/dL Amylase (30-110) U/L Lipase (23-300) U/L Urine Color Urine Appearance (Clear) Urine pH (5.0-8.0) Ur Specific [place] (1.001-1.035) Urine Protein (Negative) Urine Glucose (UA) (Negative) Urine Ketones (Negative) Urine Blood (Negative) Urine Nitrite (Negative) Urine Bilirubin (Negative) Urine Urobilinogen (<2.0) mg/dL Ur Leukocyte Esterase (Negative) Disposition <Alvarado Santiago - Last Filed: 11/28/21 14:50> Is patient prescribed a controlled substance at d/c from ED?: No Time of Disposition: 16:56 <Gamal Recinos - Last Filed: 11/28/21 16:57> Clinical Impression: Diverticulitis Disposition: ADMITTED IP TO THIS HOSP Referrals: Stefan He MD [Primary Care Provider] - 1-2 days
[2021-11-28 13:37] LABS: Basophils # (A) 0.1 k/uL (0-0.2); Basophils % (A) 1 %; Eosinophils # (A) 0.3 k/uL (0-0.7); Eosinophils % (A) 3 %; HGB 13.4 gm/dL (11.4-16.0); Lymphocytes # (A) 1.3 k/uL (1.0-4.8); Lymphocytes % (A) 14 %; MCH 31.2 pg (25.0-35.0); MCHC 32.8 g/dL (31.0-37.0); MCV 95.2 fL (80.0-100.0); Mean Platelet Volume 8.2; Monocytes # (A) 0.5 k/uL (0-1.0); Monocytes % (A) 6 %; Neutrophils % (A) 75 %; Platelet Count 288 k/uL (150-450); RBC 4.31 m/uL (3.80-5.40); RDW 12.7 % (11.5-15.5); WBC 9.3 k/uL (3.8-10.6)
[2021-11-28] MEDS ORDERED: FAMOTIDINE 20 MG/2 ML VIAL IV STA (13:49)
[2021-11-28 13:52] LABS: ALT 16 U/L (4-34); African American GFR (CKD) >90 (>60 ml/min/1.73 sqM); Albumin 3.8 g/dL (3.5-5.0); Amylase 45 U/L (30-110); Anion Gap 5 mmol/L; Blood Urea Nitrogen 13 mg/dL (7-17); Calcium 7.7 mg/dL (8.4-10.2); Carbon Dioxide 27 mmol/L (22-30); Chloride 103 mmol/L (98-107); Glucose 85 mg/dL (74-99); INR 0.9 (<1.2); Lipase 102 U/L (23-300); Non-African American GFR(CKD) >90 (>60 ml/min/1.73 sqM); Partial Thromboplastin Time 24.2 sec (22.0-30.0); Prothrombin Time 9.9 sec (9.0-12.0); Sodium 135 mmol/L (137-145); Total Bilirubin 0.7 mg/dL (0.2-1.3); Total Protein 6.6 g/dL (6.3-8.2)
[2021-11-28 13:53] LABS: AST 26 U/L (14-36); Alkaline Phosphatase 59 U/L (38-126); Potassium 4.2 mmol/L (3.5-5.1)
[2021-11-28 14:11] LABS: Appearance,Urine Clear (Clear); Bilirubin,Urine Negative (Negative); Blood,Urine Negative (Negative); Color,Urine Yellow; Glucose,Urine (UA) Negative (Negative); Ketones,Urine Negative (Negative); Leukocyte Esterase,Urine Negative (Negative); Nitrite,Urine Negative (Negative); PH, Urine 5.5 (5.0-8.0); Protein,Urine Negative (Negative); Specific Gravity,Urine 1.013 (1.001-1.035); Urobilinogen,Urine <2.0 mg/dL (<2.0)
[2021-11-28] MEDS ORDERED: MAG HYDROX/AL HYDROX/SIMETH 30 ML, HYOSCYAMINE ELIXIR 10 ML, LIDOCAINE VISCOUS 2% 10 ML PO STA ×3 (14:52)
--- NOTE | 2021-11-28 16:29 | CT ---
EXAMINATION TYPE: CT abdomen pelvis wo con DATE OF EXAM: 11/28/2021 COMPARISON: CT dated 06/26/2019 HISTORY: Generalized abdominal pain. CT DLP: 1087.4 mGycm Automated exposure control for dose reduction was used. TECHNIQUE: Helical acquisition of images was performed from the lung bases through the pelvis. FINDINGS: LUNG BASES: No significant abnormality is appreciated. LIVER/GB: Previous cholecystectomy. No definite hepatic focal lesion. PANCREAS: No significant abnormality is seen. SPLEEN: No significant abnormality is seen. ADRENALS: No significant abnormality is seen. KIDNEYS: 2 mm right lower pole nonobstructing renal calculus. Unremarkable kidneys otherwise. FREE AIR: No free air is visualized RETROPERITONEAL ADENOPATHY: None visualized REPRODUCTIVE ORGANS: Previous hysterectomy. No gross adnexal mass. URINARY BLADDER: No significant abnormality is seen. PELVIC ADENOPATHY: No pathologically enlarged lymph nodes. OSSEOUS STRUCTURES: Right proximal femoral fixation using intramedullary nail and interlocking screw s. Degenerative changes of the symphysis pubis, sacroiliac joints and lumbar spine. Left renal fossa subcutaneous stimulator device. L2 upper endplate depression, possibly chronic, please correlate clin ically. BOWEL: Colonic anastomosis seen in the pelvis. Adjacent acute inflammatory changes suggestive of acu te diverticulitis at that location. No gross signs of perforation or definite abscess formation by th is nonenhanced CT scan. The inflammatory changes are inseparable from the adjacent small bowel loops and the vagina vault. No evidence of small or large bowel obstruction. Normal appendix. OTHER: Arterial calcification. No sizable ascites. IMPRESSION: Acute diverticulitis involving the pelvic colon adjacent to the colonic anastomosis as described abov e. No definite abscess formation of gross signs of perforation by this nonenhanced CT scan. Other inc idental findings as described above.
[2021-11-28] MEDS ORDERED: PRAMIPEXOLE 0.25 MG TAB PO PRN (16:53)
[2021-11-28] MEDS ORDERED: SUMAtriptan succinate 50 MG TAB PO PRN (16:53)
[2021-11-28] MEDS ORDERED: ONDANSETRON 4 MG/2 ML VIAL IVP PRN (16:58)
[2021-11-28] MEDS ORDERED: NALOXONE 0.4 MG/ML 1 ML VIAL IV PRN (16:58)
[2021-11-28] MEDS ORDERED: ACETAMINOPHEN TAB 325 MG TAB PO PRN (16:58)
--- NOTE | 2021-11-28 17:16 | P.HPIM ---
History of Present Illness H&P Date: 11/28/21 This is a 61-year-old female with past medical history of hypertension diverticulitis history of colectomy was admitted to the hospital with abdominal pain that has been going for the last to 3 days with vomiting denies any chest pain or shortness of breath Review of systems and systems has been reviewed all negative and positive findings as per history of present illness Constitutional: No acute distress, conversant, pleasant Eyes: Anicteric sclerae, moist conjunctiva, no lid-lag PERRLA ENMT: NC/AT Oropharynx clear, no erythema, exudates Neck: Supple, FROM, no masses, or JVD No carotid bruits No thyromegaly Lungs: Clear to auscultation Clear to percussion Normal respiratory effort, no accessory muscle use Cardiovascular: Heart regular in rate and rhythm, No murmurs, gallops, or rubs No peripheral edema Abdominal: Mild abdominal pain and tenderness, no guarding, rebound or rigidity Abdomen moving with respiration Normoactive bowel sounds No hepatomegaly, No splenomegaly No palpable mass No abdominal wall hernia noted Skin: Normal temperature, tone, texture, turgor No induration No subcutaneous nodules No rash, lesions No ulcers Extremities: No digital cyanosis No clubbing Pedal pulses intact and symmetrical Radial pulses intact and symmetrical Normal gait and station No calf tenderness Psychiatric:Alert and oriented to person, place and time Appropriate affect In tact judgement Neuro: Muscles Strength 5/5 in all 4 extremities Sensation to light touch grossly present throughout Cranial nerves II-XII grossly intact No focal sensory deficits Acute diverticulitis in a patient who did have history of recurrent diverticulitis and colectomy in the past will start the patient on IV Unasyn and will consult surgery Continue pain control IV hydration Anxiety DVT and GI prophylaxis currently will not start the patient on heparin or Lovenox in case surgery is needed Past Medical History Past Medical History: Deep Vein Thrombosis (DVT), GERD/Reflux Additional Past Medical History / Comment(s): Von Willebrand Disease, diverticulitis, migraines, chronic back pain, DVT bilat. Restless leg syndrome. History of Any Multi-Drug Resistant Organisms: None Reported Past Surgical History: Adenoidectomy, Bariatric Surgery, Cholecystectomy, Hysterectomy, Joint Replacement, Orthopedic Surgery, Tonsillectomy Additional Past Surgical History / Comment(s): nury foot surgery, nury knee replaced, nury rotator cuffs, Judith en Y approx 5 years, bowel surgery. right shoulder replacement Past Anesthesia/Blood Transfusion Reactions: Postoperative Nausea & Vomiting (PONV) Past Psychological History: No Psychological Hx Reported Smoking Status: Former smoker Past Alcohol Use History: None Reported Past Drug Use History: None Reported - Past Family History Mother Family Medical History: Cancer Father Family Medical History: Cancer Medications and Allergies Home Medications Medication Instructions Recorded Confirmed Type Fluticasone Nasal [place] [Flonase 1 spr EA NOSTRIL DAILY 06/20/17 11/28/21 History Nasal [place]] SUMAtriptan SUCCINATE [Imitrex] 100 mg PO DAILY PRN 06/20/17 11/28/21 History EPINEPHrine (Auto Inject) [Epipen] 0.3 mg IM ONCE PRN 06/24/19 11/28/21 History Pantoprazole [Protonix] 40 mg PO BID 06/24/19 11/28/21 History DULoxetine HCL [Cymbalta] 30 mg PO DAILY 04/07/20 11/28/21 History Pramipexole Di-HCl [Mirapex] 0.25 mg PO HS 04/07/20 11/28/21 History DULoxetine HCL [Cymbalta] 60 mg PO HS 03/27/21 11/28/21 History Furosemide [Lasix] 40 mg PO BID 03/27/21 11/28/21 History Nadolol [Corgard] 20 mg PO DAILY 03/27/21 11/28/21 History Neupro 8mg/24 Hr Patch 1 patch TRANSDERM DAILY 03/27/21 11/28/21 History buPROPion XL [Wellbutrin XL] 450 mg PO DAILY 03/27/21 11/28/21 History traZODone HCL [Desyrel] 100 - 300 mg PO HS 03/27/21 11/28/21 History Cyanocobalamin [Vitamin B-12 1,000 mcg SQ Q30D 09/23/21 11/28/21 History Injection] Gabapentin 300 mg PO TID 09/23/21 11/28/21 History Midodrine [ProAmatine] 5 mg PO TID 09/23/21 11/28/21 History Naloxone HCl [Narcan] 4 mg NASAL ONCE PRN 09/23/21 11/28/21 History Nystatin 100,000 Unit/gm Powd 1 applic TOPICAL DAILY PRN 09/23/21 11/28/21 History [Mycostatin Powder] tiZANidine [Zanaflex] 2 - 4 mg PO TID PRN 09/23/21 11/28/21 History Ergocalciferol [Vitamin D2 (1250 1,250 mcg PO WE 11/28/21 11/28/21 History Mcg = 22507 Iu)] Folic Acid 1 mg PO DAILY 11/28/21 11/28/21 History Pramipexole [Mirapex] 0.25 mg PO DAILY PRN 11/28/21 11/28/21 History Topiramate [Topamax] 25 mg PO HS 11/28/21 11/28/21 History Allergies Allergy/AdvReac Type Severity Reaction Status Date / Time aspirin Allergy has Von Verified 11/28/21 14:24 Willebrands Disease ibuprofen [From Motrin] Allergy has Von Verified 11/28/21 14:24 Willebrands Disease Iodinated Contrast Media Allergy Anaphylaxis Verified 11/28/21 14:24 [Iodinated Contrast- Oral and IV Dye] isosorbide [From Imdur] Allergy Rash/Hives Verified 11/28/21 14:24 latex Allergy Anaphylaxis Verified 11/28/21 14:24 Sulfa (Sulfonamide Allergy Rash/Hives Verified 11/28/21 14:24 Antibiotics) codeine AdvReac agitation Verified 11/28/21 14:24 and restless leg symptoms increased Physical Exam Vitals: Vital Signs Temp Pulse Resp BP Pulse Ox 11/28/21 16:00 78 18 113/75 98 11/28/21 15:42 74 20 117/78 96 11/28/21 12:57 97.6 F 72 16 117/71 95 Intake and Output 11/28/21 11/28/21 11/28/21 06:59 14:59 22:59 Other: Weight 97.522 kg Results CBC & Chem 7: 11/28/21 13:21 11/28/21 13:21 Labs: Abnormal Lab Results - Last 24 Hours (Table) 11/28/21 11/28/21 Range/Units 13:21 13:21 Sodium 135 L (137-145) mmol/L Creatinine 0.47 L (0.52-1.04) mg/dL Plasma Lactic Acid Lj 0.6 L (0.7-2.0) mmol/L Calcium 7.7 L (8.4-10.2) mg/dL
[2021-11-28] MEDS: PANTOPRAZOLE 40 MG TABLET PO SCH (18:02)
[2021-11-28] MEDS: FUROSEMIDE 40 MG TAB PO SCH (18:07)
[2021-11-28] MEDS: AMPICILLIN-SULBACTAM 3 GM in SODIUM CHLORIDE 0.9% 100 ML IVPB SCH ×2 (18:08→23:09)
[2021-11-28] MEDS: SODIUM CHLORIDE 0.9% 1,000 ML IV SCH (18:08)
[2021-11-28] MEDS: HYDROmorphone 1 MG/ML 1 ML SYRINGE IVP PRN ×2 (19:15→23:07)
[2021-11-28] MEDS: DULoxetine HCL 60 MG CAPSULE.DR PO SCH (21:50)
[2021-11-28] MEDS: TOPIRAMATE 25 MG TAB PO SCH (21:51)
[2021-11-28] MEDS: GABAPENTIN 300 MG CAP PO SCH (21:51)
[2021-11-28] MEDS: PRAMIPEXOLE 0.25 MG TAB PO SCH (21:51)
[2021-11-28] MEDS: MIDODRINE 5 MG TAB PO SCH (21:52)
[2021-11-29] MEDS: HYDROmorphone 0.5 MG/0.5 ML SYRINGE IVP PRN ×4 (04:51→19:51)
[2021-11-29] MEDS: AMPICILLIN-SULBACTAM 3 GM in SODIUM CHLORIDE 0.9% 100 ML IVPB SCH ×4 (06:00→23:47)
[2021-11-29] MEDS: MIDODRINE 5 MG TAB PO SCH ×3 (08:10→19:39)
[2021-11-29] MEDS: PANTOPRAZOLE 40 MG TABLET PO SCH ×2 (08:10→17:04)
[2021-11-29] MEDS: DULoxetine HCL 30 MG CAPSULE.DR PO SCH (08:10)
[2021-11-29] MEDS: buPROPion XL 150 MG TAB.ER.24H PO SCH (08:10)
[2021-11-29] MEDS: FUROSEMIDE 40 MG TAB PO SCH ×2 (08:10→15:25)
[2021-11-29] MEDS: GABAPENTIN 300 MG CAP PO SCH ×3 (08:13→19:42)
[2021-11-29 09:23] LABS: Basophils # (A) 0.04 X 10*3/uL (0.00-0.10); Basophils % (A) 0.6 %; Eosinophils # (A) 0.21 X 10*3/uL (0.04-0.35); HCT 40.2 % (37.2-46.3); HGB 13.2 g/dL (12.0-15.0); Immature Grans, Automated 0.7 %; Lymphocytes # (A) 0.97 X 10*3/uL (0.90-5.00); Lymphocytes % (A) 13.7 %; MCH 30.9 pg (27.0-32.0); MCHC 32.8 g/dL (32.0-37.0); MCV 94.1 fL (80.0-97.0); Mean Platelet Volume 11.1 fL (9.5-12.2); Monocytes # (A) 0.63 X 10*3/uL (0.20-1.00); Monocytes % (A) 8.9 %; NRBC Per 100 WBC 0 /100 WBCS (0.0-0.0); Neutrophils # (A) 5.19 X 10*3/uL (1.80-7.70); Neutrophils % (A) 73.1 %; Platelet Count 241 X 10*3/uL (140-440); RBC 4.27 X 10*6/uL (4.10-5.20); RDW 12.3 % (11.5-14.5); WBC 7.09 X 10*3/uL (4.50-10.00)
[2021-11-29 09:44] LABS: African American GFR (CKD) 119.4 (60.0-200.0); Albumin 3.8 g/dL (3.8-4.9); Albumin/Globulin Ratio 1.65 (1.60-3.17); Anion Gap 10.5 mmol/L (10.00-18.00); BUN/Creat Ratio 17.8 Ratio (12.00-20.00); Blood Urea Nitrogen 8.9 mg/dL (9.0-27.0); Calcium 7.7 mg/dL (8.7-10.3); Carbon Dioxide 28.5 mmol/L (20.0-27.5); Globulin 2.3 g/dL (1.6-3.3); Potassium 3.6 mmol/L (3.5-5.5); Total Bilirubin 0.7 mg/dL (0.30-1.20); Total Protein 6.1 g/dL (6.2-8.2)
[2021-11-29] MEDS: SODIUM CHLORIDE 0.9% 1,000 ML IV SCH (09:48)
--- NOTE | 2021-11-29 11:02 | P.GSCN ---
History of Present Illness Consult date: 11/29/21 History of present illness: CHIEF COMPLAINT: Abdominal pain HISTORY OF PRESENT ILLNESS: This is a 61-year-old female who presented to the hospital with complaints of left lower quadrant and lower pelvic pain 6 days. Patient also reports that she's been having pressure in her rectum when she urinates or defecates. She reports the pain did get severe up to 10 out of 10. She is having cramping pain. She has required colon resection about 10 years ago for diverticulitis. Patient has not had any flareups of diverticulitis since that surgery. Patient reports that she does alternate between diarrhea and constipation. And lately she's been done of constipation. She did have one episode of vomiting yesterday. She denies any fever chills or sweats. She reports her pain on a slightly better today she rates it about a 6 out of 10. She is currently in clinical liquid diet. She reports that the Coumadin clinic with did not make the pain worse. Pain is worse with movement. Computed tomography scan abdomen and pelvis shows acute diverticulitis involving the pelvic colon Adjacent to the colonic anastomosis. No abscess or perforation noted. Patient has a history of von Willebrand's disease. Also surgical history includes Judith-en-Y, cholecystectomy and hysterectomy. Patient reports her last colonoscopy was in 2018 and did reveal diverticulosis and hemorrhoids. PAST MEDICAL HISTORY: See list. PAST SURGICAL HISTORY: See list. MEDICATIONS: See list. ALLERGIES: See list. SOCIAL HISTORY: No illicit drug use. REVIEW OF SYSTEMS: CONSTITUTIONAL: Denies fever or chills. HEENT: Denies blurred vision, vision changes, or eye pain. Denies hemoptysis CARDIOVASCULAR: Denies chest pain or pressure. RESPIRATORY: No shortness of breath. GASTROINTESTINAL: See HPI for pertinent findings HEMATOLOGIC: Denies bleeding disorders. GENITOURINARY: Denies any blood in urine or increased urinary frequency. SKIN: Denies pruitis. Denies rash. PHYSICAL EXAM: VITAL SIGNS: Reviewed GENERAL: Well-developed in no acute distress. HEENT: No sclera icterus. Extraocular movements grossly intact. Moist buccal mucosa. Head is atraumatic, normocephalic. No nasal drainage. ABDOMEN: Soft. Nondistended. Tenderness to palpation left lower quadrant and pelvic area NEUROLOGIC: Alert and oriented. Cranial nerves II through XII grossly intact. LABORATORY DATA: WBC 7.09 Hgb 13.2 platelets 241 Sodium 140 potassium 3.6 creatinine 0.5 AST 579 ALT 382 alk phos 255 Lipase 102 Urinalysis negative IMAGING: Computed tomography scan abdomen and pelvis shows acute diverticulitis involving the pelvic colon. Adjacent to the colonic anastomosis. No abscess or perforation noted. ASSESSMENT: 1. Acute diverticulitis 2. Elevated LFTs 3. History of von Willebrand's disease 4. History of diverticulitis requiring colon resection PLAN: -Further recommendations forthcoming per surgeon -Continue IV antibiotics -Continue clear liquid diet. Patient educated if she has increasing abdominal pain to cut back on diet -Continue supportive care -Continue pain medication as needed -Continue antiemetics -Continue continue IV fluids Thank you for this consultation Physician Vendor Representatives note has been reviewed by physician. Signing provider agrees with the documented findings, assessment, and plan of care. I have personally seen and examined the patient, reviewed the HARDWARE PRESS OPERATOR /PAs history, exam and MDM and agree with the assessment and plan as written. Based on total visit time, I have performed more than 50% of the visit. As above: Patient with CAT scan findings demonstrating suspected recurrent diverticulitis at the anastomosis site. There are a few small foci of air that may be extraluminal at the area of inflammation. Patient says her pain is slightly improved from yesterday. Continue liquid diet. Continue broad- spectrum antibiotics. Patient also today with significant increase in liver enzymes. We'll consult GI for that reason. Past Medical History Past Medical History: Deep Vein Thrombosis (DVT), GERD/Reflux, Supraventricular Tachycardia (SVT) Additional Past Medical History / Comment(s): Von Willebrand Disease, diverticulitis, migraines, chronic back pain, DVT bilat. Restless leg syndrome. History of Any Multi-Drug Resistant Organisms: None Reported Past Surgical History: Adenoidectomy, Bariatric Surgery, Cholecystectomy, Hysterectomy, Joint Replacement, Orthopedic Surgery, Tonsillectomy Additional Past Surgical History / Comment(s): nury foot surgery, nury knee replaced, nury rotator cuffs, Judith en Y approx 5 years, bowel surgery. right shoulder replacement Past Anesthesia/Blood Transfusion Reactions: Postoperative Nausea & Vomiting (PONV) Past Psychological History: No Psychological Hx Reported Smoking Status: Former smoker Past Alcohol Use History: None Reported Additional Past Alcohol Use History / Comment(s): Quit smoking 1975. Smoked very little. Past Drug Use History: None Reported - Past Family History Mother Family Medical History: Cancer Father Family Medical History: Cancer Medications and Allergies Home Medications Medication Instructions Recorded Confirmed Type Fluticasone Nasal [place] [Flonase 1 spr EA NOSTRIL DAILY 06/20/17 11/28/21 History Nasal [place]] SUMAtriptan SUCCINATE [Imitrex] 100 mg PO DAILY PRN 06/20/17 11/28/21 History EPINEPHrine (Auto Inject) [Epipen] 0.3 mg IM ONCE PRN 06/24/19 11/28/21 History Pantoprazole [Protonix] 40 mg PO BID 06/24/19 11/28/21 History DULoxetine HCL [Cymbalta] 30 mg PO DAILY 04/07/20 11/28/21 History Pramipexole Di-HCl [Mirapex] 0.25 mg PO HS 04/07/20 11/28/21 History DULoxetine HCL [Cymbalta] 60 mg PO HS 03/27/21 11/28/21 History Furosemide [Lasix] 40 mg PO BID 03/27/21 11/28/21 History Nadolol [Corgard] 20 mg PO DAILY 03/27/21 11/28/21 History Neupro 8mg/24 Hr Patch 1 patch TRANSDERM DAILY 03/27/21 11/28/21 History buPROPion XL [Wellbutrin XL] 450 mg PO DAILY 03/27/21 11/28/21 History traZODone HCL [Desyrel] 100 - 300 mg PO HS 03/27/21 11/28/21 History Cyanocobalamin [Vitamin B-12 1,000 mcg SQ Q30D 09/23/21 11/28/21 History Injection] Gabapentin 300 mg PO TID 09/23/21 11/28/21 History Midodrine [ProAmatine] 5 mg PO TID 09/23/21 11/28/21 History Naloxone HCl [Narcan] 4 mg NASAL ONCE PRN 09/23/21 11/28/21 History Nystatin 100,000 Unit/gm Powd 1 applic TOPICAL DAILY PRN 09/23/21 11/28/21 History [Mycostatin Powder] tiZANidine [Zanaflex] 2 - 4 mg PO TID PRN 09/23/21 11/28/21 History Ergocalciferol [Vitamin D2 (1250 1,250 mcg PO WE 11/28/21 11/28/21 History Mcg = 62362 Iu)] Folic Acid 1 mg PO DAILY 11/28/21 11/28/21 History Pramipexole [Mirapex] 0.25 mg PO DAILY PRN 11/28/21 11/28/21 History Topiramate [Topamax] 25 mg PO HS 11/28/21 11/28/21 History Allergies Allergy/AdvReac Type Severity Reaction Status Date / Time aspirin Allergy has Von Verified 11/28/21 14:24 Willebrands Disease ibuprofen [From Motrin] Allergy has Von Verified 11/28/21 14:24 Willebrands Disease Iodinated Contrast Media Allergy Anaphylaxis Verified 11/28/21 14:24 [Iodinated Contrast- Oral and IV Dye] isosorbide [From Imdur] Allergy Rash/Hives Verified 11/28/21 14:24 latex Allergy Anaphylaxis Verified 11/28/21 14:24 Sulfa (Sulfonamide Allergy Rash/Hives Verified 11/28/21 14:24 Antibiotics) codeine AdvReac agitation Verified 11/28/21 14:24 and restless leg symptoms increased Surgical - Exam Vital Signs Temp Pulse Resp BP Pulse Ox 97.6 F 72 16 117/71 95 11/28/21 12:57 11/28/21 12:57 11/28/21 12:57 11/28/21 12:57 11/28/21 12:57 Results - Labs 11/29/21 05:39 11/29/21 05:39 Abnormal Lab Results - Last 24 Hours (Table) 11/28/21 11/28/21 11/29/21 Range/Units 13:21 13:21 05:39 Immature Gran # 0.05 H (0.00-0.04) X 10*3/uL Sodium 135 L (137-145) mmol/L Carbon Dioxide (20.0-27.5) mmol/L BUN (9.0-27.0) mg/dL Creatinine 0.47 L (0.52-1.04) mg/dL Plasma Lactic Acid Lj 0.6 L (0.7-2.0) mmol/L Calcium 7.7 L (8.4-10.2) mg/dL AST (13-35) U/L ALT (8-44) U/L Alkaline Phosphatase (41-126) U/L Total Protein (6.2-8.2) g/dL 11/29/21 Range/Units 05:39 Immature Gran # (0.00-0.04) X 10*3/uL Sodium (137-145) mmol/L Carbon Dioxide 28.5 H (20.0-27.5) mmol/L BUN 8.9 L (9.0-27.0) mg/dL Creatinine 0.5 L (0.52-1.04) mg/dL Plasma Lactic Acid Lj (0.7-2.0) mmol/L Calcium 7.7 L (8.4-10.2) mg/dL AST 579 H (13-35) U/L ALT 382 H (8-44) U/L Alkaline Phosphatase 255 H (41-126) U/L Total Protein 6.1 L (6.2-8.2) g/dL Diabetes panel 11/28/21 11/29/21 Range/Units 13:21 05:39 Sodium 135 L 140 (137-145) mmol/L Potassium 4.2 3.6 (3.5-5.1) mmol/L Chloride 103 101 (98-107) mmol/L Carbon Dioxide 27 28.5 H (22-30) mmol/L BUN 13 8.9 L (7-17) mg/dL Creatinine 0.47 L 0.5 L (0.52-1.04) mg/dL Glucose 85 91 (74-99) mg/dL Calcium 7.7 L 7.7 L (8.4-10.2) mg/dL AST 26 579 H (14-36) U/L ALT 16 382 H (4-34) U/L Alkaline Phosphatase 59 255 H (38-126) U/L Total Protein 6.6 6.1 L (6.3-8.2) g/dL Albumin 3.8 3.8 (3.5-5.0) g/dL Calcium panel 11/28/21 11/29/21 Range/Units 13:21 05:39 Calcium 7.7 L 7.7 L (8.4-10.2) mg/dL Albumin 3.8 3.8 (3.5-5.0) g/dL Pituitary panel 11/28/21 11/29/21 Range/Units 13:21 05:39 Sodium 135 L 140 (137-145) mmol/L Potassium 4.2 3.6 (3.5-5.1) mmol/L Chloride 103 101 (98-107) mmol/L Carbon Dioxide 27 28.5 H (22-30) mmol/L BUN 13 8.9 L (7-17) mg/dL Creatinine 0.47 L 0.5 L (0.52-1.04) mg/dL Glucose 85 91 (74-99) mg/dL Calcium 7.7 L 7.7 L (8.4-10.2) mg/dL Adrenal panel 11/28/21 11/29/21 Range/Units 13:21 05:39 Sodium 135 L 140 (137-145) mmol/L Potassium 4.2 3.6 (3.5-5.1) mmol/L Chloride 103 101 (98-107) mmol/L Carbon Dioxide 27 28.5 H (22-30) mmol/L BUN 13 8.9 L (7-17) mg/dL Creatinine 0.47 L 0.5 L (0.52-1.04) mg/dL Glucose 85 91 (74-99) mg/dL Calcium 7.7 L 7.7 L (8.4-10.2) mg/dL Total Bilirubin 0.7 0.70 (0.2-1.3) mg/dL AST 26 579 H (14-36) U/L ALT 16 382 H (4-34) U/L Alkaline Phosphatase 59 255 H (38-126) U/L Total Protein 6.6 6.1 L (6.3-8.2) g/dL Albumin 3.8 3.8 (3.5-5.0) g/dL
[2021-11-29] MEDS ORDERED: HYDROcodone/APAP 5-325MG 1 EACH TAB PO PRN (14:18)
[2021-11-29] MEDS ORDERED: bisacodyL 10 MG SUPP RECTAL PRN (14:18)
--- NOTE | 2021-11-29 14:20 | P.PN ---
Subjective Progress Note Date: 11/29/21 Patient still reports pain with defecation, lower quadrant abdominal pain. Denies fevers, chills. Has loss of appetite. Currently on a clear liquid diet. Flagyl was added to regimen. Gen: awake, alert HEENT: normocephalic, atraumatic, good hearing acuity, moist mucous membranes Resp: good air exchange, breathing comfortably with no accessory muscle use CVS: good distal perfusion x 4, GI: soft, tenderness to palpation in the lower quadrants, worse on the left, ND : no SPT, no CVAT, lloyd catheter not present MSK: no pitting edema, no clubbing Neuro: non-focal, moving all extremities Psych: cooperative, euthymic mood Assessment/plan: Acute diverticulitis History of colectomy, partial -Admit to inpatient -Unasyn, Flagyl -Follow blood culture -Surgery consult -Clear liquid diet, advance as tolerated -Stool softener -Pain control -IV fluids Chronic back pain Restless leg syndrome Mood disorder GERD with esophagitis History of migraines -Home medications reviewed and reconciled Patient is full code DVT prophylaxis with heparin 3 times a day Objective - Vital Signs Vital signs: Vital Signs Temp 97.3 F L 11/29/21 08:00 Pulse 74 11/29/21 08:00 Resp 16 11/29/21 08:00 BP 107/72 11/29/21 08:00 Pulse Ox 95 11/29/21 08:00 FiO2 Intake & Output 11/28/21 11/29/21 11/29/21 18:59 06:59 18:59 Intake Total 540 Balance 540 Weight 97.522 kg 97.522 kg Intake: Oral 540 Other: Voiding Method Toilet # Voids 2 - Labs CBC & Chem 7: 11/29/21 05:39 11/29/21 05:39 Labs: Abnormal Lab Results - Last 24 Hours (Table) 11/29/21 11/29/21 Range/Units 05:39 05:39 Immature Gran # 0.05 H (0.00-0.04) X 10*3/uL Carbon Dioxide 28.5 H (20.0-27.5) mmol/L BUN 8.9 L (9.0-27.0) mg/dL Creatinine 0.5 L (0.6-1.5) mg/dL Calcium 7.7 L (8.7-10.3) mg/dL AST 579 H (13-35) U/L ALT 382 H (8-44) U/L Alkaline Phosphatase 255 H (41-126) U/L Total Protein 6.1 L (6.2-8.2) g/dL
--- NOTE | 2021-11-29 14:51 | P.CONS ---
History of Present Illness - Reason for Consult Consult date: 11/29/21 Elevated LFTs Requesting physician: Caty Stephens - Chief Complaint Abdominal pain - History of Present Illness This is a very pleasant 61-year-old female who was admitted to the hospital yesterday with complaints of abdominal pain. She has a past medical history of von Willebrand disease, DVT, GERD, diverticulitis, migraines, chronic back pain and restless leg syndrome. She's had previous bariatric surgery as well as cholecystectomy and hysterectomy. She had a CT of the abdomen and pelvis concerning for acute diverticulitis. She was admitted and started on Unasyn and Flagyl. She complains of abdominal pain and cramping that began a couple weeks ago and progressively got worse over the last 5 days duration. She states she has been constipated recently. Normally she has loose stools. She does have a history of diverticulitis with Dr. Ferreira. She underwent EGD and colonoscopy on 04/12/2020. EGD revealed evidence of previous gastric bypass surgery with Judith-en-Y anastomosis appeared normal. Colonoscopy revealed colon polyps status post polypectomy and scattered sigmoid diverticulosis. Patient states she's had fevers and chills at home. Associated nausea and vomiting. She she has been still quite a bit of pain. She is on clear liquid diet. Gen. surgery Dr. Henderson is following patient closely. The patient states that she was started on Keflex a week ago for questionable sinus infection. She had called her up PCP Stefan Chou and he had ordered Augmentin however she states she did not start it. Patient came in with normal LFTs however today's lab work showed a markedly increase in her AST and ALT. Gastroenterology was consulted for elevated liver enzymes. she denies any previous history of hepatitis, does state that she was told recently she she had fatty liver. Admitting labs WBC 9.3 hemoglobin 13.4 hematocrit 41 platelet count 288,000 total bilirubin 0.7 AST 26 ALT 16 alkaline phosphatase 59 Today's labs WBC 7.09 hemoglobin 13.2 hematocrit 40 platelet count 241,000 total bilirubin 0.7 AST 579 ALT 382 alkaline phosphatase 255 Review of Systems REVIEW OF SYSTEMS: CARDIOPULMONARY: No chest pain or shortness of breath. Gastrointestinal: Lower abdominal pain and cramping. Nausea associated with vomiting. No hematemesis, coffee-ground emesis. No rectal bleeding, or melena. GENITOURINARY: No dysuria or hematuria. MUSCULOSKELETAL: Reports normal range of motion., Joint pain. SKIN: No rashes. No jaundice. ENDOCRINE: No chills, fevers. No excessive weight gain or loss. No polydipsia or polyuria. PSYCHIATRIC: Unremarkable. NEUROLOGY: No change in mental status. Denies dizziness, headache. ENT: Vision unremarkable. CONSTITUTIONAL: No recent weight loss. No fever, chills, night sweats. Past Medical History Past Medical History: Deep Vein Thrombosis (DVT), GERD/Reflux, Supraventricular Tachycardia (SVT) Additional Past Medical History / Comment(s): Von Willebrand Disease, diverticulitis, migraines, chronic back pain, DVT bilat. Restless leg syndrome. History of Any Multi-Drug Resistant Organisms: None Reported Past Surgical History: Adenoidectomy, Bariatric Surgery, Cholecystectomy, Hysterectomy, Joint Replacement, Orthopedic Surgery, Tonsillectomy Additional Past Surgical History / Comment(s): nury foot surgery, nury knee repla vidal, nury rotator cuffs, Judith en Y approx 5 years, bowel surgery. right shoulder replacement Past Anesthesia/Blood Transfusion Reactions: Postoperative Nausea & Vomiting (PONV) Past Psychological History: No Psychological Hx Reported Smoking Status: Former smoker Past Alcohol Use History: None Reported Additional Past Alcohol Use History / Comment(s): Quit smoking 1975. Smoked very little. Past Drug Use History: None Reported - Past Family History Mother Family Medical History: Cancer Father Family Medical History: Cancer Medications and Allergies Home Medications Medication Instructions Recorded Confirmed Type Fluticasone Nasal [place] [Flonase 1 spr EA NOSTRIL DAILY 06/20/17 11/28/21 History Nasal [place]] SUMAtriptan SUCCINATE [Imitrex] 100 mg PO DAILY PRN 06/20/17 11/28/21 History EPINEPHrine (Auto Inject) [Epipen] 0.3 mg IM ONCE PRN 06/24/19 11/28/21 History Pantoprazole [Protonix] 40 mg PO BID 06/24/19 11/28/21 History DULoxetine HCL [Cymbalta] 30 mg PO DAILY 04/07/20 11/28/21 History Pramipexole Di-HCl [Mirapex] 0.25 mg PO HS 04/07/20 11/28/21 History DULoxetine HCL [Cymbalta] 60 mg PO HS 03/27/21 11/28/21 History Furosemide [Lasix] 40 mg PO BID 03/27/21 11/28/21 History Nadolol [Corgard] 20 mg PO DAILY 03/27/21 11/28/21 History Neupro 8mg/24 Hr Patch 1 patch TRANSDERM DAILY 03/27/21 11/28/21 History buPROPion XL [Wellbutrin XL] 450 mg PO DAILY 03/27/21 11/28/21 History traZODone HCL [Desyrel] 100 - 300 mg PO HS 03/27/21 11/28/21 History Cyanocobalamin [Vitamin B-12 1,000 mcg SQ Q30D 09/23/21 11/29/21 History Injection] Gabapentin 300 mg PO TID 09/23/21 11/28/21 History Midodrine [ProAmatine] 5 mg PO TID 09/23/21 11/28/21 History Naloxone HCl [Narcan] 4 mg NASAL ONCE PRN 09/23/21 11/28/21 History Nystatin 100,000 Unit/gm Powd 1 applic TOPICAL DAILY PRN 09/23/21 11/28/21 History [Mycostatin Powder] tiZANidine [Zanaflex] 2 - 4 mg PO TID PRN 09/23/21 11/28/21 History Ergocalciferol [Vitamin D2 (1250 1,250 mcg PO WE 11/28/21 11/28/21 History Mcg = 81936 Iu)] Folic Acid 1 mg PO DAILY 11/28/21 11/28/21 History Pramipexole [Mirapex] 0.25 mg PO DAILY PRN 11/28/21 11/28/21 History Topiramate [Topamax] 25 mg PO HS 11/28/21 11/28/21 History Allergies Allergy/AdvReac Type Severity Reaction Status Date / Time aspirin Allergy has Von Verified 11/28/21 14:24 Willebrands Disease ibuprofen [From Motrin] Allergy has Von Verified 11/28/21 14:24 Willebrands Disease Iodinated Contrast Media Allergy Anaphylaxis Verified 11/28/21 14:24 [Iodinated Contrast- Oral and IV Dye] isosorbide [From Imdur] Allergy Rash/Hives Verified 11/28/21 14:24 latex Allergy Anaphylaxis Verified 11/28/21 14:24 Sulfa (Sulfonamide Allergy Rash/Hives Verified 11/28/21 14:24 Antibiotics) codeine AdvReac agitation Verified 11/28/21 14:24 and restless leg symptoms increased Physical Exam Vitals: Vital Signs Temp Pulse Pulse Resp BP BP Pulse Ox 11/29/21 08:00 97.3 F L 74 16 107/72 95 11/29/21 05:18 62 18 11/29/21 00:05 98.5 F 62 18 99/63 96 11/28/21 23:38 64 18 110/84 11/28/21 21:52 64 16 102/65 94 L 11/28/21 20:00 101/56 11/28/21 19:30 97.0 F L 64 18 79/52 94 L 11/28/21 16:00 78 18 113/75 98 11/28/21 15:42 74 20 117/78 96 Intake and Output 11/28/21 11/29/21 11/29/21 22:59 06:59 14:59 Intake Total 540 Balance 540 Intake: Oral 540 Other: Voiding Method Toilet # Voids 2 Weight 97.522 kg General appearance: The patient is alert, oriented, appears in no acute distress. HET: Head is normocephalic and atraumatic. Conjunctiva pink. Sclera anicteric. Neck: Supple without lymphadenopathy. Trachea midline. Heart: S1 S2. Regular rate and rhythm. Lungs: Clear to auscultation. Abdomen: Soft, lower abdominal tenderness, especially on left. nondistended with bowel sounds. No guarding or rigidity. Skin: No rashes. No jaundice. Extremities: Normal skin color and turgor. No pedal edema. Neurological: No focal deficits. Alert and oriented x3. Results CBC & Chem 7: 11/29/21 05:39 11/29/21 05:39 Labs: Abnormal Lab Results - Last 24 Hours (Table) 11/29/21 11/29/21 Range/Units 05:39 05:39 Immature Gran # 0.05 H (0.00-0.04) X 10*3/uL Carbon Dioxide 28.5 H (20.0-27.5) mmol/L BUN 8.9 L (9.0-27.0) mg/dL Creatinine 0.5 L (0.6-1.5) mg/dL Calcium 7.7 L (8.7-10.3) mg/dL AST 579 H (13-35) U/L ALT 382 H (8-44) U/L Alkaline Phosphatase 255 H (41-126) U/L Total Protein 6.1 L (6.2-8.2) g/dL Comments: CT abdomen and pelvis without contrast. Findings include acute diverticulitis involving the pelvic colon adjacent to the colonic anastomosis. No definite abscess formation gross signs of perforation by this nonenhanced computed tomography scan. Other incidental findings. Assessment and Plan (1) Elevated LFTs Narrative/Plan: 61-year-old female with a history of diverticulitis status post resection approximately 10 years ago came into the emergency department for abdominal pain . She was noted on CT of the abdomen and pelvis to have acute diverticulitis. Gen. surgery is following. Today's labs she was noted to have a markedly increased on her LFTs. She denies any previous history of hepatitis, states that she was recently told she may have fatty liver. Admitting labs LFTs were unremarkable. Patient states she was recently started on Keflex for a sinus infection about 1 week ago and stopped yesterday. She was also prescribed Augmentin however never started it. She is currently on Unasyn and Flagyl. Possible etiology includes medication induced elevated LFTs. Will obtain acute hepatitis panel. Labs continue to trend up will consider liver ultrasound. Hold any hepatotoxic medications. Current Visit: Yes Status: Acute Code(s): R79.89 - OTHER SPECIFIED ABNORMAL FINDINGS OF BLOOD CHEMISTRY SNOMED Code(s): 951185314 (2) Diverticulitis Current Visit: Yes Status: Acute Code(s): K57.92 - DVTRCLI OF INTEST, PART UNSP, W/O PERF OR ABSCESS W/O BLEED SNOMED Code(s): 326177409 Plan: 1. Continue symptomatic and supportive care 2. Diet per recommendations from general surgery 3. Repeat CBC, CMP daily 4. Avoid hepatotoxic medications 5. Acute hepatitis panel ordered 6. Continue IV antibiotics 7. Protonix for GI prophylaxis Thank you for this consultation, we will continue to follow. Dr. Albin Ferreira I agree with the dictator's note, documented as a scribe by Jen Langston.
[2021-11-29] MEDS: metroNIDAZOLE-NS PMX 500 MG in SALINE 1 100ML.BAG IVPB SCH (15:25)
[2021-11-29] MEDS: HEPARIN SODIUM,PORCINE/PF 5,000 UNIT/0.5 ML SYRINGE SQ SCH (15:30)
[2021-11-29] MEDS: NEUPRO 8 MG/24 HR TRANSDERM SCH (15:37)
[2021-11-29] MEDS: PRAMIPEXOLE 0.25 MG TAB PO SCH (19:39)
[2021-11-29] MEDS: traZODone HCL 100 MG TAB PO SCH (19:39)
[2021-11-29] MEDS: SENNOSIDES-DOCUSATE SODIUM 1 EACH TAB PO SCH (19:39)
[2021-11-29] MEDS: DULoxetine HCL 60 MG CAPSULE.DR PO SCH (19:39)
[2021-11-29] MEDS: TOPIRAMATE 25 MG TAB PO SCH (19:40)
[2021-11-29 23:02] LABS: Hepatitis A Antibody IgM Nonreactive (Nonreactive); Hepatitis C IgG Antibody Nonreactive (Nonreactive)
[2021-11-29 23:38] LABS: Hepatitis B Core IgM Nonreactive (Nonreactive)
[2021-11-30 01:26] LABS: Hepatitis B Surface Antigen Nonreactive (Nonreactive)
[2021-11-30] MEDS: metroNIDAZOLE-NS PMX 500 MG in SALINE 1 100ML.BAG IVPB SCH ×3 (01:37→15:46)
[2021-11-30] MEDS: HYDROmorphone 0.5 MG/0.5 ML SYRINGE IVP PRN ×5 (01:38→21:00)
[2021-11-30] MEDS: HEPARIN SODIUM,PORCINE/PF 5,000 UNIT/0.5 ML SYRINGE SQ SCH ×4 (01:44→15:21)
[2021-11-30] MEDS: AMPICILLIN-SULBACTAM 3 GM in SODIUM CHLORIDE 0.9% 100 ML IVPB SCH ×3 (05:06→17:07)
[2021-11-30] MEDS: SODIUM CHLORIDE 0.9% 1,000 ML IV SCH ×2 (06:53→11:08)
[2021-11-30] MEDS: buPROPion XL 150 MG TAB.ER.24H PO SCH (07:03)
[2021-11-30] MEDS: MIDODRINE 5 MG TAB PO SCH ×3 (07:03→20:34)
[2021-11-30] MEDS: DULoxetine HCL 30 MG CAPSULE.DR PO SCH (07:03)
[2021-11-30] MEDS: PANTOPRAZOLE 40 MG TABLET PO SCH ×2 (07:03→16:49)
[2021-11-30] MEDS: GABAPENTIN 300 MG CAP PO SCH ×3 (07:04→20:34)
[2021-11-30] MEDS: polyethylene glycoL 3350 17 GM POWD.PACK PO SCH (07:04)
[2021-11-30] MEDS: FOLIC ACID 1 MG TAB PO SCH (07:04)
[2021-11-30] MEDS: FLUTICASONE 50MCG/SPRAY NASAL 16GM EA NOSTRIL SCH (07:04)
[2021-11-30] MEDS: FUROSEMIDE 40 MG TAB PO SCH ×2 (07:04→16:49)
[2021-11-30] MEDS: SENNOSIDES-DOCUSATE SODIUM 1 EACH TAB PO SCH ×2 (07:04→20:34)
[2021-11-30 08:53] LABS: Basophils # (A) 0.04 X 10*3/uL (0.00-0.10); Basophils % (A) 0.6 %; Eosinophils # (A) 0.39 X 10*3/uL (0.04-0.35); Eosinophils % (A) 6.1 %; HCT 36.5 % (37.2-46.3); Immature Grans, Automated 0.5 %; Lymphocytes # (A) 1.17 X 10*3/uL (0.90-5.00); Lymphocytes % (A) 18.3 %; MCH 30.8 pg (27.0-32.0); MCHC 32.9 g/dL (32.0-37.0); MCV 93.6 fL (80.0-97.0); Mean Platelet Volume 10.9 fL (9.5-12.2); Monocytes # (A) 0.58 X 10*3/uL (0.20-1.00); Monocytes % (A) 9.1 %; NRBC Per 100 WBC 0 /100 WBCS (0.0-0.0); Neutrophils # (A) 4.17 X 10*3/uL (1.80-7.70); Neutrophils % (A) 65.4 %; Platelet Count 229 X 10*3/uL (140-440); RDW 12.3 % (11.5-14.5); WBC 6.38 X 10*3/uL (4.50-10.00)
[2021-11-30 09:32] LABS: African American GFR (CKD) 119.4 (60.0-200.0); Albumin 3.5 g/dL (3.8-4.9); Albumin/Globulin Ratio 1.67 (1.60-3.17); Anion Gap 9.7 mmol/L (10.00-18.00); BUN/Creat Ratio 12.6 Ratio (12.00-20.00); Blood Urea Nitrogen 6.3 mg/dL (9.0-27.0); Calcium 7.7 mg/dL (8.7-10.3); Carbon Dioxide 28.3 mmol/L (20.0-27.5); Globulin 2.1 g/dL (1.6-3.3); Potassium 3.4 mmol/L (3.5-5.5); Total Bilirubin 0.6 mg/dL (0.30-1.20); Total Protein 5.6 g/dL (6.2-8.2)
--- NOTE | 2021-11-30 13:07 | P.PN ---
Subjective Progress Note Date: 11/30/21 CHIEF COMPLAINT: Acute diverticulitis HISTORY OF PRESENT ILLNESS: Patient reports improvement in her abdominal pain. She still rating the pain about 6 out of 10. She denies any nausea vomiting. She is having flatus. Denies any bowel movement. She is tolerating the clear liquids. She's requesting advancement of her diet. Afebrile. Patient was seen by GI service regarding elevated LFTs. They felt that is possibly medication induced. Afebrile. WBC is 6.38 hemoglobin is 12. Platelets 229 sodium is 137 potassium 3.4 creatinine 0.5 LFTs elevated but trending downwards. PHYSICAL EXAM: VITAL SIGNS: Reviewed. GENERAL: Well-developed in no acute distress. HEENT: No sclera icterus. Extraocular movements grossly intact. Moist buccal mucosa. Head is atraumatic, normocephalic. ABDOMEN: Soft. Nondistended. Tenderness left lower quadrant and mid pelvic area NEUROLOGIC: Alert and oriented. Cranial nerves II through XII grossly intact. ASSESSMENT: 1. Acute diverticulitis at the anastomosis site 2. Elevated LFTs 3. History of von Willebrand's disease 4. History of diverticulitis requiring colon resection PLAN: -Advance diet to full liquids -Continue antibiotics -Continue pain medication as needed -Continue IV fluids Physician Director Of Income Tax note has been reviewed by physician. Signing provider agrees with the documented findings, assessment, and plan of care. Objective - Vital Signs Vital signs: Vital Signs Temp 97.5 F L 11/30/21 07:42 Pulse 57 L 11/30/21 07:43 Resp 18 11/30/21 07:43 BP 102/65 11/30/21 07:42 Pulse Ox 93 L 11/30/21 07:42 FiO2 Intake & Output 11/29/21 11/30/21 11/30/21 18:59 06:59 18:59 Intake Total 1080 1380 Balance 1080 1380 Intake: Intake, IV Titration 1200 Amount Ampicillin-Sulbactam 3 gm 200 In Sodium Chloride 0.9% 100 ml @ 200 mls/hr IVPB Q6HR [facility] Rx#:[id number] Sodium Chloride 0.9% 1, 900 000 ml @ 75 mls/hr IV . [id number] [facility] Rx#:[id number] metroNIDAZOLE-NS PMX 500 100 mg In Saline 1 100ml.bag @ 100 mls/hr IVPB Q8HR [facility] Rx#:[id number] Oral 1080 180 Other: Voiding Method Toilet Toilet # Voids 2 1 1 - Labs CBC & Chem 7: 11/30/21 06:39 11/30/21 06:39 Labs: Abnormal Lab Results - Last 24 Hours (Table) 11/30/21 11/30/21 Range/Units 06:39 06:39 RBC 3.90 L (4.10-5.20) X 10*6/uL Hct 36.5 L (37.2-46.3) % Eosinophils # 0.39 H (0.04-0.35) X 10*3/uL Potassium 3.4 L (3.5-5.5) mmol/L Carbon Dioxide 28.3 H (20.0-27.5) mmol/L Anion Gap 9.70 L (10.00-18.00) mmol/L BUN 6.3 L (9.0-27.0) mg/dL Creatinine 0.5 L (0.6-1.5) mg/dL Calcium 7.7 L (8.7-10.3) mg/dL AST 249 H (13-35) U/L ALT 303 H (8-44) U/L Alkaline Phosphatase 256 H (41-126) U/L Total Protein 5.6 L (6.2-8.2) g/dL Albumin 3.5 L (3.8-4.9) g/dL
[2021-11-30] MEDS ORDERED: POTASSIUM CHLORIDE ER 20 MEQ TAB.ER PO STA (13:09)
--- NOTE | 2021-11-30 13:49 | P.PN ---
Subjective Progress Note Date: 11/30/21 Patient still reports improvement in pain. She reports improvement in appetite. Denies fevers, chills. Gen: awake, alert HEENT: normocephalic, atraumatic, good hearing acuity, moist mucous membranes Resp: good air exchange, breathing comfortably with no accessory muscle use CVS: good distal perfusion x 4, GI: soft, tenderness to palpation in the lower quadrants, worse on the left, ND : no SPT, no CVAT, lloyd catheter not present MSK: no pitting edema, no clubbing Neuro: non-focal, moving all extremities Psych: cooperative, euthymic mood Assessment/plan: Acute diverticulitis History of colectomy, partial -Admit to inpatient -Unasyn, Flagyl -Follow blood culture -Surgery consult, GI consult -Full liquid diet, advance as tolerated -Stool softener -Pain control -IV fluids Chronic back pain Restless leg syndrome Mood disorder GERD with esophagitis History of migraines -Home medications reviewed and reconciled Patient is full code DVT prophylaxis with heparin 3 times a day Objective - Vital Signs Vital signs: Vital Signs Temp 97.5 F L 11/30/21 07:42 Pulse 57 L 11/30/21 07:43 Resp 18 11/30/21 07:43 BP 102/65 11/30/21 07:42 Pulse Ox 93 L 11/30/21 07:42 FiO2 Intake & Output 11/29/21 11/30/21 11/30/21 18:59 06:59 18:59 Intake Total 1080 1380 Balance 1080 1380 Intake: Intake, IV Titration 1200 Amount Ampicillin-Sulbactam 3 gm 200 In Sodium Chloride 0.9% 100 ml @ 200 mls/hr IVPB Q6HR [facility] Rx#:[id number] Sodium Chloride 0.9% 1, 900 000 ml @ 75 mls/hr IV . [id number] [facility] Rx#:[id number] metroNIDAZOLE-NS PMX 500 100 mg In Saline 1 100ml.bag @ 100 mls/hr IVPB Q8HR [facility] Rx#:[id number] Oral 1080 180 Other: Voiding Method Toilet Toilet # Voids 2 1 1 - Labs CBC & Chem 7: 11/30/21 06:39 11/30/21 06:39 Labs: Abnormal Lab Results - Last 24 Hours (Table) 11/30/21 11/30/21 Range/Units 06:39 06:39 RBC 3.90 L (4.10-5.20) X 10*6/uL Hct 36.5 L (37.2-46.3) % Eosinophils # 0.39 H (0.04-0.35) X 10*3/uL Potassium 3.4 L (3.5-5.5) mmol/L Carbon Dioxide 28.3 H (20.0-27.5) mmol/L Anion Gap 9.70 L (10.00-18.00) mmol/L BUN 6.3 L (9.0-27.0) mg/dL Creatinine 0.5 L (0.6-1.5) mg/dL Calcium 7.7 L (8.7-10.3) mg/dL AST 249 H (13-35) U/L ALT 303 H (8-44) U/L Alkaline Phosphatase 256 H (41-126) U/L Total Protein 5.6 L (6.2-8.2) g/dL Albumin 3.5 L (3.8-4.9) g/dL
--- NOTE | 2021-11-30 13:50 | P.PN ---
Subjective Progress Note Date: 11/30/21 Principal diagnosis: Elevated LFTs patient seen and examined today for follow-up. She was diagnosed with acute diverticulitis. She has a history of diverticulitis with resection approximately 10 years ago. She was noted to have normal LFTs on admission with significant elevation yesterday. Likely related to medication. Today abdominal pain slightly improved rates it about a 6 out of 10. No nausea or vomiting. She is passing gas. Repeat LFTs are are trending down. Hepatitis panel nonreactive. Objective - Vital Signs Vital signs: Vital Signs Temp 97.5 F L 11/30/21 07:42 Pulse 57 L 11/30/21 07:43 Resp 18 11/30/21 07:43 BP 102/65 11/30/21 07:42 Pulse Ox 93 L 11/30/21 07:42 FiO2 Intake & Output 11/29/21 11/30/21 11/30/21 18:59 06:59 18:59 Intake Total 1080 1380 Balance 1080 1380 Intake: Intake, IV Titration 1200 Amount Ampicillin-Sulbactam 3 gm 200 In Sodium Chloride 0.9% 100 ml @ 200 mls/hr IVPB Q6HR [facility] Rx#:[id number] Sodium Chloride 0.9% 1, 900 000 ml @ 75 mls/hr IV . [id number] [facility] Rx#:[id number] metroNIDAZOLE-NS PMX 500 100 mg In Saline 1 100ml.bag @ 100 mls/hr IVPB Q8HR [facility] Rx#:[id number] Oral 1080 180 Other: Voiding Method Toilet Toilet # Voids 2 1 1 - Exam General appearance: The patient is alert, oriented, appears in no acute distress. HET: Head is normocephalic and atraumatic. Conjunctiva pink. Sclera anicteric. Neck: Supple without lymphadenopathy. Abdomen: Soft, nontender, nondistended with bowel sounds. No guarding or rigidity. Extremities: Normal skin color and turgor. No pedal edema Skin: No rashes, no jaundice Neurological: No focal deficits. Alert and oriented -3. - Labs CBC & Chem 7: 11/30/21 06:39 11/30/21 06:39 Labs: Abnormal Lab Results - Last 24 Hours (Table) 11/30/21 11/30/21 Range/Units 06:39 06:39 RBC 3.90 L (4.10-5.20) X 10*6/uL Hct 36.5 L (37.2-46.3) % Eosinophils # 0.39 H (0.04-0.35) X 10*3/uL Potassium 3.4 L (3.5-5.5) mmol/L Carbon Dioxide 28.3 H (20.0-27.5) mmol/L Anion Gap 9.70 L (10.00-18.00) mmol/L BUN 6.3 L (9.0-27.0) mg/dL Creatinine 0.5 L (0.6-1.5) mg/dL Calcium 7.7 L (8.7-10.3) mg/dL AST 249 H (13-35) U/L ALT 303 H (8-44) U/L Alkaline Phosphatase 256 H (41-126) U/L Total Protein 5.6 L (6.2-8.2) g/dL Albumin 3.5 L (3.8-4.9) g/dL Assessment and Plan (1) Elevated LFTs Narrative/Plan: 61-year-old female with a history of diverticulitis status post resection approximately 10 years ago came into the emergency department for abdominal pain. She was noted on CT of the abdomen and pelvis to have acute diverticu litis. Gen. surgery is following. Today's labs she was noted to have a markedly increased on her LFTs. She denies any previous history of hepatitis, states that she was recently told she may have fatty liver. Admitting labs LFTs were unremarkable. Patient states she was recently started on Keflex for a sinus infection about 1 week ago and stopped yesterday. She was also prescribed Augmentin however never started it. She is currently on Unasyn and Flagyl. Possible etiology includes medication induced elevated LFTs. Will obtain acute hepatitis panel. Labs continue to trend up will consider liver ultrasound. Hold any hepatotoxic medications.again LFTs are trending down, elevation likely medication induced. Continue to trend LFTs. Current Visit: Yes Status: Acute Code(s): R79.89 - OTHER SPECIFIED ABNORMAL FINDINGS OF BLOOD CHEMISTRY SNOMED Code(s): 151455191 (2) Diverticulitis Current Visit: Yes Status: Acute Code(s): K57.92 - DVTRCLI OF INTEST, PART UNSP, W/O PERF OR ABSCESS W/O BLEED SNOMED Code(s): 531688424 Plan: 1. Continue symptomatic and supportive care 2. Diet per recommendations from general surgery 3. Daily CMP 4. Avoid hepatotoxic medications 5. Acute hepatitis panel ordered 6. Continue IV antibiotics 7. Protonix for GI prophylaxis Thank you for allowing us to participate in the care of the patient, the GI service will sign off, gastroenterology will not be available at the hospital this weekend. If further evaluation by gastroenterology is required the patient will need transfer as per the primary team's discretion. Otherwise patient can follow up with gastroenterology with outpatient labs. Dr. Albin Ferreira I agree with the dictator's note, documented as a scribe by Jen Langston.
[2021-11-30] MEDS: NEUPRO 8 MG/24 HR TRANSDERM SCH (17:04)
[2021-11-30] MEDS: PRAMIPEXOLE 0.25 MG TAB PO SCH (20:33)
[2021-11-30] MEDS: traZODone HCL 100 MG TAB PO SCH (20:33)
[2021-11-30] MEDS: DULoxetine HCL 60 MG CAPSULE.DR PO SCH (20:33)
[2021-11-30] MEDS: TOPIRAMATE 25 MG TAB PO SCH (20:33)
[2021-12-01] MEDS: AMPICILLIN-SULBACTAM 3 GM in SODIUM CHLORIDE 0.9% 100 ML IVPB SCH ×4 (01:22→18:35)
[2021-12-01] MEDS: metroNIDAZOLE-NS PMX 500 MG in SALINE 1 100ML.BAG IVPB SCH ×3 (01:22→17:25)
[2021-12-01] MEDS: HYDROmorphone 0.5 MG/0.5 ML SYRINGE IVP PRN ×5 (01:23→20:59)
[2021-12-01] MEDS: SODIUM CHLORIDE 0.9% 1,000 ML IV SCH ×2 (01:23→12:20)
[2021-12-01] MEDS: HEPARIN SODIUM,PORCINE/PF 5,000 UNIT/0.5 ML SYRINGE SQ SCH ×3 (01:24→17:26)
[2021-12-01 08:49] LABS: Basophils # (A) 0.04 X 10*3/uL (0.00-0.10); Basophils % (A) 0.9 %; Eosinophils # (A) 0.43 X 10*3/uL (0.04-0.35); Eosinophils % (A) 9.8 %; HGB 12.3 g/dL (12.0-15.0); Immature Grans, Automated 0.5 %; MCH 30.4 pg (27.0-32.0); MCHC 32.4 g/dL (32.0-37.0); MCV 94.1 fL (80.0-97.0); Mean Platelet Volume 10.9 fL (9.5-12.2); Monocytes # (A) 0.39 X 10*3/uL (0.20-1.00); Monocytes % (A) 8.9 %; NRBC Per 100 WBC 0 /100 WBCS (0.0-0.0); Neutrophils # (A) 2.42 X 10*3/uL (1.80-7.70); Neutrophils % (A) 54.9 %; Platelet Count 236 X 10*3/uL (140-440); RBC 4.04 X 10*6/uL (4.10-5.20); RDW 12.1 % (11.5-14.5)
[2021-12-01] MEDS: buPROPion XL 150 MG TAB.ER.24H PO SCH (09:01)
[2021-12-01] MEDS: GABAPENTIN 300 MG CAP PO SCH ×3 (09:01→20:59)
[2021-12-01] MEDS: MIDODRINE 5 MG TAB PO SCH ×3 (09:01→20:59)
[2021-12-01] MEDS: SENNOSIDES-DOCUSATE SODIUM 1 EACH TAB PO SCH ×2 (09:01→20:58)
[2021-12-01] MEDS: FUROSEMIDE 40 MG TAB PO SCH ×2 (09:01→17:26)
[2021-12-01] MEDS: PANTOPRAZOLE 40 MG TABLET PO SCH ×2 (09:01→17:26)
[2021-12-01] MEDS: FOLIC ACID 1 MG TAB PO SCH (09:01)
[2021-12-01] MEDS: FLUTICASONE 50MCG/SPRAY NASAL 16GM EA NOSTRIL SCH (09:01)
[2021-12-01] MEDS: DULoxetine HCL 30 MG CAPSULE.DR PO SCH (09:01)
[2021-12-01] MEDS: polyethylene glycoL 3350 17 GM POWD.PACK PO SCH (09:02)
--- NOTE | 2021-12-01 10:11 | P.PN ---
Subjective Progress Note Date: 12/01/21 Patient still reports improvement in pain. She reports improvement in appetite. Advanced to regular diet today. Having soft/watery stools. Denies fevers, chills. Gen: awake, alert HEENT: normocephalic, atraumatic, good hearing acuity, moist mucous membranes Resp: good air exchange, breathing comfortably with no accessory muscle use CVS: good distal perfusion x 4, GI: soft, tenderness to palpation in the lower quadrants, worse on the left, ND : no SPT, no CVAT, lloyd catheter not present MSK: no pitting edema, no clubbing Neuro: non-focal, moving all extremities Psych: cooperative, euthymic mood Assessment/plan: Acute diverticulitis History of colectomy, partial -Admit to inpatient -Unasyn, Flagyl -Follow blood culture -Surgery consult, GI consult -Regular diet, d/c tomorrow if tolerated -Stool softener -Pain control Chronic back pain Restless leg syndrome Mood disorder GERD with esophagitis History of migraines -Home medications reviewed and reconciled Patient is full code DVT prophylaxis with heparin 3 times a day Objective - Vital Signs Vital signs: Vital Signs Temp 97.5 F L 12/01/21 08:02 Pulse 85 12/01/21 08:02 Resp 17 12/01/21 08:02 BP 94/60 12/01/21 08:02 Pulse Ox 96 12/01/21 08:02 FiO2 Intake & Output 11/30/21 12/01/21 12/01/21 18:59 06:59 18:59 Other: Voiding Method Toilet Toilet # Voids 3 3 # Bowel Movements 1 - Labs CBC & Chem 7: 12/01/21 06:47 11/30/21 06:39 Labs: Abnormal Lab Results - Last 24 Hours (Table) 12/01/21 Range/Units 06:47 WBC 4.40 L (4.50-10.00) X 10*3/uL RBC 4.04 L (4.10-5.20) X 10*6/uL Eosinophils # 0.43 H (0.04-0.35) X 10*3/uL
--- NOTE | 2021-12-01 11:34 | P.PN ---
Progress Note - Text Progress Note Date: 12/01/21 Patient's diverticulitis is slowly improving. She has had some improvement pain. On exam vessels are still. Abdomen soft. There is some minimal tenderness left upper quadrant. Resolving diverticula is. Patient will be on full liquid diet.
[2021-12-01 11:41] LABS: Magnesium 2.1 mg/dL (1.5-2.4)
[2021-12-01 11:58] LABS: ALT 236 U/L (8-44); AST 111 U/L (13-35); African American GFR (CKD) 120.6 (60.0-200.0); Albumin 3.6 g/dL (3.8-4.9); Albumin/Globulin Ratio 1.56 (1.60-3.17); Alkaline Phosphatase 238 U/L (41-126); BUN/Creat Ratio 10.74 Ratio (12.00-20.00); Bilirubin, Conjugated <0.20 mg/dL (0.20-0.40); Blood Urea Nitrogen 5.2 mg/dL (9.0-27.0); Calcium 8.3 mg/dL (8.7-10.3); Carbon Dioxide 28.6 mmol/L (20.0-27.5); Chloride 103 mmol/L (96-109); Globulin 2.3 g/dL (1.6-3.3); Glucose 86 mg/dL (70-110); Potassium 3.6 mmol/L (3.5-5.5); Sodium 140 mmol/L (135-145); Total Protein 5.9 g/dL (6.2-8.2)
[2021-12-01] MEDS: NEUPRO 8 MG/24 HR TRANSDERM SCH (17:26)
[2021-12-01] MEDS: traZODone HCL 100 MG TAB PO SCH (20:58)
[2021-12-01] MEDS: PRAMIPEXOLE 0.25 MG TAB PO SCH (20:58)
[2021-12-01] MEDS: TOPIRAMATE 25 MG TAB PO SCH (20:59)
[2021-12-01] MEDS: DULoxetine HCL 60 MG CAPSULE.DR PO SCH (20:59)
[2021-12-02] MEDS: HEPARIN SODIUM,PORCINE/PF 5,000 UNIT/0.5 ML SYRINGE SQ SCH ×3 (00:02→08:39)
[2021-12-02] MEDS: AMPICILLIN-SULBACTAM 3 GM in SODIUM CHLORIDE 0.9% 100 ML IVPB SCH ×2 (00:02→06:40)
[2021-12-02] MEDS: metroNIDAZOLE-NS PMX 500 MG in SALINE 1 100ML.BAG IVPB SCH ×2 (00:03→08:39)
[2021-12-02] MEDS: SODIUM CHLORIDE 0.9% 1,000 ML IV SCH (00:38)
[2021-12-02] MEDS: HYDROmorphone 0.5 MG/0.5 ML SYRINGE IVP PRN ×2 (01:01→06:40)
[2021-12-02 07:59] VITALS: BP 99/65; PULSE 62; RESP 17; TEMP 97.6
--- NOTE | 2021-12-02 08:37 | P.DS ---
Providers Date of admission: 11/28/21 16:58 Expected date of discharge: 12/02/21 Attending physician: Frederick Way MD Consults: 11/28/21 16:58 Consult Physician Routine Consulting Provider: Trevon Henderson Consult Reason/Comments: diverticulitis Do you want consulting provider notified?: Yes 11/29/21 12:35 Consult Physician Routine Consulting Provider: Brandee Ferreira Consult Reason/Comments: elevated LFTs Do you want consulting provider notified?: Yes Primary care physician: Stefan He MD Hospital Course: Acute diverticulitis History of colectomy, partial Chronic back pain Restless leg syndrome Mood disorder GERD with esophagitis History of migraines 61-year-old woman with medical history of partial colectomy secondary to recurrent diverticulitis, chronic back pain, restless leg syndrome, GERD, history of migraines, mood disorder presented with abdominal pain. Computed tomography scan of the abdomen/pelvis demonstrated the patient had diverticulitis just proximal to the anastomosis site of previous colectomy. Patient was started on Unasyn, surgery consulted. Surgery later added Flagyl. Patient's predominant complaint was pain in the lower abdomen as well as pain with defecation. She is placed on stool softener, and treated with pain control, antibiotics. Patient was doing well on the day of discharge, ambulating the hallways without significant distress. She was able tolerate a diet, regular, without significant distress. She was discharged for total 10 day course of Augmentin/Flagyl. She was recommended to follow-up with surgery for further evaluation. I spent 32 minutes coordinating this complex discharge, discharge date 12/02 Gen: awake, alert HEENT: normocephalic, atraumatic, good hearing acuity, moist mucous membranes Resp: good air exchange, breathing comfortably with no accessory muscle use CVS: good distal perfusion x 4, GI: soft, tenderness to palpation in the lower quadrants, worse on the left, ND : no SPT, no CVAT, lloyd catheter not present MSK: no pitting edema, no clubbing Neuro: non-focal, moving all extremities Psych: cooperative, euthymic mood Patient Condition at Discharge: Good Plan - Discharge Summary Discharge Rx Participant: Yes New Discharge Prescriptions: New polyethylene glycoL 3350 [Miralax] 17 gm PO DAILY #14 packet Amoxic-Pot Clav 875-125Mg [Augmentin 875-125] 1 tab PO BID 6 Days #12 tab metroNIDAZOLE [Flagyl] 500 mg PO TID #18 tab Sennosides-Docusate Sodium [Senokot-S] 1 each PO BID #12 tab Acetaminophen Tab [Tylenol] 650 mg PO Q6HR PRN tab PRN Reason: Mild Pain Or Fever > 100.5 Continue Fluticasone Nasal [place] [Flonase Nasal [place]] 1 spr EA NOSTRIL DAILY SUMAtriptan SUCCINATE [Imitrex] 100 mg PO DAILY PRN PRN Reason: Migraine Headache EPINEPHrine (Auto Inject) [Epipen] 0.3 mg IM ONCE PRN PRN Reason: Anaphylaxis Pantoprazole [Protonix] 40 mg PO BID DULoxetine HCL [Cymbalta] 30 mg PO DAILY Pramipexole Di-HCl [Mirapex] 0.25 mg PO HS Neupro 8mg/24 Hr Patch 1 patch TRANSDERM DAILY Nadolol [Corgard] 20 mg PO DAILY DULoxetine HCL [Cymbalta] 60 mg PO HS buPROPion XL [Wellbutrin XL] 450 mg PO DAILY Gabapentin 300 mg PO TID Nystatin 100,000 Unit/gm Powd [Mycostatin Powder] 1 applic TOPICAL DAILY PRN PRN Reason: Rash Cyanocobalamin [Vitamin B-12 Injection] 1,000 mcg SQ Q30D tiZANidine [Zanaflex] 2 - 4 mg PO TID PRN PRN Reason: Muscle Spasm Folic Acid 1 mg PO DAILY Topiramate [Topamax] 25 mg PO HS traZODone HCL [Desyrel] 100 - 300 mg PO HS Furosemide [Lasix] 40 mg PO BID Naloxone HCl [Narcan] 4 mg NASAL ONCE PRN PRN Reason: Overdose Midodrine [ProAmatine] 5 mg PO TID Ergocalciferol [Vitamin D2 (1250 Mcg = 15286 Iu)] 1,250 mcg PO WE Pramipexole [Mirapex] 0.25 mg PO DAILY PRN PRN Reason: RLS Discharge Medication List Fluticasone Nasal [place] [Flonase Nasal [place]] 1 spr EA NOSTRIL DAILY 06/20/17 [History] SUMAtriptan SUCCINATE [Imitrex] 100 mg PO DAILY PRN 06/20/17 [History] EPINEPHrine (Auto Inject) [Epipen] 0.3 mg IM ONCE PRN 06/24/19 [History] Pantoprazole [Protonix] 40 mg PO BID 06/24/19 [History] DULoxetine HCL [Cymbalta] 30 mg PO DAILY 04/07/20 [History] Pramipexole Di-HCl [Mirapex] 0.25 mg PO HS 04/07/20 [History] DULoxetine HCL [Cymbalta] 60 mg PO HS 03/27/21 [History] Furosemide [Lasix] 40 mg PO BID 03/27/21 [History] Nadolol [Corgard] 20 mg PO DAILY 03/27/21 [History] Neupro 8mg/24 Hr Patch 1 patch TRANSDERM DAILY 03/27/21 [History] buPROPion XL [Wellbutrin XL] 450 mg PO DAILY 03/27/21 [History] traZODone HCL [Desyrel] 100 - 300 mg PO HS 03/27/21 [History] Cyanocobalamin [Vitamin B-12 Injection] 1,000 mcg SQ Q30D 09/23/21 [History] Gabapentin 300 mg PO TID 09/23/21 [History] Midodrine [ProAmatine] 5 mg PO TID 09/23/21 [History] Naloxone HCl [Narcan] 4 mg NASAL ONCE PRN 09/23/21 [History] Nystatin 100,000 Unit/gm Powd [Mycostatin Powder] 1 applic TOPICAL DAILY PRN 09/23/21 [History] tiZANidine [Zanaflex] 2 - 4 mg PO TID PRN 09/23/21 [History] Ergocalciferol [Vitamin D2 (1250 Mcg = 75662 Iu)] 1,250 mcg PO WE 11/28/21 [History] Folic Acid 1 mg PO DAILY 11/28/21 [History] Pramipexole [Mirapex] 0.25 mg PO DAILY PRN 11/28/21 [History] Topiramate [Topamax] 25 mg PO HS 11/28/21 [History] Acetaminophen Tab [Tylenol] 650 mg PO Q6HR PRN tab 12/02/21 [Rx] Amoxic-Pot Clav 875-125Mg [Augmentin 875-125] 1 tab PO BID 6 Days #12 tab 12/02/21 [Rx] Sennosides-Docusate Sodium [Senokot-S] 1 each PO BID #12 tab 12/02/21 [Rx] metroNIDAZOLE [Flagyl] 500 mg PO TID #18 tab 12/02/21 [Rx] polyethylene glycoL 3350 [Miralax] 17 gm PO DAILY #14 packet 12/02/21 [Rx] Follow up Appointment(s)/Referral(s): Stefan eH MD [Primary Care Provider] - 1-2 days [facility], [NON-STAFF] - As Needed ([facility] will call you to schedule your in home nursing and physical therapy visits. ) Discharge Disposition: HOME SELF-CARE
[2021-12-02] MEDS: DULoxetine HCL 30 MG CAPSULE.DR PO SCH (08:38)
[2021-12-02] MEDS: MIDODRINE 5 MG TAB PO SCH (08:38)
[2021-12-02] MEDS: SENNOSIDES-DOCUSATE SODIUM 1 EACH TAB PO SCH (08:38)
[2021-12-02] MEDS: GABAPENTIN 300 MG CAP PO SCH (08:38)
[2021-12-02] MEDS: PANTOPRAZOLE 40 MG TABLET PO SCH (08:39)
[2021-12-02] MEDS: FOLIC ACID 1 MG TAB PO SCH (08:39)
[2021-12-02] MEDS: FUROSEMIDE 40 MG TAB PO SCH (08:39)
[2021-12-02] MEDS: buPROPion XL 150 MG TAB.ER.24H PO SCH (08:39)
[2021-12-02] MEDS: polyethylene glycoL 3350 17 GM POWD.PACK PO SCH (08:39)
[2021-12-02] MEDS: FLUTICASONE 50MCG/SPRAY NASAL 16GM EA NOSTRIL SCH (08:44)
[2021-12-02 09:20] LABS: Basophils # (A) 0.03 X 10*3/uL (0.00-0.10); Basophils % (A) 0.6 %; Eosinophils # (A) 0.49 X 10*3/uL (0.04-0.35); Eosinophils % (A) 9.9 %; HGB 12.3 g/dL (12.0-15.0); Immature Grans, Automated 0.6 %; Lymphocytes # (A) 1.37 X 10*3/uL (0.90-5.00); Lymphocytes % (A) 27.6 %; MCH 30.8 pg (27.0-32.0); MCHC 32.4 g/dL (32.0-37.0); Mean Platelet Volume 11.1 fL (9.5-12.2); Monocytes # (A) 0.45 X 10*3/uL (0.20-1.00); Monocytes % (A) 9.1 %; NRBC Per 100 WBC 0 /100 WBCS (0.0-0.0); Neutrophils % (A) 52.2 %; Platelet Count 274 X 10*3/uL (140-440); RDW 12.4 % (11.5-14.5); WBC 4.97 X 10*3/uL (4.50-10.00)
[2021-12-02 09:37] LABS: Magnesium 2.3 mg/dL (1.5-2.4)
[2021-12-02 10:11] LABS: African American GFR (CKD) 119.4 (60.0-200.0); Anion Gap 11.6 mmol/L (10.00-18.00); BUN/Creat Ratio 23.4 Ratio (12.00-20.00); Blood Urea Nitrogen 11.7 mg/dL (9.0-27.0); Calcium 8.6 mg/dL (8.7-10.3); Carbon Dioxide 27.7 mmol/L (20.0-27.5); Potassium 3.9 mmol/L (3.5-5.5)
--- NOTE | 2021-12-02 12:03 | P.PN ---
Progress Note - Text Progress Note Date: 12/02/21 Patient feels well. She is playing be discharged home today. On exam vital signs are stable. Abdomen soft. Resolving diverticulitis. Patient follow-up as an outpatient.
[2021-12-05] MEDS ORDERED: ERGOCALCIFEROL 1,250 MCG (50,000 IU) CAPSULE PO SCH (09:00)
[2021-12-10] MEDS ORDERED: CYANOCOBALAMIN 1,000 MCG/ML 1 ML VIAL SQ SCH (09:00)
== END 2021-12-02 11:57 | disposition home health service (06) | DRG 392 ==
LOC: EC 12:55 → 4SSUR 16:58
PROVIDERS: ADMIT Internal Medicine; ATTEND Internal Medicine
DX: K57.32 Diverticulitis of large intestine without perforation or abscess without bleeding (principal); D68.0 Von Willebrand disease; I10 Essential (primary) hypertension; E87.6 Hypokalemia; F39 Unspecified mood [affective] disorder; K59.00 Constipation, unspecified; F41.9 Anxiety disorder, unspecified; G43.909 Migraine, unspecified, not intractable, without status migrainosus; G25.81 Restless legs syndrome; K21.00 Gastro-esophageal reflux disease with esophagitis, without bleeding; G89.29 Other chronic pain; M54.9 Dorsalgia, unspecified; R74.8 Abnormal levels of other serum enzymes; R79.89 Other specified abnormal findings of blood chemistry; K64.9 Unspecified hemorrhoids; Z79.899 Other long term (current) drug therapy; Z87.891 Personal history of nicotine dependence; Z86.718 Personal history of other venous thrombosis and embolism; Z90.49 Acquired absence of other specified parts of digestive tract; Z87.19 Personal history of other diseases of the digestive system; Z90.89 Acquired absence of other organs; Z98.84 Bariatric surgery status; Z96.653 Presence of artificial knee joint, bilateral; Z87.39 Personal history of other diseases of the musculoskeletal system and connective tissue; Z90.710 Acquired absence of both cervix and uterus; Z96.611 Presence of right artificial shoulder joint; Z87.42 Personal history of other diseases of the female genital tract; Z86.79 Personal history of other diseases of the circulatory system; Z86.010 Personal history of colon polyps; Z98.890 Other specified postprocedural states; Z88.5 Allergy status to narcotic agent; Z88.2 Allergy status to sulfonamides; Z88.8 Allergy status to other drugs, medicaments and biological substances; Z88.6 Allergy status to analgesic agent; Z91.041 Radiographic dye allergy status; Z91.040 Latex allergy status; Z80.9 Family history of malignant neoplasm, unspecified
CPT/HCPCS: 36415; 74176; 80048; 80053; 80074; 80076; 81003; 82150; 83605; 83690; 83735; 85025; 85610; 85730; 96361; 96374; 96375; 96376; 99285

== ENCOUNTER 2021-12-05 11:10 | Emergency (ER) | payer MEDICARE ==
[2021-12-05 11:23] VITALS: BP 118/72; PULSE 61; RESP 16; TEMP 98.1
[2021-12-05 11:50] LABS: Appearance,Urine Clear (Clear); Bilirubin,Urine Negative (Negative); Blood,Urine Negative (Negative); Color,Urine Light Yellow; Glucose,Urine (UA) Negative (Negative); Ketones,Urine Negative (Negative); Leukocyte Esterase,Urine Negative (Negative); Nitrite,Urine Negative (Negative); PH, Urine 7.5 (5.0-8.0); Protein,Urine Negative (Negative); Specific Gravity,Urine 1.006 (1.001-1.035); Urobilinogen,Urine <2.0 mg/dL (<2.0)
[2021-12-05 13:08] LABS: Basophils # (A) 0.1 k/uL (0-0.2); Basophils % (A) 1 %; Eosinophils # (A) 0.4 k/uL (0-0.7); Eosinophils % (A) 5 %; HCT 44.5 % (34.0-46.0); Lymphocytes # (A) 1.5 k/uL (1.0-4.8); Lymphocytes % (A) 21 %; MCH 32.1 pg (25.0-35.0); MCHC 33.6 g/dL (31.0-37.0); MCV 95.4 fL (80.0-100.0); Mean Platelet Volume 8.1; Monocytes # (A) 0.5 k/uL (0-1.0); Monocytes % (A) 6 %; Neutrophils # (A) 4.6 k/uL (1.3-7.7); Neutrophils % (A) 64 %; Platelet Count 337 k/uL (150-450); RBC 4.66 m/uL (3.80-5.40); RDW 13.4 % (11.5-15.5); WBC 7.2 k/uL (3.8-10.6)
[2021-12-05 13:17] LABS: ALT 129 U/L (4-34); AST 97 U/L (14-36); African American GFR (CKD) >90 (>60 ml/min/1.73 sqM); Albumin 4.2 g/dL (3.5-5.0); Alkaline Phosphatase 179 U/L (38-126); Anion Gap 9 mmol/L; Blood Urea Nitrogen 13 mg/dL (7-17); Calcium 8.9 mg/dL (8.4-10.2); Carbon Dioxide 29 mmol/L (22-30); Chloride 101 mmol/L (98-107); Glucose 105 mg/dL (74-99); Non-African American GFR(CKD) >90 (>60 ml/min/1.73 sqM); Potassium 3.9 mmol/L (3.5-5.1); Sodium 139 mmol/L (137-145); Total Bilirubin 0.5 mg/dL (0.2-1.3); Total Protein 7.2 g/dL (6.3-8.2)
[2021-12-05] MEDS ORDERED: HYDROmorphone 0.5 MG/0.5 ML SYRINGE IVP STA ×2 (13:39→15:54)
[2021-12-05] MEDS ORDERED: ONDANSETRON 4 MG/2 ML VIAL IVP STA (13:39)
--- NOTE | 2021-12-05 13:46 | ED ---
General Adult HPI - General Chief complaint: Abdominal Pain Stated complaint: abd pain-revisit Time Seen by Provider: 12/05/21 13:30 Source: patient, RN notes reviewed, old records reviewed Mode of arrival: ambulatory Limitations: no limitations - History of Present Illness Initial comments: This is an 61-year-old female 4 days in the hospital last week for acute diverticulitis. Patient states she went home the pain is again getting worse and she is having a difficult time having a bowel movement because the pain. Patient states she went to see her primary medical care doctor in the primary medical care doctor sent her to the ER to be admitted. Patient also complains of nausea and vomiting over the last couple of days. Patient denies any fever chills. Patient states she's currently taking Augmentin and Flagyl at home. - Related Data Home Medications Medication Instructions Recorded Confirmed Fluticasone Nasal [place] [Flonase 1 spr EA NOSTRIL DAILY 06/20/17 12/05/21 Nasal [place]] SUMAtriptan succinate [Imitrex] 100 mg PO DAILY PRN 06/20/17 12/05/21 EPINEPHrine (Auto Inject) [Epipen] 0.3 mg IM ONCE PRN 06/24/19 12/05/21 Pantoprazole [Protonix] 40 mg PO BID 06/24/19 12/05/21 DULoxetine HCL [Cymbalta] 30 mg PO DAILY 04/07/20 12/05/21 Pramipexole Di-HCl [Mirapex] 0.25 mg PO HS 04/07/20 12/05/21 DULoxetine HCL [Cymbalta] 60 mg PO HS 03/27/21 12/05/21 Furosemide [Lasix] 40 mg PO BID 03/27/21 12/05/21 Neupro 8mg/24 Hr Patch 1 patch TRANSDERM DAILY 03/27/21 12/05/21 buPROPion XL [Wellbutrin XL] 450 mg PO DAILY 03/27/21 12/05/21 nadoloL [Corgard] 20 mg PO DAILY 03/27/21 12/05/21 traZODone HCL [Desyrel] 100 - 300 mg PO HS 03/27/21 12/05/21 Cyanocobalamin [Vitamin B-12 1,000 mcg SQ Q30D 09/23/21 12/05/21 Injection] Gabapentin 300 mg PO TID 09/23/21 12/05/21 Midodrine [ProAmatine] 5 mg PO TID 09/23/21 12/05/21 Naloxone HCl [Narcan] 4 mg NASAL ONCE PRN 09/23/21 12/05/21 Nystatin 100,000 Unit/gm Powd 1 applic TOPICAL DAILY PRN 09/23/21 12/05/21 [Mycostatin Powder] tiZANidine [Zanaflex] 2 - 4 mg PO TID PRN 09/23/21 12/05/21 Ergocalciferol [Vitamin D2 (1250 1,250 mcg PO WE 11/28/21 12/05/21 Mcg = 12680 Iu)] Folic Acid 1 mg PO DAILY 11/28/21 12/05/21 Pramipexole [Mirapex] 0.25 mg PO DAILY PRN 11/28/21 12/05/21 Topiramate [Topamax] 25 mg PO HS 11/28/21 12/05/21 Previous Rx's Medication Instructions Recorded Acetaminophen Tab [Tylenol] 650 mg PO Q6HR PRN tab 12/02/21 Amoxic-Pot Clav 875-125Mg 1 tab PO BID 6 Days #12 tab 12/02/21 [Augmentin 875-125] Sennosides-Docusate Sodium 1 each PO BID #12 tab 12/02/21 [Senokot-S] metroNIDAZOLE [Flagyl] 500 mg PO TID #18 tab 12/02/21 polyethylene glycoL 3350 [Miralax] 17 gm PO DAILY #14 packet 12/02/21 Allergies Allergy/AdvReac Type Severity Reaction Status Date / Time aspirin Allergy has Von Verified 12/05/21 14:44 Willebrands Disease ibuprofen [From Motrin] Allergy has Von Verified 12/05/21 14:44 Willebrands Disease Iodinated Contrast Media Allergy Anaphylaxis Verified 12/05/21 14:44 [Iodinated Contrast- Oral and IV Dye] isosorbide [From Imdur] Allergy Rash/Hives Verified 12/05/21 14:44 latex Allergy Anaphylaxis Verified 12/05/21 14:44 Sulfa (Sulfonamide Allergy Rash/Hives Verified 12/05/21 14:44 Antibiotics) codeine AdvReac agitation Verified 12/05/21 14:44 and restless leg symptoms increased Review of Systems ROS Statement: Those systems with pertinent positive or pertinent negative responses have been documented in the HPI. ROS Other: All systems not noted in ROS Statement are negative. Past Medical History Past Medical History: Deep Vein Thrombosis (DVT), GERD/Reflux, Supraventricular Tachycardia (SVT) Additional Past Medical History / Comment(s): Von Willebrand Disease, diverticulitis, migraines, chronic back pain, DVT bilat. Restless leg syndrome. History of Any Multi-Drug Resistant Organisms: None Reported Past Surgical History: Adenoidectomy, Bariatric Surgery, Cholecystectomy, Hysterectomy, Joint Replacement, Orthopedic Surgery, Tonsillectomy Additional Past Surgical History / Comment(s): nury foot surgery, nury knee replaced, nury rotator cuffs, Judith en Y approx 5 years, bowel surgery. right shoulder replacement Past Anesthesia/Blood Transfusion Reactions: Postoperative Nausea & Vomiting (PONV) Past Psychological History: No Psychological Hx Reported Smoking Status: Former smoker Past Alcohol Use History: None Reported Past Drug Use History: None Reported - Past Family History Mother Family Medical History: Cancer Father Family Medical History: Cancer General Exam - General Exam Comments Initial Comments: GENERAL: Patient is well-developed and well-nourished. Patient is nontoxic and well- hydrated and is in no acute distress. ENT: Neck is soft and supple. No significant lymphadenopathy is noted. Oropharynx is clear. Moist mucous membranes. Neck has full range of motion without eliciting any pain. EYES: The sclera were anicteric and conjunctiva were pink and moist. Extraocular movements were intact and pupils were equal round and reactive to light. Eyelids were unremarkable. PULMONARY: Unlabored respirations. Good breath sounds bilaterally. No audible rales rho nchi or wheezing was noted. CARDIOVASCULAR: There is a regular rate and rhythm without any murmurs gallops or rubs. ABDOMEN: Patient has left lower quadrant tenderness with rebound SKIN: Skin is clear with no lesions or rashes and otherwise unremarkable. NEUROLOGIC: Patient is alert and oriented x3. Cranial nerves II through XII are grossly intact. Motor and sensory are also intact. Normal speech, volume and content. Symmetrical smile. MUSCULOSKELETAL: Normal extremities with adequate strength and full range of motion. LYMPHATICS: No significant lymphadenopathy is noted PSYCHIATRIC: Normal psychiatric evaluation. Limitations: no limitations Course Vital Signs 12/05/21 11:20 Temperature 98.1 F Pulse Rate 61 Respiratory 16 Rate Blood Pressure 118/72 O2 Sat by Pulse 97 Oximetry Medical Decision Making - Medical Decision Making Patient's CT shows no signs of acute diverticulitis and no sign to explain the patient's left lower quadrant pain. I spoke with the patient told her I was going to admit her for 23 observation however she states she has an appointment with Dr. mtz in the morning 8 AM and would rather go home and follow-up with him - Lab Data Result diagrams: 12/05/21 12:57 12/05/21 12:57 Lab Results 12/05/21 12/05/21 12/05/21 Range/Units 11:25 12:57 12:57 WBC 7.2 (3.8-10.6) k/uL RBC 4.66 (3.80-5.40) m/uL Hgb 15.0 (11.4-16.0) gm/dL Hct 44.5 (34.0-46.0) % MCV 95.4 (80.0-100.0) fL MCH 32.1 (25.0-35.0) pg MCHC 33.6 (31.0-37.0) g/dL RDW 13.4 (11.5-15.5) % Plt Count 337 (150-450) k/uL MPV 8.1 Neutrophils % 64 % Lymphocytes % 21 % Monocytes % 6 % Eosinophils % 5 % Basophils % 1 % Neutrophils # 4.6 (1.3-7.7) k/uL Lymphocytes # 1.5 (1.0-4.8) k/uL Monocytes # 0.5 (0-1.0) k/uL Eosinophils # 0.4 (0-0.7) k/uL Basophils # 0.1 (0-0.2) k/uL Sodium 139 (137-145) mmol/L Potassium 3.9 (3.5-5.1) mmol/L Chloride 101 (98-107) mmol/L Carbon Dioxide 29 (22-30) mmol/L Anion Gap 9 mmol/L BUN 13 (7-17) mg/dL Creatinine 0.54 (0.52-1.04) mg/dL Est GFR (CKD-EPI)AfAm >90 (>60 ml/min/1.73 sqM) Est GFR (CKD-EPI)NonAf >90 (>60 ml/min/1.73 sqM) Glucose 105 H (74-99) mg/dL Calcium 8.9 (8.4-10.2) mg/dL Total Bilirubin 0.5 (0.2-1.3) mg/dL AST 97 H (14-36) U/L ALT 129 H (4-34) U/L Alkaline Phosphatase 179 H (38-126) U/L Total Protein 7.2 (6.3-8.2) g/dL Albumin 4.2 (3.5-5.0) g/dL Urine Color Light Yellow Urine Appearance Clear (Clear) Urine pH 7.5 (5.0-8.0) Ur Specific [place] 1.006 (1.001-1.035) Urine Protein Negative (Negative) Urine Glucose (UA) Negative (Negative) Urine Ketones Negative (Negative) Urine Blood Negative (Negative) Urine Nitrite Negative (Negative) Urine Bilirubin Negative (Negative) Urine Urobilinogen <2.0 (<2.0) mg/dL Ur Leukocyte Esterase Negative (Negative) Disposition Clinical Impression: Abdominal pain Disposition: HOME SELF-CARE Instructions (If sedation given, give patient instructions): Abdominal Pain (ED) Is patient prescribed a controlled substance at d/c from ED?: No Referrals: Stefan He MD [Primary Care Provider] - 1-2 days Time of Disposition: 15:55
--- NOTE | 2021-12-05 14:43 | CT ---
EXAMINATION TYPE: CT abdomen pelvis wo con DATE OF EXAM: 12/05/2021 COMPARISON: CT dated 11/28/2021 HISTORY: abdominal pain, diverticulitis CT DLP: 1004.9 mGycm Automated exposure control for dose reduction was used. TECHNIQUE: Helical acquisition of images was performed from the lung bases through the pelvis. FINDINGS: LUNG BASES: No significant abnormality is appreciated. LIVER/GB: Previous cholecystectomy. No definite hepatic focal lesion. PANCREAS: No significant abnormality is seen. SPLEEN: No significant abnormality is seen. ADRENALS: No significant abnormality is seen. KIDNEYS: Tiny 3 mm nonobstructing calculus at the lower pole of the right kidney, otherwise unremarka ble kidneys. FREE AIR: No free air is visualized RETROPERITONEAL ADENOPATHY: None visualized REPRODUCTIVE ORGANS: Previous hysterectomy. No gross adnexal mass. URINARY BLADDER: No significant abnormality is seen. PELVIC ADENOPATHY: No pathologically enlarged lymph nodes. OSSEOUS STRUCTURES: Right proximal femoral fixation using intramedullary nail and interlocking screw s. Degenerative changes of the symphysis pubis, sacroiliac joints and lumbar spine. Left renal fossa subcutaneous stimulator device. L2 upper endplate depression, possibly chronic, please correlate clin ically. BOWEL: Interval resolution of the previously seen acute diverticulitis changes at the clonic anastomo sis in the pelvis. Scattered uncomplicated colonic diverticulosis. Moderate fecal loading of the colo n. Previous gastric surgery and gastrojejunostomy. Unremarkable small bowel anastomosis in the left s paulie of the abdomen. No evidence of bowel obstruction. Stable anterior abdominal cavity surgical clips . Normal appendix. OTHER: Arterial calcification. No sizable ascites. Fat-containing hernia between the layers of the an terior abdominal wall muscles seen in the left lower quadrant. IMPRESSION: Almost interval complete resolution of the previously seen acute diverticulitis changes in the pelvis . No evidence of acute diverticulitis or other acute abnormality seen in the abdomen or the pelvis. I ncidental findings as described above.
== END 2021-12-05 16:15 | disposition home or self-care (01) ==
LOC: EC 11:10
DX: R10.32 Left lower quadrant pain (principal); K21.9 Gastro-esophageal reflux disease without esophagitis; Z87.891 Personal history of nicotine dependence; Z79.899 Other long term (current) drug therapy; Z86.718 Personal history of other venous thrombosis and embolism
CPT/HCPCS: 36415; 80053; 85025; 81003; 74176; 99284; 96374; 96375; 96376; J2405; J1170

== ENCOUNTER 2022-02-02 19:16 | Emergency (ER) | payer MEDICARE ==
[2022-02-02 19:28] VITALS: RESP 18
--- NOTE | 2022-02-02 19:38 | ED ---
Fall HPI - General Chief Complaint: Fall Stated Complaint: Fall, hip injury Time Seen by Provider: 02/02/22 19:30 Source: patient, EMS Mode of arrival: EMS - History of Present Illness Initial Comments: This is a well-appearing 62-year-old female that presents via EMS after a trip and fall in her home today about an hour prior to arrival. Patient states that she fell and landed on her left side however her right hip and her right shoulder hurt. She states that she did hit her head on the floor and she has a small hematoma on her occiput. She did not lose consciousness. She states she also has some neck pain. She has had multiple orthopedic surgeries on both knees, right hip and her right shoulder. She has a history of osteoporosis and von Willebrand's disease. EMS did give fentanyl for pain. MD Complaint: fall -: hour(s) (1) Fall From: standing When Fall Occurred: 1 hour [address] Fall Occurred: home Loss of Consciousness: none Prolonged Down Time?: no Symptoms Prior to Fall: none Location: head, pelvis (hip) Location - Extremities: Right: Shoulder Severity scale (1-10): 8 Quality: aching Context: tripped/slipped Associated Symptoms: headache, neck pain, unable to walk - Related Data Home Medications Medication Instructions Recorded Confirmed Fluticasone Nasal N[place]mith [Flonase 1 spr EA NOSTRIL DAILY 06/20/17 12/05/21 Nasal Nesmith] SUMAtriptan succinate [Imitrex] 100 mg PO DAILY PRN 06/20/17 12/05/21 EPINEPHrine (Auto Inject) [Epipen] 0.3 mg IM ONCE PRN 06/24/19 12/05/21 Pantoprazole [Protonix] 40 mg PO BID 06/24/19 12/05/21 DULoxetine HCL [Cymbalta] 30 mg PO DAILY 04/07/20 12/05/21 Pramipexole Di-HCl [Mirapex] 0.25 mg PO HS 04/07/20 12/05/21 DULoxetine HCL [Cymbalta] 60 mg PO HS 03/27/21 12/05/21 Furosemide [Lasix] 40 mg PO BID 03/27/21 12/05/21 Neupro 8mg/24 Hr Patch 1 patch TRANSDERM DAILY 03/27/21 12/05/21 buPROPion XL [Wellbutrin XL] 450 mg PO DAILY 03/27/21 12/05/21 nadoloL [Corgard] 20 mg PO DAILY 03/27/21 12/05/21 traZODone HCL [Desyrel] 100 - 300 mg PO HS 03/27/21 12/05/21 Cyanocobalamin [Vitamin B-12 1,000 mcg SQ Q30D 09/23/21 12/05/21 Injection] Gabapentin 300 mg PO TID 09/23/21 12/05/21 Midodrine [ProAmatine] 5 mg PO TID 09/23/21 12/05/21 Naloxone HCl [Narcan] 4 mg NASAL ONCE PRN 09/23/21 12/05/21 Nystatin 100,000 Unit/gm Powd 1 applic TOPICAL DAILY PRN 09/23/21 12/05/21 [Mycostatin Powder] tiZANidine [Zanaflex] 2 - 4 mg PO TID PRN 09/23/21 12/05/21 Ergocalciferol [Vitamin D2 (1250 1,250 mcg PO WE 11/28/21 12/05/21 Mcg = 39127 Iu)] Folic Acid 1 mg PO DAILY 11/28/21 12/05/21 Pramipexole [Mirapex] 0.25 mg PO DAILY PRN 11/28/21 12/05/21 Topiramate [Topamax] 25 mg PO HS 11/28/21 12/05/21 Previous Rx's Medication Instructions Recorded Acetaminophen Tab [Tylenol] 650 mg PO Q6HR PRN tab 12/02/21 Amoxic-Pot Clav 875-125Mg 1 tab PO BID 6 Days #12 tab 12/02/21 [Augmentin 875-125] Sennosides-Docusate Sodium 1 each PO BID #12 tab 12/02/21 [Senokot-S] metroNIDAZOLE [Flagyl] 500 mg PO TID #18 tab 12/02/21 polyethylene glycoL 3350 [Miralax] 17 gm PO DAILY #14 packet 12/02/21 Allergies Allergy/AdvReac Type Severity Reaction Status Date / Time aspirin Allergy has Von Verified 02/02/22 19:32 Willebrands Disease ibuprofen [From Motrin] Allergy has Von Verified 02/02/22 19:32 Willebrands Disease Iodinated Contrast Media Allergy Anaphylaxis Verified 02/02/22 19:32 [Iodinated Contrast- Oral and IV Dye] isosorbide [From Imdur] Allergy Rash/Hives Verified 02/02/22 19:32 latex Allergy Anaphylaxis Verified 02/02/22 19:32 Sulfa (Sulfonamide Allergy Rash/Hives Verified 02/02/22 19:32 Antibiotics) codeine AdvReac agitation Verified 02/02/22 19:32 and restless leg symptoms increased Review of Systems ROS Statement: Those systems with pertinent positive or pertinent negative responses have been documented in the HPI. ROS Other: All systems not noted in ROS Statement are negative. Past Medical History Past Medical History: Deep Vein Thrombosis (DVT), GERD/Reflux, Supraventricular Tachycardia (SVT) Additional Past Medical History / Comment(s): Von Willebrand Disease, di verticulitis, migraines, chronic back pain, DVT bilat. Restless leg syndrome. History of Any Multi-Drug Resistant Organisms: None Reported Past Surgical History: Adenoidectomy, Bariatric Surgery, Cholecystectomy, Hysterectomy, Joint Replacement, Orthopedic Surgery, Tonsillectomy Additional Past Surgical History / Comment(s): nury foot surgery, nury knee replaced, nury rotator cuffs, Judith en Y approx 5 years, bowel surgery. right shoulder replacement Past Anesthesia/Blood Transfusion Reactions: Postoperative Nausea & Vomiting (PONV) Past Psychological History: No Psychological Hx Reported Smoking Status: Former smoker Past Alcohol Use History: None Reported Past Drug Use History: None Reported - Past Family History Mother Family Medical History: Cancer Father Family Medical History: Cancer General Exam Limitations: no limitations General appearance: alert, in no apparent distress Head exam: Present: other (Hematoma left side occiput) Eye exam: Present: normal appearance. Absent: scleral icterus, conjunctival injection ENT exam: Present: mucous membranes moist Neck exam: Present: normal inspection, tenderness. Absent: meningismus Respiratory exam: Absent: respiratory distress, accessory muscle use Cardiovascular Exam: Present: bradycardia GI/Abdominal exam: Present: soft. Absent: distended, tenderness, rigid Extremities exam: Present: normal capillary refill. Absent: pedal edema Right Shoulder Exam: Present: tenderness Right Hip exam: Present: tenderness, internal rotation, shortening Neurovascular tendon exam: Present: no vascular compromise. Absent: abnormal cap refill, extremity cold to touch, pallor, foot drop Neurological exam: Present: alert, oriented X3 Psychiatric exam: Present: normal affect, normal mood Skin exam: Present: warm, dry, normal color. Absent: cyanosis, diaphoretic Course Vital Signs 02/02/22 02/02/22 19:25 21:42 Temperature 97.6 F 97.5 F L Pulse Rate 59 L 70 Respiratory 18 18 Rate Blood Pressure 112/67 103/55 O2 Sat by Pulse 97 96 Oximetry - Reevaluation(s) Reevaluation #1: 02/02/22 21:[address] Riggins performed her right hip surgery last March. He will be paged regarding the radiological read of a displaced fracture of the right femoral neck with angulation. Time: 21:33 Medical Decision Making - Medical Decision Making X-ray shows no evidence of fracture-dislocation right femoral fixation hardware intact. X-ray of the shoulder shows no evidence of fracture dislocation. There are degenerative changes of the shoulder joint. CT of the brain shows no acute intracranial process. CT C-spine shows no evidence of fracture, mild degenerative disc disease of the cervical spine. Patient was directed to follow up with her pain management doctor. She states that she was seen Dr. Nino however she does not want to go there anymore because it is a "meat market " She is ambulating in the room at discharge. Vital signs are stable. I did advise her to follow up with Dr. Riggins early next week as he states he'll see her in the office. Patient is agreeable to this plan of care. Disposition Clinical Impression: Fall, Hip pain Disposition: HOME SELF-CARE Condition: Good Instructions (If sedation given, give patient instructions): Fall Prevention for Older Adults (ED), Musculoskeletal Pain (ED) Additional Instructions: Continue your previously prescribed medications for pain and see your pain management doctor. Dr. Riggins will see you in the office next week so please call make an appointment on Friday. Return to the emergency room with any new or concerning symptoms. Is patient prescribed a controlled substance at d/c from ED?: No Referrals: Stefan He MD [Primary Care Provider] - 1-2 days Alexis Riggins MD [Medical Doctor] - 1-2 days Time of Disposition: 21:43
[2022-02-02] MEDS ORDERED: fentaNYL (PF) 50 MCG/ML 2 ML AMP IVP STA (20:41)
--- NOTE | 2022-02-02 20:50 | XR ---
EXAMINATION TYPE: XR Hip RT and AP Pelvis DATE OF EXAM: 02/02/2022 8:08 PM INDICATION: Patient age:Female; 62 years old; Reason for study: fall; PHH. COMPARISON: CT right hip 09/23/2021 TECHNIQUE: The right hip was examined in the frontal and lateral projections and a AP pelvis. FINDINGS: Right intertrochanteric femoral neck fracture with lateral angulation of the fracture margins. The fe moral head is normally aligned with the acetabulum. Left femur is normal in appearance. The remaining bony pelvis appears intact. Surgical clips project over the L4 vertebral body. Phleboliths are noted within the pelvis. Nonobstructive bowel gas pattern. IMPRESSION: Displaced fracture of the right femoral neck with angulation.
--- NOTE | 2022-02-02 20:51 | XR ---
EXAMINATION TYPE: XR shoulder complete LT DATE OF EXAM: 02/02/2022 8:10 PM INDICATION: Patient age:Female; 62 years old; Reason for study: fall; COMPARISON: No relevant priors TECHNIQUE: The left shoulder was examined in AP, internally rotated and scapular Y projections. . FINDINGS: Mild osteopenia. No evidence of acute osseous pathology, joint dislocation, or soft tissue swelling. Degenerative changes of the shoulder joint and acromioclavicular joint are present. The remaining por tions of the visualized chest are unremarkable. IMPRESSION: 1. No fracture or dislocation. 2. Degenerative changes of the left shoulder joint.
--- NOTE | 2022-02-02 20:57 | CT ---
EXAMINATION TYPE: CT brain cspine wo con CT DLP: 1493.7 mGycm, Automated exposure control for dose reduction was used. DATE OF EXAM: 02/02/2022 8:11 PM COMPARISON: CT brain 09/23/2021. CLINICAL INDICATION:Female, 62 years old with history of pain; pain after fall TECHNIQUE: Brain: Multiple axial CT images of the brain were obtained without IV contrast. Cspine: Axial CT images from the skull base to the inferior aspect of T2 we obtained without intraven ous contrast. Coronal and sagittal reformatted images were also reviewed. FINDINGS: Brain: Extra-axial spaces: No abnormal extra-axial fluid collections. Questional small arachnoid cyst in the right posterior cranial fossa (series 201, image 13). No significant mass effect. Ventricular system: Within normal limits Cerebral parenchyma: No acute intraparenchymal hemorrhage or mass effect. The beal-white junction is well differentiated. Scattered hypoattenuating areas are seen within the white matter. Similar derrick te bilateral anterior internal capsule lacunar injuries. Cerebellum: Unremarkable. Mass effect: No evidence of midline shift. Intracranial vasculature: Atherosclerotic calcifications of the intracranial vessels. Soft tissues: Normal. Calvarium/osseous structures: No depressed skull fracture. Fixation plate at the left temporal bone n ear the temporomandibular joint. Paranasal sinuses and mastoid air cells: Clear. Visualized orbits: Orbital contents are intact. Cervical spine: Fracture: None. Osseous structures: Multilevel degenerative disc disease changes with endplate spurring and disc oste ophyte complex's. Vertebral alignment: Within normal limits. Spinal canal/Neural Foramina: No evidence of significant spinal canal narrowing. No evidence for sign ificant neural foraminal stenosis. Neck soft tissues: Prevertebral soft tissues are within normal limits. Other: The airway is patent. The lung apices are clear. IMPRESSION: 1. No acute intracranial process. 2. No evidence of cervical spine fracture. 3. Nonspecific white matter changes that likely relate to chronic microangiopathy. 4. Mild degenerative disc disease of the cervical spine.
[2022-02-02 21:42] VITALS: BP 103/55; PULSE 70; TEMP 97.5
== END 2022-02-02 22:03 | disposition home or self-care (01) ==
LOC: EC 19:16
DX: M25.551 Pain in right hip (principal); K21.9 Gastro-esophageal reflux disease without esophagitis; Z87.891 Personal history of nicotine dependence; Z91.041 Radiographic dye allergy status; Z88.2 Allergy status to sulfonamides; Z88.5 Allergy status to narcotic agent; Z88.8 Allergy status to other drugs, medicaments and biological substances; Z88.6 Allergy status to analgesic agent; Z79.899 Other long term (current) drug therapy; W01.0XXA Fall on same level from slipping, tripping and stumbling without subsequent striking against object, initial encounter; Y92.009 Unspecified place in unspecified non-institutional (private) residence as the place of occurrence of the external cause
CPT/HCPCS: 73030; 73502; 72125; 70450; 99284; 96374; J3010

== ENCOUNTER 2022-02-16 21:35 | Observation (INO) | payer MEDICARE ==
--- NOTE | 2022-02-16 22:59 | XR ---
EXAMINATION TYPE: XR chest 2V DATE OF EXAM: 02/16/2022 COMPARISON: 03/27/2021 HISTORY: Weakness TECHNIQUE: FINDINGS: There is no heart failure nor confluent pneumonic infiltrate. Costophrenic angles are clear . There is coarsening of the lung markings. There is right shoulder prosthesis. There is neurostimula tor in the thoracic spine. IMPRESSION: Mild pulmonary fibrosis. No acute lung disease. No change.
[2022-02-16 23:34] LABS: Basophils % (A) 0 %; Eosinophils # (A) 0.3 k/uL (0-0.7); Eosinophils % (A) 3 %; HCT 41.3 % (34.0-46.0); HGB 13.9 gm/dL (11.4-16.0); Lymphocytes # (A) 1.3 k/uL (1.0-4.8); Lymphocytes % (A) 11 %; MCH 32.5 pg (25.0-35.0); MCHC 33.7 g/dL (31.0-37.0); MCV 96.4 fL (80.0-100.0); Mean Platelet Volume 8.3; Monocytes # (A) 0.6 k/uL (0-1.0); Monocytes % (A) 5 %; Neutrophils # (A) 9.3 k/uL (1.3-7.7); Neutrophils % (A) 80 %; Platelet Count 258 k/uL (150-450); RBC 4.29 m/uL (3.80-5.40); RDW 13.9 % (11.5-15.5); WBC 11.7 k/uL (3.8-10.6)
[2022-02-16 23:48] LABS: INR 0.9 (<1.2); Partial Thromboplastin Time 20.3 sec (22.0-30.0)
[2022-02-16 23:49] LABS: ALT 30 U/L (4-34); AST 35 U/L (14-36); African American GFR (CKD) >90 (>60 ml/min/1.73 sqM); Albumin 3.9 g/dL (3.5-5.0); Alkaline Phosphatase 82 U/L (38-126); Anion Gap 7 mmol/L; Blood Urea Nitrogen 16 mg/dL (7-17); Calcium 8.1 mg/dL (8.4-10.2); Carbon Dioxide 28 mmol/L (22-30); Chloride 101 mmol/L (98-107); Glucose 94 mg/dL (74-99); Non-African American GFR(CKD) >90 (>60 ml/min/1.73 sqM); Potassium 3.5 mmol/L (3.5-5.1); Sodium 136 mmol/L (137-145); Total Bilirubin 0.3 mg/dL (0.2-1.3); Total Protein 6.5 g/dL (6.3-8.2)
--- NOTE | 2022-02-16 23:54 | ED ---
Weakness HPI - General Chief complaint: Weakness Stated complaint: Weakness Time Seen by Provider: 02/16/22 23:29 Source: patient Mode of arrival: ambulatory Limitations: no limitations - History of Present Illness Initial comments: 's patient is a 62-year-old woman who presents with complaint that she was not feeling well. She states she had gone to a concert, and they ended up leaving early because they were not enjoying it. She states that when she arrived home, she was attempting to get out of the vehicle and became very lightheaded. She states that in the process of trying to go into the house she became lightheaded and number times, nearly passing out. Her friends noted that she looked very pale, and she felt very clammy. EMS was called and they found her blood sugar to be 50. She was given a tube of dextrose to ingest, and states that she does feel a tiny bit better here now. The patient was not having chest pain. She noted no palpitations. No dyspnea. No vomiting. MD Complaint: generalized weakness, difficulty walking -: hour(s) Severity scale (1-10): 0 Consistency: now resolved Improves with: rest Worsens with: exertion Associated Symptoms: diaphoresis - Related Data Home Medications Medication Instructions Recorded Confirmed Fluticasone Nasal [place] [Flonase 1 spr EA NOSTRIL DAILY 06/20/17 02/17/22 Nasal [place]] SUMAtriptan succinate [Imitrex] 100 mg PO DAILY PRN 06/20/17 02/17/22 EPINEPHrine (Auto Inject) [Epipen] 0.3 mg IM ONCE PRN 06/24/19 02/17/22 Pantoprazole [Protonix] 40 mg PO BID 06/24/19 02/17/22 DULoxetine HCL [Cymbalta] 30 mg PO DAILY 04/07/20 02/17/22 Pramipexole Di-HCl [Mirapex] 0.25 mg PO HS 04/07/20 02/17/22 DULoxetine HCL [Cymbalta] 60 mg PO HS 03/27/21 02/17/22 Furosemide [Lasix] 40 mg PO BID 03/27/21 02/17/22 Neupro 8mg/24 Hr Patch 1 patch TRANSDERM DAILY 03/27/21 02/17/22 buPROPion XL [Wellbutrin XL] 450 mg PO DAILY 03/27/21 02/17/22 nadoloL [Corgard] 20 mg PO DAILY 03/27/21 02/17/22 Cyanocobalamin [Vitamin B-12 1,000 mcg SQ Q30D 09/23/21 02/17/22 Injection] Gabapentin 300 mg PO TID 09/23/21 02/17/22 Midodrine [ProAmatine] 5 mg PO TID 09/23/21 02/17/22 Naloxone HCl [Narcan] 4 mg NASAL ONCE PRN 09/23/21 02/17/22 Nystatin 100,000 Unit/gm Powd 1 applic TOPICAL DAILY PRN 09/23/21 02/17/22 [Mycostatin Powder] tiZANidine [Zanaflex] 2 - 4 mg PO TID PRN 09/23/21 02/17/22 Ergocalciferol [Vitamin D2 (1250 1,250 mcg PO WE 11/28/21 02/17/22 Mcg = 38942 Iu)] Folic Acid 1 mg PO DAILY 11/28/21 02/17/22 Pramipexole [Mirapex] 0.25 mg PO DAILY PRN 11/28/21 02/17/22 Topiramate [Topamax] 25 mg PO HS 11/28/21 02/17/22 Sennosides-Docusate Sodium 1 tab PO BID 02/17/22 02/17/22 [Senokot-S] hydrOXYzine HCL [Atarax] 25 mg PO HS 02/17/22 02/17/22 oxyCODONE-APAP 5-325MG [Percocet 1 tab PO Q6H PRN 02/17/22 02/17/22 5-325 mg] Previous Rx's Medication Instructions Recorded Acetaminophen Tab [Tylenol] 650 mg PO Q6HR PRN tab 12/02/21 polyethylene glycoL 3350 [Miralax] 17 gm PO DAILY #14 packet 12/02/21 Allergies Allergy/AdvReac Type Severity Reaction Status Date / Time aspirin Allergy has Von Verified 02/17/22 12:35 Willebrands Disease ibuprofen [From Motrin] Allergy has Von Verified 02/17/22 12:35 Willebrands Disease Iodinated Contrast Media Allergy Anaphylaxis Verified 02/17/22 12:35 [Iodinated Contrast- Oral and IV Dye] isosorbide [From Imdur] Allergy Rash/Hives Verified 02/17/22 12:35 latex Allergy Anaphylaxis Verified 02/17/22 12:35 Sulfa (Sulfonamide Allergy Rash/Hives Verified 02/17/22 12:35 Antibiotics) codeine AdvReac agitation Verified 02/17/22 12:35 and restless leg symptoms increased Review of Systems ROS Statement: Those systems with pertinent positive or pertinent negative responses have been documented in the HPI. ROS Other: All systems not noted in ROS Statement are negative. Constitutional: Reports: weakness. Denies: fever, chills Eyes: Denies: vision change ENT: Denies: congestion Respiratory: Denies: cough, dyspnea, wheezes Cardiovascular: Reports: syncope (Near syncope). Denies: chest pain, palpitations, edema Gastrointestinal: Denies: abdominal pain, nausea, vomiting Genitourinary: Denies: dysuria, hematuria Musculoskeletal: Denies: back pain Skin: Denies: rash Neurological: Denies: headache, weakness, numbness Past Medical History Past Medical History: Deep Vein Thrombosis (DVT), GERD/Reflux, Supraventricular Tachycardia (SVT) Additional Past Medical History / Comment(s): Von Willebrand Disease, diverticulitis, migraines, chronic back pain, DVT bilat. Restless leg syndrome. History of Any Multi-Drug Resistant Organisms: None Reported Past Surgical History: Adenoidectomy, Bariatric Surgery, Cholecystectomy, Hysterectomy, Joint Replacement, Orthopedic Surgery, Tonsillectomy Additional Past Surgical History / Comment(s): nury foot surgery, nury knee replaced, nury rotator cuffs, Judith en Y approx 5 years, bowel surgery. right shoulder replacement Past Anesthesia/Blood Transfusion Reactions: Postoperative Nausea & Vomiting (PONV) Past Psychological History: No Psychological Hx Reported Smoking Status: Former smoker Past Alcohol Use History: None Reported Past Drug Use History: None Reported - Past Family History Mother Family Medical History: Cancer Father Family Medical History: Cancer General Exam Limitations: no limitations General appearance: alert, in no apparent distress Head exam: Present: atraumatic, normocephalic Eye exam: Present: normal appearance. Absent: scleral icterus, conjunctival injection Neck exam: Present: normal inspection Respiratory exam: Present: normal lung sounds bilaterally. Absent: respiratory distress, wheezes, rales, rhonchi, stridor Cardiovascular Exam: Present: regular rate, normal rhythm, normal heart sounds. Absent: systolic murmur, diastolic murmur, rubs, gallop GI/Abdominal exam: Present: soft. Absent: distended, tenderness, guarding, rebound, rigid, mass Extremities exam: Present: normal inspection, normal capillary refill. Absent: pedal edema, calf tenderness Back exam: Present: normal inspection. Absent: CVA tenderness (R), CVA tenderness (L), vertebral tenderness Neurological exam: Present: alert. Absent: oriented X3, CN II-XII intact Skin exam: Present: warm, dry, intact, normal color. Absent: rash Course Vital Signs 02/16/22 02/17/22 21:52 01:14 Temperature 98.2 F Pulse Rate 64 72 Respiratory 20 18 Rate Blood Pressure 95/60 104/62 O2 Sat by Pulse 94 L 95 Oximetry EKG Findings - EKG Results: EKG: interpreted by ARIANNE, sinus rhythm (Rate 60 bpm) - Blocks, [place], Hypertrophy, ST Abn: Chamber hypertrophy or enlargement: left ventricular hypertrophy or enlargement (LVE) - LA, Pacemaker, Normal: Myocardial infarction: inferior LA (old age indeterminate) Medical Decision Making - Lab Data Result diagrams: 02/18/22 07:14 02/18/22 07:14 Lab Results 02/16/22 02/16/22 02/16/22 Range/Units 22:56 22:56 22:56 WBC 11.7 H (3.8-10.6) k/uL RBC 4.29 (3.80-5.40) m/uL Hgb 13.9 (11.4-16.0) gm/dL Hct 41.3 (34.0-46.0) % MCV 96.4 (80.0-100.0) fL MCH 32.5 (25.0-35.0) pg MCHC 33.7 (31.0-37.0) g/dL RDW 13.9 (11.5-15.5) % Plt Count 258 (150-450) k/uL MPV 8.3 Neutrophils % 80 % Lymphocytes % 11 % Monocytes % 5 % Eosinophils % 3 % Basophils % 0 % Neutrophils # 9.3 H (1.3-7.7) k/uL Lymphocytes # 1.3 (1.0-4.8) k/uL Monocytes # 0.6 (0-1.0) k/uL Eosinophils # 0.3 (0-0.7) k/uL Basophils # 0.0 (0-0.2) k/uL PT 10.0 (9.0-12.0) sec INR 0.9 (<1.2) APTT 20.3 L (22.0-30.0) sec Sodium 136 L (137-145) mmol/L Potassium 3.5 (3.5-5.1) mmol/L Chloride 101 (98-107) mmol/L Carbon Dioxide 28 (22-30) mmol/L Anion Gap 7 mmol/L BUN 16 (7-17) mg/dL Creatinine 0.58 (0.52-1.04) mg/dL Est GFR (CKD-EPI)AfAm >90 (>60 ml/min/1.73 sqM) Est GFR (CKD-EPI)NonAf >90 (>60 ml/min/1.73 sqM) Glucose 94 (74-99) mg/dL POC Glucose (mg/dL) (70-110) mg/dL POC Glu Rental Counter Clerk ID Calcium 8.1 L (8.4-10.2) mg/dL Magnesium (1.6-2.3) mg/dL Total Bilirubin 0.3 (0.2-1.3) mg/dL AST 35 (14-36) U/L ALT 30 (4-34) U/L Alkaline Phosphatase 82 (38-126) U/L Troponin I (0.000-0.034) ng/mL Total Protein 6.5 (6.3-8.2) g/dL Albumin 3.9 (3.5-5.0) g/dL Triglycerides (0.00-149.00) mg/dL Cholesterol (0.00-200.00) mg/dL LDL Cholesterol, Calc (0.0-131.0) mg/dL VLDL Cholesterol, Calc (5.00-40.00) mg/dL HDL Cholesterol (40.00-60.00) mg/dL Cholesterol/HDL Ratio Ratio Urine Color Urine Appearance (Clear) Urine pH (5.0-8.0) Ur Specific [place] (1.001-1.035) Urine Protein (Negative) Urine Glucose (UA) (Negative) Urine Ketones (Negative) Urine Blood (Negative) Urine Nitrite (Negative) Urine Bilirubin (Negative) Urine Urobilinogen (<2.0) mg/dL Ur Leukocyte Esterase (Negative) 02/16/22 02/17/22 02/17/22 Range/Units 22:56 01:40 03:17 WBC (3.8-10.6) k/uL RBC (3.80-5.40) m/uL Hgb (11.4-16.0) gm/dL Hct (34.0-46.0) % MCV (80.0-100.0) fL MCH (25.0-35.0) pg MCHC (31.0-37.0) g/dL RDW (11.5-15.5) % Plt Count (150-450) k/uL MPV Neutrophils % % Lymphocytes % % Monocytes % % Eosinophils % % Basophils % % Neutrophils # (1.3-7.7) k/uL Lymphocytes # (1.0-4.8) k/uL Monocytes # (0-1.0) k/uL Eosinophils # (0-0.7) k/uL Basophils # (0-0.2) k/uL PT (9.0-12.0) sec INR (<1.2) APTT (22.0-30.0) sec Sodium (137-145) mmol/L Potassium (3.5-5.1) mmol/L Chloride (98-107) mmol/L Carbon Dioxide (22-30) mmol/L Anion Gap mmol/L BUN (7-17) mg/dL Creatinine (0.52-1.04) mg/dL Est GFR (CKD-EPI)AfAm (>60 ml/min/1.73 sqM) Est GFR (CKD-EPI)NonAf (>60 ml/min/1.73 sqM) Glucose (74-99) mg/dL POC Glucose (mg/dL) (70-110) mg/dL POC Glu Rental Counter Clerk ID Calcium (8.4-10.2) mg/dL Magnesium (1.6-2.3) mg/dL Total Bilirubin (0.2-1.3) mg/dL AST (14-36) U/L ALT (4-34) U/L Alkaline Phosphatase (38-126) U/L Troponin I 0.054 H* 0.073 H* (0.000-0.034) ng/mL Total Protein (6.3-8.2) g/dL Albumin (3.5-5.0) g/dL Triglycerides (0.00-149.00) mg/dL Cholesterol (0.00-200.00) mg/dL LDL Cholesterol, Calc (0.0-131.0) mg/dL VLDL Cholesterol, Calc (5.00-40.00) mg/dL HDL Cholesterol (40.00-60.00) mg/dL Cholesterol/HDL Ratio Ratio Urine Color Yellow Urine Appearance Clear (Clear) Urine pH 5.5 (5.0-8.0) Ur Specific [place] 1.029 (1.001-1.035) Urine Protein Trace H (Negative) Urine Glucose (UA) Negative (Negative) Urine Ketones 2+ H (Negative) Urine Blood Negative (Negative) Urine Nitrite Negative (Negative) Urine Bilirubin Negative (Negative) Urine Urobilinogen 2.0 (<2.0) mg/dL Ur Leukocyte Esterase Negative (Negative) 02/17/22 02/17/22 02/17/22 Range/Units 06:30 07:27 07:45 WBC (3.8-10.6) k/uL RBC (3.80-5.40) m/uL Hgb (11.4-16.0) gm/dL Hct (34.0-46.0) % MCV (80.0-100.0) fL MCH (25.0-35.0) pg MCHC (31.0-37.0) g/dL RDW (11.5-15.5) % Plt Count (150-450) k/uL MPV Neutrophils % % Lymphocytes % % Monocytes % % Eosinophils % % Basophils % % Neutrophils # (1.3-7.7) k/uL Lymphocytes # (1.0-4.8) k/uL Monocytes # (0-1.0) k/uL Eosinophils # (0-0.7) k/uL Basophils # (0-0.2) k/uL PT (9.0-12.0) sec INR (<1.2) APTT (22.0-30.0) sec Sodium (137-145) mmol/L Potassium (3.5-5.1) mmol/L Chloride (98-107) mmol/L Carbon Dioxide (22-30) mmol/L Anion Gap mmol/L BUN (7-17) mg/dL Creatinine (0.52-1.04) mg/dL Est GFR (CKD-EPI)AfAm (>60 ml/min/1.73 sqM) Est GFR (CKD-EPI)NonAf (>60 ml/min/1.73 sqM) Glucose (74-99) mg/dL POC Glucose (mg/dL) 85 81 (70-110) mg/dL POC Glu Rental Counter Clerk ID Ana Lenz [place] Calcium (8.4-10.2) mg/dL Magnesium (1.6-2.3) mg/dL Total Bilirubin (0.2-1.3) mg/dL AST (14-36) U/L ALT (4-34) U/L Alkaline Phosphatase (38-126) U/L Troponin I 0.045 H* (0.000-0.034) ng/mL Total Protein (6.3-8.2) g/dL Albumin (3.5-5.0) g/dL Triglycerides (0.00-149.00) mg/dL Cholesterol (0.00-200.00) mg/dL LDL Cholesterol, Calc (0.0-131.0) mg/dL VLDL Cholesterol, Calc (5.00-40.00) mg/dL HDL Cholesterol (40.00-60.00) mg/dL Cholesterol/HDL Ratio Ratio Urine Color Urine Appearance (Clear) Urine pH (5.0-8.0) Ur Specific [place] (1.001-1.035) Urine Protein (Negative) Urine Glucose (UA) (Negative) Urine Ketones (Negative) Urine Blood (Negative) Urine Nitrite (Negative) Urine Bilirubin (Negative) Urine Urobilinogen (<2.0) mg/dL Ur Leukocyte Esterase (Negative) 02/17/22 02/17/22 02/17/22 Range/Units 09:25 11:40 13:30 WBC (3.8-10.6) k/uL RBC (3.80-5.40) m/uL Hgb (11.4-16.0) gm/dL Hct (34.0-46.0) % MCV (80.0-100.0) fL MCH (25.0-35.0) pg MCHC (31.0-37.0) g/dL RDW (11.5-15.5) % Plt Count (150-450) k/uL MPV Neutrophils % % Lymphocytes % % Monocytes % % Eosinophils % % Basophils % % Neutrophils # (1.3-7.7) k/uL Lymphocytes # (1.0-4.8) k/uL Monocytes # (0-1.0) k/uL Eosinophils # (0-0.7) k/uL Basophils # (0-0.2) k/uL PT (9.0-12.0) sec INR (<1.2) APTT (22.0-30.0) sec Sodium (137-145) mmol/L Potassium (3.5-5.1) mmol/L Chloride (98-107) mmol/L Carbon Dioxide (22-30) mmol/L Anion Gap mmol/L BUN (7-17) mg/dL Creatinine (0.52-1.04) mg/dL Est GFR (CKD-EPI)AfAm (>60 ml/min/1.73 sqM) Est GFR (CKD-EPI)NonAf (>60 ml/min/1.73 sqM) Glucose (74-99) mg/dL POC Glucose (mg/dL) 90 104 109 (70-110) mg/dL POC Glu Rental Counter Clerk ID Alonso, Jaylin Alonso, Jaylin Alonso, Jaylin Calcium (8.4-10.2) mg/dL Magnesium (1.6-2.3) mg/dL Total Bilirubin (0.2-1.3) mg/dL AST (14-36) U/L ALT (4-34) U/L Alkaline Phosphatase (38-126) U/L Troponin I (0.000-0.034) ng/mL Total Protein (6.3-8.2) g/dL Albumin (3.5-5.0) g/dL Triglycerides (0.00-149.00) mg/dL Cholesterol (0.00-200.00) mg/dL LDL Cholesterol, Calc (0.0-131.0) mg/dL VLDL Cholesterol, Calc (5.00-40.00) mg/dL HDL Cholesterol (40.00-60.00) mg/dL Cholesterol/HDL Ratio Ratio Urine Color Urine Appearance (Clear) Urine pH (5.0-8.0) Ur Specific [place] (1.001-1.035) Urine Protein (Negative) Urine Glucose (UA) (Negative) Urine Ketones (Negative) Urine Blood (Negative) Urine Nitrite (Negative) Urine Bilirubin (Negative) Urine Urobilinogen (<2.0) mg/dL Ur Leukocyte Esterase (Negative) 02/17/22 02/17/22 02/17/22 Range/Units 15:27 16:35 21:22 WBC (3.8-10.6) k/uL RBC (3.80-5.40) m/uL Hgb (11.4-16.0) gm/dL Hct (34.0-46.0) % MCV (80.0-100.0) fL MCH (25.0-35.0) pg MCHC (31.0-37.0) g/dL RDW (11.5-15.5) % Plt Count (150-450) k/uL MPV Neutrophils % % Lymphocytes % % Monocytes % % Eosinophils % % Basophils % % Neutrophils # (1.3-7.7) k/uL Lymphocytes # (1.0-4.8) k/uL Monocytes # (0-1.0) k/uL Eosinophils # (0-0.7) k/uL Basophils # (0-0.2) k/uL PT (9.0-12.0) sec INR (<1.2) APTT (22.0-30.0) sec Sodium (137-145) mmol/L Potassium (3.5-5.1) mmol/L Chloride (98-107) mmol/L Carbon Dioxide (22-30) mmol/L Anion Gap mmol/L BUN (7-17) mg/dL Creatinine (0.52-1.04) mg/dL Est GFR (CKD-EPI)AfAm (>60 ml/min/1.73 sqM) Est GFR (CKD-EPI)NonAf (>60 ml/min/1.73 sqM) Glucose (74-99) mg/dL POC Glucose (mg/dL) 145 H 83 112 H (70-110) mg/dL POC Glu Rental Counter Clerk ID Lorie Antoine Kiara Kettlewell, Danielle Calcium (8.4-10.2) mg/dL Magnesium (1.6-2.3) mg/dL Total Bilirubin (0.2-1.3) mg/dL AST (14-36) U/L ALT (4-34) U/L Alkaline Phosphatase (38-126) U/L Troponin I (0.000-0.034) ng/mL Total Protein (6.3-8.2) g/dL Albumin (3.5-5.0) g/dL Triglycerides (0.00-149.00) mg/dL Cholesterol (0.00-200.00) mg/dL LDL Cholesterol, Calc (0.0-131.0) mg/dL VLDL Cholesterol, Calc (5.00-40.00) mg/dL HDL Cholesterol (40.00-60.00) mg/dL Cholesterol/HDL Ratio Ratio Urine Color Urine Appearance (Clear) Urine pH (5.0-8.0) Ur Specific [place] (1.001-1.035) Urine Protein (Negative) Urine Glucose (UA) (Negative) Urine Ketones (Negative) Urine Blood (Negative) Urine Nitrite (Negative) Urine Bilirubin (Negative) Urine Urobilinogen (<2.0) mg/dL Ur Leukocyte Esterase (Negative) 02/18/22 02/18/22 02/18/22 Range/Units 00:30 07:14 07:14 WBC 7.7 (3.8-10.6) k/uL RBC 4.60 (3.80-5.40) m/uL Hgb 14.3 (11.4-16.0) gm/dL Hct 44.1 (34.0-46.0) % MCV 96.0 (80.0-100.0) fL MCH 31.1 (25.0-35.0) pg MCHC 32.4 (31.0-37.0) g/dL RDW 13.5 (11.5-15.5) % Plt Count 257 (150-450) k/uL MPV 8.3 Neutrophils % 66 % Lymphocytes % 19 % Monocytes % 7 % Eosinophils % 5 % Basophils % 1 % Neutrophils # 5.1 (1.3-7.7) k/uL Lymphocytes # 1.5 (1.0-4.8) k/uL Monocytes # 0.6 (0-1.0) k/uL Eosinophils # 0.4 (0-0.7) k/uL Basophils # 0.1 (0-0.2) k/uL PT (9.0-12.0) sec INR (<1.2) APTT (22.0-30.0) sec Sodium 138 (137-145) mmol/L Potassium 4.3 (3.5-5.1) mmol/L Chloride 101 (98-107) mmol/L Carbon Dioxide 25 (22-30) mmol/L Anion Gap 12 mmol/L BUN 11 (7-17) mg/dL Creatinine 0.44 L (0.52-1.04) mg/dL Est GFR (CKD-EPI)AfAm >90 (>60 ml/min/1.73 sqM) Est GFR (CKD-EPI)NonAf >90 (>60 ml/min/1.73 sqM) Glucose 93 (74-99) mg/dL POC Glucose (mg/dL) 79 (70-110) mg/dL POC Glu Rental Counter Clerk ID Ana Lenz Calcium 8.6 (8.4-10.2) mg/dL Magnesium 2.4 H (1.6-2.3) mg/dL Total Bilirubin (0.2-1.3) mg/dL AST (14-36) U/L ALT (4-34) U/L Alkaline Phosphatase (38-126) U/L Troponin I (0.000-0.034) ng/mL Total Protein (6.3-8.2) g/dL Albumin (3.5-5.0) g/dL Triglycerides 85.70 (0.00-149.00) mg/dL Cholesterol 188.00 (0.00-200.00) mg/dL LDL Cholesterol, Calc 99.9 (0.0-131.0) mg/dL VLDL Cholesterol, Calc 17.14 (5.00-40.00) mg/dL HDL Cholesterol 71.00 H (40.00-60.00) mg/dL Cholesterol/HDL Ratio 2.65 Ratio Urine Color Urine Appearance (Clear) Urine pH (5.0-8.0) Ur Specific [place] (1.001-1.035) Urine Protein (Negative) Urine Glucose (UA) (Negative) Urine Ketones (Negative) Urine Blood (Negative) Urine Nitrite (Negative) Urine Bilirubin (Negative) Urine Urobilinogen (<2.0) mg/dL Ur Leukocyte Esterase (Negative) Disposition Clinical Impression: Syncope, Elevated troponin I level Disposition: ADMITTED IP TO THIS HOSP Condition: Stable Is patient prescribed a controlled substance at d/c from ED?: No
[2022-02-17] MEDS ORDERED: NITROGLYCERIN SL TABS 0.4 MG TAB SUBLINGUAL PRN (00:12)
[2022-02-17] MEDS ORDERED: MORPHINE SULFATE 4 MG/ML SYRINGE IV PRN (00:12)
[2022-02-17] MEDS ORDERED: HEPARIN SODIUM 1,000 UN/ML (10ML VL) IV ONE (00:12)
[2022-02-17] MEDS ORDERED: ASPIRIN 81 MG PO STA (00:12)
[2022-02-17] MEDS ORDERED: HEPARIN SOD,PORK IN 0.45% NACL 25,000 UNIT in 0.45% NACL 1 250ML.BAG IV SCH (00:15)
[2022-02-17 03:15] LABS: Appearance,Urine Clear (Clear); Bilirubin,Urine Negative (Negative); Blood,Urine Negative (Negative); Color,Urine Yellow; Glucose,Urine (UA) Negative (Negative); Ketones,Urine 2+ (Negative); Leukocyte Esterase,Urine Negative (Negative); Nitrite,Urine Negative (Negative); PH, Urine 5.5 (5.0-8.0); Protein,Urine Trace (Negative); Specific Gravity,Urine 1.029 (1.001-1.035)
--- NOTE | 2022-02-17 04:57 | P.HPIM ---
History of Present Illness H&P Date: 02/17/22 The patient is a 62-year-old female with a PMH of von Willebrand's disease and chronic migraines who presents to the emergency room with complaints of lightheadedness. The patient reports that she had gone to a concert earlier today, for which he had left early as they were not enjoying themselves. Upon returning home, as she attempted to get out of the car, she developed severe lightheadedness and had to sit back down into the car. She attempted to go into her house but continued to be lightheaded, pale, and diaphoretic at which time her friends activated EMS. Upon arrival at the scene, the patient was noted to have a blood sugar of 50, shortly afterwards her symptoms gradually improved. At time of interview, she reported feeling essentially at her baseline. She reports having a normal breakfast earlier in the day. She denied experiencing chest discomfort or shortness of breath. She also denied nausea, vomiting, abdominal pain, diarrhea. Laboratory evaluation was remarkable for troponin of 0.054. The patient reports a significant history of bleeding postsurgically with her von Willebrand's disease and that she has been deemed a very high risk for bleeds. She also reports that she was told she is not able to take aspirin or NSAIDs by her cutting table operator first. Review of systems: Pertinent positives and negatives as discussed in HPI, a complete review of systems was performed and all other systems are negative. Physical examination: General: non toxic, no distress, appears at stated age, obese Derm: no unusual rashes/lesions, warm Head: atraumatic, normocephalic, symmetric Eyes: EOMI, no lid lag, anicteric sclera, pupils equal round reactive to light ENT: Nose and ears atraumatic Neck: No cervical lymphadenopathy, trachea midline, supple Mouth: no lip lesion, mucus membranes moist Cardiovascular: S1S2 reg, no murmur, positive dorsalis pedis pulse bilateral, no edema Lungs: CTA bilateral, no rhonchi, no rales, no accessory muscle use Abdominal: soft, nontender to palpation, no guarding Ext: muscle strength 5 out of 5 in all 4 extremities grossly, no gross muscle atrophy, no contractures, Neuro: CN II-XI grossly intact, no gross focal neuro deficits Psych: Alert, oriented, appropriate affect Assessment/plan Near syncope, suspected secondary to hypoglycemia -Monitor blood glucose for now -Fall precautions Elevated troponin, may be due to hypoglycemia -Cardiac monitoring -Cardiology consulted -Trend for now -Patient high risk for aspirin and heparin DVT prophylaxis -IPCDs The patient is admitted with an anticipated less than 2 midnight stay for abdulkadir luation of near syncope CODE STATUS: Full Code Discussed with: Patient Anticipated discharge date: in am Anticipated discharge place: Home Past Medical History Past Medical History: Deep Vein Thrombosis (DVT), GERD/Reflux, Supraventricular Tachycardia (SVT) Additional Past Medical History / Comment(s): Von Willebrand Disease, diver ticulitis, migraines, chronic back pain, DVT bilat. Restless leg syndrome. History of Any Multi-Drug Resistant Organisms: None Reported Past Surgical History: Adenoidectomy, Bariatric Surgery, Cholecystectomy, Hysterectomy, Joint Replacement, Orthopedic Surgery, Tonsillectomy Additional Past Surgical History / Comment(s): nury foot surgery, nury knee replaced, nury rotator cuffs, Judith en Y approx 5 years, bowel surgery. right shoulder replacement Past Anesthesia/Blood Transfusion Reactions: Postoperative Nausea & Vomiting (PONV) Smoking Status: Former smoker - Past Family History Mother Family Medical History: Cancer Father Family Medical History: Cancer Medications and Allergies Home Medications Medication Instructions Recorded Confirmed Type Fluticasone Nasal [place] [Flonase 1 spr EA NOSTRIL DAILY 06/20/17 12/05/21 History Nasal [place]] SUMAtriptan succinate [Imitrex] 100 mg PO DAILY PRN 06/20/17 12/05/21 History EPINEPHrine (Auto Inject) [Epipen] 0.3 mg IM ONCE PRN 06/24/19 12/05/21 History Pantoprazole [Protonix] 40 mg PO BID 06/24/19 12/05/21 History DULoxetine HCL [Cymbalta] 30 mg PO DAILY 04/07/20 12/05/21 History Pramipexole Di-HCl [Mirapex] 0.25 mg PO HS 04/07/20 12/05/21 History DULoxetine HCL [Cymbalta] 60 mg PO HS 03/27/21 12/05/21 History Furosemide [Lasix] 40 mg PO BID 03/27/21 12/05/21 History Neupro 8mg/24 Hr Patch 1 patch TRANSDERM DAILY 03/27/21 12/05/21 History buPROPion XL [Wellbutrin XL] 450 mg PO DAILY 03/27/21 12/05/21 History nadoloL [Corgard] 20 mg PO DAILY 03/27/21 12/05/21 History traZODone HCL [Desyrel] 100 - 300 mg PO HS 03/27/21 12/05/21 History Cyanocobalamin [Vitamin B-12 1,000 mcg SQ Q30D 09/23/21 12/05/21 History Injection] Gabapentin 300 mg PO TID 09/23/21 12/05/21 History Midodrine [ProAmatine] 5 mg PO TID 09/23/21 12/05/21 History Naloxone HCl [Narcan] 4 mg NASAL ONCE PRN 09/23/21 12/05/21 History Nystatin 100,000 Unit/gm Powd 1 applic TOPICAL DAILY PRN 09/23/21 12/05/21 History [Mycostatin Powder] tiZANidine [Zanaflex] 2 - 4 mg PO TID PRN 09/23/21 12/05/21 History Ergocalciferol [Vitamin D2 (1250 1,250 mcg PO WE 11/28/21 12/05/21 History Mcg = 19460 Iu)] Folic Acid 1 mg PO DAILY 11/28/21 12/05/21 History Pramipexole [Mirapex] 0.25 mg PO DAILY PRN 11/28/21 12/05/21 History Topiramate [Topamax] 25 mg PO HS 11/28/21 12/05/21 History Acetaminophen Tab [Tylenol] 650 mg PO Q6HR PRN tab 12/02/21 12/05/21 Rx Amoxic-Pot Clav 875-125Mg 1 tab PO BID 6 Days #12 tab 12/02/21 12/05/21 Rx [Augmentin 875-125] Sennosides-Docusate Sodium 1 each PO BID #12 tab 12/02/21 12/05/21 Rx [Senokot-S] metroNIDAZOLE [Flagyl] 500 mg PO TID #18 tab 12/02/21 12/05/21 Rx polyethylene glycoL 3350 [Miralax] 17 gm PO DAILY #14 packet 12/02/21 12/05/21 Rx Allergies Allergy/AdvReac Type Severity Reaction Status Date / Time aspirin Allergy has Von Verified 02/16/22 21:55 Willebrands Disease ibuprofen [From Motrin] Allergy has Von Verified 02/16/22 21:55 Willebrands Disease Iodinated Contrast Media Allergy Anaphylaxis Verified 02/16/22 21:55 [Iodinated Contrast- Oral and IV Dye] isosorbide [From Imdur] Allergy Rash/Hives Verified 02/16/22 21:55 latex Allergy Anaphylaxis Verified 02/16/22 21:55 Sulfa (Sulfonamide Allergy Rash/Hives Verified 02/16/22 21:55 Antibiotics) codeine AdvReac agitation Verified 02/16/22 21:55 and restless leg symptoms increased Physical Exam Vitals: Vital Signs Temp Pulse Pulse Resp BP BP Pulse Ox 02/17/22 01:50 98.1 F 69 17 109/71 96 02/17/22 01:14 72 18 104/62 95 02/16/22 21:52 98.2 F 64 20 95/60 94 L Intake and Output 02/16/22 02/16/22 02/17/22 14:59 22:59 06:59 Other: Voiding Method Toilet Weight 97.976 kg 97.976 kg Results CBC & Chem 7: 02/16/22 22:56 02/16/22 22:56 Labs: Abnormal Lab Results - Last 24 Hours (Table) 02/16/22 02/16/22 02/16/22 Range/Units 22:56 22:56 22:56 WBC 11.7 H (3.8-10.6) k/uL Neutrophils # 9.3 H (1.3-7.7) k/uL APTT 20.3 L (22.0-30.0) sec Sodium 136 L (137-145) mmol/L Calcium 8.1 L (8.4-10.2) mg/dL Troponin I (0.000-0.034) ng/mL Urine Protein (Negative) Urine Ketones (Negative) 02/16/22 02/17/22 02/17/22 Range/Units 22:56 01:40 03:17 WBC (3.8-10.6) k/uL Neutrophils # (1.3-7.7) k/uL APTT (22.0-30.0) sec Sodium (137-145) mmol/L Calcium (8.4-10.2) mg/dL Troponin I 0.054 H* 0.073 H* (0.000-0.034) ng/mL Urine Protein Trace H (Negative) Urine Ketones 2+ H (Negative) Thrombosis Risk Factor Assmnt - Choose All That Apply Any of the Below Risk Factors Present?: Yes Each Factor Represents 1 point: Obesity (BMI >25), Swollen legs (current), Varicose veins Other Risk Factors: Yes Each Risk Factor Represents 2 Points: Age 61-74 years Each Risk Factor Represents 3 Points: Family history of DVT/PE Other congenital or acquired thrombophilia - If yes, enter type in comment: Yes (Jose Corrigan) Thrombosis Risk Factor Assessment Total Risk Factor Score: 8 Thrombosis Risk Factor Assessment Level: High Risk
[2022-02-17 06:31] LABS: Glucose,Whole Blood 85 mg/dL (70-110)
[2022-02-17 07:29] LABS: Glucose,Whole Blood 81 mg/dL (70-110)
[2022-02-17] MEDS ORDERED: METOPROLOL TARTRATE 25 MG TAB PO SCH (09:00)
[2022-02-17 09:27] LABS: Glucose,Whole Blood 90 mg/dL (70-110)
[2022-02-17 11:42] LABS: Glucose,Whole Blood 104 mg/dL (70-110)
--- NOTE | 2022-02-17 12:55 | P.PN ---
Subjective Progress Note Date: 02/17/22 Principal diagnosis: Dizziness Patient still having episodes of dizziness and lightheadedness. She states that she feels like she is about to pass out. He denied having chest pain or shortness of breath over. No palpitations. No focal weakness or numbness. No blurred or double vision. Objective - Vital Signs Vital signs: Vital Signs Temp 97.7 F 02/17/22 08:00 Pulse 49 L 02/17/22 08:00 Resp 16 02/17/22 08:00 BP 111/75 02/17/22 08:00 Pulse Ox 98 02/17/22 08:00 FiO2 Intake & Output 02/16/22 02/17/22 02/17/22 18:59 06:59 18:59 Intake Total 10 Balance 10 Weight 97.976 kg Intake: IV 10 Invasive Line 1 10 Other: Voiding Method Toilet # Voids 1 - Exam Constitutional: No acute distress, conversant, pleasant Eyes:Anicteric sclerae, moist conjunctiva, no lid-lag, PERRLA, ENMT: Oropharynx clear, no erythema, exudates Neck: Supple, FROM, no masses, or JVD, No carotid bruits, No thyromegaly Lungs: Clear to auscultation, Clear to percussion, Normal respiratory effort, no accessory muscle use Cardiovascular: Heart regular in rate and rhythm, No murmurs, gallops, or rubs, No peripheral edema Abdominal: Soft, Nontender, no guarding, rebound or rigidity, Normoactive bowel sounds, No hepatomegaly, No splenomegaly, No palpable mass Skin: Normal temperature, tone, texture, turgor, no induration, No subcutaneous nodules, No rash, lesions, No ulcers Extremities: No digital cyanosis, No clubbing, Pedal pulses intact and symmetrical, Radial pulses intact and symmetrical, No calf tenderness Psychiatric: Alert and oriented to person, place and time, appropriate affect, intact judgement Neuro: Muscles Strength 5/5 in all 4 extremities, Sensation to light touch grossly present throughout, Cranial nerves II-XII grossly intact, no focal sensory deficits - Labs CBC & Chem 7: 02/16/22 22:56 02/16/22 22:56 Labs: Abnormal Lab Results - Last 24 Hours (Table) 02/16/22 02/16/22 02/16/22 Range/Units 22:56 22:56 22:56 WBC 11.7 H (3.8-10.6) k/uL Neutrophils # 9.3 H (1.3-7.7) k/uL APTT 20.3 L (22.0-30.0) sec Sodium 136 L (137-145) mmol/L Calcium 8.1 L (8.4-10.2) mg/dL Troponin I (0.000-0.034) ng/mL Urine Protein (Negative) Urine Ketones (Negative) 02/16/22 02/17/22 02/17/22 Range/Units 22:56 01:40 03:17 WBC (3.8-10.6) k/uL Neutrophils # (1.3-7.7) k/uL APTT (22.0-30.0) sec Sodium (137-145) mmol/L Calcium (8.4-10.2) mg/dL Troponin I 0.054 H* 0.073 H* (0.000-0.034) ng/mL Urine Protein Trace H (Negative) Urine Ketones 2+ H (Negative) 02/17/22 Range/Units 07:45 WBC (3.8-10.6) k/uL Neutrophils # (1.3-7.7) k/uL APTT (22.0-30.0) sec Sodium (137-145) mmol/L Calcium (8.4-10.2) mg/dL Troponin I 0.045 H* (0.000-0.034) ng/mL Urine Protein (Negative) Urine Ketones (Negative) Assessment and Plan Plan: Near syncope, suspected secondary to hypoglycemia with blood sugars down to 50 at the time of EMS arrival. -Glucose being checked every 4 hours, no evidence of hypoglycemia so far. -Fall precautions Elevated troponin, may be due to hypoglycemia vs cardiac cause -Cardiac monitoring -Case discussed with cardiology, will need hematology consult to see if patient can be started on any blood thinners. -According to cardiology patient will need echo and stress testing History of von Willebrand disease -Patient high risk for aspirin and heparin DVT prophylaxis -IPCDs
[2022-02-17 13:33] LABS: Glucose,Whole Blood 109 mg/dL (70-110)
--- NOTE | 2022-02-17 14:28 | P.CRDCN ---
History of Present Illness Consult date: 02/17/22 Requesting physician: Maria T Longoria Reason for Consult (text): elevated troponin Chief complaint: dizziness, confusion, diaphoresis History of present illness: This is a pleasant 62-year-old female patient who follows regularly with Dr. Montano. She has a history of Von Willebrand's disease which she follows with Dr. Carrillo for, chronic migraines, SVT and valvular disease but the details are uncle ar to her. Presented to the emergency department via EMS after developing some lightheadedness, dizziness, confusion and diaphoresis. Earlier in the day she did have an episode of palpitations and felt she may have had a brief episode of SVT. Blood glucose level was around 50 and she was given glucose by EMS and hand feel little bit better. While in the emergency department she did have a brief episode of discomfort under her left breast. EKG on admission showed evidence of possible prior AK and unfortunately I'm unable to compare to previous EKGs at this time as the images will not open. Troponins came in to be mildly abnormal at 0.054, 0.073 and 0.045. Chest x-ray showed mild pulmonary fibrosis, no acute disease and no change. Vital signs stable. She's been afebrile. On examination she is sitting up in bed. Has no complaints except for the headache. She does have mild dyspnea on exertion which is stable. Also has lower extremity edema controlled with oral Lasix at home. Denies any further episodes of chest discomfort. She did have heart catheterization about 20 years ago which according to her was normal and had a normal stress test several years ago. Past Medical History Past Medical History: Deep Vein Thrombosis (DVT), GERD/Reflux, Supraventricular Tachycardia (SVT) Additional Past Medical History / Comment(s): Von Willebrand Disease, diverticulitis, migraines, chronic back pain, DVT bilat. Restless leg syndrome. History of Any Multi-Drug Resistant Organisms: None Reported Past Surgical History: Adenoidectomy, Bariatric Surgery, Cholecystectomy, Hysterectomy, Joint Replacement, Orthopedic Surgery, Tonsillectomy Additional Past Surgical History / Comment(s): nury foot surgery, nury knee replaced, nury rotator cuffs, Judith en Y approx 5 years, bowel surgery. right shoulder replacement Past Anesthesia/Blood Transfusion Reactions: Postoperative Nausea & Vomiting (PONV) Smoking Status: Former smoker - Past Family History Mother Family Medical History: Cancer Father Family Medical History: Cancer Medications and Allergies Home Medications Medication Instructions Recorded Confirmed Type Fluticasone Nasal [place] [Flonase 1 spr EA NOSTRIL DAILY 06/20/17 12/05/21 History Nasal [place]] SUMAtriptan succinate [Imitrex] 100 mg PO DAILY PRN 06/20/17 12/05/21 History EPINEPHrine (Auto Inject) [Epipen] 0.3 mg IM ONCE PRN 06/24/19 12/05/21 History Pantoprazole [Protonix] 40 mg PO BID 06/24/19 12/05/21 History DULoxetine HCL [Cymbalta] 30 mg PO DAILY 04/07/20 12/05/21 History Pramipexole Di-HCl [Mirapex] 0.25 mg PO HS 04/07/20 12/05/21 History DULoxetine HCL [Cymbalta] 60 mg PO HS 03/27/21 12/05/21 History Furosemide [Lasix] 40 mg PO BID 03/27/21 12/05/21 History Neupro 8mg/24 Hr Patch 1 patch TRANSDERM DAILY 03/27/21 12/05/21 History buPROPion XL [Wellbutrin XL] 450 mg PO DAILY 03/27/21 12/05/21 History nadoloL [Corgard] 20 mg PO DAILY 03/27/21 12/05/21 History traZODone HCL [Desyrel] 100 - 300 mg PO HS 03/27/21 12/05/21 History Cyanocobalamin [Vitamin B-12 1,000 mcg SQ Q30D 09/23/21 12/05/21 History Injection] Gabapentin 300 mg PO TID 09/23/21 12/05/21 History Midodrine [ProAmatine] 5 mg PO TID 09/23/21 12/05/21 History Naloxone HCl [Narcan] 4 mg NASAL ONCE PRN 09/23/21 12/05/21 History Nystatin 100,000 Unit/gm Powd 1 applic TOPICAL DAILY PRN 09/23/21 12/05/21 History [Mycostatin Powder] tiZANidine [Zanaflex] 2 - 4 mg PO TID PRN 09/23/21 12/05/21 History Ergocalciferol [Vitamin D2 (1250 1,250 mcg PO WE 11/28/21 12/05/21 History Mcg = 57360 Iu)] Folic Acid 1 mg PO DAILY 11/28/21 12/05/21 History Pramipexole [Mirapex] 0.25 mg PO DAILY PRN 11/28/21 12/05/21 History Topiramate [Topamax] 25 mg PO HS 11/28/21 12/05/21 History Acetaminophen Tab [Tylenol] 650 mg PO Q6HR PRN tab 12/02/21 12/05/21 Rx Amoxic-Pot Clav 875-125Mg 1 tab PO BID 6 Days #12 tab 12/02/21 12/05/21 Rx [Augmentin 875-125] Sennosides-Docusate Sodium 1 each PO BID #12 tab 12/02/21 12/05/21 Rx [Senokot-S] metroNIDAZOLE [Flagyl] 500 mg PO TID #18 tab 12/02/21 12/05/21 Rx polyethylene glycoL 3350 [Miralax] 17 gm PO DAILY #14 packet 12/02/21 12/05/21 Rx Allergies Allergy/AdvReac Type Severity Reaction Status Date / Time aspirin Allergy has Von Verified 02/16/22 21:55 Willebrands Disease ibuprofen [From Motrin] Allergy has Von Verified 02/16/22 21:55 Willebrands Disease Iodinated Contrast Media Allergy Anaphylaxis Verified 02/16/22 21:55 [Iodinated Contrast- Oral and IV Dye] isosorbide [From Imdur] Allergy Rash/Hives Verified 02/16/22 21:55 latex Allergy Anaphylaxis Verified 02/16/22 21:55 Sulfa (Sulfonamide Allergy Rash/Hives Verified 02/16/22 21:55 Antibiotics) codeine AdvReac agitation Verified 02/16/22 21:55 and restless leg symptoms increased Physical Exam Vitals: Vital Signs Temp Pulse Pulse Resp BP BP Pulse Ox 02/17/22 04:30 97.0 F L 63 16 121/75 97 02/17/22 01:50 98.1 F 69 17 109/71 96 02/17/22 01:14 72 18 104/62 95 02/16/22 21:52 98.2 F 64 20 95/60 94 L Intake and Output 02/16/22 02/17/22 02/17/22 22:59 06:59 14:59 Other: Voiding Method Toilet # Voids 1 Weight 97.976 kg 97.976 kg PHYSICAL EXAMINATION: This is a 62-year-old female in no apparent distress at th e time of my examination. VITAL SIGNS: Blood pressure 111/75, heart rate 63, respirations 16, temp 97.7F. Patient is 98 % on room air. HEENT: Head is atraumatic, normocephalic. Pupils are equal, round. Sclerae anicteric. Conjunctivae are clear. Mucous membranes of the mouth are moist. Neck is supple. There is no elevated jugular venous pressure. No carotid bruit is heard. CHEST EXAMINATION: Clear to auscultation bilaterally. No wheezes rales or rhonchi. Respirations even and nonlabored. HEART EXAMINATION: Heart regular, positive S1 and S2. No S3. No S4. Systolic murmur. ABDOMEN: Soft, nontender. Bowel sounds are heard. No organomegaly noted. EXTREMITIES: 2+ peripheral pulses with no evidence of peripheral edema and no calf tenderness noted. NEUROLOGIC EXAMINATION: Patient is awake, alert and oriented x3. Results 02/16/22 22:56 02/16/22 22:56 Cardiac Enzymes 02/16/22 02/16/22 02/17/22 Range/Units 22:56 22:56 03:17 AST 35 (14-36) U/L Troponin I 0.054 H* 0.073 H* (0.000-0.034) ng/mL 02/17/22 Range/Units 07:45 AST (14-36) U/L Troponin I 0.045 H* (0.000-0.034) ng/mL Coagulation 02/16/22 Range/Units 22:56 PT 10.0 (9.0-12.0) sec APTT 20.3 L (22.0-30.0) sec CBC 02/16/22 Range/Units 22:56 WBC 11.7 H (3.8-10.6) k/uL RBC 4.29 (3.80-5.40) m/uL Hgb 13.9 (11.4-16.0) gm/dL Hct 41.3 (34.0-46.0) % Plt Count 258 (150-450) k/uL Comprehensive Metabolic Panel 02/16/22 Range/Units 22:56 Sodium 136 L (137-145) mmol/L Potassium 3.5 (3.5-5.1) mmol/L Chloride 101 (98-107) mmol/L Carbon Dioxide 28 (22-30) mmol/L BUN 16 (7-17) mg/dL Creatinine 0.58 (0.52-1.04) mg/dL Glucose 94 (74-99) mg/dL Calcium 8.1 L (8.4-10.2) mg/dL AST 35 (14-36) U/L ALT 30 (4-34) U/L Alkaline Phosphatase 82 (38-126) U/L Total Protein 6.5 (6.3-8.2) g/dL Albumin 3.9 (3.5-5.0) g/dL Current Medications Generic Name Dose Route Start Last Admin Trade Name Freq PRN Reason Stop Dose Admin Metoprolol Tartrate 25 mg 02/17/22 09:00 Metoprolol Tartrate 25 Mg Tab PO BID BERT Morphine Sulfate 4 mg 02/17/22 00:12 Morphine Sulfate 4 Mg/Ml Syringe IV Q5M PRN Chest Pain Nitroglycerin 0.4 mg 02/17/22 00:12 Nitroglycerin Sl Tabs 0.4 Mg Tab SUBLINGUAL Q5M PRN Chest Pain Intake and Output 02/16/22 02/17/22 02/17/22 22:59 06:59 14:59 Other: Voiding Method Toilet # Voids 1 Weight 97.976 kg 97.976 kg 02/16/22 22:56 02/16/22 22:56 Assessment and Plan Assessment: #1 symptoms of dizziness, confusion and diaphoresis in the setting of hypoglycemia #2 abnormal troponin of unclear significance #3 history of SVT, maintaining sinus mechanism #4 Von Willebrand's Disease Plan: From cardiology's perspective we will obtain a 2-D echo with doppler study to assess cardiac structure and function. We'll schedule the patient to undergo Lexiscan MPI tomorrow to evaluate for underlying ischemia. Will consult hematology for further recommendations due to patient's history of von Willebrand's disease in the event that the stress test is abnormal and patient requires cath/PCI as in that case the patient would require DAPT. Further recommendations depending on patient's clinical course and diagnostic findings. FITTING ROOM ASSOCIATE note has been reviewed, I agree with a documented findings and plan of care. Patient was seen and examined.
[2022-02-17 15:29] LABS: Glucose,Whole Blood 145 mg/dL (70-110)
[2022-02-17] MEDS ORDERED: SUMAtriptan succinate 50 MG TAB PO PRN (16:21)
[2022-02-17] MEDS ORDERED: ACETAMINOPHEN TAB 325 MG TAB PO PRN (16:21)
[2022-02-17 16:36] LABS: Glucose,Whole Blood 83 mg/dL (70-110)
[2022-02-17] MEDS: PANTOPRAZOLE 40 MG TABLET PO SCH (16:41)
[2022-02-17] MEDS: MIDODRINE 5 MG TAB PO SCH (16:41)
[2022-02-17] MEDS: DULoxetine HCL 30 MG CAPSULE.DR PO SCH (16:41)
[2022-02-17] MEDS: GABAPENTIN 300 MG CAP PO SCH ×2 (16:41→22:13)
[2022-02-17] MEDS: PRAMIPEXOLE 0.25 MG TAB PO PRN (16:41)
[2022-02-17] MEDS: oxyCODONE-APAP 5-325MG 1 EACH TAB PO PRN (16:42)
[2022-02-17] MEDS: buPROPion XL 150 MG TAB.ER.24H PO SCH (17:28)
[2022-02-17] MEDS: FLUTICASONE 50MCG/SPRAY NASAL 16GM EA NOSTRIL SCH (17:28)
[2022-02-17] MEDS: MAG HYDROX/AL HYDROX/SIMETH 30 ML CUP PO PRN (17:33)
[2022-02-17] MEDS ORDERED: hydrOXYzine HCL 25 MG TAB PO SCH (21:00)
[2022-02-17] MEDS ORDERED: TOPIRAMATE 25 MG TAB PO SCH (21:00)
[2022-02-17] MEDS ORDERED: DULoxetine HCL 60 MG CAPSULE.DR PO SCH (21:00)
[2022-02-17] MEDS ORDERED: PRAMIPEXOLE 0.25 MG TAB PO SCH (21:00)
[2022-02-17 21:23] LABS: Glucose,Whole Blood 112 mg/dL (70-110)
[2022-02-17] MEDS: SENNOSIDES-DOCUSATE SODIUM 1 EACH TAB PO SCH (22:13)
[2022-02-18 00:31] LABS: Glucose,Whole Blood 79 mg/dL (70-110)
[2022-02-18] MEDS: PANTOPRAZOLE 40 MG TABLET PO SCH ×2 (07:01→18:09)
[2022-02-18] MEDS: MIDODRINE 5 MG TAB PO SCH ×3 (07:01→18:09)
[2022-02-18 07:56] LABS: Basophils # (A) 0.1 k/uL (0-0.2); Basophils % (A) 1 %; Eosinophils # (A) 0.4 k/uL (0-0.7); Eosinophils % (A) 5 %; HCT 44.1 % (34.0-46.0); HGB 14.3 gm/dL (11.4-16.0); Lymphocytes # (A) 1.5 k/uL (1.0-4.8); Lymphocytes % (A) 19 %; MCH 31.1 pg (25.0-35.0); MCHC 32.4 g/dL (31.0-37.0); Mean Platelet Volume 8.3; Monocytes # (A) 0.6 k/uL (0-1.0); Monocytes % (A) 7 %; Neutrophils # (A) 5.1 k/uL (1.3-7.7); Neutrophils % (A) 66 %; Platelet Count 257 k/uL (150-450); RDW 13.5 % (11.5-15.5); WBC 7.7 k/uL (3.8-10.6)
[2022-02-18 08:35] LABS: African American GFR (CKD) >90 (>60 ml/min/1.73 sqM); Anion Gap 12 mmol/L; Blood Urea Nitrogen 11 mg/dL (7-17); Calcium 8.6 mg/dL (8.4-10.2); Carbon Dioxide 25 mmol/L (22-30); Chloride 101 mmol/L (98-107); Glucose 93 mg/dL (74-99); Magnesium 2.4 mg/dL (1.6-2.3); Non-African American GFR(CKD) >90 (>60 ml/min/1.73 sqM); Potassium 4.3 mmol/L (3.5-5.1); Sodium 138 mmol/L (137-145)
[2022-02-18] MEDS ORDERED: AMINOPHYLLINE 500 MG/20 ML VIAL IV PRN (09:00)
[2022-02-18] MEDS ORDERED: polyethylene glycoL 3350 17 GM POWD.PACK PO SCH (09:00)
[2022-02-18] MEDS ORDERED: FOLIC ACID 1 MG TAB PO SCH (09:00)
[2022-02-18] MEDS ORDERED: REGADENOSON 0.4 MG/5 ML SYRINGE IV PRN (09:00)
[2022-02-18 09:50] VITALS: RESP 18
[2022-02-18] MEDS: MAG HYDROX/AL HYDROX/SIMETH 30 ML CUP PO PRN (09:50)
[2022-02-18] MEDS: oxyCODONE-APAP 5-325MG 1 EACH TAB PO PRN ×2 (09:51→18:09)
[2022-02-18] MEDS: GABAPENTIN 300 MG CAP PO SCH ×2 (09:55→18:09)
[2022-02-18] MEDS: buPROPion XL 150 MG TAB.ER.24H PO SCH (09:55)
[2022-02-18] MEDS: DULoxetine HCL 30 MG CAPSULE.DR PO SCH (09:56)
[2022-02-18] MEDS: FLUTICASONE 50MCG/SPRAY NASAL 16GM EA NOSTRIL SCH (09:56)
[2022-02-18] MEDS ORDERED: REGADENOSON 0.4 MG/5 ML SYRINGE IV ONE (10:52)
[2022-02-18] MEDS ORDERED: CAFFEINE CITRATE 60 MG/3 ML VIAL IV PRN (10:59)
--- NOTE | 2022-02-18 11:39 | P.PN ---
Subjective This is a pleasant 62-year-old female patient who follows regularly with Dr. Montano. She has a history of Von Willebrand's disease which she follows with Dr. Carrillo, chronic migraines, SVT and valvular disease but the details are unclear to her. Presented to the emergency department via EMS after developing some lightheadedness, dizziness, confusion and diaphoresis. Earlier in the day she did have an episode of palpitations and felt she may have had a brief episode of SVT. Blood glucose level was around 50 and she was given glucose by EMS and felt little bit better. While in the emergency department she did have a brief episode of discomfort under her left breast. Troponins came in to be mildly abnormal at 0.054, 0.073 and 0.045. Chest x-ray showed mild pulmonary fibrosis, no acute disease and no change. Vital signs stable. 02/18 Patient seen and examined at bedside, no acute distress. She denies any chest pain, shortness of breath or palpitations. Her vital signs are stable. She is maintaining sinus mechanism on the monitor heart rates 50/60s, no ectopy or arrhythmia noted. Labs, CBC unremarkable, sodium 138, potassium 4.3, BUN 11, serum creatinine 0.4, magnesium 2.4, blood sugar 93 Vitals reviewed GENERAL: Well-appearing, well-nourished and in no acute distress. NECK: Supple without JVD or thyromegaly. LUNGS: Breath sounds clear to auscultation bilaterally. Respiration equal and unlabored. No wheezes, rales or rhonchi. HEART: Regular rate and rhythm without murmurs, rubs or gallops. S1 and S2 heard. EXTREMITIES: Normal range of motion, no edema. No clubbing or cyanosis. Peripheral pulses intact. ASSESSMENT Symptoms of dizziness, confusion and diaphoresis in the setting of hypoglycemia Abnormal troponin of unclear significance History of SVT, maintaining sinus mechanism Von Willebrand's Disease PLAN Plan for 2-D echocardiogram and Lexiscan stress test today to evaluate for underlying ischemia Hematology consulted over the weekend for further recommendations due to patient's history of von Willebrand's disease in the event that the stress test is abnormal and patient requires cath/PCI as in that case the patient would require DAPT. Echocardiogram and stress test revealed no acute findings, no further inpatient workup from a cardiology perspective. Follow up outpatient with Dr. Montano. Nurse Practitioner note has been reviewed, I agree with a documented findings and plan of care. Patient was seen and examined. Objective - Vital Signs Vital signs: Vital Signs Temp 97.5 F L 02/18/22 09:50 Pulse 62 02/18/22 09:50 Resp 18 02/18/22 09:50 BP 118/77 02/18/22 09:50 Pulse Ox 97 02/18/22 09:50 FiO2 Intake & Output 02/17/22 02/18/22 02/18/22 18:59 06:59 18:59 Intake Total 980 20 10 Balance 980 20 10 Intake: IV 20 20 10 Invasive Line 1 20 20 10 Oral 960 Other: Voiding Method Toilet # Voids 2 - Labs CBC & Chem 7: 02/18/22 07:14 02/18/22 07:14 Labs: Abnormal Lab Results - Last 24 Hours (Table) 02/17/22 02/17/22 02/18/22 Range/Units 15:27 21:22 07:14 Creatinine 0.44 L (0.52-1.04) mg/dL POC Glucose (mg/dL) 145 H 112 H (70-110) mg/dL Magnesium 2.4 H (1.6-2.3) mg/dL
[2022-02-18 12:27] LABS: Glucose,Whole Blood 82 mg/dL (70-110)
--- NOTE | 2022-02-18 12:29 | NM ---
EXAMINATION TYPE: NM stress lexiscan cardiolite DATE OF EXAM: 02/18/2022 COMPARISON: NONE HISTORY: Pain TECHNIQUE: After the intravenous administration of 10.0 mCi Tc 99m Sestamibi - Cardiolite resting SP ECT images acquired 45 minutes post injection. The patient received 0.4mg Lexiscan, 24.3 mCi Tc 99m Sestamibi - Stress images obtained [address] injection FINDINGS: Review of stress and rest SPECT images demonstrates no distinct reversible perfusion abnormality. Ga donna analysis shows normal wall motion with an estimated left ventricular ejection fraction of 61 %. IMPRESSION: No scintigraphic evidence for reversible ischemia. Cannot exclude a small fixed defect compatible wit h tiny area of remote infarct. Correlate clinically.
[2022-02-18] MEDS: PRAMIPEXOLE 0.25 MG TAB PO PRN (13:39)
[2022-02-18] MEDS: SENNOSIDES-DOCUSATE SODIUM 1 EACH TAB PO SCH (13:39)
--- NOTE | 2022-02-18 16:00 | P.CONS ---
History of Present Illness - Reason for Consult Consult date: 02/18/22 VMD - History of Present Illness Anemia Von willebrand Disease HPI : This is a very nice lady who was diagnosed with VWD in around 2009 after she had significant perioperative bleeding after multiple surgeries,she also used to have heavy menstrual periods.(old records were reviewed) She has been using desmopressin PRN after occaisonal nose bleed,othwersie,she has not had any major recurrent bleeding issues. She also has histroy of gastric bypass which led to iron and B12 deficiency. She had EGD/colonoscopy on 07/15/2017. She has had parenteral iron is the past and also B12. She had tirals of DDAVP in the past which help to manage post op bleeding. She fell and had a right broken hip on 03/27/2021,which required surgery,she was put on eliquis,however,she developed significant bruising,hematoma also dranin age and bleeding from surgical site,eliquis was stopped. When last seen by Dr. Carrillo in office was now ambulating better,with a walker,no recurrent bleeding,no leg edema,no chest pain or dyspnea. She had parenteral iron infusion last month,ordered by Dr He. She was admitted with suspected UT and we were asked regarding concern that patient may require Anti-platelets or ASA. Review of Systems All systems: negative Constitutional: Reports as per HPI Past Medical History Past Medical History: Deep Vein Thrombosis (DVT), GERD/Reflux, Supraventricular Tachycardia (SVT) Additional Past Medical History / Comment(s): Von Willebrand Disease, diverticulitis, migraines, chronic back pain, DVT bilat. Restless leg syndrome. History of Any Multi-Drug Resistant Organisms: None Reported Past Surgical History: Adenoidectomy, Bariatric Surgery, Cholecystectomy, Hysterectomy, Joint Replacement, Orthopedic Surgery, Tonsillectomy Additional Past Surgical History / Comment(s): nury foot surgery, nury knee replaced, nury rotator cuffs, Judith en Y approx 5 years, bowel surgery. right shoulder replacement Past Anesthesia/Blood Transfusion Reactions: Postoperative Nausea & Vomiting (PONV) Smoking Status: Former smoker - Past Family History Mother Family Medical History: Cancer Father Family Medical History: Cancer Medications and Allergies Home Medications Medication Instructions Recorded Confirmed Type Fluticasone Nasal [place] [Flonase 1 spr EA NOSTRIL DAILY 06/20/17 02/17/22 History Nasal [place]] SUMAtriptan succinate [Imitrex] 100 mg PO DAILY PRN 06/20/17 02/17/22 History EPINEPHrine (Auto Inject) [Epipen] 0.3 mg IM ONCE PRN 06/24/19 02/17/22 History Pantoprazole [Protonix] 40 mg PO BID 06/24/19 02/17/22 History DULoxetine HCL [Cymbalta] 30 mg PO DAILY 04/07/20 02/17/22 History Pramipexole Di-HCl [Mirapex] 0.25 mg PO HS 04/07/20 02/17/22 History DULoxetine HCL [Cymbalta] 60 mg PO HS 03/27/21 02/17/22 History Furosemide [Lasix] 40 mg PO BID 03/27/21 02/17/22 History Neupro 8mg/24 Hr Patch 1 patch TRANSDERM DAILY 03/27/21 02/17/22 History buPROPion XL [Wellbutrin XL] 450 mg PO DAILY 03/27/21 02/17/22 History nadoloL [Corgard] 20 mg PO DAILY 03/27/21 02/17/22 History Cyanocobalamin [Vitamin B-12 1,000 mcg SQ Q30D 09/23/21 02/17/22 History Injection] Gabapentin 300 mg PO TID 09/23/21 02/17/22 History Midodrine [ProAmatine] 5 mg PO TID 09/23/21 02/17/22 History Naloxone HCl [Narcan] 4 mg NASAL ONCE PRN 09/23/21 02/17/22 History Nystatin 100,000 Unit/gm Powd 1 applic TOPICAL DAILY PRN 09/23/21 02/17/22 History [Mycostatin Powder] tiZANidine [Zanaflex] 2 - 4 mg PO TID PRN 09/23/21 02/17/22 History Ergocalciferol [Vitamin D2 (1250 1,250 mcg PO WE 11/28/21 02/17/22 History Mcg = 10092 Iu)] Folic Acid 1 mg PO DAILY 11/28/21 02/17/22 History Pramipexole [Mirapex] 0.25 mg PO DAILY PRN 11/28/21 02/17/22 History Topiramate [Topamax] 25 mg PO HS 11/28/21 02/17/22 History Acetaminophen Tab [Tylenol] 650 mg PO Q6HR PRN tab 12/02/21 02/17/22 Rx polyethylene glycoL 3350 [Miralax] 17 gm PO DAILY #14 packet 12/02/21 02/17/22 Rx Sennosides-Docusate Sodium 1 tab PO BID 02/17/22 02/17/22 History [Senokot-S] hydrOXYzine HCL [Atarax] 25 mg PO HS 02/17/22 02/17/22 History oxyCODONE-APAP 5-325MG [Percocet 1 tab PO Q6H PRN 02/17/22 02/17/22 History 5-325 mg] Allergies Allergy/AdvReac Type Severity Reaction Status Date / Time aspirin Allergy has Von Verified 02/17/22 12:35 Willebrands Disease ibuprofen [From Motrin] Allergy has Von Verified 02/17/22 12:35 Willebrands Disease Iodinated Contrast Media Allergy Anaphylaxis Verified 02/17/22 12:35 [Iodinated Contrast- Oral and IV Dye] isosorbide [From Imdur] Allergy Rash/Hives Verified 02/17/22 12:35 latex Allergy Anaphylaxis Verified 02/17/22 12:35 Sulfa (Sulfonamide Allergy Rash/Hives Verified 02/17/22 12:35 Antibiotics) codeine AdvReac agitation Verified 02/17/22 12:35 and restless leg symptoms increased Physical Exam Vitals: Vital Signs Temp Pulse Pulse Pulse Pulse Resp BP 02/18/22 04:45 98.3 F 63 16 02/18/22 00:24 98.0 F 59 L 16 02/17/22 20:00 98.3 F 60 15 02/17/22 16:31 97.6 F 61 16 02/17/22 14:20 69 02/17/22 14:15 65 02/17/22 14:10 65 02/17/22 12:00 97.8 F 84 16 114/67 BP BP BP Pulse Ox 02/18/22 04:45 133/83 95 02/18/22 00:24 123/80 97 02/17/22 20:00 97/62 97 02/17/22 16:31 105/68 96 02/17/22 14:20 130/66 02/17/22 14:15 121/73 02/17/22 14:10 117/53 02/17/22 12:00 98 Intake and Output 02/17/22 02/18/22 02/18/22 22:59 06:59 14:59 Intake Total 130 10 Balance 130 10 Intake: IV 10 10 Invasive Line 1 10 10 Oral 120 Other: Voiding Method Toilet Toilet # Voids 2 Results CBC & Chem 7: 02/18/22 07:14 02/18/22 07:14 Labs: Abnormal Lab Results - Last 24 Hours (Table) 02/17/22 02/17/22 02/17/22 Range/Units 07:45 15:27 21:22 Creatinine (0.52-1.04) mg/dL POC Glucose (mg/dL) 145 H 112 H (70-110) mg/dL Magnesium (1.6-2.3) mg/dL Troponin I 0.045 H* (0.000-0.034) ng/mL 02/18/22 Range/Units 07:14 Creatinine 0.44 L (0.52-1.04) mg/dL POC Glucose (mg/dL) (70-110) mg/dL Magnesium 2.4 H (1.6-2.3) mg/dL Troponin I (0.000-0.034) ng/mL Assessment and Plan (1) Syncope Narrative/Plan: Cardiology has cleared her therefore ASA and Anti platelets are it a factor, she was down with cardiology at time of rounds, spoke to nurse. Current Visit: No Status: Acute Code(s): R55 - SYNCOPE AND COLLAPSE SNOMED Code(s): 066543801 (2) Von Willebrands disease Current Visit: No Status: Acute Code(s): D68.0 - VON WILLEBRAND'S DISEASE SNOMED Code(s): 536032845
[2022-02-18 16:23] LABS: Glucose,Whole Blood 91 mg/dL (70-110)
[2022-02-18 17:03] LABS: Chol/HDL Ratio 2.65 Ratio; LDL Cholesterol,Calculated 99.9 mg/dL (0.0-131.0); VLDL Calculation 17.14 mg/dL (5.00-40.00)
--- NOTE | 2022-02-18 17:23 | P.DS ---
Providers Date of admission: 02/18/22 08:27 Expected date of discharge: 02/18/22 Attending physician: Maria T Longoria MD Consults: 02/17/22 00:12 Consult Physician Routine Consulting Provider: Ronaldo Montano Consult Reason/Comments: elevated troponin. Do you want consulting provider notified?: Yes 02/17/22 11:00 Consult Physician Routine Consulting Provider: Aleksey Carrillo Consult Reason/Comments: Von Willebrand's Disease Do you want consulting provider notified?: Yes Primary care physician: Stefan He MD Hospital Course: Discharge Diagnosis: Dizziness/lightheadedness and diaphoresis, believed to have resulted from isolated episode of hypoglycemia. Resolved with no further episodes of hypoglycemia. Elevated troponins, flat. Acute coronary event ruled out History of SVT Von Willebrand's disease Hospital Course: Patient is a very pleasant 62-year-old female with a past medical history of von Willebrand's disease, SVT, and chronic migraines. She presented to the ER on 02/17/22 with a chief complaint of dizziness/lightheadedness. Patient reported an episode of severe dizziness/lightheadedness resulting in activation of EMS. Patient was found to be diaphoretic and per documentation EMS reported a blood glucose of 50. Patient was transferred to the hospital and underwent full evaluation. She was found to have slightly elevated WBC count of 11.7 as well as an elevated troponin of 0.054. EKG completed revealing normal sinus rhythm at 60 bpm with no significant T-wave or ST abnormalities showing no signs of acute ischemia. Chest x-ray negative for acute cardiopulmonary process revealing mild pulmonary fibrosis. Patient was admitted under our services of consultation cardiology. Troponins were trended resulting in 0.054, 0.073, and 0.045. Patient reports full resolution of dizziness/lightheadedness since prior to arrival to the emergency department. Morning labs revealed resolution of leukocytosis with WBC count of 7.7. Lipid profile unremarkable. Patient was seen and evaluated by cardiology. Echocardiogram was completed and currently pending results. Lexiscan stress test completed showing no evidence for reversible ischemia. Cardiology recommended outpatient follow-up in their office. Patient medically stable at this time and has had no further episodes of hypoglycemia since arrival to our facility and again no further episodes of dizziness/lightheadedness reported. Patient free from any headache, lightheadedness, dizziness, chest pain, palpitations, shortness of breath, or experiencing any numbness/tingling/weakness in her extremities. Patient medically stable for discharge home and to follow up outpatient with PCP in 1-2 days and cardiology 2 weeks. Physical exam: Patient seen and examined at bedside. Vital signs reviewed and stable. General: Nontoxic, no distress and appears stated age. Derm: Skin warm and dry, normal coloration for ethnicity. Head: Atraumatic, normocephalic and symmetric. Eyes: EOMs intact, no lid lag, and anicteric sclera Mouth: no lip lesions, mucus membranes moist Cardiovascular: regular rate and rhythm with normal S1S2, systolic murmur, positive posterior tibial pulses bilaterally, and cap refill < 2 seconds. Lungs: Respirations even, regular, and unlabored on room air. Lungs CTA bilaterally, no rhonchi, no rales, no wheezing, and no accessory muscle usage. Abdominal: soft, nontender to palpation, no guarding, no appreciable organomega ly Ext: ROM intact. No gross muscle atrophy, no edema, no contractures Neuro: Speech clear, face symmetrical and CN II-XII grossly intact with no noted focal neuro deficits Psych: Alert and oriented to person, place, time, and situation. Appropriate and pleasant affect. A total of 34 minutes of time were spent preparing this complex discharge summary. Pt was discharged on 02/18/22 at 5:03 PM Patient Condition at Discharge: Stable Plan - Discharge Summary Discharge Rx Participant: Yes New Discharge Prescriptions: Continue Fluticasone Nasal [place] [Flonase Nasal [place]] 1 spr EA NOSTRIL DAILY SUMAtriptan succinate [Imitrex] 100 mg PO DAILY PRN PRN Reason: Migraine Headache EPINEPHrine (Auto Inject) [Epipen] 0.3 mg IM ONCE PRN PRN Reason: Anaphylaxis Pantoprazole [Protonix] 40 mg PO BID DULoxetine HCL [Cymbalta] 30 mg PO DAILY Pramipexole Di-HCl [Mirapex] 0.25 mg PO HS Neupro 8mg/24 Hr Patch 1 patch TRANSDERM DAILY nadoloL [Corgard] 20 mg PO DAILY DULoxetine HCL [Cymbalta] 60 mg PO HS buPROPion XL [Wellbutrin XL] 450 mg PO DAILY Gabapentin 300 mg PO TID Nystatin 100,000 Unit/gm Powd [Mycostatin Powder] 1 applic TOPICAL DAILY PRN PRN Reason: Rash Cyanocobalamin [Vitamin B-12 Injection] 1,000 mcg SQ Q30D Folic Acid 1 mg PO DAILY Topiramate [Topamax] 25 mg PO HS polyethylene glycoL 3350 [Miralax] 17 gm PO DAILY #14 packet hydrOXYzine HCL [Atarax] 25 mg PO HS oxyCODONE-APAP 5-325MG [Percocet 5-325 mg] 1 tab PO Q6H PRN PRN Reason: Pain Furosemide [Lasix] 40 mg PO BID Naloxone HCl [Narcan] 4 mg NASAL ONCE PRN PRN Reason: Overdose Midodrine [ProAmatine] 5 mg PO TID Ergocalciferol [Vitamin D2 (1250 Mcg = 71455 Iu)] 1,250 mcg PO WE Pramipexole [Mirapex] 0.25 mg PO DAILY PRN PRN Reason: RLS Acetaminophen Tab [Tylenol] 650 mg PO Q6HR PRN tab PRN Reason: Mild Pain Or Fever > 100.5 Sennosides-Docusate Sodium [Senokot-S] 1 tab PO BID No Action tiZANidine [Zanaflex] 2 - 4 mg PO TID PRN PRN Reason: Muscle Spasm Discharge Medication List Fluticasone Nasal [place] [Flonase Nasal [place]] 1 spr EA NOSTRIL DAILY 06/20/17 [History] SUMAtriptan succinate [Imitrex] 100 mg PO DAILY PRN 06/20/17 [History] EPINEPHrine (Auto Inject) [Epipen] 0.3 mg IM ONCE PRN 06/24/19 [History] Pantoprazole [Protonix] 40 mg PO BID 06/24/19 [History] DULoxetine HCL [Cymbalta] 30 mg PO DAILY 04/07/20 [History] Pramipexole Di-HCl [Mirapex] 0.25 mg PO HS 04/07/20 [History] DULoxetine HCL [Cymbalta] 60 mg PO HS 03/27/21 [History] Furosemide [Lasix] 40 mg PO BID 03/27/21 [History] Neupro 8mg/24 Hr Patch 1 patch TRANSDERM DAILY 03/27/21 [History] buPROPion XL [Wellbutrin XL] 450 mg PO DAILY 03/27/21 [History] nadoloL [Corgard] 20 mg PO DAILY 03/27/21 [History] Cyanocobalamin [Vitamin B-12 Injection] 1,000 mcg SQ Q30D 09/23/21 [History] Gabapentin 300 mg PO TID 09/23/21 [History] Midodrine [ProAmatine] 5 mg PO TID 09/23/21 [History] Naloxone HCl [Narcan] 4 mg NASAL ONCE PRN 09/23/21 [History] Nystatin 100,000 Unit/gm Powd [Mycostatin Powder] 1 applic TOPICAL DAILY PRN 09/23/21 [History] tiZANidine [Zanaflex] 2 - 4 mg PO TID PRN 09/23/21 [History] Ergocalciferol [Vitamin D2 (1250 Mcg = 21869 Iu)] 1,250 mcg PO WE 11/28/21 [Hi story] Folic Acid 1 mg PO DAILY 11/28/21 [History] Pramipexole [Mirapex] 0.25 mg PO DAILY PRN 11/28/21 [History] Topiramate [Topamax] 25 mg PO HS 11/28/21 [History] Acetaminophen Tab [Tylenol] 650 mg PO Q6HR PRN tab 12/02/21 [Rx] polyethylene glycoL 3350 [Miralax] 17 gm PO DAILY #14 packet 12/02/21 [Rx] Sennosides-Docusate Sodium [Senokot-S] 1 tab PO BID 02/17/22 [History] hydrOXYzine HCL [Atarax] 25 mg PO HS 02/17/22 [History] oxyCODONE-APAP 5-325MG [Percocet 5-325 mg] 1 tab PO Q6H PRN 02/17/22 [History] Follow up Appointment(s)/Referral(s): Ronaldo Montano MD [STAFF PHYSICIAN] - 2 Weeks Stefan He MD [Primary Care Provider] - 1-2 days Activity/Diet/Wound Care/Special Instructions: Activity: As tolerated. Take breaks as needed. Diet: Heart healthy and carb consistent diet. Avoid salts, or foods with hidden salts such as canned or boxed foods and frozen dinners. Extra salt makes your heart work harder and traps the fluid in your body for longer. Special Instructions: Take all of your medications as directed and remember to keep all of your doctor's appointments and follow-up as needed. Thank you for allowing us to participate in your care, it was truly a pleasure having you for our patient!!! Discharge Disposition: HOME SELF-CARE
[2022-02-18 18:27] VITALS: BP 105/70; PULSE 69; TEMP 97.7
--- NOTE | 2022-02-19 12:14 | CA ---
Transthoracic Echo Report Name: Rhonda Potter Age: 62 Gender: F : 1960 Exam Date: 02/18/2022 13:41 Exam Location: [facility] Ht (in): 66 Wt (lb): 216 Ordering Physician: Samantha Leiva Attending/Referring Phys: [id number] Senior Electronics Technician Procedure CPT: Indications: near syncope, elevated trop Cardiac Hx: Technical Quality: Good Contrast 1: Total Dose (mL): Contrast 2: Total Dose (mL): MEASUREMENTS (Male / Female) Normal Values 2D ECHO LV Diastolic Diameter PLAX 3.7 cm 4.2 - 5.9 / 3.9 - 5.3 cm LV Systolic Diameter PLAX 2.0 cm IVS Diastolic Thickness 1.4 cm 0.6 - 1.0 / 0.6 - 0.9 cm LVPW Diastolic Thickness 1.5 cm 0.6 - 1.0 / 0.6 - 0.9 cm LV Relative Wall Thickness 0.8 RV Internal Dim ED PLAX 3.2 cm LA Volume 42.1 cm??? 18 - 58 / 22 - 52 cm??? M-MODE Aortic Root Diameter MM 3.5 cm LA Systolic Diameter MM 3.1 cm LA Ao Ratio MM 0.9 MV E Point Septal Separation 0.8 cm AV Cusp Separation MM 1.8 cm DOPPLER AV Peak Velocity 161.4 cm/s AV Peak Gradient 10.4 mmHg MV Area PHT 5.6 cm??? MR Peak Velocity 348.1 cm/s MR Peak Gradient 48.5 mmHg Mitral E Point Velocity 76.3 cm/s Mitral A Point Velocity 122.1 cm/s Mitral E to A Ratio 0.6 MV Deceleration Time 135.8 ms MV E' Velocity 7.9 cm/s Mitral E to MV E' Ratio 9.7 TR Peak Velocity 225.5 cm/s TR Peak Gradient 20.3 mmHg Right Ventricular Systolic Press 23.4 mmHg FINDINGS Left Ventricle Moderately increased septal wall thickness. Moderately increased posterior wall thickness. Left ventricular ejection fraction is estimated at 55-60 %. Right Ventricle Normal right ventricular size. Right ventricular systolic pressure within normal limits. Right Atrium Normal right atrial size. Left Atrium Normal left atrial size. Mitral Valve Trace mitral regurgitation. Aortic Valve Structurally normal aortic valve without significant sclerosis or stenosis. There is no aortic regurgitation. Tricuspid Valve Structurally normal tricuspid valve without significant stenosis. Pulmonary artery systolic pressure is normal. Pulmonic Valve Structurally normal pulmonic valve without significant stenosis. There is no pulmonic regurgitation. Pericardium Normal pericardium without effusion. Aorta Normal aortic root dimension. CONCLUSIONS Normal left ventricular EF 55-60% Moderate LVH Trace mitral regurgitation No pericardial effusion Previewed by: Dr. Suleman Araujo DO (Electronically Signed) Final Date: 19 February 2022 12:14
== END 2022-02-18 18:36 | disposition home or self-care (01) ==
LOC: EC 21:35 → 3SCARD 02-17 00:12 → INTOOBSV 02-18 08:27 → OBSVTOIN 02-18 08:27 → UNDODISIN 02-18 18:36
PROVIDERS: ADMIT Internal Medicine; ATTEND Internal Medicine
DX: E16.2 Hypoglycemia, unspecified (principal); D68.0 Von Willebrand disease; D50.9 Iron deficiency anemia, unspecified; E53.8 Deficiency of other specified B group vitamins; G43.909 Migraine, unspecified, not intractable, without status migrainosus; R79.89 Other specified abnormal findings of blood chemistry; I25.2 Old myocardial infarction; K21.9 Gastro-esophageal reflux disease without esophagitis; J84.10 Pulmonary fibrosis, unspecified; G89.29 Other chronic pain; M54.9 Dorsalgia, unspecified; G25.81 Restless legs syndrome; E66.9 Obesity, unspecified; Z68.34 Body mass index [BMI] 34.0-34.9, adult; Z79.899 Other long term (current) drug therapy; Z88.6 Allergy status to analgesic agent; Z91.040 Latex allergy status; Z88.2 Allergy status to sulfonamides; Z91.041 Radiographic dye allergy status; Z88.5 Allergy status to narcotic agent; Z88.8 Allergy status to other drugs, medicaments and biological substances; Z96.82 Presence of neurostimulator; Z98.84 Bariatric surgery status; Z96.611 Presence of right artificial shoulder joint; Z90.710 Acquired absence of both cervix and uterus; Z90.49 Acquired absence of other specified parts of digestive tract; Z87.891 Personal history of nicotine dependence; Z86.718 Personal history of other venous thrombosis and embolism; Z87.19 Personal history of other diseases of the digestive system; Z96.653 Presence of artificial knee joint, bilateral; Z87.81 Personal history of (healed) traumatic fracture; Z98.890 Other specified postprocedural states; Z80.9 Family history of malignant neoplasm, unspecified
CPT/HCPCS: 99285; 36415; 93005; 93017; 93306; 80061; 80053; 80048; 83735; 84484 ×2; 85025 ×2; 85610; 85730; 81003; 71046; 78452; G0378 ×2; A9500; J2785

== ENCOUNTER → 2022-03-05 | Outpatient (CLI) | payer MEDICARE ==
--- NOTE | 2022-03-05 19:44 | CT ---
EXAMINATION TYPE: CT hip RT wo con CT DLP: 1071 mGycm, Automated exposure control for dose reduction was used. DATE OF EXAM: 03/05/2022 6:09 PM COMPARISON: CT right hip 09/23/2021 CLINICAL INDICATION:Female, 62 years old with history of M25.551 pain, S72.041D fracture;, Hx of Rt h ip fx and orthopedic sx. Follow up for possible hardware removal TECHNIQUE: Axial images were obtained of the right hip . Additional coronal and sagittal reformatted images and soft tissue and bone window were obtained for review. 3-D reconstruction was created on a separate workstation. Contrast used: None Oral contrast used: None FINDINGS: Post fixation changes of the right hip with hardware in place. Hardware appears intact and appropriate alignment. There is no evidence of acute fracture. No evidence of hardware loosening. Sang navarrete appears in stable position comparing to 09/23/2021. There appears good osseous bridging of the pr ior fracture. Soft tissues are otherwise unremarkable without evidence of organizing fluid collection .. There is postsurgical changes to the large bowel. Mild degeneration changes of the pubic symphysis. IMPRESSION: Right hip fixation hardware with hardware in appropriate position and intact. There is good osseous f usion of the prior fracture. No evidence of new acute fracture.
== END | disposition home or self-care (01) ==
LOC: RADCTMAIN 17:21
PROVIDERS: ATTEND Orthopaedic Surgery
DX: S72.041D Displaced fracture of base of neck of right femur, subsequent encounter for closed fracture with routine healing (principal)

== ENCOUNTER 2022-03-23 15:00 | Emergency (ER) | payer MEDICARE ==
--- NOTE | 2022-03-23 15:59 | US ---
EXAMINATION TYPE: US venous doppler duplex LE RT DATE OF EXAM: 03/23/2022 3:49 PM COMPARISON: NONE CLINICAL HISTORY: Pain. Broken right hip 1 year ago. Injury to anterior right lower leg, superior to ankle, discoloration and edema SIDE PERFORMED: right TECHNIQUE: The lower extremity deep venous system is examined utilizing real time linear array sonog amauri with graded compression, doppler sonography and color-flow sonography. VESSELS IMAGED: Common Femoral Vein Deep Femoral Vein Greater Saphenous Vein * Femoral Vein Popliteal Vein Small Saphenous Vein * Proximal Calf Veins (* superficial vessels) Right Leg: no evidence of DVT. Patient unable to tolerate compressions at lower femoral vein IMPRESSION: No sign of deep vein thrombosis in the right leg.
[2022-03-23] MEDS ORDERED: ONDANSETRON 4 MG/2 ML VIAL IVP STA (17:25)
[2022-03-23] MEDS ORDERED: MAG HYDROX/AL HYDROX/SIMETH 30 ML CUP PO STA (17:25)
[2022-03-23] MEDS ORDERED: cefTRIAXone IN SWFI 1,000 MG/10 ML SYRINGE IVP STA (17:27)
--- NOTE | 2022-03-23 17:36 | ED ---
General Adult HPI - General Chief complaint: Extremity Injury, Lower Stated complaint: Possible blood clot Time Seen by Provider: 03/23/22 16:58 Source: patient, RN notes reviewed Mode of arrival: ambulatory Limitations: no limitations - History of Present Illness Initial comments: 62-year-old female presents to the emergency department for evaluation of right lower extremity redness and pain. Patient states this began several days ago and has progressively worsened. Has not been seen by her PCP for this complaint. Did not take anything prior to arrival to treat her pain. Reports she has had previous episodes that were similar and has required antibiotic therapy. Has a history of von Willebrand's disease. Denies fever, chills, headache, shortness of breath, chest pain, abdominal pain, nausea, and vomiting. Denies any recent surgeries, extending travel, or prolonged immobilization. - Related Data Home Medications Medication Instructions Recorded Confirmed Fluticasone Nasal [place] [Flonase 1 spr EA NOSTRIL DAILY 06/20/17 02/17/22 Nasal [place]] SUMAtriptan succinate [Imitrex] 100 mg PO DAILY PRN 06/20/17 02/17/22 EPINEPHrine (Auto Inject) [Epipen] 0.3 mg IM ONCE PRN 06/24/19 02/17/22 Pantoprazole [Protonix] 40 mg PO BID 06/24/19 02/17/22 DULoxetine HCL [Cymbalta] 30 mg PO DAILY 04/07/20 02/17/22 Pramipexole Di-HCl [Mirapex] 0.25 mg PO HS 04/07/20 02/17/22 DULoxetine HCL [Cymbalta] 60 mg PO HS 03/27/21 02/17/22 Furosemide [Lasix] 40 mg PO BID 03/27/21 02/17/22 Neupro 8mg/24 Hr Patch 1 patch TRANSDERM DAILY 03/27/21 02/17/22 buPROPion XL [Wellbutrin XL] 450 mg PO DAILY 03/27/21 02/17/22 nadoloL [Corgard] 20 mg PO DAILY 03/27/21 02/17/22 Cyanocobalamin [Vitamin B-12 1,000 mcg SQ Q30D 09/23/21 02/17/22 Injection] Gabapentin 300 mg PO TID 09/23/21 02/17/22 Midodrine [ProAmatine] 5 mg PO TID 09/23/21 02/17/22 Naloxone HCl [Narcan] 4 mg NASAL ONCE PRN 09/23/21 02/17/22 Nystatin 100,000 Unit/gm Powd 1 applic TOPICAL DAILY PRN 09/23/21 02/17/22 [Mycostatin Powder] tiZANidine [Zanaflex] 2 - 4 mg PO TID PRN 09/23/21 02/17/22 Ergocalciferol [Vitamin D2 (1250 1,250 mcg PO WE 11/28/21 02/17/22 Mcg = 69719 Iu)] Folic Acid 1 mg PO DAILY 11/28/21 02/17/22 Pramipexole [Mirapex] 0.25 mg PO DAILY PRN 11/28/21 02/17/22 Topiramate [Topamax] 25 mg PO HS 11/28/21 02/17/22 Sennosides-Docusate Sodium 1 tab PO BID 02/17/22 02/17/22 [Senokot-S] hydrOXYzine HCL [Atarax] 25 mg PO HS 02/17/22 02/17/22 oxyCODONE-APAP 5-325MG [Percocet 1 tab PO Q6H PRN 02/17/22 02/17/22 5-325 mg] Previous Rx's Medication Instructions Recorded Acetaminophen Tab [Tylenol] 650 mg PO Q6HR PRN tab 12/02/21 polyethylene glycoL 3350 [Miralax] 17 gm PO DAILY #14 packet 12/02/21 Cephalexin [Keflex] 500 mg PO Q6HR 5 Days #20 cap 03/23/22 Allergies Allergy/AdvReac Type Severity Reaction Status Date / Time aspirin Allergy has Von Verified 03/23/22 15:08 Willebrands Disease ibuprofen [From Motrin] Allergy has Von Verified 03/23/22 15:08 Willebrands Disease Iodinated Contrast Media Allergy Anaphylaxis Verified 03/23/22 15:08 [Iodinated Contrast- Oral and IV Dye] isosorbide [From Imdur] Allergy Rash/Hives Verified 03/23/22 15:08 latex Allergy Anaphylaxis Verified 03/23/22 15:08 Sulfa (Sulfonamide Allergy Rash/Hives Verified 03/23/22 15:08 Antibiotics) codeine AdvReac agitation Verified 03/23/22 15:08 and restless leg symptoms increased Review of Systems ROS Statement: Those systems with pertinent positive or pertinent negative responses have been documented in the HPI. ROS Other: All systems not noted in ROS Statement are negative. Past Medical History Past Medical History: Deep Vein Thrombosis (DVT), GERD/Reflux, Supraventricular Tachycardia (SVT) Additional Past Medical History / Comment(s): Von Willebrand Disease, diverticulitis, migraines, chronic back pain, DVT bilat. Restless leg syndrome. History of Any Multi-Drug Resistant Organisms: None Reported Past Surgical History: Adenoidectomy, Bariatric Surgery, Cholecystectomy, Hysterectomy, Joint Replacement, Orthopedic Surgery, Tonsillectomy Additional Past Surgical History / Comment(s): nury foot surgery, nury knee replaced, nury rotator cuffs, Judith en Y approx 5 years, bowel surgery. right shoulder replacement Past Anesthesia/Blood Transfusion Reactions: Postoperative Nausea & Vomiting (PONV) Past Psychological History: No Psychological Hx Reported Smoking Status: Former smoker Past Alcohol Use History: None Reported Past Drug Use History: None Reported - Past Family History Mother Family Medical History: Cancer Father Family Medical History: Cancer General Exam Limitations: no limitations (Well-developed, well-nourished female in moderate distress due to pain. Initial temperature 98.2, pulse 91, respirations 20, blood pressure 129/84, pulse ox 99% on room air.) General appearance: alert, in no apparent distress ENT exam: Present: normal exam, normal oropharynx, mucous membranes moist Respiratory exam: Present: normal lung sounds bilaterally. Absent: respiratory distress, wheezes, rales, rhonchi, stridor Cardiovascular Exam: Present: regular rate, normal rhythm, normal heart sounds. Absent: systolic murmur, diastolic murmur, rubs, gallop, clicks Extremities exam: Present: normal inspection, full ROM, normal capillary refill, pedal edema. Absent: calf tenderness Right Knee exam: Present: normal inspection, full ROM. Absent: tenderness, swelling Lower Leg exam: Present: tenderness, swelling, erythema (erythema to the anterior aspect of the distal right lower extremity; hot to touch; painful; +2 pedal and post-tibial pulses) Ankle exam: Present: normal inspection, full ROM Foot/Toe exam: Present: normal inspection, full ROM Neurovascular tendon exam: Present: no vascular compromise. Absent: pulse deficit, abnormal cap refill, motor deficit, sensory deficit Neurological exam: Present: alert, oriented X3 Psychiatric exam: Present: normal affect, normal mood Course Vital Signs 03/23/22 03/23/22 15:06 18:30 Temperature 98.2 F 98.8 F Pulse Rate 91 66 Respiratory 20 18 Rate Blood Pressure 129/84 112/75 O2 Sat by Pulse 99 97 Oximetry Medical Decision Making - Medical Decision Making 62-year-old female with a past medical history of von Willebrand disease presents to the emergency department for evaluation of pain and erythema to the right lower extremity. Upon exam, patient is well-appearing and in no acute distress. She has moderate discomfort associated with an erythematous area on the anterior aspect of the distal right lower extremity. The erythematous areas warm to touch and painful upon palpation. Doppler study was obtained in triage and was negative for DVT. Laboratory studies were obtained and are unremarkable. Patient was given pain medication with improvement. As patient has a history of recurrent cellulitis in this area she will be started on an antibiotic and instructed to follow up with her PCP for a recheck. Return parameters were discussed in detail. Patient verbalizes understanding and agrees with this plan. Attending: Aleksey. - Lab Data Result diagrams: 03/23/22 17:55 03/23/22 17:55 Lab Results 03/23/22 03/23/22 Range/Units 17:55 17:55 WBC 6.9 (3.8-10.6) k/uL RBC 4.13 (3.80-5.40) m/uL Hgb 13.0 (11.4-16.0) gm/dL Hct 38.6 (34.0-46.0) % MCV 93.5 (80.0-100.0) fL MCH 31.5 (25.0-35.0) pg MCHC 33.7 (31.0-37.0) g/dL RDW 13.0 (11.5-15.5) % Plt Count 225 (150-450) k/uL MPV 8.3 Neutrophils % 62 % Lymphocytes % 23 % Monocytes % 8 % Eosinophils % 5 % Basophils % 1 % Neutrophils # 4.3 (1.3-7.7) k/uL Lymphocytes # 1.6 (1.0-4.8) k/uL Monocytes # 0.5 (0-1.0) k/uL Eosinophils # 0.4 (0-0.7) k/uL Basophils # 0.1 (0-0.2) k/uL Sodium 140 (137-145) mmol/L Potassium 3.6 (3.5-5.1) mmol/L Chloride 104 (98-107) mmol/L Carbon Dioxide 27 (22-30) mmol/L Anion Gap 9 mmol/L BUN 18 H (7-17) mg/dL Creatinine 0.55 (0.52-1.04) mg/dL Est GFR (CKD-EPI)AfAm >90 (>60 ml/min/1.73 sqM) Est GFR (CKD-EPI)NonAf >90 (>60 ml/min/1.73 sqM) Glucose 79 (74-99) mg/dL Calcium 9.0 (8.4-10.2) mg/dL - Radiology Data Radiology results: report reviewed, image reviewed Venous Doppler of the right lower extremity was obtained. Report was reviewed in its entirety. Impression per Dr. Agudelo is no sign of deep vein thrombosis of the right leg. Disposition Clinical Impression: Cellulitis of right anterior lower leg Disposition: HOME SELF-CARE Condition: Stable Instructions (If sedation given, give patient instructions): Cellulitis (ED) Additional Instructions: You are being prescribed Cephalexin which is antibiotic to treat cellulitis. Take antibiotic exactly as prescribed. Follow-up with your PCP for a recheck on Friday. Elevate the affected extremity while at rest. You may take Tylenol if needed for pain. Return to the emergency department with any new, worsening, or concerning symptoms. Prescriptions: Cephalexin [Keflex] 500 mg PO Q6HR 5 Days #20 cap Is patient prescribed a controlled substance at d/c from ED?: No Referrals: Stefan He MD [Primary Care Provider] - 1-2 days Time of Disposition: 18:37
[2022-03-23] MEDS ORDERED: KETOROLAC 15 MG/ML 1 ML VIAL IVP STA (17:56)
[2022-03-23 18:01] LABS: Basophils # (A) 0.1 k/uL (0-0.2); Basophils % (A) 1 %; Eosinophils # (A) 0.4 k/uL (0-0.7); Eosinophils % (A) 5 %; HCT 38.6 % (34.0-46.0); Lymphocytes # (A) 1.6 k/uL (1.0-4.8); Lymphocytes % (A) 23 %; MCH 31.5 pg (25.0-35.0); MCHC 33.7 g/dL (31.0-37.0); MCV 93.5 fL (80.0-100.0); Mean Platelet Volume 8.3; Monocytes # (A) 0.5 k/uL (0-1.0); Monocytes % (A) 8 %; Neutrophils # (A) 4.3 k/uL (1.3-7.7); Neutrophils % (A) 62 %; Platelet Count 225 k/uL (150-450); RBC 4.13 m/uL (3.80-5.40); WBC 6.9 k/uL (3.8-10.6)
[2022-03-23 18:10] LABS: African American GFR (CKD) >90 (>60 ml/min/1.73 sqM); Anion Gap 9 mmol/L; Blood Urea Nitrogen 18 mg/dL (7-17); Carbon Dioxide 27 mmol/L (22-30); Chloride 104 mmol/L (98-107); Glucose 79 mg/dL (74-99); Non-African American GFR(CKD) >90 (>60 ml/min/1.73 sqM); Potassium 3.6 mmol/L (3.5-5.1); Sodium 140 mmol/L (137-145)
[2022-03-23] MEDS ORDERED: ONDANSETRON 4 MG ODT STARTER PACK 2 TAB BTL PO STA (18:17)
[2022-03-23] MEDS ORDERED: ACET/COD 300 MG/30 MG STARTER PACK 6 TAB BTL PO STA (18:17)
[2022-03-23 18:31] VITALS: BP 112/75; PULSE 66; RESP 18; TEMP 98.8
== END 2022-03-23 18:36 | disposition home or self-care (01) ==
LOC: EC 15:00
DX: L03.115 Cellulitis of right lower limb (principal); Z87.891 Personal history of nicotine dependence; K21.9 Gastro-esophageal reflux disease without esophagitis; Z86.718 Personal history of other venous thrombosis and embolism; Z96.653 Presence of artificial knee joint, bilateral; Z90.49 Acquired absence of other specified parts of digestive tract; Z90.89 Acquired absence of other organs; Z88.5 Allergy status to narcotic agent; Z88.2 Allergy status to sulfonamides; Z91.041 Radiographic dye allergy status; Z88.8 Allergy status to other drugs, medicaments and biological substances; Z88.6 Allergy status to analgesic agent; Z79.899 Other long term (current) drug therapy
CPT/HCPCS: 36415; 80048; 85025; 93971; 99284; 96374; 96375; J2405; J0696; J1885; S0119

== ENCOUNTER → 2022-04-11 | Outpatient (CLI) | payer MEDICARE ==
--- NOTE | 2022-04-12 08:27 | MM ---
Reason for Exam: Screening (asymptomatic). Last mammogram was performed 1 year(s) and 10 month(s) ago. Patient History: Menarche at age 10. First Full-Term at age 17. Hysterectomy at age 33. Postmenopausal. Estrogen, starting at age 33 for 1 year. Mother had ovarian cancer. Risk Values: Latisha 5 year model risk: 1.2%. NCI Lifetime model risk: 4.7%. Prior Study Comparison: 04/30/2016 Screening Mammogram, [facility]. 07/08/2017 Bilateral Screening Mammogram, [facility]. 06/22/2020 Bilateral Screening Mammogram, [facility]. Tissue Density: The breast tissue is almost entirely fat. Findings: Analyzed By CAD. There is no suspicious group of microcalcifications or new suspicious mass in either breast. Overall Assessment: Negative, BI-RAD 1 Management: Screening Mammogram of both breasts in 1 year. A clinical breast exam by your physician is recommended on an annual basis and results should be correlated with mammographic findings. [facility] will attempt to contact patient to return for supplemental views and ultrasound if indicated. Electronically signed and approved by: Alvarado Sebastian DO
== END | disposition home or self-care (01) ==
LOC: RADMAMWWP 09:12
PROVIDERS: ATTEND Internal Medicine
DX: Z12.31 Encounter for screening mammogram for malignant neoplasm of breast (principal); Z78.0 Asymptomatic menopausal state; Z80.41 Family history of malignant neoplasm of ovary
CPT/HCPCS: 77063; 77067

== ENCOUNTER 2022-06-01 17:44 | Observation (INO) | payer MEDICARE, OTHER ==
--- NOTE | 2022-06-01 18:09 | ED ---
General Adult HPI - General Chief complaint: Chest Pain Stated complaint: Chest Pain Time Seen by Provider: 06/01/22 17:45 Source: patient, EMS Mode of arrival: EMS Limitations: no limitations - History of Present Illness Initial comments: Patient presents to the ED by ambulance for evaluation. Patient reports having intermittent, left-sided chest pain since this morning. Patient states that she has had associated lightheadedness this evening, and she also states that her pain began radiating to her left arm this evening. Patient states that she r ecently got over an upper respiratory infection, and she denies having a cough at this time. Patient reports that her chest pain is worse with deep inspiration. Patient denies known trauma or injury, fever or chills, headache, focal numbness/weakness/neuro deficit, neck/jaw pain, back pain, dyspnea, palpitations, syncope, nausea/vomiting/diaphoresis, abdominal pain, bloody or melanotic stool, dysuria or urinary symptoms, decreased urine output, leg or calf swelling or pain, or any other symptoms or complaints. Patient states that her chest pain is currently mild. Patient was given aspirin and morphine by EMS. - Related Data Home Medications Medication Instructions Recorded Confirmed Fluticasone Nasal [place] [Flonase 1 spr EA NOSTRIL DAILY 06/20/17 02/17/22 Nasal [place]] SUMAtriptan succinate [Imitrex] 100 mg PO DAILY PRN 06/20/17 02/17/22 EPINEPHrine (Auto Inject) [Epipen] 0.3 mg IM ONCE PRN 06/24/19 02/17/22 Pantoprazole [Protonix] 40 mg PO BID 06/24/19 02/17/22 DULoxetine HCL [Cymbalta] 30 mg PO DAILY 04/07/20 02/17/22 Pramipexole Di-HCl [Mirapex] 0.25 mg PO HS 04/07/20 02/17/22 DULoxetine HCL [Cymbalta] 60 mg PO HS 03/27/21 02/17/22 Furosemide [Lasix] 40 mg PO BID 03/27/21 02/17/22 Neupro 8mg/24 Hr Patch 1 patch TRANSDERM DAILY 03/27/21 02/17/22 buPROPion XL [Wellbutrin XL] 450 mg PO DAILY 03/27/21 02/17/22 nadoloL [Corgard] 20 mg PO DAILY 03/27/21 02/17/22 Cyanocobalamin [Vitamin B-12 1,000 mcg SQ Q30D 09/23/21 02/17/22 Injection] Gabapentin 300 mg PO TID 09/23/21 02/17/22 Midodrine [ProAmatine] 5 mg PO TID 09/23/21 02/17/22 Naloxone HCl [Narcan] 4 mg NASAL ONCE PRN 09/23/21 02/17/22 Nystatin 100,000 Unit/gm Powd 1 applic TOPICAL DAILY PRN 09/23/21 02/17/22 [Mycostatin Powder] tiZANidine [Zanaflex] 2 - 4 mg PO TID PRN 09/23/21 02/17/22 Ergocalciferol [Vitamin D2 (1250 1,250 mcg PO WE 11/28/21 02/17/22 Mcg = 85211 Iu)] Folic Acid 1 mg PO DAILY 11/28/21 02/17/22 Pramipexole [Mirapex] 0.25 mg PO DAILY PRN 11/28/21 02/17/22 Topiramate [Topamax] 25 mg PO HS 11/28/21 02/17/22 Sennosides-Docusate Sodium 1 tab PO BID 02/17/22 02/17/22 [Senokot-S] hydrOXYzine HCL [Atarax] 25 mg PO HS 02/17/22 02/17/22 oxyCODONE-APAP 5-325MG [Percocet 1 tab PO Q6H PRN 02/17/22 02/17/22 5-325 mg] Previous Rx's Medication Instructions Recorded Acetaminophen Tab [Tylenol] 650 mg PO Q6HR PRN tab 12/02/21 polyethylene glycoL 3350 [Miralax] 17 gm PO DAILY #14 packet 12/02/21 Cephalexin [Keflex] 500 mg PO Q6HR 5 Days #20 cap 03/23/22 Allergies Allergy/AdvReac Type Severity Reaction Status Date / Time aspirin Allergy has Von Verified 03/23/22 15:08 Willebrands Disease ibuprofen [From Motrin] Allergy has Von Verified 03/23/22 15:08 Willebrands Disease Iodinated Contrast Media Allergy Anaphylaxis Verified 03/23/22 15:08 [Iodinated Contrast- Oral and IV Dye] isosorbide [From Imdur] Allergy Rash/Hives Verified 03/23/22 15:08 latex Allergy Anaphylaxis Verified 03/23/22 15:08 Sulfa (Sulfonamide Allergy Rash/Hives Verified 03/23/22 15:08 Antibiotics) codeine AdvReac agitation Verified 03/23/22 15:08 and restless leg symptoms increased Review of Systems ROS Statement: Those systems with pertinent positive or pertinent negative responses have been documented in the HPI. ROS Other: All systems not noted in ROS Statement are negative. Past Medical History Past Medical History: Deep Vein Thrombosis (DVT), GERD/Reflux, Supraventricular Tachycardia (SVT) Additional Past Medical History / Comment(s): Von Willebrand Disease, diverticulitis, migraines, chronic back pain, DVT bilat. Restless leg syndrome. History of Any Multi-Drug Resistant Organisms: None Reported Past Surgical History: Adenoidectomy, Bariatric Surgery, Cholecystectomy, Hysterectomy, Joint Replacement, Orthopedic Surgery, Tonsillectomy Additional Past Surgical History / Comment(s): nury foot surgery, nury knee replaced, nury rotator cuffs, Judith en Y approx 5 years, bowel surgery. right shoulder replacement Past Anesthesia/Blood Transfusion Reactions: Postoperative Nausea & Vomiting (PONV) Past Psychological History: No Psychological Hx Reported Smoking Status: Former smoker Past Alcohol Use History: None Reported Past Drug Use History: None Reported - Past Family History Mother Family Medical History: Cancer Father Family Medical History: Cancer General Exam Limitations: no limitations General appearance: alert, in no apparent distress Head exam: Present: atraumatic, normocephalic Eye exam: Present: normal appearance, EOMI ENT exam: Present: mucous membranes moist Neck exam: Present: other (Trachea is in midline) Respiratory exam: Present: normal lung sounds bilaterally, other (Reproducible left anterior chest wall tenderness; no chest wall ecchymosis, rash, crepitation or deformity is noted). Absent: respiratory distress, wheezes, rales, rhonchi, stridor Cardiovascular Exam: Present: regular rate, normal rhythm, normal heart sounds, other (Normal radial pulses bilaterally) GI/Abdominal exam: Present: soft. Absent: distended, tenderness, guarding Extremities exam: Present: other (Negative Homans sign bilaterally). Absent: te nderness, pedal edema, calf tenderness Neurological exam: Present: alert, oriented X3. Absent: motor sensory deficit Psychiatric exam: Present: normal affect, normal mood Skin exam: Present: warm, dry, intact, normal color Course Vital Signs 06/01/22 06/01/22 17:56 19:29 Temperature 998.7 F H Pulse Rate 64 70 Respiratory 16 16 Rate Blood Pressure 144/77 122/86 O2 Sat by Pulse 98 99 Oximetry - Reevaluation(s) Reevaluation #1: 06/01/22 19:47 Patient reports that her pain is starting to return, and she is requesting more pain medication. Patient denies development of any new symptoms comes while in the ED. Patient remains alert and breathing comfortably with a normal room air oxygen saturation. Given the patient's symptoms and continued chest pain, patient agrees with hospital admission for further evaluation and monitoring. Patient is aware of her test results. 06/01/22 19:53 Case, H&P, test results and ED/EMS management were discussed with Dr. Smith. He accepts hospital admission. He has no further recommendations at this time. EKG Findings - EKG Comments: EKG Findings:: ED physician interpretation: Normal sinus rhythm, ventricular rate of 62 bpm, no ectopy, normal OR and QRS intervals, normal QT interval, normal axis, no ST or T-wave abnormality Medical Decision Making - Medical Decision Making Patient's EKG and chest x-ray are fairly unremarkable. Patient's troponin and d-dimer are both negative. Given the patient's history and continued chest pain, will admit the patient to the hospital for cardiac monitoring, serial troponins and further evaluation. Patient agrees with this plan. Dr. Smith has accepted hospital admission. - Lab Data Result diagrams: 06/01/22 18:09 06/01/22 18:09 Lab Results 06/01/22 06/01/22 06/01/22 Range/Units 18:09 18:09 18:09 WBC 6.9 (3.8-10.6) k/uL RBC 4.02 (3.80-5.40) m/uL Hgb 12.8 (11.4-16.0) gm/dL Hct 37.5 (34.0-46.0) % MCV 93.3 D (80.0-100.0) fL MCH 31.9 (25.0-35.0) pg MCHC 34.2 (31.0-37.0) g/dL RDW 12.7 (11.5-15.5) % Plt Count 211 (150-450) k/uL MPV 8.4 Neutrophils % 68 % Lymphocytes % 19 % Monocytes % 7 % Eosinophils % 4 % Basophils % 1 % Neutrophils # 4.7 (1.3-7.7) k/uL Lymphocytes # 1.3 (1.0-4.8) k/uL Monocytes # 0.5 (0-1.0) k/uL Eosinophils # 0.3 (0-0.7) k/uL Basophils # 0.0 (0-0.2) k/uL PT 9.9 (9.0-12.0) sec INR 0.9 (<1.2) APTT 23.1 (22.0-30.0) sec D-Dimer 0.53 (<0.60) mg/L FEU Sodium 137 (137-145) mmol/L Potassium 4.1 (3.5-5.1) mmol/L Chloride 102 (98-107) mmol/L Carbon Dioxide 32 H (22-30) mmol/L Anion Gap 3 mmol/L BUN 16 (7-17) mg/dL Creatinine 0.56 (0.52-1.04) mg/dL Est GFR (CKD-EPI)AfAm >90 (>60 ml/min/1.73 sqM) Est GFR (CKD-EPI)NonAf >90 (>60 ml/min/1.73 sqM) Glucose 86 (74-99) mg/dL Calcium 8.3 L (8.4-10.2) mg/dL Magnesium 2.1 (1.6-2.3) mg/dL Total Bilirubin 0.4 (0.2-1.3) mg/dL AST 109 H (14-36) U/L ALT 46 H (4-34) U/L Alkaline Phosphatase 110 (38-126) U/L Troponin I (0.000-0.034) ng/mL NT-Pro-B Natriuret Pep pg/mL Total Protein 6.6 (6.3-8.2) g/dL Albumin 3.8 (3.5-5.0) g/dL 06/01/22 06/01/22 Range/Units 18:09 18:09 WBC (3.8-10.6) k/uL RBC (3.80-5.40) m/uL Hgb (11.4-16.0) gm/dL Hct (34.0-46.0) % MCV (80.0-100.0) fL MCH (25.0-35.0) pg MCHC (31.0-37.0) g/dL RDW (11.5-15.5) % Plt Count (150-450) k/uL MPV Neutrophils % % Lymphocytes % % Monocytes % % Eosinophils % % Basophils % % Neutrophils # (1.3-7.7) k/uL Lymphocytes # (1.0-4.8) k/uL Monocytes # (0-1.0) k/uL Eosinophils # (0-0.7) k/uL Basophils # (0-0.2) k/uL PT (9.0-12.0) sec INR (<1.2) APTT (22.0-30.0) sec D-Dimer (<0.60) mg/L FEU Sodium (137-145) mmol/L Potassium (3.5-5.1) mmol/L Chloride (98-107) mmol/L Carbon Dioxide (22-30) mmol/L Anion Gap mmol/L BUN (7-17) mg/dL Creatinine (0.52-1.04) mg/dL Est GFR (CKD-EPI)AfAm (>60 ml/min/1.73 sqM) Est GFR (CKD-EPI)NonAf (>60 ml/min/1.73 sqM) Glucose (74-99) mg/dL Calcium (8.4-10.2) mg/dL Magnesium (1.6-2.3) mg/dL Total Bilirubin (0.2-1.3) mg/dL AST (14-36) U/L ALT (4-34) U/L Alkaline Phosphatase (38-126) U/L Troponin I <0.012 (0.000-0.034) ng/mL NT-Pro-B Natriuret Pep 263 pg/mL Total Protein (6.3-8.2) g/dL Albumin (3.5-5.0) g/dL - Radiology Data Chest x-ray: Bibasilar atelectasis without focal airspace consolidation. Disposition Clinical Impression: Chest pain Disposition: ADMITTED IP TO THIS HOSP Condition: Stable Is patient prescribed a controlled substance at d/c from ED?: No Referrals: Stefan He MD [Primary Care Provider] - 1-2 days Time of Disposition: 19:54
[2022-06-01 18:19] LABS: Basophils % (A) 1 %; Eosinophils # (A) 0.3 k/uL (0-0.7); Eosinophils % (A) 4 %; HCT 37.5 % (34.0-46.0); HGB 12.8 gm/dL (11.4-16.0); Lymphocytes # (A) 1.3 k/uL (1.0-4.8); Lymphocytes % (A) 19 %; MCH 31.9 pg (25.0-35.0); MCHC 34.2 g/dL (31.0-37.0); Mean Platelet Volume 8.4; Monocytes # (A) 0.5 k/uL (0-1.0); Monocytes % (A) 7 %; Neutrophils # (A) 4.7 k/uL (1.3-7.7); Neutrophils % (A) 68 %; Platelet Count 211 k/uL (150-450); RBC 4.02 m/uL (3.80-5.40); RDW 12.7 % (11.5-15.5); WBC 6.9 k/uL (3.8-10.6)
[2022-06-01 18:35] LABS: ALT 46 U/L (4-34); AST 109 U/L (14-36); African American GFR (CKD) >90 (>60 ml/min/1.73 sqM); Albumin 3.8 g/dL (3.5-5.0); Alkaline Phosphatase 110 U/L (38-126); Anion Gap 3 mmol/L; Blood Urea Nitrogen 16 mg/dL (7-17); Calcium 8.3 mg/dL (8.4-10.2); Carbon Dioxide 32 mmol/L (22-30); Chloride 102 mmol/L (98-107); Glucose 86 mg/dL (74-99); Magnesium 2.1 mg/dL (1.6-2.3); Non-African American GFR(CKD) >90 (>60 ml/min/1.73 sqM); Potassium 4.1 mmol/L (3.5-5.1); Sodium 137 mmol/L (137-145); Total Bilirubin 0.4 mg/dL (0.2-1.3); Total Protein 6.6 g/dL (6.3-8.2)
[2022-06-01 18:42] LABS: INR 0.9 (<1.2); Partial Thromboplastin Time 23.1 sec (22.0-30.0); Prothrombin Time 9.9 sec (9.0-12.0)
[2022-06-01 18:52] LABS: MCV 93.3 fL (80.0-100.0)
[2022-06-01] MEDS ORDERED: MORPHINE SULFATE 4 MG/ML SYRINGE IVP STA (19:46)
[2022-06-01] MEDS ORDERED: MAG HYDROX/AL HYDROX/SIMETH 30 ML CUP PO STA (19:50)
[2022-06-01] MEDS ORDERED: NALOXONE 0.4 MG/ML 1 ML VIAL IV PRN (19:55)
--- NOTE | 2022-06-01 19:59 | XR ---
EXAMINATION TYPE: XR chest 2V DATE OF EXAM: 06/01/2022 6:36 PM COMPARISON: Chest x-ray 02/16/2022 TECHNIQUE: XR chest 2V . CLINICAL INDICATION:Female, 62 years old with history of Chest Pain; FINDINGS: Lungs/Pleura: Low lung volumes. Bibasilar subsegmental atelectasis. No focal airspace consolidations. No pneumothorax or sizable pleural effusions. Pulmonary vascularity: Mild prominent perihilar vessels, likely due to low lung volumes. Heart/mediastinum: Cardiomediastinal silhouette is unremarkable. Musculoskeletal: Right total shoulder arthroplasty. Degenerative changes of the thoracic spine. Other findings: Spinal stimulator leads present. IMPRESSION: Bibasilar atelectasis without focal airspace consolidation.
[2022-06-02] MEDS ORDERED: traZODone HCL 100 MG TAB PO SCH (02:37)
[2022-06-02] MEDS ORDERED: oxyCODONE-APAP 5-325MG 1 EACH TAB PO PRN (02:37)
[2022-06-02] MEDS ORDERED: DULoxetine HCL 60 MG CAPSULE.DR PO SCH (02:37)
[2022-06-02] MEDS ORDERED: ACETAMINOPHEN TAB 325 MG TAB PO PRN (02:37)
[2022-06-02] MEDS ORDERED: TOPIRAMATE 25 MG TAB PO SCH (02:37)
[2022-06-02] MEDS ORDERED: MORPHINE SULFATE 4 MG/ML SYRINGE IVP STA ×2 (02:39→08:51)
[2022-06-02] MEDS ORDERED: ALPRAZolam 0.25 MG TAB PO PRN (02:39)
[2022-06-02] MEDS: PANTOPRAZOLE 40 MG TABLET PO SCH ×2 (02:48→08:46)
[2022-06-02] MEDS ORDERED: MAG HYDROX/AL HYDROX/SIMETH 30 ML CUP PO PRN (02:49)
--- NOTE | 2022-06-02 02:49 | P.HPIM ---
History of Present Illness H&P Date: 06/01/22 Chief Complaint: chest pain 62 year old female with SVT patient comes in due to chest pain , left sided pleuritic in nature, worse with touching the area, deep breath , and moving her LUE, pain started this morning sharp short lived, intermittent , then later she started having difficulty breathing due to worsening pain with breathing and radiation to the left arm so she decided to come in for evaluation , she recently had a negative stress test about couple months ago, she does not take any NSAIDs or ASA due to Von willbrand disease , she reports occasional melena and vomiting, and she is scheduled for EGD in few days. otherwise denies any fever, chills or weight l oss. she has just recovered from an URI. workup in the ED unremarkable trops negative CXR no acute pathology , except for some atelactesis EKG no acute ST changes AST /ALT slightly elevated Review of Systems Pertinent positives as noted in HPI. All other systems were reviewed and are negative Past Medical History Past Medical History: Deep Vein Thrombosis (DVT), GERD/Reflux, Supraventricular Tachycardia (SVT) Additional Past Medical History / Comment(s): Von Willebrand Disease, diverticulitis, migraines, chronic back pain, DVT bilat. Restless leg syndrome. History of Any Multi-Drug Resistant Organisms: None Reported Past Surgical History: Adenoidectomy, Bariatric Surgery, Cholecystectomy, Heart Catheterization, Hysterectomy, Joint Replacement, Orthopedic Surgery, Tonsillectomy Additional Past Surgical History / Comment(s): nury foot surgery, nury knee replaced, nury rotator cuffs, Judith en Y approx 5 years, bowel surgery. right shoulder replacement,right hip replaced Past Anesthesia/Blood Transfusion Reactions: Postoperative Nausea & Vomiting (PONV) Past Psychological History: Anxiety, Depression Smoking Status: Former smoker Past Alcohol Use History: Occasional Additional Past Alcohol Use History / Comment(s): Quit smoking 1975. Smoked very little. Past Drug Use History: None Reported - Past Family History Mother Family Medical History: Cancer Father Family Medical History: Cancer Medications and Allergies Home Medications Medication Instructions Recorded Confirmed Type Fluticasone Nasal [place] [Flonase 1 spr EA NOSTRIL DAILY 06/20/17 06/01/22 History Nasal [place]] SUMAtriptan succinate [Imitrex] 100 mg PO DAILY PRN 06/20/17 06/01/22 History EPINEPHrine (Auto Inject) [Epipen] 0.3 mg IM ONCE PRN 06/24/19 06/01/22 History Pantoprazole [Protonix] 40 mg PO BID 06/24/19 06/01/22 History DULoxetine HCL [Cymbalta] 30 mg PO DAILY 04/07/20 06/01/22 History Pramipexole Di-HCl [Mirapex] 0.5 mg PO HS 04/07/20 06/01/22 History DULoxetine HCL [Cymbalta] 60 mg PO HS 03/27/21 06/01/22 History Furosemide [Lasix] 40 mg PO BID 03/27/21 06/01/22 History Neupro 8mg/24 Hr Patch 1 patch TRANSDERM HS 03/27/21 06/01/22 History buPROPion XL [Wellbutrin XL] 450 mg PO DAILY 03/27/21 06/01/22 History nadoloL [Corgard] 20 mg PO DAILY 03/27/21 06/01/22 History Cyanocobalamin [Vitamin B-12 1,000 mcg SQ Q30D 09/23/21 06/01/22 History Injection] Midodrine [ProAmatine] 5 mg PO TID 09/23/21 06/01/22 History Naloxone HCl [Narcan] 4 mg NASAL ONCE PRN 09/23/21 06/01/22 History Nystatin 100,000 Unit/gm Powd 1 applic TOPICAL DAILY PRN 09/23/21 06/01/22 History [Mycostatin Powder] tiZANidine [Zanaflex] 2 - 4 mg PO TID PRN 09/23/21 06/01/22 History Folic Acid 1 mg PO DAILY 11/28/21 06/01/22 History Topiramate [Topamax] 25 mg PO HS 11/28/21 06/01/22 History Acetaminophen Tab [Tylenol] 650 mg PO Q6HR PRN tab 12/02/21 06/01/22 Rx Sennosides-Docusate Sodium 2 tab PO HS 02/17/22 06/01/22 History [Senokot-S] oxyCODONE-APAP 5-325MG [Percocet 1 tab PO Q6H PRN 02/17/22 06/01/22 History 5-325 mg] Cholecalciferol [Vitamin D3 (25 50 mcg PO DAILY 06/01/22 06/01/22 History Mcg = 1000 Iu)] Prochlorperazine [Compazine] 5 mg PO Q8H PRN 06/01/22 06/01/22 History Sucralfate [Carafate] 1 gm PO ACHS PRN 06/01/22 06/01/22 History traZODone HCL [Desyrel] 200 mg PO HS 06/01/22 06/01/22 History Allergies Allergy/AdvReac Type Severity Reaction Status Date / Time aspirin Allergy has Von Verified 06/01/22 20:41 Willebrands Disease ibuprofen [From Motrin] Allergy has Von Verified 06/01/22 20:41 Willebrands Disease Iodinated Contrast Media Allergy Anaphylaxis Verified 06/01/22 20:41 [Iodinated Contrast- Oral and IV Dye] isosorbide [From Imdur] Allergy Rash/Hives Verified 06/01/22 20:41 latex Allergy Anaphylaxis Verified 06/01/22 20:41 Sulfa (Sulfonamide Allergy Rash/Hives Verified 06/01/22 20:41 Antibiotics) codeine AdvReac agitation Verified 06/01/22 20:41 and restless leg symptoms increased Physical Exam Vitals: Vital Signs Temp Pulse Pulse Resp BP BP Pulse Ox 06/01/22 21:47 97.5 F L 68 17 115/73 96 06/01/22 20:32 86 20 130/80 98 06/01/22 19:29 70 16 122/86 99 06/01/22 17:56 998.7 F H 64 16 144/77 98 Intake and Output 06/01/22 06/01/22 06/02/22 14:59 22:59 06:59 Other: # Voids 1 Weight 106.594 kg Constitutional: No acute distress, conversant, pleasant Eyes: Anicteric sclerae, moist conjunctiva, Pupils equal round reactive to light ENMT: NC/AT Oropharynx clear, no erythema, or exudates Neck: Supple, no masses, or JVD No carotid bruits No thyromegaly Lungs: Clear to auscultation Clear to percussion Normal respiratory effort, no accessory muscle use Cardiovascular: Heart regular in rate and rhythm, No murmurs, gallops, or rubs No peripheral edema Abdominal: Soft Nontender, no guarding, rebound or rigidity Abdomen moving with respiration Normoactive bowel sounds No hepatomegaly, No splenomegaly No palpable mass No abdominal wall hernia noted Skin: Normal temperature, tone, texture, turgor No induration No subcutaneous nodules No rash, lesions No ulcers Extremities: reproducible chest pain with palpation of the left side of the chest , No digital cyanosis No clubbing Pedal pulses intact and symmetrical Radial pulses intact and symmetrical No calf tenderness Psychiatric: Alert and oriented to person, place and time Appropriate affect fair judgement Neuro Muscles Strength 5/5 in all 4 extremities Sensation to light touch grossly present throughout Cranial nerves II-XII grossly intact No focal sensory deficits Lymphatics: no palpable cervical or supraclavicular , lymph nodes Results CBC & Chem 7: 06/01/22 18:09 06/01/22 18:09 Labs: Abnormal Lab Results - Last 24 Hours (Table) 06/01/22 Range/Units 18:09 Carbon Dioxide 32 H (22-30) mmol/L Calcium 8.3 L (8.4-10.2) mg/dL AST 109 H (14-36) U/L ALT 46 H (4-34) U/L Thrombosis Risk Factor Assmnt - Choose All That Apply Any of the Below Risk Factors Present?: Yes Each Factor Represents 1 point: Obesity (BMI >25) Other Risk Factors: Yes Each Risk Factor Represents 2 Points: Age 61-74 years Each Risk Factor Represents 3 Points: History of DVT/PE Other congenital or acquired thrombophilia - If yes, enter type in comment: No Thrombosis Risk Factor Assessment Total Risk Factor Score: 6 Thrombosis Risk Factor Assessment Level: High Risk Assessment and Plan Assessment: atypical chest pain , unlikely cardiac , possibly musculoskeletal in origin pain control with opiates, patient declined NSAIDs due to von willebrand disease 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
[2022-06-02 07:57] VITALS: BP 111/67; PULSE 57; RESP 18; TEMP 97.4
--- NOTE | 2022-06-02 08:46 | P.CRDCN ---
History of Present Illness Consult date: 06/02/22 Chief complaint: CP History of present illness: The patient is a very pleasant 62-year-old female patient with a past medical history significant for SVT and history of von Willebrand disease who presented to the hospital complaining of chest discomfort. For the last few days she has been experiencing intermittent episodes of chest discomfort in the middle of the chest and left side of the chest as a sharp kind of discomfort with no radiation and no cystitis symptoms. Clearly she stated that the discomfort is worse with deep breath and seems to be slightly better with sitting and leaning forward.It symptoms of shortness of breath or dizziness or lightheadedness or any feeling of heart racing or fluttering or presyncope or syncope. She underwent a workup including EKG showing sinus rhythm with no significant ST or T-wave abnormalit ies. She underwent also of cardiac enzymes came in to be unremarkable. As a matter of fact she underwent a stress is an echocardiogram a few months ago and that came in to be unremarkable when she presented with chest discomfort. The chest x-ray showed no acute abnormalities. She has no fever or chills. Past Medical History Past Medical History: Deep Vein Thrombosis (DVT), GERD/Reflux, Supraventricular Tachycardia (SVT) Additional Past Medical History / Comment(s): Von Willebrand Disease, diverticulitis, migraines, chronic back pain, DVT bilat. Restless leg syndrome. History of Any Multi-Drug Resistant Organisms: None Reported Past Surgical History: Adenoidectomy, Bariatric Surgery, Cholecystectomy, Heart Catheterization, Hysterectomy, Joint Replacement, Orthopedic Surgery, Tonsillectomy Additional Past Surgical History / Comment(s): nury foot surgery, nury knee replaced, nury rotator cuffs, Judith en Y approx 5 years, bowel surgery. right shoulder replacement,right hip replaced Past Anesthesia/Blood Transfusion Reactions: Postoperative Nausea & Vomiting (PONV) Past Psychological History: Anxiety, Depression Smoking Status: Former smoker Past Alcohol Use History: Occasional Additional Past Alcohol Use History / Comment(s): Quit smoking 1975. Smoked very little. Past Drug Use History: None Reported - Past Family History Mother Family Medical History: Cancer Father Family Medical History: Cancer Medications and Allergies Home Medications Medication Instructions Recorded Confirmed Type Fluticasone Nasal [place] [Flonase 1 spr EA NOSTRIL DAILY 06/20/17 06/01/22 History Nasal [place]] SUMAtriptan succinate [Imitrex] 100 mg PO DAILY PRN 06/20/17 06/01/22 History EPINEPHrine (Auto Inject) [Epipen] 0.3 mg IM ONCE PRN 06/24/19 06/01/22 History Pantoprazole [Protonix] 40 mg PO BID 06/24/19 06/01/22 History DULoxetine HCL [Cymbalta] 30 mg PO DAILY 04/07/20 06/01/22 History Pramipexole Di-HCl [Mirapex] 0.5 mg PO HS 04/07/20 06/01/22 History DULoxetine HCL [Cymbalta] 60 mg PO HS 03/27/21 06/01/22 History Furosemide [Lasix] 40 mg PO BID 03/27/21 06/01/22 History Neupro 8mg/24 Hr Patch 1 patch TRANSDERM HS 03/27/21 06/01/22 History buPROPion XL [Wellbutrin XL] 450 mg PO DAILY 03/27/21 06/01/22 History nadoloL [Corgard] 20 mg PO DAILY 03/27/21 06/01/22 History Cyanocobalamin [Vitamin B-12 1,000 mcg SQ Q30D 09/23/21 06/01/22 History Injection] Midodrine [ProAmatine] 5 mg PO TID 09/23/21 06/01/22 History Naloxone HCl [Narcan] 4 mg NASAL ONCE PRN 09/23/21 06/01/22 History Nystatin 100,000 Unit/gm Powd 1 applic TOPICAL DAILY PRN 09/23/21 06/01/22 History [Mycostatin Powder] tiZANidine [Zanaflex] 2 - 4 mg PO TID PRN 09/23/21 06/01/22 History Folic Acid 1 mg PO DAILY 11/28/21 06/01/22 History Topiramate [Topamax] 25 mg PO HS 11/28/21 06/01/22 History Acetaminophen Tab [Tylenol] 650 mg PO Q6HR PRN tab 12/02/21 06/01/22 Rx Sennosides-Docusate Sodium 2 tab PO HS 02/17/22 06/01/22 History [Senokot-S] oxyCODONE-APAP 5-325MG [Percocet 1 tab PO Q6H PRN 02/17/22 06/01/22 History 5-325 mg] Cholecalciferol [Vitamin D3 (25 50 mcg PO DAILY 06/01/22 06/01/22 History Mcg = 1000 Iu)] Prochlorperazine [Compazine] 5 mg PO Q8H PRN 06/01/22 06/01/22 History Sucralfate [Carafate] 1 gm PO ACHS PRN 06/01/22 06/01/22 History traZODone HCL [Desyrel] 200 mg PO HS 06/01/22 06/01/22 History Allergies Allergy/AdvReac Type Severity Reaction Status Date / Time aspirin Allergy has Von Verified 06/01/22 20:41 Willebrands Disease ibuprofen [From Motrin] Allergy has Von Verified 06/01/22 20:41 Willebrands Disease Iodinated Contrast Media Allergy Anaphylaxis Verified 06/01/22 20:41 [Iodinated Contrast- Oral and IV Dye] isosorbide [From Imdur] Allergy Rash/Hives Verified 06/01/22 20:41 latex Allergy Anaphylaxis Verified 06/01/22 20:41 Sulfa (Sulfonamide Allergy Rash/Hives Verified 06/01/22 20:41 Antibiotics) codeine AdvReac agitation Verified 06/01/22 20:41 and restless leg symptoms increased Physical Exam Vitals: Vital Signs Temp Pulse Pulse Resp BP BP Pulse Ox 06/02/22 07:40 94 L 06/02/22 07:00 97.4 F L 57 L 18 111/67 97 06/02/22 03:05 97.9 F 68 16 108/76 94 L 06/01/22 21:47 97.5 F L 68 17 115/73 96 06/01/22 20:32 86 20 130/80 98 06/01/22 19:29 70 16 122/86 99 06/01/22 17:56 998.7 F H 64 16 144/77 98 FiO2 06/02/22 07:40 21 06/02/22 07:00 06/02/22 03:05 06/01/22 21:47 06/01/22 20:32 06/01/22 19:29 06/01/22 17:56 Intake and Output 06/01/22 06/02/22 06/02/22 22:59 06:59 14:59 Other: # Voids 1 1 Weight 106.594 kg - Constitutional General appearance: no acute distress - Respiratory Respiratory: bilateral: CTA - Cardiovascular Rhythm: regular Heart sounds: normal: S1, S2 Results 06/01/22 18:09 06/01/22 18:09 Cardiac Enzymes 06/01/22 06/01/22 06/01/22 Range/Units 18:09 18:09 21:36 AST 109 H (14-36) U/L Troponin I <0.012 <0.012 (0.000-0.034) ng/mL 06/01/22 Range/Units 23:56 AST (14-36) U/L Troponin I <0.012 (0.000-0.034) ng/mL Coagulation 06/01/22 Range/Units 18:09 PT 9.9 (9.0-12.0) sec APTT 23.1 (22.0-30.0) sec CBC 06/01/22 Range/Units 18:09 WBC 6.9 (3.8-10.6) k/uL RBC 4.02 (3.80-5.40) m/uL Hgb 12.8 (11.4-16.0) gm/dL Hct 37.5 (34.0-46.0) % Plt Count 211 (150-450) k/uL Comprehensive Metabolic Panel 06/01/22 Range/Units 18:09 Sodium 137 (137-145) mmol/L Potassium 4.1 (3.5-5.1) mmol/L Chloride 102 (98-107) mmol/L Carbon Dioxide 32 H (22-30) mmol/L BUN 16 (7-17) mg/dL Creatinine 0.56 (0.52-1.04) mg/dL Glucose 86 (74-99) mg/dL Calcium 8.3 L (8.4-10.2) mg/dL AST 109 H (14-36) U/L ALT 46 H (4-34) U/L Alkaline Phosphatase 110 (38-126) U/L Total Protein 6.6 (6.3-8.2) g/dL Albumin 3.8 (3.5-5.0) g/dL Current Medications Generic Name Dose Route Start Last Admin Trade Name Freq PRN Reason Stop Dose Admin Acetaminophen 650 mg 06/02/22 02:37 Acetaminophen Tab 325 Mg Tab PO Q6HR PRN Mild Pain or Fever > 100.5 Al Hydroxide/Mg Hydroxide 30 ml 06/02/22 02:49 Mag Hydrox/Al Hydrox/Simeth 30 Ml Cup PO Q4HR PRN GI Upset Alprazolam 0.25 mg 06/02/22 02:39 Alprazolam 0.25 Mg Tab PO TID PRN Anxiety Bupropion HCl 450 mg 06/02/22 09:00 Bupropion Xl 150 Mg Tab.Er.24h PO DAILY BERT Duloxetine HCl 30 mg 06/02/22 09:00 Duloxetine Hcl 30 Mg Capsule.Dr PO DAILY BERT Duloxetine HCl 60 mg 06/02/22 02:37 06/02/22 02:48 Duloxetine Hcl 60 Mg Capsule.Dr PO 60 mg HS BERT Administration Nadolol 20 mg 06/02/22 09:00 Nadolol 20 Mg Tab PO DAILY BERT Naloxone HCl 0.2 mg 06/01/22 19:55 Naloxone 0.4 Mg/Ml 1 Ml Vial IV Q2M PRN Opioid Reversal Oxycodone/Acetaminophen 1 each 06/02/22 02:37 Oxycodone-Apap 5-325mg 1 Each Tab PO Q6H PRN Pain Pantoprazole Sodium 40 mg 06/02/22 02:37 06/02/22 02:48 Pantoprazole 40 Mg Tablet PO 40 mg BID BERT Administration Senna/Docusate Sodium 2 each 06/02/22 21:00 Sennosides-Docusate Sodium 1 Each Tab PO HS BERT Topiramate 25 mg 06/02/22 02:37 06/02/22 02:48 Topiramate 25 Mg Tab PO 25 mg HS BERT Administration Trazodone HCl 200 mg 06/02/22 02:37 06/02/22 02:49 Trazodone Hcl 100 Mg Tab PO 200 mg HS BERT Administration Intake and Output 06/01/22 06/02/22 06/02/22 22:59 06:59 14:59 Other: # Voids 1 1 Weight 106.594 kg 06/01/22 18:09 06/01/22 18:09 Assessment and Plan Assessment: Assessment #1 noncardiac chest discomfort #2 pleuritic chest discomfort #3 history of SVT #4 history of von Willebrand disease Plan #1 acute coronary syndrome was ruled out #2 pulmonary embolism was ruled out #3 the chest discomfort could be related to pericarditis #4 I'm going to start the patient on colchicine and address the change in the chest pain over the next few days #5 the patient would like to be discharged home
[2022-06-02] MEDS ORDERED: COLCHICINE 0.6 MG EACH PO SCH (09:00)
[2022-06-02] MEDS ORDERED: DULoxetine HCL 30 MG CAPSULE.DR PO SCH (09:00)
[2022-06-02] MEDS ORDERED: buPROPion XL 150 MG TAB.ER.24H PO SCH (09:00)
[2022-06-02 09:48] LABS: Basophils # (A) 0.04 X 10*3/uL (0.00-0.10); Basophils % (A) 0.8 %; Eosinophils # (A) 0.32 X 10*3/uL (0.04-0.35); Eosinophils % (A) 6.4 %; HCT 35.9 % (37.2-46.3); HGB 11.7 g/dL (12.0-15.0); Immature Grans, Automated 0.2 %; Lymphocytes # (A) 1.44 X 10*3/uL (0.90-5.00); Lymphocytes % (A) 28.9 %; MCH 31.6 pg (27.0-32.0); MCHC 32.6 g/dL (32.0-37.0); Mean Platelet Volume 10.6 fL (9.5-12.2); Monocytes # (A) 0.52 X 10*3/uL (0.20-1.00); Monocytes % (A) 10.4 %; NRBC Per 100 WBC 0 /100 WBCS (0.0-0.0); Neutrophils # (A) 2.66 X 10*3/uL (1.80-7.70); Neutrophils % (A) 53.3 %; Platelet Count 212 X 10*3/uL (140-440); RDW 12.6 % (11.5-14.5); WBC 4.99 X 10*3/uL (4.50-10.00)
[2022-06-02 09:56] LABS: African American GFR (CKD) 115.7 (60.0-200.0); Albumin 3.6 g/dL (3.8-4.9); Albumin/Globulin Ratio 1.83 (1.60-3.17); Anion Gap 6.9 mmol/L (10.00-18.00); BUN/Creat Ratio 26.39 Ratio (12.00-20.00); Blood Urea Nitrogen 14.2 mg/dL (9.0-27.0); Calcium 8.4 mg/dL (8.7-10.3); Carbon Dioxide 31.9 mmol/L (20.0-27.5); Non-African American GFR(CKD) 99.9 (60.0-200.0); Potassium 3.8 mmol/L (3.5-5.5); Total Bilirubin 0.3 mg/dL (0.30-1.20); Total Protein 5.5 g/dL (6.2-8.2)
--- NOTE | 2022-06-02 12:40 | P.DS ---
Providers Date of admission: 06/01/22 19:56 Expected date of discharge: 06/02/22 Attending physician: Deborah Smith MD Consults: 06/02/22 02:40 Consult Physician Routine Consulting Provider: Ronaldo Montano Consult Reason/Comments: chest pain Do you want consulting provider notified?: Yes, Notify in am Primary care physician: Stefan He MD Hospital Course: Chest pain, atypical 62-year-old woman with a medical history of SVT, von Willebrand disease, migraines, chronic back pain, restless leg syndrome presented with chest pain. In the emergency room, patient was afebrile, 144/77, heart rate 64, 98% on room air. CBC is unremarkable. Chemistries showed bicarb of 32, otherwise unremarkable. Chemistries showed AST of 409, ALT 46, otherwise unremarkable. Troponin was less than 0.012, trended to less than 0.0123. BNP was 263. Coags were unremarkable. EKG showed normal sinus rhythm. Chest x-ray did not show any acute pulmonary process, did show bibasilar atelectasis without focal airspace consolidation. Patient was admitted to observation with cardiology consultation. Cardiology saw and cleared the patient for discharge, recommended colchicine for suspected pericarditis. Patient was subsequently discharged home with cardiology follow-up as well as primary care follow-up. Gen: awake, alert HEENT: normocephalic, atraumatic, good hearing acuity, moist mucous membranes Resp: good air exchange, breathing comfortably with no accessory muscle use CVS: good distal perfusion x 4, GI: soft, NTTP, ND : no SPT, no CVAT, lloyd catheter not present MSK: no pitting edema, no clubbing Neuro: non-focal, moving all extremities Psych: cooperative, euthymic mood Patient Condition at Discharge: Good Plan - Discharge Summary New Discharge Prescriptions: New Colchicine [Colcrys] 0.6 mg PO BID #28 each Continue Fluticasone Nasal [place] [Flonase Nasal [place]] 1 spr EA NOSTRIL DAILY SUMAtriptan succinate [Imitrex] 100 mg PO DAILY PRN PRN Reason: Migraine Headache EPINEPHrine (Auto Inject) [Epipen] 0.3 mg IM ONCE PRN PRN Reason: Anaphylaxis Pantoprazole [Protonix] 40 mg PO BID DULoxetine HCL [Cymbalta] 30 mg PO DAILY Pramipexole Di-HCl [Mirapex] 0.5 mg PO HS Neupro 8mg/24 Hr Patch 1 patch TRANSDERM HS nadoloL [Corgard] 20 mg PO DAILY DULoxetine HCL [Cymbalta] 60 mg PO HS buPROPion XL [Wellbutrin XL] 450 mg PO DAILY Nystatin 100,000 Unit/gm Powd [Mycostatin Powder] 1 applic TOPICAL DAILY PRN PRN Reason: Rash Cyanocobalamin [Vitamin B-12 Injection] 1,000 mcg SQ Q30D tiZANidine [Zanaflex] 2 - 4 mg PO TID PRN PRN Reason: Muscle Spasm Folic Acid 1 mg PO DAILY Topiramate [Topamax] 25 mg PO HS oxyCODONE-APAP 5-325MG [Percocet 5-325 mg] 1 tab PO Q6H PRN PRN Reason: Pain traZODone HCL [Desyrel] 200 mg PO HS Sucralfate [Carafate] 1 gm PO ACHS PRN PRN Reason: Gi Upset Prochlorperazine [Compazine] 5 mg PO Q8H PRN PRN Reason: Nausea Cholecalciferol [Vitamin D3 (25 Mcg = 1000 Iu)] 50 mcg PO DAILY Furosemide [Lasix] 40 mg PO BID Naloxone HCl [Narcan] 4 mg NASAL ONCE PRN PRN Reason: Overdose Midodrine [ProAmatine] 5 mg PO TID Acetaminophen Tab [Tylenol] 650 mg PO Q6HR PRN tab PRN Reason: Mild Pain Or Fever > 100.5 Sennosides-Docusate Sodium [Senokot-S] 2 tab PO HS Discharge Medication List Fluticasone Nasal [place] [Flonase Nasal [place]] 1 spr EA NOSTRIL DAILY 06/20/17 [History] SUMAtriptan succinate [Imitrex] 100 mg PO DAILY PRN 06/20/17 [History] EPINEPHrine (Auto Inject) [Epipen] 0.3 mg IM ONCE PRN 06/24/19 [History] Pantoprazole [Protonix] 40 mg PO BID 06/24/19 [History] DULoxetine HCL [Cymbalta] 30 mg PO DAILY 04/07/20 [History] Pramipexole Di-HCl [Mirapex] 0.5 mg PO HS 04/07/20 [History] DULoxetine HCL [Cymbalta] 60 mg PO HS 03/27/21 [History] Furosemide [Lasix] 40 mg PO BID 03/27/21 [History] Neupro 8mg/24 Hr Patch 1 patch TRANSDERM HS 03/27/21 [History] buPROPion XL [Wellbutrin XL] 450 mg PO DAILY 03/27/21 [History] nadoloL [Corgard] 20 mg PO DAILY 03/27/21 [History] Cyanocobalamin [Vitamin B-12 Injection] 1,000 mcg SQ Q30D 09/23/21 [History] Midodrine [ProAmatine] 5 mg PO TID 09/23/21 [History] Naloxone HCl [Narcan] 4 mg NASAL ONCE PRN 09/23/21 [History] Nystatin 100,000 Unit/gm Powd [Mycostatin Powder] 1 applic TOPICAL DAILY PRN 09/23/21 [History] tiZANidine [Zanaflex] 2 - 4 mg PO TID PRN 09/23/21 [History] Folic Acid 1 mg PO DAILY 11/28/21 [History] Topiramate [Topamax] 25 mg PO HS 11/28/21 [History] Acetaminophen Tab [Tylenol] 650 mg PO Q6HR PRN tab 12/02/21 [Rx] Sennosides-Docusate Sodium [Senokot-S] 2 tab PO HS 02/17/22 [History] oxyCODONE-APAP 5-325MG [Percocet 5-325 mg] 1 tab PO Q6H PRN 02/17/22 [History] Cholecalciferol [Vitamin D3 (25 Mcg = 1000 Iu)] 50 mcg PO DAILY 06/01/22 [History] Prochlorperazine [Compazine] 5 mg PO Q8H PRN 06/01/22 [History] Sucralfate [Carafate] 1 gm PO ACHS PRN 06/01/22 [History] traZODone HCL [Desyrel] 200 mg PO HS 06/01/22 [History] Colchicine [Colcrys] 0.6 mg PO BID #28 each 06/02/22 [Rx] Follow up Appointment(s)/Referral(s): Ronaldo Montano MD [STAFF PHYSICIAN] - 2 Weeks Stefan He MD [Primary Care Provider] - 1-2 days Discharge Disposition: HOME SELF-CARE
[2022-06-02] MEDS ORDERED: SENNOSIDES-DOCUSATE SODIUM 1 EACH TAB PO SCH (21:00)
== END 2022-06-02 12:41 | disposition home or self-care (01) ==
LOC: EC 17:44 → 6NMEDSUR 19:56
PROVIDERS: ADMIT Internal Medicine; ATTEND Internal Medicine
DX: R07.89 Other chest pain (principal); I47.1 Supraventricular tachycardia; D68.00 Von Willebrand disease, unspecified; J98.11 Atelectasis; R42 Dizziness and giddiness; G89.29 Other chronic pain; M54.9 Dorsalgia, unspecified; K21.9 Gastro-esophageal reflux disease without esophagitis; G25.81 Restless legs syndrome; G43.909 Migraine, unspecified, not intractable, without status migrainosus; K57.90 Diverticulosis of intestine, part unspecified, without perforation or abscess without bleeding; R74.8 Abnormal levels of other serum enzymes; F41.9 Anxiety disorder, unspecified; F32.A Depression, unspecified; E66.9 Obesity, unspecified; Z68.37 Body mass index [BMI] 37.0-37.9, adult; Z79.899 Other long term (current) drug therapy; Z88.6 Allergy status to analgesic agent; Z88.5 Allergy status to narcotic agent; Z88.2 Allergy status to sulfonamides; Z88.8 Allergy status to other drugs, medicaments and biological substances; Z91.041 Radiographic dye allergy status; Z91.040 Latex allergy status; Z86.718 Personal history of other venous thrombosis and embolism; Z98.84 Bariatric surgery status; Z98.890 Other specified postprocedural states; Z90.49 Acquired absence of other specified parts of digestive tract; Z90.710 Acquired absence of both cervix and uterus; Z96.653 Presence of artificial knee joint, bilateral; Z96.611 Presence of right artificial shoulder joint; Z96.641 Presence of right artificial hip joint; Z87.891 Personal history of nicotine dependence; Z80.9 Family history of malignant neoplasm, unspecified
CPT/HCPCS: 96376; 96374; 99285; 36415; 94760; 93005; 85379; 83880; 80053 ×2; 83735; 84484; 85025 ×2; 85610; 85730; 71046; G0378 ×2; J2270 ×2

== ENCOUNTER 2022-06-06 17:01 | Emergency (ER) | payer MEDICARE, OTHER ==
[2022-06-06 17:16] VITALS: RESP 18; TEMP 98
[2022-06-06] MEDS ORDERED: MORPHINE SULFATE 4 MG/ML SYRINGE IV STA (19:08)
[2022-06-06] MEDS ORDERED: MAG HYDROX/AL HYDROX/SIMETH 30 ML CUP PO STA (19:08)
[2022-06-06 19:11] LABS: Basophils # (A) 0.1 k/uL (0-0.2); Basophils % (A) 1 %; Eosinophils # (A) 0.3 k/uL (0-0.7); Eosinophils % (A) 5 %; HGB 13.4 gm/dL (11.4-16.0); Lymphocytes # (A) 1.6 k/uL (1.0-4.8); Lymphocytes % (A) 24 %; MCH 32.4 pg (25.0-35.0); MCHC 34.4 g/dL (31.0-37.0); MCV 94.2 fL (80.0-100.0); Mean Platelet Volume 8.6; Monocytes # (A) 0.4 k/uL (0-1.0); Monocytes % (A) 6 %; Neutrophils # (A) 4.2 k/uL (1.3-7.7); Neutrophils % (A) 63 %; Platelet Count 263 k/uL (150-450); RBC 4.14 m/uL (3.80-5.40); RDW 12.8 % (11.5-15.5); WBC 6.8 k/uL (3.8-10.6)
[2022-06-06 19:19] LABS: INR 0.9 (<1.2)
[2022-06-06 19:20] LABS: Partial Thromboplastin Time 24.6 sec (22.0-30.0); Prothrombin Time 9.9 sec (9.0-12.0)
[2022-06-06 19:27] LABS: ALT 54 U/L (4-34); AST 28 U/L (14-36); African American GFR (CKD) >90 (>60 ml/min/1.73 sqM); Alkaline Phosphatase 117 U/L (38-126); Anion Gap 6 mmol/L; Blood Urea Nitrogen 15 mg/dL (7-17); Calcium 8.2 mg/dL (8.4-10.2); Carbon Dioxide 29 mmol/L (22-30); Chloride 103 mmol/L (98-107); Glucose 81 mg/dL (74-99); Non-African American GFR(CKD) >90 (>60 ml/min/1.73 sqM); Sodium 138 mmol/L (137-145); Total Bilirubin 0.5 mg/dL (0.2-1.3); Total Protein 6.9 g/dL (6.3-8.2)
--- NOTE | 2022-06-06 19:38 | ED ---
GI Bleed HPI - General Chief complaint: GI Bleed Stated complaint: internal bleeding-sent by PCP Time Seen by Provider: 06/06/22 18:46 Source: patient Mode of arrival: ambulatory Limitations: no limitations - History of Present Illness Initial comments: This patient is a 62-year-old woman who presents to have evaluation after she noticed some dark appearing stools and was concerned about GI bleeding. She also has been having a little bit of epigastric burning. She believes may be related to the colchicine that she had been taking after she was found to have some pericarditis/small pericardial effusion. Patient notes that the symptoms that started about 2-3 days ago and that she stopped taking the medicine today due to the discomfort in the dark stools. She has not noted symptoms of anemia. No orthostatic symptoms. No chest pain or dyspnea. No palpitations or syncope. No bright red blood. MD complaint: other (Dark stools) -: days(s) Radiation: none Quality: burning Consistency: intermittent Improves with: none Worsens with: none Context: medication/supplement use Associated Symptoms: denies other symptoms - Related Data Home Medications Medication Instructions Recorded Confirmed Fluticasone Nasal [place] [Flonase 1 spr EA NOSTRIL DAILY 06/20/17 06/01/22 Nasal [place]] SUMAtriptan succinate [Imitrex] 100 mg PO DAILY PRN 06/20/17 06/01/22 EPINEPHrine (Auto Inject) [Epipen] 0.3 mg IM ONCE PRN 06/24/19 06/01/22 Pantoprazole [Protonix] 40 mg PO BID 06/24/19 06/01/22 DULoxetine HCL [Cymbalta] 30 mg PO DAILY 04/07/20 06/01/22 Pramipexole Di-HCl [Mirapex] 0.5 mg PO HS 04/07/20 06/01/22 DULoxetine HCL [Cymbalta] 60 mg PO HS 03/27/21 06/01/22 Furosemide [Lasix] 40 mg PO BID 03/27/21 06/01/22 Neupro 8mg/24 Hr Patch 1 patch TRANSDERM HS 03/27/21 06/01/22 buPROPion XL [Wellbutrin XL] 450 mg PO DAILY 03/27/21 06/01/22 nadoloL [Corgard] 20 mg PO DAILY 03/27/21 06/01/22 Cyanocobalamin [Vitamin B-12 1,000 mcg SQ Q30D 09/23/21 06/01/22 Injection] Midodrine [ProAmatine] 5 mg PO TID 09/23/21 06/01/22 Naloxone HCl [Narcan] 4 mg NASAL ONCE PRN 09/23/21 06/01/22 Nystatin 100,000 Unit/gm Powd 1 applic TOPICAL DAILY PRN 09/23/21 06/01/22 [Mycostatin Powder] tiZANidine [Zanaflex] 2 - 4 mg PO TID PRN 09/23/21 06/01/22 Folic Acid 1 mg PO DAILY 11/28/21 06/01/22 Topiramate [Topamax] 25 mg PO HS 11/28/21 06/01/22 Sennosides-Docusate Sodium 2 tab PO HS 02/17/22 06/01/22 [Senokot-S] oxyCODONE-APAP 5-325MG [Percocet 1 tab PO Q6H PRN 02/17/22 06/01/22 5-325 mg] Cholecalciferol [Vitamin D3 (25 50 mcg PO DAILY 06/01/22 06/01/22 Mcg = 1000 Iu)] Prochlorperazine [Compazine] 5 mg PO Q8H PRN 06/01/22 06/01/22 Sucralfate [Carafate] 1 gm PO ACHS PRN 06/01/22 06/01/22 traZODone HCL [Desyrel] 200 mg PO HS 06/01/22 06/01/22 Previous Rx's Medication Instructions Recorded Acetaminophen Tab [Tylenol] 650 mg PO Q6HR PRN tab 12/02/21 Colchicine [Colcrys] 0.6 mg PO BID #28 each 06/02/22 Allergies Allergy/AdvReac Type Severity Reaction Status Date / Time aspirin Allergy has Von Verified 06/06/22 17:16 Willebrands Disease ibuprofen [From Motrin] Allergy has Von Verified 06/06/22 17:16 Willebrands Disease Iodinated Contrast Media Allergy Anaphylaxis Verified 06/06/22 17:16 [Iodinated Contrast- Oral and IV Dye] isosorbide [From Imdur] Allergy Rash/Hives Verified 06/06/22 17:16 latex Allergy Anaphylaxis Verified 06/06/22 17:16 Sulfa (Sulfonamide Allergy Rash/Hives Verified 06/06/22 17:16 Antibiotics) codeine AdvReac agitation Verified 06/06/22 17:16 and restless leg symptoms increased Review of Systems ROS Statement: Those systems with pertinent positive or pertinent negative responses have been documented in the HPI. ROS Other: All systems not noted in ROS Statement are negative. Constitutional: Denies: fever, chills, weakness Respiratory: Denies: cough, dyspnea Cardiovascular: Denies: chest pain, palpitations, edema, syncope Gastrointestinal: Reports: abdominal pain, nausea, diarrhea, other (Dark stools). Denies: vomiting Genitourinary: Denies: dysuria, hematuria Musculoskeletal: Denies: back pain Skin: Denies: rash Neurological: Denies: headache, weakness Past Medical History Past Medical History: Deep Vein Thrombosis (DVT), GERD/Reflux, Supraventricular Tachycardia (SVT) Additional Past Medical History / Comment(s): Von Willebrand Disease, diverticulitis, migraines, chronic back pain, DVT bilat. Restless leg syndrome. History of Any Multi-Drug Resistant Organisms: None Reported Past Surgical History: Adenoidectomy, Bariatric Surgery, Cholecystectomy, Heart Catheterization, Hysterectomy, Joint Replacement, Orthopedic Surgery, Tonsillectomy Additional Past Surgical History / Comment(s): nury foot surgery, nury knee replaced, nury rotator cuffs, Judith en Y approx 5 years, bowel surgery. right shoulder replacement,right hip replaced Past Anesthesia/Blood Transfusion Reactions: Postoperative Nausea & Vomiting (PONV) Past Psychological History: Anxiety, Depression Smoking Status: Former smoker Past Alcohol Use History: Occasional Past Drug Use History: None Reported - Past Family History Mother Family Medical History: Cancer Father Family Medical History: Cancer General Exam Limitations: no limitations General appearance: alert, in no apparent distress Head exam: Present: atraumatic, normocephalic Eye exam: Present: normal appearance. Absent: scleral icterus, conjunctival injection Neck exam: Present: normal inspection Respiratory exam: Present: normal lung sounds bilaterally. Absent: respiratory distress, wheezes, rales, rhonchi, stridor Cardiovascular Exam: Present: regular rate, normal rhythm, normal heart sounds. Absent: systolic murmur, diastolic murmur, rubs, gallop GI/Abdominal exam: Present: soft. Absent: distended, tenderness, guarding, rebound, rigid, mass, pulsatile mass, hernia Extremities exam: Present: normal inspection, normal capillary refill. Absent: pedal edema, calf tenderness Back exam: Present: normal inspection. Absent: CVA tenderness (R), CVA tenderness (L) Neurological exam: Present: alert Skin exam: Present: warm, dry, intact, normal color. Absent: rash Course Vital Signs 06/06/22 06/06/22 06/06/22 17:13 20:34 22:33 Temperature 98 F Pulse Rate 75 88 84 Respiratory 18 20 18 Rate Blood Pressure 149/93 131/90 128/88 O2 Sat by Pulse 100 Oximetry Medical Decision Making - Medical Decision Making Patient is 62-year-old woman here related to her stools after taking colchicine for pericarditis/effusion. She has already stopped the medication. She did test occult negative here and blood counts and vital signs are stable. Will have patient follow-up with cardiology regarding the pericarditis. Patient a lzu of return parameters and appropriate further care and follow-up related to GI bleeding, however this appears to be resolving. - Lab Data Result diagrams: 06/06/22 18:52 06/06/22 18:52 Lab Results 06/06/22 06/06/22 06/06/22 Range/Units 18:35 18:52 18:52 WBC 6.8 (3.8-10.6) k/uL RBC 4.14 (3.80-5.40) m/uL Hgb 13.4 (11.4-16.0) gm/dL Hct 39.0 (34.0-46.0) % MCV 94.2 (80.0-100.0) fL MCH 32.4 (25.0-35.0) pg MCHC 34.4 (31.0-37.0) g/dL RDW 12.8 (11.5-15.5) % Plt Count 263 (150-450) k/uL MPV 8.6 Neutrophils % 63 % Lymphocytes % 24 % Monocytes % 6 % Eosinophils % 5 % Basophils % 1 % Neutrophils # 4.2 (1.3-7.7) k/uL Lymphocytes # 1.6 (1.0-4.8) k/uL Monocytes # 0.4 (0-1.0) k/uL Eosinophils # 0.3 (0-0.7) k/uL Basophils # 0.1 (0-0.2) k/uL PT 9.9 (9.0-12.0) sec INR 0.9 (<1.2) APTT 24.6 (22.0-30.0) sec Sodium (137-145) mmol/L Potassium (3.5-5.1) mmol/L Chloride (98-107) mmol/L Carbon Dioxide (22-30) mmol/L Anion Gap mmol/L BUN (7-17) mg/dL Creatinine (0.52-1.04) mg/dL Est GFR (CKD-EPI)AfAm (>60 ml/min/1.73 sqM) Est GFR (CKD-EPI)NonAf (>60 ml/min/1.73 sqM) Glucose (74-99) mg/dL Plasma Lactic Acid Lj (0.7-2.0) mmol/L Calcium (8.4-10.2) mg/dL Total Bilirubin (0.2-1.3) mg/dL AST (14-36) U/L ALT (4-34) U/L Alkaline Phosphatase (38-126) U/L Troponin I (0.000-0.034) ng/mL Total Protein (6.3-8.2) g/dL Albumin (3.5-5.0) g/dL Urine Color Urine Appearance (Clear) Urine pH (5.0-8.0) Ur Specific [place] (1.001-1.035) Urine Protein (Negative) Urine Glucose (UA) (Negative) Urine Ketones (Negative) Urine Blood (Negative) Urine Nitrite (Negative) Urine Bilirubin (Negative) Urine Urobilinogen (<2.0) mg/dL Ur Leukocyte Esterase (Negative) Stool Occult Blood (Negative) Blood Type O Positive Blood Type Recheck O Pos Bld Type Recheck Status No Antibody Screen NEGATIVE Spec Expiration Date 06/09/2022 - 233406/06/22 06/06/22 06/06/22 Range/Units 18:52 18:52 18:52 WBC (3.8-10.6) k/uL RBC (3.80-5.40) m/uL Hgb (11.4-16.0) gm/dL Hct (34.0-46.0) % MCV (80.0-100.0) fL MCH (25.0-35.0) pg MCHC (31.0-37.0) g/dL RDW (11.5-15.5) % Plt Count (150-450) k/uL MPV Neutrophils % % Lymphocytes % % Monocytes % % Eosinophils % % Basophils % % Neutrophils # (1.3-7.7) k/uL Lymphocytes # (1.0-4.8) k/uL Monocytes # (0-1.0) k/uL Eosinophils # (0-0.7) k/uL Basophils # (0-0.2) k/uL PT (9.0-12.0) sec INR (<1.2) APTT (22.0-30.0) sec Sodium 138 (137-145) mmol/L Potassium 4.0 (3.5-5.1) mmol/L Chloride 103 (98-107) mmol/L Carbon Dioxide 29 (22-30) mmol/L Anion Gap 6 mmol/L BUN 15 (7-17) mg/dL Creatinine 0.55 (0.52-1.04) mg/dL Est GFR (CKD-EPI)AfAm >90 (>60 ml/min/1.73 sqM) Est GFR (CKD-EPI)NonAf >90 (>60 ml/min/1.73 sqM) Glucose 81 (74-99) mg/dL Plasma Lactic Acid Lj 0.8 (0.7-2.0) mmol/L Calcium 8.2 L (8.4-10.2) mg/dL Total Bilirubin 0.5 (0.2-1.3) mg/dL AST 28 (14-36) U/L ALT 54 H (4-34) U/L Alkaline Phosphatase 117 (38-126) U/L Troponin I <0.012 (0.000-0.034) ng/mL Total Protein 6.9 (6.3-8.2) g/dL Albumin 4.0 (3.5-5.0) g/dL Urine Color Urine Appearance (Clear) Urine pH (5.0-8.0) Ur Specific [place] (1.001-1.035) Urine Protein (Negative) Urine Glucose (UA) (Negative) Urine Ketones (Negative) Urine Blood (Negative) Urine Nitrite (Negative) Urine Bilirubin (Negative) Urine Urobilinogen (<2.0) mg/dL Ur Leukocyte Esterase (Negative) Stool Occult Blood (Negative) Blood Type Blood Type Recheck Bld Type Recheck Status Antibody Screen Spec Expiration Date 06/06/22 06/06/22 Range/Units 19:50 21:50 WBC (3.8-10.6) k/uL RBC (3.80-5.40) m/uL Hgb (11.4-16.0) gm/dL Hct (34.0-46.0) % MCV (80.0-100.0) fL MCH (25.0-35.0) pg MCHC (31.0-37.0) g/dL RDW (11.5-15.5) % Plt Count (150-450) k/uL MPV Neutrophils % % Lymphocytes % % Monocytes % % Eosinophils % % Basophils % % Neutrophils # (1.3-7.7) k/uL Lymphocytes # (1.0-4.8) k/uL Monocytes # (0-1.0) k/uL Eosinophils # (0-0.7) k/uL Basophils # (0-0.2) k/uL PT (9.0-12.0) sec INR (<1.2) APTT (22.0-30.0) sec Sodium (137-145) mmol/L Potassium (3.5-5.1) mmol/L Chloride (98-107) mmol/L Carbon Dioxide (22-30) mmol/L Anion Gap mmol/L BUN (7-17) mg/dL Creatinine (0.52-1.04) mg/dL Est GFR (CKD-EPI)AfAm (>60 ml/min/1.73 sqM) Est GFR (CKD-EPI)NonAf (>60 ml/min/1.73 sqM) Glucose (74-99) mg/dL Plasma Lactic Acid Lj (0.7-2.0) mmol/L Calcium (8.4-10.2) mg/dL Total Bilirubin (0.2-1.3) mg/dL AST (14-36) U/L ALT (4-34) U/L Alkaline Phosphatase (38-126) U/L Troponin I (0.000-0.034) ng/mL Total Protein (6.3-8.2) g/dL Albumin (3.5-5.0) g/dL Urine Color Yellow Urine Appearance Clear (Clear) Urine pH 6.0 (5.0-8.0) Ur Specific [place] 1.021 (1.001-1.035) Urine Protein Negative (Negative) Urine Glucose (UA) Negative (Negative) Urine Ketones Negative (Negative) Urine Blood Negative (Negative) Urine Nitrite Negative (Negative) Urine Bilirubin Negative (Negative) Urine Urobilinogen <2.0 (<2.0) mg/dL Ur Leukocyte Esterase Negative (Negative) Stool Occult Blood Negative (Negative) Blood Type Blood Type Recheck Bld Type Recheck Status Antibody Screen Spec Expiration Date - EKG Data -: EKG Interpreted by Me EKG shows normal: sinus rhythm, axis (Normal), intervals (Normal), QRS complexes (Normal), ST-T waves (Normal) Rate: normal (Rate 70 bpm) Interpretation: normal EKG Disposition Clinical Impression: Medication side effect Disposition: HOME SELF-CARE Condition: Good Instructions (If sedation given, give patient instructions): Gastrointestinal Bleeding (ED) Is patient prescribed a controlled substance at d/c from ED?: No Referrals: Stefan He MD [Primary Care Provider] - 1-2 days
[2022-06-06 22:06] LABS: Appearance,Urine Clear (Clear); Bilirubin,Urine Negative (Negative); Blood,Urine Negative (Negative); Color,Urine Yellow; Glucose,Urine (UA) Negative (Negative); Ketones,Urine Negative (Negative); Leukocyte Esterase,Urine Negative (Negative); Nitrite,Urine Negative (Negative); Protein,Urine Negative (Negative); Specific Gravity,Urine 1.021 (1.001-1.035); Urobilinogen,Urine <2.0 mg/dL (<2.0)
[2022-06-06 22:34] VITALS: BP 128/88; PULSE 84
== END 2022-06-06 22:37 | disposition home or self-care (01) ==
LOC: EC 17:01
DX: T50.905A Adverse effect of unspecified drugs, medicaments and biological substances, initial encounter (principal); K21.9 Gastro-esophageal reflux disease without esophagitis; F41.9 Anxiety disorder, unspecified; F32.A Depression, unspecified; Z87.891 Personal history of nicotine dependence; Z88.2 Allergy status to sulfonamides; Z88.5 Allergy status to narcotic agent; Z88.6 Allergy status to analgesic agent; Z88.8 Allergy status to other drugs, medicaments and biological substances; Z90.49 Acquired absence of other specified parts of digestive tract; Z91.040 Latex allergy status
CPT/HCPCS: 36415; 93005; 86900; 86901; 80053; 83605; 84484; 85025; 85610; 85730; 86850; 82272; 81003; 99285; 96374; J2270

== ENCOUNTER 2022-06-26 12:49 | Emergency (ER) | payer MEDICARE, OTHER ==
--- NOTE | 2022-06-26 13:11 | ED ---
Skin/Abscess/FB HPI - General Source: patient Mode of arrival: ambulatory Limitations: no limitations <Maame Mike - Last Filed: 06/26/22 13:08> - General Source: RN notes reviewed <Scarlet Kaye - Last Filed: 06/26/22 18:43> - General Chief complaint: Skin/Abscess/Foreign Body Stated complaint: leg infection - History of Present Illness Initial comments: Patient is a 62-year-old female presenting to the emergency room with concerns regarding a wound to her right anterior calf which was a blister that popped open on . She reports that the area continues to have drainage with pain surrounding the area with warmth and swelling. She is co ncerned regarding possibility of cellulitis; she has had cellulitis also times in the past. she reports that she called EMS the day that the wound happen and ambulance came out and placed a pressure dressing on the wound and at that time she declined going to the emergency room. She is continue to apply dressings and reports that she is having "bloody and pus" drainage from the wound. She reports a temperature of 99 and chronic intermittent chills that she is unable to determine increase in frequency. She denies any chest pain or shortness of breath. She is not currently on any antibiotic treatment. (Maame Mike) I reviewed the above note and agree with the obtained history. (Scarlet Kaye) - Related Data Home Medications Medication Instructions Recorded Confirmed Fluticasone Nasal [place] [Flonase 1 spr EA NOSTRIL DAILY 06/20/17 06/01/22 Nasal [place]] SUMAtriptan succinate [Imitrex] 100 mg PO DAILY PRN 06/20/17 06/01/22 EPINEPHrine (Auto Inject) [Epipen] 0.3 mg IM ONCE PRN 06/24/19 06/01/22 Pantoprazole [Protonix] 40 mg PO BID 06/24/19 06/01/22 DULoxetine HCL [Cymbalta] 30 mg PO DAILY 04/07/20 06/01/22 Pramipexole Di-HCl [Mirapex] 0.5 mg PO HS 04/07/20 06/01/22 DULoxetine HCL [Cymbalta] 60 mg PO HS 03/27/21 06/01/22 Furosemide [Lasix] 40 mg PO BID 03/27/21 06/01/22 Neupro 8mg/24 Hr Patch 1 patch TRANSDERM HS 03/27/21 06/01/22 buPROPion XL [Wellbutrin XL] 450 mg PO DAILY 03/27/21 06/01/22 nadoloL [Corgard] 20 mg PO DAILY 03/27/21 06/01/22 Cyanocobalamin [Vitamin B-12 1,000 mcg SQ Q30D 09/23/21 06/01/22 Injection] Midodrine [ProAmatine] 5 mg PO TID 09/23/21 06/01/22 Naloxone HCl [Narcan] 4 mg NASAL ONCE PRN 09/23/21 06/01/22 Nystatin 100,000 Unit/gm Powd 1 applic TOPICAL DAILY PRN 09/23/21 06/01/22 [Mycostatin Powder] tiZANidine [Zanaflex] 2 - 4 mg PO TID PRN 09/23/21 06/01/22 Folic Acid 1 mg PO DAILY 11/28/21 06/01/22 Topiramate [Topamax] 25 mg PO HS 11/28/21 06/01/22 Sennosides-Docusate Sodium 2 tab PO HS 02/17/22 06/01/22 [Senokot-S] oxyCODONE-APAP 5-325MG [Percocet 1 tab PO Q6H PRN 02/17/22 06/01/22 5-325 mg] Cholecalciferol [Vitamin D3 (25 50 mcg PO DAILY 06/01/22 06/01/22 Mcg = 1000 Iu)] Prochlorperazine [Compazine] 5 mg PO Q8H PRN 06/01/22 06/01/22 Sucralfate [Carafate] 1 gm PO ACHS PRN 06/01/22 06/01/22 traZODone HCL [Desyrel] 200 mg PO HS 06/01/22 06/01/22 Previous Rx's Medication Instructions Recorded Acetaminophen Tab [Tylenol] 650 mg PO Q6HR PRN tab 12/02/21 Colchicine [Colcrys] 0.6 mg PO BID #28 each 06/02/22 clindamycin HCL [Cleocin] 150 mg PO Q6H 10 Days #90 cap 06/26/22 Allergies Allergy/AdvReac Type Severity Reaction Status Date / Time aspirin Allergy has Von Verified 06/26/22 12:59 Willebrands Disease ibuprofen [From Motrin] Allergy has Von Verified 06/26/22 12:59 Willebrands Disease Iodinated Contrast Media Allergy Anaphylaxis Verified 06/26/22 12:59 [Iodinated Contrast- Oral and IV Dye] isosorbide [From Imdur] Allergy Rash/Hives Verified 06/26/22 12:59 latex Allergy Anaphylaxis Verified 06/26/22 12:59 Sulfa (Sulfonamide Allergy Rash/Hives Verified 06/26/22 12:59 Antibiotics) codeine AdvReac agitation Verified 06/26/22 12:59 and restless leg symptoms increased Review of Systems ROS Other: All systems not noted in ROS Statement are negative. <Maame Mike - Last Filed: 06/26/22 13:08> ROS Other: All systems not noted in ROS Statement are negative. <Scarlet Kaye - Last Filed: 06/26/22 18:43> ROS Statement: Those systems with pertinent positive or pertinent negative responses have been documented in the HPI. Past Medical History Past Medical History: Deep Vein Thrombosis (DVT), GERD/Reflux, Supraventricular Tachycardia (SVT) Additional Past Medical History / Comment(s): Von Willebrand Disease, diverticulitis, migraines, chronic back pain, DVT bilat. Restless leg syndrome. History of Any Multi-Drug Resistant Organisms: None Reported Past Surgical History: Adenoidectomy, Bariatric Surgery, Cholecystectomy, Heart Catheterization, Hysterectomy, Joint Replacement, Orthopedic Surgery, Tonsillectomy Additional Past Surgical History / Comment(s): nury foot surgery, nury knee replaced, nury rotator cuffs, Judith en Y approx 5 years, bowel surgery. right shoulder replacement,right hip replaced Past Anesthesia/Blood Transfusion Reactions: Postoperative Nausea & Vomiting (PONV) Past Psychological History: Anxiety, Depression Smoking Status: Former smoker Past Alcohol Use History: Occasional Past Drug Use History: None Reported - Past Family History Mother Family Medical History: Cancer Father Family Medical History: Cancer <Maame Mike - Last Filed: 06/26/22 13:08> General Exam Limitations: no limitations <Maame Mike - Last Filed: 06/26/22 13:08> General appearance: alert, in no apparent distress Head exam: Present: atraumatic, normocephalic, normal inspection Eye exam: Present: normal appearance, PERRL, EOMI. Absent: scleral icterus, c onjunctival injection, periorbital swelling ENT exam: Present: normal exam, mucous membranes moist Neck exam: Present: normal inspection. Absent: tenderness, meningismus, lymphadenopathy Respiratory exam: Present: normal lung sounds bilaterally. Absent: respiratory distress, wheezes, rales, rhonchi, stridor Cardiovascular Exam: Present: regular rate, normal rhythm, normal heart sounds. Absent: systolic murmur, diastolic murmur, rubs, gallop, clicks GI/Abdominal exam: Present: soft, normal bowel sounds. Absent: distended, tenderness, guarding, rebound, rigid Extremities exam: Present: normal inspection, full ROM, normal capillary refill. Absent: tenderness, pedal edema, joint swelling, calf tenderness Left Lower Leg exam: Present: normal inspection, full ROM, tenderness (Mild tenderness and swelling to the dorsal aspect of the R calf. No active bleeding, or weeping, with trace erthema around 1cm lesion. NO evidence of migrating erythema, edema, fluctuance. ), abrasion. Absent: swelling, ecchymosis, d eformity, crepitus <Scarlet Kaye - Last Filed: 06/26/22 18:43> Course Vital Signs 06/26/22 06/26/22 12:57 15:44 Temperature 98.2 F 97.6 F Pulse Rate 69 76 Respiratory 18 16 Rate Blood Pressure 113/76 108/72 O2 Sat by Pulse 98 97 Oximetry Medical Decision Making - Lab Data Result diagrams: 06/26/22 14:21 06/26/22 14:21 <Scarlet Kaye - Last Filed: 06/26/22 18:43> - Medical Decision Making Was pt. sent in by a medical professional or institution? @ -Self Did you speak to anyone other than the patient for history? @ -patient Did you review nursing and triage notes? @ -I reviewed he stucco applicator and quick note provided by the triage PAMily Were old charts reviewed? @ -No Differential Diagnosis? @ -R calf pain, cellulitis, abscess EKG interpreted by me (3pts min.)? @ -[none] X-rays interpreted by me (1pt min.)? @ -[none] CT interpreted by me (1pt min.)? @ -[none] U/S interpreted by me (1pt. min.)? @ -[none] What testing was considered but not performed? (CT, X-rays, U/S, labs)? Why? @ [CT, X-rays, U/S, labs? Why?] What meds were considered but not given? Why? @ -Patient refused keflex and has allergies to sulfa ABX Did you discuss the management of the patient with other professionals? @ -I discussed the case with Dr. Webber who agrees with plan for discharge. Did you reconcile home meds? @ -[none] Was smoking cessation discussed for >3mins.? @ -[none] Was critical care preformed (if so, how long)? @ -[none] Were there social determinants of health that impacted care today? How? (Homelessness, low income, unemployed, alcoholism, drug addiction, transportatio n, low edu. Level, literacy, decrease access to med. care, senior care, rehab)? @ -[Homelessness, low income, unemployed, alcoholism, drug addiction, transportation, low edu. Level, literacy, decrease access to med. care, senior care, rehab?] Was there de-escalation of care discussed even if they declined? (Discuss DNR or withdrawal of care, Hospice)? @ -[Discuss DNR or withdrawal of care, Hospice?] What co-morbidities impacted this encounter? (DM, HTN, Smoking, COPD, CAD, Cancer, CVA, Hep., AIDS, mental health diagnosis, sleep apnea, morbid obesity)? @ -[DM, HTN, Smoking, COPD, CAD, Cancer, CVA, Hep., AIDS, mental health diagnosis, sleep apnea, morbid obesity?] Was patient admitted / discharged? @ -Patient was discharged in stable condition with a prescription for Clin damycin. She was encouraged to follow up with her PCP in 1-2 days. All questions answered and addressed. Undiagnosed new problem with uncertain prognosis? @ -No Drug Therapy requiring intensive monitoring for toxicity (Heparin, Nitro, Insulin, Cardizem)? @ -[none] Were any procedures done? @ -No Diagnosis/symptom? @ -R cellulitis Acute, or Chronic, or Acute on Chronic? @ -acute Uncomplicated (without systemic symptoms) or Complicated (systemic symptoms)? @ -uncomplicated Side effects of treatment? @ -abdominal pain, nausea, vomiting, diarrhea Exacerbation, Progression, or Severe Exacerbation] @ -[no] Poses a threat to life or bodily function? @ -low likelihood (Scarlet Kaye) - Lab Data Lab Results 06/26/22 06/26/22 Range/Units 14:21 14:21 WBC 6.8 (3.8-10.6) k/uL RBC 4.41 (3.80-5.40) m/uL Hgb 14.1 (11.4-16.0) gm/dL Hct 41.0 (34.0-46.0) % MCV 93.0 (80.0-100.0) fL MCH 31.9 (25.0-35.0) pg MCHC 34.3 (31.0-37.0) g/dL RDW 12.7 (11.5-15.5) % Plt Count 258 (150-450) k/uL MPV 8.6 Neutrophils % 65 % Lymphocytes % 22 % Monocytes % 6 % Eosinophils % 6 % Basophils % 1 % Neutrophils # 4.4 (1.3-7.7) k/uL Lymphocytes # 1.5 (1.0-4.8) k/uL Monocytes # 0.4 (0-1.0) k/uL Eosinophils # 0.4 (0-0.7) k/uL Basophils # 0.1 (0-0.2) k/uL Sodium 139 (137-145) mmol/L Potassium 3.8 (3.5-5.1) mmol/L Chloride 106 (98-107) mmol/L Carbon Dioxide 25 (22-30) mmol/L Anion Gap 8 mmol/L BUN 14 (7-17) mg/dL Creatinine 0.50 L (0.52-1.04) mg/dL Est GFR (CKD-EPI)AfAm >90 (>60 ml/min/1.73 sqM) Est GFR (CKD-EPI)NonAf >90 (>60 ml/min/1.73 sqM) Glucose 120 H (74-99) mg/dL Calcium 9.1 (8.4-10.2) mg/dL Disposition <Maame Mike - Last Filed: 06/26/22 13:08> Is patient prescribed a controlled substance at d/c from ED?: No Time of Disposition: 17:00 <Scarlet Kaye - Last Filed: 06/26/22 18:43> Clinical Impression: Cellulitis Disposition: HOME SELF-CARE Condition: Stable Instructions (If sedation given, give patient instructions): Cellulitis (ED) Prescriptions: clindamycin HCL [Cleocin] 150 mg PO Q6H 10 Days #90 cap Referrals: Stefan He MD [Primary Care Provider] - 1-2 days
[2022-06-26 14:39] LABS: Basophils # (A) 0.1 k/uL (0-0.2); Basophils % (A) 1 %; Eosinophils # (A) 0.4 k/uL (0-0.7); Eosinophils % (A) 6 %; HGB 14.1 gm/dL (11.4-16.0); Lymphocytes # (A) 1.5 k/uL (1.0-4.8); Lymphocytes % (A) 22 %; MCH 31.9 pg (25.0-35.0); MCHC 34.3 g/dL (31.0-37.0); Mean Platelet Volume 8.6; Monocytes # (A) 0.4 k/uL (0-1.0); Monocytes % (A) 6 %; Neutrophils # (A) 4.4 k/uL (1.3-7.7); Neutrophils % (A) 65 %; Platelet Count 258 k/uL (150-450); RBC 4.41 m/uL (3.80-5.40); RDW 12.7 % (11.5-15.5); WBC 6.8 k/uL (3.8-10.6)
[2022-06-26 14:40] LABS: African American GFR (CKD) >90 (>60 ml/min/1.73 sqM); Anion Gap 8 mmol/L; Blood Urea Nitrogen 14 mg/dL (7-17); Calcium 9.1 mg/dL (8.4-10.2); Carbon Dioxide 25 mmol/L (22-30); Chloride 106 mmol/L (98-107); Glucose 120 mg/dL (74-99); Non-African American GFR(CKD) >90 (>60 ml/min/1.73 sqM); Potassium 3.8 mmol/L (3.5-5.1); Sodium 139 mmol/L (137-145)
[2022-06-26 15:46] VITALS: BP 108/72; PULSE 76; RESP 16; TEMP 97.6
== END 2022-06-26 16:03 | disposition home or self-care (01) ==
LOC: EC 12:49
DX: L03.115 Cellulitis of right lower limb (principal); K21.9 Gastro-esophageal reflux disease without esophagitis; F41.9 Anxiety disorder, unspecified; F32.A Depression, unspecified; Z87.891 Personal history of nicotine dependence; Z79.899 Other long term (current) drug therapy; Z88.2 Allergy status to sulfonamides; Z91.040 Latex allergy status; Z91.041 Radiographic dye allergy status; Z88.6 Allergy status to analgesic agent; Z88.5 Allergy status to narcotic agent
CPT/HCPCS: 36415; 80048; 85025; 99283

== ENCOUNTER 2022-07-05 06:35 | Day surgery (SDC) | payer MEDICARE, OTHER ==
[2022-07-03 12:20] VITALS: BMI 37.9
[2022-07-05 07:34] VITALS: TEMP 97.6
[2022-07-05] MEDS: LACTATED RINGERS 1,000 ML IV SCH ×2 (07:40→08:43)
[2022-07-05] MEDS: DESMOPRESSIN ACETATE 32 MCG in SODIUM CHLORIDE 0.9% 50 ML IVPB ONE ×2 (08:00→08:33)
[2022-07-05] MEDS ORDERED: PROPOFOL 10 MG/ML 20 ML VIAL IV ONE (08:45)
[2022-07-05] MEDS ORDERED: LIDOCAINE 2% INJ 20 MG/ML (2 ML VIAL) ONE (08:45)
--- NOTE | 2022-07-05 09:08 | P.PCN ---
Date of Procedure: 07/05/22 Procedure(s) Performed: Brief history: Patient is a pleasant 62-year-old white female scheduled for an elective upper endoscopy as well as colonoscopy as a part of evaluation of intermittent left lower quadrant abdominal pain and history of recurrent sigmoid diverticulitis. She also has been complaining of epigastric discomfort lately. She has history of gastric bypass surgery in the past. She also has history of prior draw segment colectomy for acute recurrent diverticulitis. Patient has history of von Willebrand's disease and was given IV desmopressin prior to the procedure Procedure performed: Esophagogastroduodenoscopy with biopsy Colonoscopy with biopsy and snare polypectomy Preoperative diagnosis: Epigastric pain Left lower quadrant abdominal pain and chronic diarrhea and history of recurrent sigmoid diverticulitis Anesthesia: MAC Procedure: After informed consent was obtained from the patient was brought into the endoscopy unit and IV sedation was administered by anesthesia under continuous monitoring. Initially upper endoscopy was done. The Olympus GF 160 video endoscope was inserted inserted into the mouth and esophagus intubated without any difficulty and was gradually advanced into the stomach and there was evidence of gastric bypass surgery noted. The afferent and efferent loops appeared normal. The gastric pouch appeared normal. The GE junction was located at 35 cm to the incisors. It appeared regular with mild erythema consistent with reflux esophagitis. Biopsies were done from the distal esophagus. Rest of esophagus appeared normal and the patient tolerated the procedure well. At this time the patient continued to remain sedation. Initial digital rectal examination was normal. Olympus CF 160 video colonoscope was then inserted into the rectum and gradually advanced to the cecum without any difficulty. Careful examination was performed as the scope was gradually being withdrawn. The prep was .. The cecum, ascending colon, appeared normal. The transverse colon there was a 5 mm polyp removed by snare polypectomy. Rest of the transverse colon, descending colon, sigmoid colon and rectum appeared normal. Scattered left sided diverticulosis seen. Anastomosis from the previous sigmoid colectomy was located at 25 cm from the anal was there appeared normal. Random biopsies were done from ascending colon to rule out microscopic/collagenous colitis. Retroflexion was performed in the rectum and no lesions were noted. Patient tolerated the procedure well. Impression: 1. Upper endoscopy revealed mild distal esophagitis and history of gastric bypass surgery with Judith-en-Y anastomosis appeared normal 2. Colonoscopy revealed 5 mm transverse colon polyp status post polypectomy and scattered sigmoid diverticulosis. Recommendations: Findings of this examination were discussed with the patient as well as a family. She was advised to follow with the biopsy result. If the biopsy reveals adenoma she can have a repeat colonoscopy in 5 years.
[2022-07-05 09:15] VITALS: RESP 16
[2022-07-05 09:27] VITALS: BP 115/78; PULSE 76
== END 2022-07-05 09:45 | disposition home or self-care (01) ==
LOC: ORWHC2ENDO 06:35
PROVIDERS: ATTEND Internal Medicine Gastroenterology
DX: D12.3 Benign neoplasm of transverse colon (principal); K57.30 Diverticulosis of large intestine without perforation or abscess without bleeding; K52.9 Noninfective gastroenteritis and colitis, unspecified; K21.00 Gastro-esophageal reflux disease with esophagitis, without bleeding; Z98.0 Intestinal bypass and anastomosis status; Z90.49 Acquired absence of other specified parts of digestive tract; Z87.19 Personal history of other diseases of the digestive system; Z98.84 Bariatric surgery status; Z91.040 Latex allergy status; Z88.2 Allergy status to sulfonamides; Z91.041 Radiographic dye allergy status; Z88.5 Allergy status to narcotic agent; Z88.6 Allergy status to analgesic agent; Z86.79 Personal history of other diseases of the circulatory system; Z79.01 Long term (current) use of anticoagulants; Z79.02 Long term (current) use of antithrombotics/antiplatelets; Z79.891 Long term (current) use of opiate analgesic; Z79.899 Other long term (current) drug therapy; Z79.83 Long term (current) use of bisphosphonates; Z98.890 Other specified postprocedural states
CPT/HCPCS: 45385; 45380; 43239; J2704; J2597; J2001; 88305

== ENCOUNTER 2022-08-28 20:55 | Emergency (ER) | payer MEDICARE, OTHER ==
[2022-08-28 21:06] VITALS: BP 130/81; PULSE 65; RESP 16; TEMP 97.7
[2022-08-28] MEDS ORDERED: SODIUM CHLORIDE 0.9% 1,000 ML IV STA (21:09)
[2022-08-28] MEDS ORDERED: methylPREDNISolone SOD SUCCI 125 MG/2 ML VIAL IV STA (21:10)
[2022-08-28] MEDS ORDERED: diphenhydrAMINE 50 MG/ML 1 ML VIAL IVP STA (21:11)
[2022-08-28] MEDS ORDERED: FAMOTIDINE 20 MG/2 ML VIAL IV STA (21:11)
[2022-08-28 21:57] LABS: Basophils # (A) 0.1 k/uL (0-0.2); Basophils % (A) 1 %; Eosinophils # (A) 0.4 k/uL (0-0.7); Eosinophils % (A) 6 %; HCT 36.8 % (34.0-46.0); HGB 12.4 gm/dL (11.4-16.0); Lymphocytes % (A) 17 %; MCH 31.9 pg (25.0-35.0); MCHC 33.7 g/dL (31.0-37.0); MCV 94.7 fL (80.0-100.0); Mean Platelet Volume 8.5; Monocytes # (A) 0.4 k/uL (0-1.0); Monocytes % (A) 7 %; Neutrophils % (A) 68 %; Platelet Count 216 k/uL (150-450); RBC 3.89 m/uL (3.80-5.40); RDW 13.7 % (11.5-15.5)
[2022-08-28 22:07] LABS: ALT 56 U/L (4-34); AST 36 U/L (14-36); African American GFR (CKD) >90 (>60 ml/min/1.73 sqM); Albumin 3.3 g/dL (3.5-5.0); Alkaline Phosphatase 132 U/L (38-126); Anion Gap 7 mmol/L; Blood Urea Nitrogen 12 mg/dL (7-17); Calcium 8.2 mg/dL (8.4-10.2); Carbon Dioxide 27 mmol/L (22-30); Chloride 103 mmol/L (98-107); Glucose 87 mg/dL (74-99); Lipase 96 U/L (23-300); Non-African American GFR(CKD) >90 (>60 ml/min/1.73 sqM); Potassium 4.3 mmol/L (3.5-5.1); Sodium 137 mmol/L (137-145); Total Bilirubin 0.4 mg/dL (0.2-1.3); Total Protein 5.8 g/dL (6.3-8.2)
[2022-08-28 22:23] LABS: Appearance,Urine Clear (Clear); Bilirubin,Urine Negative (Negative); Blood,Urine Negative (Negative); Color,Urine Yellow; Glucose,Urine (UA) Negative (Negative); Ketones,Urine Trace (Negative); Leukocyte Esterase,Urine Negative (Negative); Nitrite,Urine Negative (Negative); PH, Urine 6.5 (5.0-8.0); Protein,Urine Negative (Negative); Specific Gravity,Urine 1.018 (1.001-1.035); Urobilinogen,Urine <2.0 mg/dL (<2.0)
--- NOTE | 2022-08-28 22:34 | CT ---
EXAMINATION TYPE: CT abdomen pelvis w con CT DLP: 1835.5 mGycm, Automated exposure control for dose reduction was used. DATE OF EXAM: 08/28/2022 10:13 PM COMPARISON: CT abdomen pelvis most recent from 12/05/2021 CLINICAL INDICATION:Female, 62 years old with history of pain; abd and back pain after fall x 1week. TECHNIQUE: Axial CT of the abdomen and pelvis. Sagittal and coronal reformats were created on a [employer] workstation. Contrast used:100 mL of Isovue 300 with IV Contrast, Oral contrast used: with Oral Contrast FINDINGS: LOWER CHEST: Unremarkable ABDOMEN LIVER: Unremarkable GALLBLADDER AND BILE DUCTS: The gallbladder is surgically absent. PANCREAS: Unremarkable. SPLEEN: Unremarkable. ADRENAL GLANDS: Unremarkable. KIDNEYS AND URETERS: Nonobstructing 2 mm calculus on the right. No evidence of left renal calculus. N o hydronephrosis. PELVIS BLADDER: Unremarkable REPRODUCTIVE: Unremarkable. ABDOMEN & PELVIS STOMACH AND BOWEL: No evidence of bowel obstruction. Postsurgical changes to the gastric lumen. Moder ate hiatal hernia is present. Postsurgical changes also present within the mid bowel no evidence for bowel wall thickening. Moderate stool burden throughout the colon. PERITONEUM/RETROPERITONEUM: No evidence of pneumoperitoneum or free fluid. VASCULATURE: No evidence of aortic aneurysm. MUSCULOSKELETAL: No acute osseous abnormalities total right hip fixation hardware appears intact. Sym physis degeneration changes, sacroiliac osteophyte formation multilevel disc degeneration changes are seen throughout the spine. Stable compression of L2 vertebral body. Scattered osteophyte formation a nd facet joint arthropathy and vacuum disc phenomenon and not significantly changed. S-shaped scolios is to the spine apex left L2-L3. LYMPH NODES: No gross evidence for lymphadenopathy. SOFT TISSUE/ABDOMINAL WALL: Electronic device with leads terminating in the posterior spinal canal. IMPRESSION: 1. No evidence for acute abdominal process. 2. Moderate hiatal hernia with postsurgical changes of gastric lumen and the small bowel 3. Degeneration changes throughout the spine and other osseous structures without evidence for acute fracture. 4. Nonobstructing right renal calculus.
[2022-08-28] MEDS ORDERED: HYDROmorphone 0.5 MG/0.5 ML SYRINGE IVP STA (22:43)
[2022-08-28] MEDS ORDERED: ACETAMINOPHEN TAB 500 MG TAB PO STA (22:44)
--- NOTE | 2022-08-28 22:56 | ED ---
Abdominal Pain HPI - General Chief Complaint: Abdominal Pain Stated Complaint: Back Pain, Abdominal Pain Time Seen by Provider: 08/28/22 20:58 Source: patient Mode of arrival: EMS Limitations: no limitations - History of Present Illness Initial Comments: Patient is a 62-year-old female who presents to the emergency department with multiple complaints. Patient reports lower back pain. Patient has history of chronic back pain she sustained a fall about one week ago and now has increased pain. She has been evaluated on 2 occasions for pain from fall. She follows with Dr. Cervantes. No saddle anesthesia, focal deficit, loss of bowel or bladder function. She also reports abdominal pain in her right lower abdomen that started yesterday. Reports nausea without vomiting. Denies fever, chills, diarrhea, constipation, burning with urination, blood in the urine. Patient has history of cholecystectomy, Judith-en-Y, hysterectomy, Gastric bypass. She r eceived pain and nausea medication in the ambulance and her pain is controlled currently. - Related Data Home Medications Medication Instructions Recorded Confirmed Fluticasone Nasal [place] [Flonase 1 spr EA NOSTRIL DAILY 06/20/17 08/28/22 Nasal [place]] SUMAtriptan succinate [Imitrex] 100 mg PO DAILY PRN MDD 100mg 06/20/17 08/28/22 EPINEPHrine (Auto Inject) [Epipen] 0.3 mg IM ONCE PRN 06/24/19 08/28/22 Pantoprazole [Protonix] 40 mg PO BID 06/24/19 08/28/22 DULoxetine HCL [Cymbalta] 30 mg PO DAILY 04/07/20 08/28/22 DULoxetine HCL [Cymbalta] 60 mg PO HS 03/27/21 08/28/22 Furosemide [Lasix] 40 mg PO BID 03/27/21 08/28/22 buPROPion XL [Wellbutrin XL] 450 mg PO DAILY 03/27/21 08/28/22 nadoloL [Corgard] 20 mg PO DAILY 03/27/21 08/28/22 Cyanocobalamin [Vitamin B-12 1,000 mcg SQ QMONTHLY 09/23/21 08/28/22 Injection] Midodrine [ProAmatine] 5 mg PO TID 09/23/21 08/28/22 Naloxone HCl [Narcan] 4 mg NASAL ONCE PRN 09/23/21 08/28/22 Nystatin 100,000 Unit/gm Powd 1 applic TOPICAL DAILY PRN 09/23/21 08/28/22 [Mycostatin Powder] Folic Acid 1 mg PO DAILY 11/28/21 08/28/22 Sennosides-Docusate Sodium 2 tab PO HS 02/17/22 08/28/22 [Senokot-S] Cholecalciferol [Vitamin D3 (25 50 mcg PO DAILY 06/01/22 08/28/22 Mcg = 1000 Iu)] Prochlorperazine [Compazine] 5 mg PO Q8H PRN 06/01/22 08/28/22 Sucralfate [Carafate] 1 gm PO ACHS PRN 06/01/22 08/28/22 traZODone HCL [Desyrel] 200 mg PO HS 06/01/22 08/28/22 Desmopressin Intranasal [Ddavp 2 spray NASAL DAILY PRN 07/03/22 08/28/22 Nasal [place]] HYDROcodone/APAP 10-325MG [[place] 1 tab PO Q6HR PRN 07/03/22 08/28/22 10-325] Calcium Carbonate/Vitamin D3 1 tab PO DAILY 08/26/22 08/28/22 [Calcium 600 mg-Vit D3 10 mcg (400 Unit)] Carbidopa/Levodopa 1 tab PO HS 08/26/22 08/28/22 [Carbidopa-Levodopa 25-100 Tab] Previous Rx's Medication Instructions Recorded Acetaminophen Tab [Tylenol Tab] 500 mg PO Q4H PRN #30 tablet 08/28/22 Ondansetron Odt [Zofran Odt] 4 mg PO Q8HR PRN #10 tab 08/28/22 Allergies Allergy/AdvReac Type Severity Reaction Status Date / Time Iodinated Contrast Media Allergy Anaphylaxis Verified 08/28/22 21:34 [Iodinated Contrast- Oral and IV Dye] isosorbide [From Imdur] Allergy Rash/Hives Verified 08/28/22 21:34 latex Allergy Anaphylaxis Verified 08/28/22 21:34 Sulfa (Sulfonamide Allergy Rash/Hives Verified 08/28/22 21:34 Antibiotics) aspirin AdvReac has Von Verified 08/28/22 21:34 Willebrands Disease codeine AdvReac agitation Verified 08/28/22 21:34 and restless leg symptoms increased ibuprofen [From Motrin] AdvReac has Von Verified 08/28/22 21:34 Willebrands Disease Review of Systems ROS Statement: Those systems with pertinent positive or pertinent negative responses have been documented in the HPI. ROS Other: All systems not noted in ROS Statement are negative. Past Medical History Past Medical History: Deep Vein Thrombosis (DVT), GERD/Reflux, Supraventricular Tachycardia (SVT) Additional Past Medical History / Comment(s): Von Willebrand Disease, diverticulitis, migraines, chronic back pain, DVT bilat. Restless leg syndrome. History of Any Multi-Drug Resistant Organisms: None Reported Past Surgical History: Adenoidectomy, Bariatric Surgery, Cholecystectomy, Heart Catheterization, Hysterectomy, Joint Replacement, Orthopedic Surgery, Tonsillectomy Additional Past Surgical History / Comment(s): nury foot surgery, nury knee replaced, nury rotator cuffs, Judith en Y approx 5 years, bowel surgery. right shoulder replacement,right hip replaced Past Anesthesia/Blood Transfusion Reactions: Postoperative Nausea & Vomiting (PONV) Past Psychological History: Anxiety, Depression Smoking Status: Never smoker Past Alcohol Use History: Occasional Past Drug Use History: None Reported - Past Family History Mother Family Medical History: Cancer Father Family Medical History: Cancer General Exam Limitations: no limitations General appearance: alert, in no apparent distress Head exam: Present: atraumatic, normocephalic, normal inspection Eye exam: Present: normal appearance, PERRL, EOMI. Absent: scleral icterus, conjunctival injection, periorbital swelling Neck exam: Present: normal inspection. Absent: tenderness, meningismus, lymphadenopathy Respiratory exam: Present: normal lung sounds bilaterally. Absent: respiratory distress, wheezes, rales, rhonchi, stridor Cardiovascular Exam: Present: regular rate, normal rhythm, normal heart sounds. Absent: systolic murmur, diastolic murmur, rubs, gallop, clicks GI/Abdominal exam: Present: soft, normal bowel sounds. Absent: distended, tenderness, guarding, rebound, rigid Neurological exam: Present: alert, oriented X3, CN II-XII intact Skin exam: Present: warm, dry, intact, normal color. Absent: rash Course Vital Signs 08/28/22 21:02 Temperature 97.7 F Pulse Rate 65 Respiratory 16 Rate Blood Pressure 130/81 O2 Sat by Pulse 90 L Oximetry Medical Decision Making - Medical Decision Making Was pt. sent in by a medical professional or institution (LUCAS Hernandez, SOLAR SALES REPRESENTATIVE, urgent care, hospital, or usp...) When possible be specific @ -No Did you speak to anyone other than the patient for history (EMS, parent, family, police, friend...)? What history was obtained from this source @ -No Did you review nursing and triage notes (agree or disagree)? Why? @ -I reviewed and agree with nursing and triage notes Were old charts reviewed (outside hosp., previous admission, EMS record, old EKG, old radiological studies, urgent care reports/EKG's, usp records)? Report findings @ -Yes, reviewed previous lumbar MRI Differential Diagnosis (chest pain, altered mental status, abdominal pain women, abdominal pain men, vaginal bleeding, weakness, fever, dyspnea, syncope, headache, dizziness, GI bleed, back pain, seizure, CVA, palpatations, mental health)? @ -Differential Abdominal Pain Women: Appendicitis, Cholecystitis, diverticulosis, ischemic bowel, pancreatitis, hepatitis, UTI, gastroenteritis, AAA, incarcerated hernia, bowel obstruction, constipation, inflammatory bowel, hepatitis, peptic ulcer disease, splenic infarction, perforated viscus, vulvitis, ovarian torsion, PID, kidney stone, en centa abruption, this is not meant to be an all-inclusive list EKG interpreted by me (3pts min.). @ -As above X-rays interpreted by me (1pt min.). @ -None done CT interpreted by me (1pt min.). @ -Yes, CT of the abdomen and pelvis is negative for acute process U/S interpreted by me (1pt. min.). @ -None done What testing was considered but not performed or refused? (CT, X-rays, U/S, labs)? Why? @ -None What meds were considered but not given or refused? Why? @ -None Did you discuss the management of the patient with other professionals (professionals i.e. LUCAS Hernandez, SOLAR SALES REPRESENTATIVE, lab, RT, psych nurse, psychologist social, crts, teacher, tactical intelligence officer, nurse outreach case manager)? Give summary @ -No Was smoking cessation discussed for >3mins.? @ -No Was critical care preformed (if so, how long)? @ -No Were there social determinants of health that impacted care today? How? (Homelessness, low income, unemployed, alcoholism, drug addiction, transportation, low edu. Level, literacy, decrease access to med. care, custodial, rehab)? @ -No Was there de-escalation of care discussed even if they declined (Discuss DNR or withdrawal of care, Hospice)? DNR status @ -No What co-morbidities impacted this encounter? (DM, HTN, Smoking, COPD, CAD, Cancer, CVA, ARF, Chemo, Hep., AIDS, mental health diagnosis, sleep apnea, morbid obesity)? @ -chronic back pain Was patient admitted / discharged? Hospital course, mention meds given and route, prescriptions, significant lab abnormalities, going to OR and other pertinent info. @ -Patient presented with abdominal pain and acute on chronic back pain. The abdomen is soft and nontender. Afebrile. Laboratory studies unremarkable. CT negative for acute process. Upon discharge patient had very aggressive with me stating Dilaudid instead of Tylenol for back pain. I declined giving narcotics. Patient instructed to follow up with her finish specialist and primary care. Undiagnosed new problem with uncertain prognosis? @ -No Drug Therapy requiring intensive monitoring for toxicity (Heparin, Nitro, Insulin, Cardizem)? @ -No Were any procedures done? @ -No Diagnosis/symptom? @ -abdominal pain Acute, or Chronic, or Acute on Chronic? @ -acute Uncomplicated (without systemic symptoms) or Complicated (systemic symptoms)? @ -uncomplicated Side effects of treatment? @ -No Exacerbation, Progression, or Severe Exacerbation? @ -No Poses a threat to life or bodily function? How? (Chest pain, USA, IA, pneumonia, PE, COPD, DKA, ARF, appy, cholecystitis, CVA, Diverticulitis, Homicidal, Suicidal, threat to staff... and all critical care pts) @ -No Diagnosis/symptom? @ -back pain Acute, or Chronic, or Acute on Chronic? @ -acute on chronic Uncomplicated (without systemic symptoms) or Complicated (systemic symptoms)? @ -uncomplicated Side effects of treatment? @ -none Exacerbation, Progression, or Severe Exacerbation] @ -no Poses a threat to life or bodily function? @ -no Dr. Turner is my attending - Lab Data Result diagrams: 08/28/22 21:52 08/28/22 21:52 Lab Results 08/28/22 08/28/2208/28/23 Range/Units 21:52 21:52 21:52 WBC 6.0 (3.8-10.6) k/uL RBC 3.89 (3.80-5.40) m/uL Hgb 12.4 (11.4-16.0) gm/dL Hct 36.8 (34.0-46.0) % MCV 94.7 (80.0-100.0) fL MCH 31.9 (25.0-35.0) pg MCHC 33.7 (31.0-37.0) g/dL RDW 13.7 (11.5-15.5) % Plt Count 216 (150-450) k/uL MPV 8.5 Neutrophils % 68 % Lymphocytes % 17 % Monocytes % 7 % Eosinophils % 6 % Basophils % 1 % Neutrophils # 4.0 (1.3-7.7) k/uL Lymphocytes # 1.0 (1.0-4.8) k/uL Monocytes # 0.4 (0-1.0) k/uL Eosinophils # 0.4 (0-0.7) k/uL Basophils # 0.1 (0-0.2) k/uL Sodium 137 (137-145) mmol/L Potassium 4.3 (3.5-5.1) mmol/L Chloride 103 (98-107) mmol/L Carbon Dioxide 27 (22-30) mmol/L Anion Gap 7 mmol/L BUN 12 (7-17) mg/dL Creatinine 0.47 L (0.52-1.04) mg/dL Est GFR (CKD-EPI)AfAm >90 (>60 ml/min/1.73 sqM) Est GFR (CKD-EPI)NonAf >90 (>60 ml/min/1.73 sqM) Glucose 87 (74-99) mg/dL Plasma Lactic Acid Lj 0.7 (0.7-2.0) mmol/L Calcium 8.2 L (8.4-10.2) mg/dL Total Bilirubin 0.4 (0.2-1.3) mg/dL AST 36 (14-36) U/L ALT 56 H (4-34) U/L Alkaline Phosphatase 132 H (38-126) U/L Total Protein 5.8 L (6.3-8.2) g/dL Albumin 3.3 L (3.5-5.0) g/dL Lipase 96 (23-300) U/L Urine Color Urine Appearance (Clear) Urine pH (5.0-8.0) Ur Specific [place] (1.001-1.035) Urine Protein (Negative) Urine Glucose (UA) (Negative) Urine Ketones (Negative) Urine Blood (Negative) Urine Nitrite (Negative) Urine Bilirubin (Negative) Urine Urobilinogen (<2.0) mg/dL Ur Leukocyte Esterase (Negative) 08/28/22 Range/Units 22:08 WBC (3.8-10.6) k/uL RBC (3.80-5.40) m/uL Hgb (11.4-16.0) gm/dL Hct (34.0-46.0) % MCV (80.0-100.0) fL MCH (25.0-35.0) pg MCHC (31.0-37.0) g/dL RDW (11.5-15.5) % Plt Count (150-450) k/uL MPV Neutrophils % % Lymphocytes % % Monocytes % % Eosinophils % % Basophils % % Neutrophils # (1.3-7.7) k/uL Lymphocytes # (1.0-4.8) k/uL Monocytes # (0-1.0) k/uL Eosinophils # (0-0.7) k/uL Basophils # (0-0.2) k/uL Sodium (137-145) mmol/L Potassium (3.5-5.1) mmol/L Chloride (98-107) mmol/L Carbon Dioxide (22-30) mmol/L Anion Gap mmol/L BUN (7-17) mg/dL Creatinine (0.52-1.04) mg/dL Est GFR (CKD-EPI)AfAm (>60 ml/min/1.73 sqM) Est GFR (CKD-EPI)NonAf (>60 ml/min/1.73 sqM) Glucose (74-99) mg/dL Plasma Lactic Acid Lj (0.7-2.0) mmol/L Calcium (8.4-10.2) mg/dL Total Bilirubin (0.2-1.3) mg/dL AST (14-36) U/L ALT (4-34) U/L Alkaline Phosphatase (38-126) U/L Total Protein (6.3-8.2) g/dL Albumin (3.5-5.0) g/dL Lipase (23-300) U/L Urine Color Yellow Urine Appearance Clear (Clear) Urine pH 6.5 (5.0-8.0) Ur Specific [place] 1.018 (1.001-1.035) Urine Protein Negative (Negative) Urine Glucose (UA) Negative (Negative) Urine Ketones Trace H (Negative) Urine Blood Negative (Negative) Urine Nitrite Negative (Negative) Urine Bilirubin Negative (Negative) Urine Urobilinogen <2.0 (<2.0) mg/dL Ur Leukocyte Esterase Negative (Negative) Disposition Clinical Impression: Abdominal pain, Drug-seeking behavior Disposition: HOME SELF-CARE Condition: Good Instructions (If sedation given, give patient instructions): Abdominal Pain (ED) Additional Instructions: Take medication as directed. Follow up with primary care provider in 1-2 days. Return to the emergency department if you experience new, concerning, or worsening symptoms. Prescriptions: Acetaminophen Tab [Tylenol Tab] 500 mg PO Q4H PRN #30 tablet PRN Reason: Pain Ondansetron Odt [Zofran Odt] 4 mg PO Q8HR PRN #10 tab PRN Reason: Nausea Is patient prescribed a controlled substance at d/c from ED?: No Referrals: Stefan He MD [Primary Care Provider] - 1-2 days
== END 2022-08-28 23:21 | disposition home or self-care (01) ==
LOC: EC 20:55
DX: R10.31 Right lower quadrant pain (principal); K21.9 Gastro-esophageal reflux disease without esophagitis; F32.A Depression, unspecified; F41.9 Anxiety disorder, unspecified; Z76.5 Malingerer [conscious simulation]; Z88.1 Allergy status to other antibiotic agents; Z88.2 Allergy status to sulfonamides; Z88.5 Allergy status to narcotic agent; Z88.6 Allergy status to analgesic agent; Z88.8 Allergy status to other drugs, medicaments and biological substances; Z91.040 Latex allergy status; Z90.49 Acquired absence of other specified parts of digestive tract; Z98.84 Bariatric surgery status; Z86.718 Personal history of other venous thrombosis and embolism; Z79.899 Other long term (current) drug therapy
CPT/HCPCS: 36415; 80053; 83605; 83690; 85025; 81003; 74177; 99285; 96374; 96375 ×2; 96361; J1200; J2930; Q9967

== ENCOUNTER 2022-09-12 07:02 | Observation (INO) | payer MEDICARE, OTHER ==
[2022-09-10 16:23] VITALS: BMI 37.1
--- NOTE | 2022-09-11 22:11 | P.GSHP ---
History of Present Illness H&P Date: 09/11/22 Chief Complaint: Right flank pain The patient is a 62-year-old white female with no prior history of urolithiasis. She now presents with a three-week history of severe right flank pain radiating to the right lower quadrant. CT scan a shown a 2 mm right lower pole renal calc ulus with no evidence of hydronephrosis. The pain increases with voiding, bowel movement, and movement. She was evaluated at [facility] and told that her pain was unlikely to be of musculoskeletal origin. - Constitutional Constitutional: Reports chills, Reports fever - Gastrointestinal Gastrointestinal: Reports nausea - Genitourinary (Female) Genitourinary: Reports flank pain, Reports kidney stones, Denies dysuria, Denies hematuria Past Medical History Past Medical History: Deep Vein Thrombosis (DVT), GERD/Reflux, Supraventricular Tachycardia (SVT) Additional Past Medical History / Comment(s): Von Willebrand Disease, diverticulitis, migraines, chronic back pain, DVT bilat. Restless leg syndrome. History of Any Multi-Drug Resistant Organisms: None Reported Past Surgical History: Adenoidectomy, Bariatric Surgery, Cholecystectomy, Heart Catheterization, Hysterectomy, Joint Replacement, Orthopedic Surgery, Tonsillectomy Additional Past Surgical History / Comment(s): nury foot surgery, nury knee replaced, nury rotator cuffs, Judith en Y approx 5 years, bowel surgery, right shoulder replacement,right hip titanium my placed Past Anesthesia/Blood Transfusion Reactions: Postoperative Nausea & Vomiting (PONV) Past Psychological History: Anxiety, Depression Smoking Status: Former smoker Past Alcohol Use History: Occasional Additional Past Alcohol Use History / Comment(s): Quit smoking 1975. Smoked very little. Past Drug Use History: None Reported - Past Family History Mother Family Medical History: Cancer, Hypertension Father Family Medical History: Cancer, Hypertension Medications and Allergies Home Medications Medication Instructions Recorded Confirmed Type Fluticasone Nasal [place] [Flonase 1 spr EA NOSTRIL DAILY 06/20/17 09/10/22 History Nasal [place]] SUMAtriptan succinate [Imitrex] 100 mg PO DAILY PRN MDD 100mg 06/20/17 09/10/22 History EPINEPHrine (Auto Inject) [Epipen] 0.3 mg IM ONCE PRN 06/24/19 09/10/22 History Pantoprazole [Protonix] 40 mg PO BID 06/24/19 09/10/22 History DULoxetine HCL [Cymbalta] 30 mg PO DAILY 04/07/20 09/10/22 History DULoxetine HCL [Cymbalta] 60 mg PO HS 03/27/21 09/10/22 History Furosemide [Lasix] 40 mg PO BID 03/27/21 09/10/22 History buPROPion XL [Wellbutrin XL] 450 mg PO DAILY 03/27/21 09/10/22 History nadoloL [Corgard] 20 mg PO DAILY 03/27/21 09/10/22 History Cyanocobalamin [Vitamin B-12 1,000 mcg SQ QMONTHLY 09/23/21 09/10/22 History Injection] Midodrine [ProAmatine] 5 mg PO TID 09/23/21 09/10/22 History Naloxone HCl [Narcan] 4 mg NASAL ONCE PRN 09/23/21 09/10/22 History Nystatin 100,000 Unit/gm Powd 1 applic TOPICAL DAILY PRN 09/23/21 09/10/22 History [Mycostatin Powder] Folic Acid 1 mg PO DAILY 11/28/21 09/10/22 History Sennosides-Docusate Sodium 2 tab PO HS 02/17/22 09/10/22 History [Senokot-S] Cholecalciferol [Vitamin D3 (25 50 mcg PO DAILY 06/01/22 09/10/22 History Mcg = 1000 Iu)] Prochlorperazine [Compazine] 5 mg PO Q8H PRN 06/01/22 09/10/22 History Sucralfate [Carafate] 1 gm PO ACHS PRN 06/01/22 09/10/22 History traZODone HCL [Desyrel] 200 mg PO HS 06/01/22 09/10/22 History Desmopressin Intranasal [Ddavp 2 spray NASAL DAILY PRN 07/03/22 09/10/22 History Nasal [place]] HYDROcodone/APAP 10-325MG [[place] 1 tab PO Q6HR PRN 07/03/22 09/10/22 History 10-325] Calcium Carbonate/Vitamin D3 1 tab PO DAILY 08/26/22 09/10/22 History [Calcium 600 mg-Vit D3 10 mcg (400 Unit)] Carbidopa/Levodopa 2 tab PO HS 08/26/22 09/10/22 History [Carbidopa-Levodopa 25-100 Tab] Ondansetron Odt [Zofran Odt] 4 mg PO Q8HR PRN #10 tab 08/28/22 09/10/22 Rx Allergies Allergy/AdvReac Type Severity Reaction Status Date / Time Iodinated Contrast Media Allergy Anaphylaxis Verified 09/10/22 16:06 [Iodinated Contrast- Oral and IV Dye] isosorbide [From Imdur] Allergy Rash/Hives Verified 09/10/22 16:06 latex Allergy Anaphylaxis Verified 09/10/22 16:06 Sulfa (Sulfonamide Allergy Rash/Hives Verified 09/10/22 16:06 Antibiotics) aspirin AdvReac has Von Verified 09/10/22 16:06 Willebrands Disease codeine AdvReac agitation Verified 09/10/22 16:06 and restless leg symptoms increased ibuprofen [From Motrin] AdvReac has Von Verified 09/10/22 16:06 Willebrands Disease Surgical - Exam - General well developed, well nourished, no distress - Neck no masses, trachea midline - Abdomen Soft, non-distended, no mass. Right lower quadrant tenderness, without guarding. Right CVA tenderness. - Psychiatric oriented to time, oriented to person, oriented to place, speech is normal, memory intact Results - Imaging CT scan - abdomen: report reviewed, image reviewed Assessment and Plan Assessment: The patient has been advised that a 2 mm non-obstructing renal calculus would not be expected to cause severe pain. Nonetheless, she desires ureteroscopic removal of the calculus as she has been told that the pain is unlikely to be of musculoskeletal origin. (1) Calculus of kidney Status: Acute Code(s): N20.0 - CALCULUS OF KIDNEY SNOMED Code(s): 39743810 Plan: Cystoscopy, right retrograde pyelogram, right ureteroscopy with Holmium laser lithotripsy and/or stone basketing, right ureteral stent insertion. The pro cedure has been reviewed in detail with the patient. She has been made aware of potential risks, which include anesthesia, bleeding, infection, inability to successfully remove the calculus, and ureteral injury.
[~2022-09-12 07:02] MED LIST changes: +DESMOPRESSIN ACETATE 18 MCG in SODIUM CHLORIDE 0.9% 50 ML IVPB ONE; +DEXAMETHASONE SOD PHOSPHATE 4 MG/ML 1 ML VIAL IV ONE; +HYDROmorphone 0.5 MG/0.5 ML SYRINGE IVP PRN; +LIDOCAINE 1% (10MG/ML) FOR IV START INTRADERMA PRN; +ONDANSETRON 4 MG/2 ML VIAL IVP ONE; -SODIUM CHLORIDE 0.9% 500 ML 500 ML in EMPTY BAG 1 BAG IV PRN; -ZOLEDRONIC ACID 5 MG in SODIUM CHLORIDE 0.9% 100 ML IV NR
--- NOTE | 2022-09-12 07:24 | XR ---
EXAMINATION TYPE: XR KUB DATE OF EXAM: 09/12/2022 Comparison: CT 08/28/2022 Clinical History: 62-year-old female Right Renal Calculus N20.0 Findings: Anterograde intramedullary nail and screw fixation proximal right femur. Left sided abdominal generat or device with a spinal stimulator leads extending to the lower thoracic spinal canal. Cholecystectom y clips. Couple surgical clips projecting at the midline lower abdomen. Nonobstructive bowel gas juani tracey. Mild stool within the left side of the colon. Degenerated levoconvex scoliosis. Nonobstructive b owel gas pattern. A couple phleboliths noted in the low right pelvis. Previous surgery to the distal rectum. Impression: No radiographically appreciable renal calculi. Right-sided pelvic phleboliths. Nonobstructive bowel g as pattern.
[2022-09-12] MEDS: LACTATED RINGERS 1,000 ML IV SCH ×2 (08:20→12:36)
[2022-09-12] MEDS ORDERED: ONDANSETRON 4 MG/2 ML VIAL ONE (08:26)
[2022-09-12] MEDS ORDERED: DESMOPRESSIN ACETATE 18 MCG in SODIUM CHLORIDE 0.9% 50 ML IVPB ONE (08:45)
[2022-09-12] MEDS ORDERED: SUCCINYLCHOLINE CHLORIDE 200 MG/10 ML VIAL IV ONE (08:56)
[2022-09-12] MEDS ORDERED: fentaNYL (PF) 50 MCG/ML 2 ML AMP ONE (08:56)
[2022-09-12] MEDS ORDERED: LIDOCAINE 2% INJ 20 MG/ML (2 ML VIAL) ONE (08:56)
[2022-09-12] MEDS ORDERED: ePHEDrine 50 MG/ML 1 ML VIAL ONE (08:56)
[2022-09-12] MEDS ORDERED: PROPOFOL 10 MG/ML 20 ML VIAL IV ONE (08:56)
[2022-09-12] MEDS ORDERED: MIDAZOLAM 2 MG/2 ML VIAL ONE (08:56)
[2022-09-12] MEDS ORDERED: IOPAMIDOL-370 50ML BTL INJ ONE (09:28)
[2022-09-12] MEDS ORDERED: DESMOPRESSIN NASAL PRN (10:30)
[2022-09-12] MEDS ORDERED: PROCHLORPERAZINE 5 MG TAB PO PRN (10:30)
[2022-09-12] MEDS ORDERED: SUMAtriptan succinate 50 MG TAB PO PRN (10:30)
[2022-09-12] MEDS ORDERED: ONDANSETRON ODT 4 MG TAB PO PRN (10:30)
[2022-09-12] MEDS ORDERED: SUCRALFATE 1 GM TAB PO PRN (10:30)
[2022-09-12 10:38] VITALS: RESP 16
[2022-09-12] MEDS: DEXTROSE 5%-0.45% NACL 1,000 ML IV SCH ×2 (12:27→22:31)
[2022-09-12] MEDS: HYDROcodone/APAP 10-325MG 1 EACH TAB PO PRN ×2 (12:40→20:24)
[2022-09-12] MEDS: MIDODRINE 5 MG TAB PO SCH ×2 (13:04→16:21)
--- NOTE | 2022-09-12 13:41 | FL ---
EXAMINATION TYPE: FL guidance operating room DATE OF EXAM: 09/12/2022 FLUOROSCOPY Fluoroscopy time of 2 minutes 3 seconds was used during urologic intervention for right renal calculu s. 10 image/s document/s the procedure. DAP 18.203
[2022-09-12] MEDS: FUROSEMIDE 40 MG TAB PO SCH (16:21)
[2022-09-12] MEDS: PANTOPRAZOLE 40 MG TABLET PO SCH (16:21)
[2022-09-12] MEDS: HYDROmorphone 1 MG/ML 1 ML SYRINGE IVP PRN ×2 (16:49→21:03)
[2022-09-12 17:10] LABS: African American GFR (CKD) >90 (>60 ml/min/1.73 sqM); Anion Gap 6 mmol/L; Blood Urea Nitrogen 14 mg/dL (7-17); Calcium 8.5 mg/dL (8.4-10.2); Carbon Dioxide 30 mmol/L (22-30); Chloride 103 mmol/L (98-107); Glucose 111 mg/dL (74-99); Non-African American GFR(CKD) >90 (>60 ml/min/1.73 sqM); Potassium 4.5 mmol/L (3.5-5.1); Sodium 139 mmol/L (137-145)
[2022-09-12 18:01] VITALS: PULSE 58
[2022-09-12] MEDS ORDERED: CARBIDOPA-LEVODOPA 25-100 MG 1 EACH TAB PO SCH (21:00)
[2022-09-12] MEDS ORDERED: DULoxetine HCL 60 MG CAPSULE.DR PO SCH (21:00)
[2022-09-12] MEDS ORDERED: SENNOSIDES-DOCUSATE SODIUM 1 EACH TAB PO SCH (21:00)
[2022-09-12] MEDS ORDERED: traZODone HCL 100 MG TAB PO SCH (21:00)
--- NOTE | 2022-09-12 22:17 | P.OP ---
Date of Procedure: 09/12/22 Preoperative Diagnosis: Right renal calculus Postoperative Diagnosis: Right renal calculi Procedure(s) Performed: Cystoscopy, right retrograde pyelogram, right ureteroscopy with Holmium laser lithotripsy, right ureteral stent insertion Anesthesia: KAUSHIKA Surgeon: Diogenes Hamm Estimated Blood Loss (ml): 5 IV fluids (ml): 500 Pathology: none sent Condition: stable Disposition: PACU Indications for Procedure: The patient is a 62-year-old white female with no prior history of urolithiasis. She now presents with a three-week history of severe right flank pain radiating to the right lower quadrant. CT scan a shown a 2 mm right lower pole renal calculus with no evidence of hydronephrosis. The pain increases with voiding, bowel movement, and movement. She was evaluated at [facility] and told that her pain was unlikely to be of musculoskeletal origin. Operative Findings: Several right lower pole renal calculi. The largest measured 2-3 mm in size and was fragmented via laser lithotripsy. Description of Procedure: The patient was taken to the operating room and placed in the dorsolithotomy position, with legs supported in Talib stirrups. The external genitalia was prepped and draped sterilely. The 30 lens was used to introduce the 21-Tongan Bowie cystoscopic sheath through the urethra and into the bladder under direct vision. The bladder was examined in its entirety. Both ureteral orifices were normal anatomic location and configuration, and clear urine effluxed from both. No tumors or foreign bodies were seen. Using a 10-Tongan cone-tipped catheter, a right retrograde pyelogram was performed. The ureter was normal in course and caliber. No ureteral calculi were seen. There was no evidence of hydronephrosis. A questionable filling defect was seen within the right renal pelvis. A 0.038 inch Glidewire was passed through the cystoscope. The ureteral orifice was cannulated, and the Glidewire was advanced up to the renal pelvis. The cystoscope was removed, and an 11/13-Tongan ureteral access catheter was passed over the wire, up to the proximal ureter. The flexible ureteroscope was then passed through the ureteral access catheter sheath, up to the renal pelvis. Each calyx was examined. No abnormalities were seen within the renal pelvis to account for the apparent filling defect. A 3 mm calculus was identified within a lower pole calyx. Several tiny calculi surrounded this. The 200 micron Holmium laser probe was passed through the ureteroscope, and lithotripsy was performed to fragment the 3 mm calculus. Irrigation resulted in the fragments and surrounding tiny calculi being flushed out of the calyx, and careful examination of each calyx felt to locate these calculi. Pullout ureteroscopy showed no evidence of ureteral injury. The Glidewire was passed up to the right renal pelvis, and backloaded into the cystoscope. A 26 cm, 4.8-Tongan double-J ureteral stent was placed over the wire. Proper stent positioning was verified fluoroscopically and endoscopically.. The bladder was emptied and the cystoscope removed. The string attached to the stent was secured to the patient's right thigh using a Tegaderm dressing. The patient tolerated the procedure well and was taken to the recovery room in stable condition. AKI FONTENOT Report: Procedure Acuity: Semi-Urgent Stone Size and Location: 3 mm, right lower pole Ureteral Dilation: No Ureteral Access Sheath Used: Yes Stone Sent for Analysis: No All Stones/Fragments Were Removed with a Basket: No Complications: No Preoperative Antibiotics Given: Yes Stent Placed: Yes If Stent Placed, Was String Left Attached: Yes If Stent Placed, When is it to be Removed: 1 week Discharge Medications: Toradol
[2022-09-13] MEDS: HYDROmorphone 1 MG/ML 1 ML SYRINGE IVP PRN ×2 (02:38→08:00)
[2022-09-13] MEDS: HYDROcodone/APAP 10-325MG 1 EACH TAB PO PRN (04:35)
[2022-09-13 07:35] VITALS: BP 100/65; TEMP 97.4
[2022-09-13] MEDS: DEXTROSE 5%-0.45% NACL 1,000 ML IV SCH (07:58)
[2022-09-13] MEDS: PANTOPRAZOLE 40 MG TABLET PO SCH (07:59)
[2022-09-13] MEDS: MIDODRINE 5 MG TAB PO SCH (07:59)
[2022-09-13] MEDS: FUROSEMIDE 40 MG TAB PO SCH (08:00)
[2022-09-13] MEDS ORDERED: buPROPion XL 300 MG TAB.ER.24H PO SCH (09:00)
[2022-09-13] MEDS ORDERED: CHOLECALCIFEROL 25 MCG (1000 IU) TABLET PO SCH (09:00)
[2022-09-13] MEDS ORDERED: FOLIC ACID 1 MG TAB PO SCH (09:00)
[2022-09-13] MEDS ORDERED: FLUTICASONE 50MCG/SPRAY NASAL 16GM EA NOSTRIL SCH (09:00)
[2022-09-13] MEDS ORDERED: DULoxetine HCL 30 MG CAPSULE.DR PO SCH (09:00)
--- NOTE | 2022-09-13 10:46 | P.DS ---
Providers Date of admission: 09/12/22 07:03 Expected date of discharge: 09/13/22 Attending physician: Diogenes Hamm Primary care physician: Stefan He MD - Discharge Diagnosis(es) (1) Right renal stone Status: Acute Hospital Course: The patient is a 62-year-old white female with no prior history of urolithiasis. She presented to the emergency department on 09/11/22 with a three-week history of severe right flank pain radiating to the right lower quadrant. CT scan a shown a 2 mm right lower pole renal calculus with no evidence of hydronephrosis. The pain increases with voiding, bowel movement, and movement. She was evaluated at [facility] and told that her pain was unlikely to be of musculoskeletal origin. The patient has been advised that a 2 mm non-obstructing renal calculus would not be expected to cause severe pain. Nonetheless, she desires ureteroscopic removal of the calculus. On 09/12/22 the patient underwent a cystoscopy, right retrograde pyelogram, right ureteroscopy with holmium laser lithotripsy, right ureteral stent insertion with Dr. Hamm. The patient tolerated the procedure well and was taken to the recovery room in stable condition. POD#1 the patient reports that her right flank pain and right lower abdominal pain has improved significantly. She is tolerating a regular diet. She is afebrile, vital signs are stable, and she is on room air. She was instructed on how to remove her stent at home. She is to follow-up with Dr. Hamm in 3 weeks. Impression and plan of care have been directed as dictated by the signing physic ian. Caroline Gillespie nurse practitioner acting as scribe for signing physician. Caroline Gillespie [facility] Palliative Care/Urology Spectralink [phone] Email: [email or web address] I have personally seen and examined the patient, reviewed the documentation and agree with the assessment and plan as written. Number of minutes spent on the visit: 20. Diogenes Hamm MD Procedures: Cystoscopy, right ureteroscopy with Holmium laser lithotripsy, right ureteral stent insertion on 09/12/2022 Patient Condition at Discharge: Good Plan - Discharge Summary Discharge Rx Participant: No New Discharge Prescriptions: Continue Fluticasone Nasal [place] [Flonase Nasal [place]] 1 spr EA NOSTRIL DAILY SUMAtriptan succinate [Imitrex] 100 mg PO DAILY PRN MDD 100mg PRN Reason: Migraine Headache EPINEPHrine (Auto Inject) [Epipen] 0.3 mg IM ONCE PRN PRN Reason: Anaphylaxis Pantoprazole [Protonix] 40 mg PO BID DULoxetine HCL [Cymbalta] 30 mg PO DAILY nadoloL [Corgard] 20 mg PO DAILY DULoxetine HCL [Cymbalta] 60 mg PO HS buPROPion XL [Wellbutrin XL] 450 mg PO DAILY Nystatin 100,000 Unit/gm Powd [Mycostatin Powder] 1 applic TOPICAL DAILY PRN PRN Reason: Rash Cyanocobalamin [Vitamin B-12 Injection] 1,000 mcg SQ QMONTHLY Folic Acid 1 mg PO DAILY traZODone HCL [Desyrel] 200 mg PO HS Sucralfate [Carafate] 1 gm PO ACHS PRN PRN Reason: Gi Upset Prochlorperazine [Compazine] 5 mg PO Q8H PRN PRN Reason: Nausea Cholecalciferol [Vitamin D3 (25 Mcg = 1000 Iu)] 50 mcg PO DAILY Desmopressin Intranasal [Ddavp Nasal [place]] 2 spray NASAL DAILY PRN PRN Reason: Bleeding Carbidopa/Levodopa [Carbidopa-Levodopa 25-100 Tab] 2 tab PO HS Ondansetron Odt [Zofran ODT] 4 mg PO Q8HR PRN #10 tab PRN Reason: Nausea Furosemide [Lasix] 40 mg PO BID Naloxone HCl [Narcan] 4 mg NASAL ONCE PRN PRN Reason: Overdose Midodrine [ProAmatine] 5 mg PO TID Sennosides-Docusate Sodium [Senokot-S] 2 tab PO HS HYDROcodone/APAP 10-325MG [[place] 10-325] 1 tab PO Q6HR PRN PRN Reason: Pain Discharge Medication List Fluticasone Nasal [place] [Flonase Nasal [place]] 1 spr EA NOSTRIL DAILY 06/20/17 [History] SUMAtriptan succinate [Imitrex] 100 mg PO DAILY PRN MDD 100mg 06/20/17 [History] EPINEPHrine (Auto Inject) [Epipen] 0.3 mg IM ONCE PRN 06/24/19 [History] Pantoprazole [Protonix] 40 mg PO BID 06/24/19 [History] DULoxetine HCL [Cymbalta] 30 mg PO DAILY 04/07/20 [History] DULoxetine HCL [Cymbalta] 60 mg PO HS 03/27/21 [History] Furosemide [Lasix] 40 mg PO BID 03/27/21 [History] buPROPion XL [Wellbutrin XL] 450 mg PO DAILY 03/27/21 [History] nadoloL [Corgard] 20 mg PO DAILY 03/27/21 [History] Cyanocobalamin [Vitamin B-12 Injection] 1,000 mcg SQ QMONTHLY 09/23/21 [History] Midodrine [ProAmatine] 5 mg PO TID 09/23/21 [History] Naloxone HCl [Narcan] 4 mg NASAL ONCE PRN 09/23/21 [History] Nystatin 100,000 Unit/gm Powd [Mycostatin Powder] 1 applic TOPICAL DAILY PRN 09/23/21 [History] Folic Acid 1 mg PO DAILY 11/28/21 [History] Sennosides-Docusate Sodium [Senokot-S] 2 tab PO HS 02/17/22 [History] Cholecalciferol [Vitamin D3 (25 Mcg = 1000 Iu)] 50 mcg PO DAILY 06/01/22 [History] Prochlorperazine [Compazine] 5 mg PO Q8H PRN 06/01/22 [History] Sucralfate [Carafate] 1 gm PO ACHS PRN 06/01/22 [History] traZODone HCL [Desyrel] 200 mg PO HS 06/01/22 [History] Desmopressin Intranasal [Ddavp Nasal [place]] 2 spray NASAL DAILY PRN 07/03/22 [History] HYDROcodone/APAP 10-325MG [[place] 10-325] 1 tab PO Q6HR PRN 07/03/22 [History] Carbidopa/Levodopa [Carbidopa-Levodopa 25-100 Tab] 2 tab PO HS 08/26/22 [History] Ondansetron Odt [Zofran ODT] 4 mg PO Q8HR PRN #10 tab 08/28/22 [Rx] Follow up Appointment(s)/Referral(s): Diogenes Hamm MD [STAFF PHYSICIAN] - 10/02/22 11:20 am Mariano,Medical [NON-STAFF] - As Needed (Call [facility] to arrange delivery of your new rollator. ) Patient Instructions/Handouts: *Surgery [facility] - Cystoscopy Discharge Instructions, Kidney Stones (DC), Ureteral Stent Placement (DC), Lithotripsy (DC) Activity/Diet/Wound Care/Special Instructions: Diet as tolerated. Activity as tolerated. Resume preoperative medications. Patient to remove ureteral stent in 1 week by removing tape from string and gently pulling on it. Discharge Disposition: HOME SELF-CARE
[2022-09-13 11:02] LABS: African American GFR (CKD) 112.2 (60.0-200.0); Albumin 3.7 g/dL (3.8-4.9); Albumin/Globulin Ratio 1.79 (1.60-3.17); Anion Gap 8.9 mmol/L (10.00-18.00); BUN/Creat Ratio 20.81 Ratio (12.00-20.00); Blood Urea Nitrogen 12.3 mg/dL (9.0-27.0); Calcium 8.2 mg/dL (8.7-10.3); Non-African American GFR(CKD) 96.8 (60.0-200.0); Potassium 3.9 mmol/L (3.5-5.5); Total Bilirubin 0.2 mg/dL (0.30-1.20); Total Protein 5.7 g/dL (6.2-8.2)
== END 2022-09-13 12:40 | disposition home or self-care (01) ==
LOC: OR 07:02 → 5NMEDONC 07:03
PROVIDERS: ADMIT Urology; ATTEND Urology
DX: N20.0 Calculus of kidney (principal); K21.9 Gastro-esophageal reflux disease without esophagitis; I47.1 Supraventricular tachycardia; D68.00 Von Willebrand disease, unspecified; Z86.718 Personal history of other venous thrombosis and embolism; Z87.19 Personal history of other diseases of the digestive system; G43.909 Migraine, unspecified, not intractable, without status migrainosus; G89.29 Other chronic pain; M54.9 Dorsalgia, unspecified; G25.81 Restless legs syndrome; Z98.84 Bariatric surgery status; Z90.49 Acquired absence of other specified parts of digestive tract; Z90.710 Acquired absence of both cervix and uterus; Z96.653 Presence of artificial knee joint, bilateral; Z98.890 Other specified postprocedural states; Z96.611 Presence of right artificial shoulder joint; F41.9 Anxiety disorder, unspecified; F32.A Depression, unspecified; Z87.891 Personal history of nicotine dependence; Z82.49 Family history of ischemic heart disease and other diseases of the circulatory system; Z80.9 Family history of malignant neoplasm, unspecified; Z79.899 Other long term (current) drug therapy; Z88.5 Allergy status to narcotic agent; Z88.6 Allergy status to analgesic agent; Z91.041 Radiographic dye allergy status; Z91.040 Latex allergy status
CPT/HCPCS: 80053; 80048; 74018; 52356; G0378 ×2; C2625; C1758; C1769; J2250; J0330; J0690; J3010; J1170 ×3; J2704; J2597; Q9967; J2001

== ENCOUNTER 2022-09-13 23:48 | Emergency (ER) | payer MEDICARE, OTHER ==
[2022-09-14 00:05] VITALS: BP 133/82; PULSE 70; RESP 16; TEMP 97.7
[2022-09-14] MEDS ORDERED: ONDANSETRON 4 MG/2 ML VIAL IM STA (00:35)
[2022-09-14] MEDS ORDERED: HYDROmorphone 0.5 MG/0.5 ML SYRINGE IM STA (00:38)
--- NOTE | 2022-09-14 00:44 | ED ---
Female Urogenital HPI - General Chief complaint: Vaginal Bleeding Stated complaint: Kidney stent issue Time Seen by Provider: 09/14/22 00:09 Source: patient Mode of arrival: EMS Limitations: no limitations - History of Present Illness Initial comments: Patient is a 62-year-old female presenting for postop complication. Patient had a renal stent placed yesterday by Dr. Hamm, was discharged today. Patient reports that at home she had some bleeding from the urethra, she then felt a plastic piece coming out of the urethra and she removed the remainder of the piece. Patient then reported to the ER for further evaluation. She is experiencing some flank pain and nausea at this time. No fevers or chills. No other abdominal pain. No chest pain or difficulty breathing. - Related Data Home Medications Medication Instructions Recorded Confirmed Fluticasone Nasal [place] [Flonase 1 spr EA NOSTRIL DAILY 06/20/17 09/12/22 Nasal [place]] SUMAtriptan succinate [Imitrex] 100 mg PO DAILY PRN MDD 100mg 06/20/17 09/12/22 EPINEPHrine (Auto Inject) [Epipen] 0.3 mg IM ONCE PRN 06/24/19 09/12/22 Pantoprazole [Protonix] 40 mg PO BID 06/24/19 09/12/22 DULoxetine HCL [Cymbalta] 30 mg PO DAILY 04/07/20 09/12/22 DULoxetine HCL [Cymbalta] 60 mg PO HS 03/27/21 09/12/22 Furosemide [Lasix] 40 mg PO BID 03/27/21 09/12/22 buPROPion XL [Wellbutrin XL] 450 mg PO DAILY 03/27/21 09/12/22 nadoloL [Corgard] 20 mg PO DAILY 03/27/21 09/12/22 Cyanocobalamin [Vitamin B-12 1,000 mcg SQ QMONTHLY 09/23/21 09/12/22 Injection] Midodrine [ProAmatine] 5 mg PO TID 09/23/21 09/12/22 Naloxone HCl [Narcan] 4 mg NASAL ONCE PRN 09/23/21 09/12/22 Nystatin 100,000 Unit/gm Powd 1 applic TOPICAL DAILY PRN 09/23/21 09/12/22 [Mycostatin Powder] Folic Acid 1 mg PO DAILY 11/28/21 09/12/22 Sennosides-Docusate Sodium 2 tab PO HS 02/17/22 09/12/22 [Senokot-S] Cholecalciferol [Vitamin D3 (25 50 mcg PO DAILY 06/01/22 09/12/22 Mcg = 1000 Iu)] Prochlorperazine [Compazine] 5 mg PO Q8H PRN 06/01/22 09/12/22 Sucralfate [Carafate] 1 gm PO ACHS PRN 06/01/22 09/12/22 traZODone HCL [Desyrel] 200 mg PO HS 06/01/22 09/12/22 Desmopressin Intranasal [Ddavp 2 spray NASAL DAILY PRN 07/03/22 09/12/22 Nasal [place]] HYDROcodone/APAP 10-325MG [[place] 1 tab PO Q6HR PRN 07/03/22 09/12/22 10-325] Carbidopa/Levodopa 2 tab PO HS 08/26/22 09/12/22 [Carbidopa-Levodopa 25-100 Tab] Previous Rx's Medication Instructions Recorded Ondansetron Odt [Zofran ODT] 4 mg PO Q8HR PRN #10 tab 08/28/22 Cephalexin [Keflex] 500 mg PO Q12HR 7 Days #14 cap 09/14/22 Allergies Allergy/AdvReac Type Severity Reaction Status Date / Time Iodinated Contrast Media Allergy Anaphylaxis Verified 09/12/22 07:48 [Iodinated Contrast- Oral and IV Dye] isosorbide [From Imdur] Allergy Rash/Hives Verified 09/12/22 07:48 latex Allergy Anaphylaxis Verified 09/12/22 07:48 Sulfa (Sulfonamide Allergy Rash/Hives Verified 09/12/22 07:48 Antibiotics) aspirin AdvReac has Von Verified 09/12/22 07:48 Willebrands Disease codeine AdvReac agitation Verified 09/12/22 07:48 and restless leg symptoms increased ibuprofen [From Motrin] AdvReac has Von Verified 09/12/22 07:48 Willebrands Disease Review of Systems ROS Statement: Those systems with pertinent positive or pertinent negative responses have been documented in the HPI. ROS Other: All systems not noted in ROS Statement are negative. Past Medical History Past Medical History: Deep Vein Thrombosis (DVT), GERD/Reflux, Supraventricular Tachycardia (SVT) Additional Past Medical History / Comment(s): Von Willebrand Disease, diverticulitis, migraines, chronic back pain, DVT bilat. Restless leg syndrome. History of Any Multi-Drug Resistant Organisms: None Reported Past Surgical History: Adenoidectomy, Bariatric Surgery, Cholecystectomy, Heart Catheterization, Hysterectomy, Joint Replacement, Orthopedic Surgery, Tonsillectomy Additional Past Surgical History / Comment(s): nury foot surgery, nury knee replaced, nury rotator cuffs, Judith en Y approx 5 years, bowel surgery, right shoulder replacement,right hip titanium my placed Past Anesthesia/Blood Transfusion Reactions: Postoperative Nausea & Vomiting (PONV) Past Psychological History: Anxiety, Depression Smoking Status: Former smoker Past Alcohol Use History: Occasional Past Drug Use History: None Reported - Past Family History Mother Family Medical History: Cancer, Hypertension Father Family Medical History: Cancer, Hypertension General Exam Limitations: no limitations General appearance: alert, in no apparent distress Head exam: Present: atraumatic, normocephalic, normal inspection Eye exam: Present: normal appearance Neck exam: Present: normal inspection, full ROM Respiratory exam: Present: normal lung sounds bilaterally. Absent: respiratory distress, wheezes, rales, rhonchi, stridor Cardiovascular Exam: Present: regular rate, normal rhythm, normal heart sounds. Absent: systolic murmur, diastolic murmur, rubs, gallop, clicks GI/Abdominal exam: Present: soft. Absent: distended, tenderness, guarding, rebound, rigid External exam: Present: normal external exam, other (I examined the patient's brief which was urine soaked, there was some evidence of small amount light pink blood mised with urine, no evidence of any hemorrhaging on examination) Neurological exam: Present: alert, oriented X3, CN II-XII intact Psychiatric exam: Present: normal affect, normal mood Skin exam: Present: warm, dry, intact, normal color. Absent: rash Course Vital Signs 09/14/22 00:00 Temperature 97.7 F Pulse Rate 70 Respiratory 16 Rate Blood Pressure 133/82 O2 Sat by Pulse 93 L Oximetry Medical Decision Making - Medical Decision Making Patient is a 62-year-old female presenting for evaluation after a renal stent placed yesterday came out today. Patient states that she was discharged home today, she felt a plastic piece hanging out at home and she pulled out the remainder. She states that she is having blood in the urine. She reported to the ER for further evaluation. I spoke with the patient's urologist Dr. Hamm who states that the patient does not require readmission or replacement of the stent at this time, if her pain is under control then she may be discharged home. I explained this to the patient. She immediately became agitated. Patient ripped out her IV and became verbally abusive to the staff. She would not cooperate for any further testing or management. She is of sound mind and body and able to make her own decisions. She was discharged home and instructed to follow-up with her urologist per her postop instructions. I discussed this case in detail with my attending Dr. Kemp. Was pt. sent in by a medical professional or institution (, PA, PRODUCTION INTERN, urgent care, hospital, or long term...) When possible be specific @ -[No] Did you speak to anyone other than the patient for history (EMS, parent, family, police, friend...)? What history was obtained from this source @ -[No] Did you review nursing and triage notes (agree or disagree)? Why? @ -[I reviewed and agree with nursing and triage notes] Were old charts reviewed (outside hosp., previous admission, EMS record, old EKG, old radiological studies, urgent care reports/EKG's, long term records)? Report findings @ -[No old charts were reviewed] Differential Diagnosis (chest pain, altered mental status, abdominal pain women, abdominal pain men, vaginal bleeding, weakness, fever, dyspnea, syncope, headache, dizziness, GI bleed, back pain, seizure, CVA, palpatations, mental health, musculoskeletal)? @ -[not applicable] EKG interpreted by me (3pts min.). @ -[As above] X-rays interpreted by me (1pt min.). @ -KUB x-ray shows nonacute abdomen CT interpreted by me (1pt min.). @ -[None done] U/S interpreted by me (1pt. min.). @ -[None done] What testing was considered but not performed or refused? (CT, X-rays, U/S, labs)? Why? @ -[None] What meds were considered but not given or refused? Why? @ -Testing and medication for Von Willebrand's disease was considered, however the patient refused to cooperate after I told her that she would not need to stay in the hospital per her urologist. Did you discuss the management of the patient with other professionals (professionals i.e. , PA, PRODUCTION INTERN, lab, RT, psych nurse, social worker palliative care, dial equipment engineer, teacher, driver license reviewing officer, rifle case repairer)? Give summary @ -Urologist on-call Dr. Hmam Was smoking cessation discussed for >3mins.? @ -[No] Was critical care preformed (if so, how long)? @ -[No] Were there social determinants of health that impacted care today? How? (Homelessness, low income, unemployed, alcoholism, drug addiction, transportation, low edu. Level, literacy, decrease access to med. care, penitentiary, rehab)? @ -[No] Was there de-escalation of care discussed even if they declined (Discuss DNR or withdrawal of care, Hospice)? DNR status @ -[No] Was patient admitted / discharged? Hospital course, mention meds given and route, prescriptions, significant lab abnormalities, going to OR and other pertinent info. @ -See above for details, patient was discharged home Undiagnosed new problem with uncertain prognosis? @ -[No] Drug Therapy requiring intensive monitoring for toxicity (Heparin, Nitro, Insulin, Cardizem)? @ -[No] Were any procedures done? @ -[No] Diagnosis/symptom? @ -Hematuria Acute, or Chronic, or Acute on Chronic? @ -Acute Uncomplicated (without systemic symptoms) or Complicated (systemic symptoms)? @ -Uncomplicated Side effects of treatment? @ -[No] Exacerbation, Progression, or Severe Exacerbation? @ -[No] - Lab Data Lab Results 09/14/22 Range/Units 00:25 Urine Color Light Red Urine Appearance Clear (Clear) Urine pH 6.0 (5.0-8.0) Ur Specific [place] 1.006 (1.001-1.035) Urine Protein 1+ H (Negative) Urine Glucose (UA) Negative (Negative) Urine Ketones Negative (Negative) Urine Blood Large H (Negative) Urine Nitrite Negative (Negative) Urine Bilirubin Negative (Negative) Urine Urobilinogen <2.0 (<2.0) mg/dL Ur Leukocyte Esterase Small H (Negative) Urine RBC >182 H (0-5) /hpf Urine WBC 13 H (0-5) /hpf Urine Mucus Rare H (None) /hpf Disposition Clinical Impression: Hematuria Disposition: HOME SELF-CARE Condition: Stable Instructions (If sedation given, give patient instructions): Hematuria (ED) Additional Instructions: Follow-up with PCP and urologist. Report back to ER with any new or worsening symptoms. Prescriptions: Cephalexin [Keflex] 500 mg PO Q12HR 7 Days #14 cap Is patient prescribed a controlled substance at d/c from ED?: No Referrals: Stefan He MD [Primary Care Provider] - 1-2 days Time of Disposition: 01:44
[2022-09-14 01:01] LABS: Appearance,Urine Clear (Clear); Bilirubin,Urine Negative (Negative); Blood,Urine Large (Negative); Color,Urine Light Red; Glucose,Urine (UA) Negative (Negative); Ketones,Urine Negative (Negative); Leukocyte Esterase,Urine Small (Negative); Mucus,Urine Rare /hpf; Nitrite,Urine Negative (Negative); Protein,Urine 1+ (Negative); RBC,Urine >182 /hpf (0-5); Specific Gravity,Urine 1.006 (1.001-1.035); Urobilinogen,Urine <2.0 mg/dL (<2.0); WBC,Urine 13 /hpf (0-5)
--- NOTE | 2022-09-14 01:07 | XR ---
EXAMINATION TYPE: XR [facility] DATE OF EXAM: 09/14/2022 COMPARISON: 09/12/2022 HISTORY: Kidney stones TECHNIQUE: 2 views upright FINDINGS: There is no sign of intestinal obstruction or pneumoperitoneum. Lung bases are clear. There is no stimulator in the lower thoracic spine. There is a mild lumbar levoscoliosis. There is thoraco lumbar dextroscoliosis. No pleural effusion. There is right hip nailing. Calcifications not definitel y seen over the kidneys. IMPRESSION: Nonacute abdomen. No adverse change.
== END 2022-09-14 01:58 | disposition home or self-care (01) ==
LOC: EC 23:48
DX: R31.9 Hematuria, unspecified (principal); K21.9 Gastro-esophageal reflux disease without esophagitis; F41.9 Anxiety disorder, unspecified; F32.A Depression, unspecified; Z87.891 Personal history of nicotine dependence; Z79.899 Other long term (current) drug therapy; Z88.2 Allergy status to sulfonamides; Z91.040 Latex allergy status; Z88.6 Allergy status to analgesic agent; Z91.048 Other nonmedicinal substance allergy status; Z88.5 Allergy status to narcotic agent; Z88.8 Allergy status to other drugs, medicaments and biological substances
CPT/HCPCS: 74018; 81001; 87077; 87086; 87186

== ENCOUNTER → 2022-12-30 | Outpatient (CLI) | payer MEDICARE, OTHER ==
--- NOTE | 2022-12-30 12:17 | FL ---
ESOPHOGRAM. HISTORY: Dysphagia Esophagram was performed per the single contrast technique. The patient swallowed barium without dif ficulty or delay. There are tertiary contractions noted. 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 There is hiatal hernia which contains the residual stomach and a portion of the gastrojejunostomy . There is gastroe sophageal reflux seen during the course of the study. Subsequently single contrast cervical esophagra m was performed which fails demonstrate evidence for aspiration penetration or mass. IMPRESSION: There is a hiatal hernia which contains residual stomach and a portion of the gastrojejun ostomy. Tertiary contractions and mild gastroesophageal reflux.
== END | disposition home or self-care (01) ==
LOC: RADUSWWP 08:45
PROVIDERS: ATTEND Internal Medicine
DX: K44.9 Diaphragmatic hernia without obstruction or gangrene (principal); K21.9 Gastro-esophageal reflux disease without esophagitis; R13.10 Dysphagia, unspecified
CPT/HCPCS: 74220

== ENCOUNTER 2024-03-24 20:48 | Emergency (ER) | payer MEDICARE, OTHER ==
[2024-03-24 21:05] VITALS: RESP 18
--- NOTE | 2024-03-24 21:11 | ED ---
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 Patient has significant and severe intoxication coming in for alcohol intoxication with fall. Patient coming to the ER for evaluation of worsening symptoms of the fall with bleeding from the head and patient states she has history of von Willebrand's disease (Andrez rAnold) - Related Data Home Medications Medication Instructions Recorded Confirmed Fluticasone Nasal [place] [Flonase 1 spr EA NOSTRIL DAILY 06/20/17 09/12/22 Nasal [place]] SUMAtriptan succinate [Imitrex] 100 mg PO DAILY PRN MDD 100mg 06/20/17 09/12/22 EPINEPHrine (Auto Inject) [Epipen] 0.3 mg IM ONCE PRN 06/24/19 09/12/22 Pantoprazole [Protonix] 40 mg PO BID 06/24/19 09/12/22 DULoxetine HCL [Cymbalta] 30 mg PO DAILY 04/07/20 09/12/22 DULoxetine HCL [Cymbalta] 60 mg PO HS 03/27/21 09/12/22 Furosemide [Lasix] 40 mg PO BID 03/27/21 09/12/22 buPROPion XL [Wellbutrin XL] 450 mg PO DAILY 03/27/21 09/12/22 nadoloL [Corgard] 20 mg PO DAILY 03/27/21 09/12/22 Cyanocobalamin [Vitamin B-12 1,000 mcg SQ QMONTHLY 09/23/21 09/12/22 Injection] Midodrine [ProAmatine] 5 mg PO TID 09/23/21 09/12/22 Naloxone HCl [Narcan] 4 mg NASAL ONCE PRN 09/23/21 09/12/22 Nystatin 100,000 Unit/gm Powd 1 applic TOPICAL DAILY PRN 09/23/21 09/12/22 [Mycostatin Powder] Folic Acid 1 mg PO DAILY 11/28/21 09/12/22 Sennosides-Docusate Sodium 2 tab PO HS 02/17/22 09/12/22 [Senokot-S] Cholecalciferol [Vitamin D3 (25 50 mcg PO DAILY 06/01/22 09/12/22 Mcg = 1000 Iu)] Prochlorperazine [Compazine] 5 mg PO Q8H PRN 06/01/22 09/12/22 Sucralfate [Carafate] 1 gm PO ACHS PRN 06/01/22 09/12/22 traZODone HCL [Desyrel] 200 mg PO HS 06/01/22 09/12/22 Desmopressin Intranasal [Ddavp 2 spray NASAL DAILY PRN 07/03/22 09/12/22 Nasal [place]] HYDROcodone/APAP 10-325MG [[place] 1 tab PO Q6HR PRN 07/03/22 09/12/22 10-325] Carbidopa/Levodopa 2 tab PO HS 08/26/22 09/12/22 [Carbidopa/Levodopa 25-100 Tab] Previous Rx's Medication Instructions Recorded Ondansetron Odt [Zofran ODT] 4 mg PO Q8HR PRN #10 tab 08/28/22 Cephalexin [Keflex] 500 mg PO Q12HR 7 Days #14 cap 09/14/22 Cephalexin [Keflex] 500 mg PO Q8HR 7 Days #21 cap 03/25/24 Allergies Allergy/AdvReac Type Severity Reaction Status Date / Time Iodinated Contrast Media Allergy Anaphylaxis Verified 03/24/24 21:05 [Iodinated Contrast- Oral and IV Dye] isosorbide [From Imdur] Allergy Rash/Hives Verified 03/24/24 21:05 latex Allergy Anaphylaxis Verified 03/24/24 21:05 Sulfa (Sulfonamide Allergy Rash/Hives Verified 03/24/24 21:05 Antibiotics) aspirin AdvReac has Von Verified 03/24/24 21:05 Willebrands Disease codeine AdvReac agitation Verified 03/24/24 21:05 and restless leg symptoms increased ibuprofen [From Motrin] AdvReac has Von Verified 03/24/24 21:05 Willebrands Disease Review of Systems ROS Other: All systems not noted in ROS Statement are negative. <Andrez Arnold - Last Filed: 03/24/24 21:10> ROS Other: All systems not noted in ROS Statement are negative. <Francesca Coppola - Last Filed: 03/25/24 03:19> ROS Statement: Those systems with pertinent positive or pertinent negative responses have been documented in the HPI. Past Medical History Past Medical History: Deep Vein Thrombosis (DVT), GERD/Reflux, Supraventricular Tachycardia (SVT) Additional Past Medical History / Comment(s): Von Willebrand Disease, diverticulitis, migraines, chronic back pain, DVT bilat. Restless leg syndrome. History of Any Multi-Drug Resistant Organisms: None Reported Past Surgical History: Adenoidectomy, Bariatric Surgery, Cholecystectomy, Heart Catheterization, Hysterectomy, Joint Replacement, Orthopedic Surgery, Tonsillectomy Additional Past Surgical History / Comment(s): nury foot surgery, nury knee replaced, nury rotator cuffs, Judith en Y approx 5 years, bowel surgery, right shoulder replacement,right hip titanium my placed Past Anesthesia/Blood Transfusion Reactions: Postoperative Nausea & Vomiting (PONV) Past Psychological History: Anxiety, Depression Smoking Status: Former smoker Past Alcohol Use History: Occasional Past Drug Use History: None Reported - Past Family History Mother Family Medical History: Cancer, Hypertension Father Family Medical History: Cancer, Hypertension <Andrez Arnold - Last Filed: 03/24/24 21:10> General Exam Limitations: no limitations General appearance: alert, in no apparent distress Head exam: Present: atraumatic, normocephalic, normal inspection Eye exam: Present: normal appearance, PERRL, EOMI. Absent: scleral icterus, conjunctival injection, periorbital swelling ENT exam: Present: normal exam, mucous membranes moist Neck exam: Present: normal inspection. Absent: tenderness, meningismus, lymphadenopathy Respiratory exam: Present: normal lung sounds bilaterally. Absent: respiratory distress, wheezes, rales, rhonchi, stridor Cardiovascular Exam: Present: regular rate, normal rhythm, normal heart sounds. Absent: systolic murmur, diastolic murmur, rubs, gallop, clicks GI/Abdominal exam: Present: soft, normal bowel sounds. Absent: distended, tenderness, guarding, rebound, rigid Extremities exam: Present: normal inspection, full ROM, normal capillary refill. Absent: tenderness, pedal edema, joint swelling, calf tenderness Back exam: Present: normal inspection Neurological exam: Present: alert, oriented X3, CN II-XII intact Psychiatric exam: Present: normal affect, normal mood Skin exam: Present: warm, dry, intact, normal color. Absent: rash <Andrez Arnold - Last Filed: 03/24/24 21:10> Course <Andrez Arnold - Last Filed: 03/24/24 21:10> Vital Signs 03/24/24 03/24/24 20:57 23:31 Temperature 97.4 F L Pulse Rate 88 72 Respiratory 18 18 Rate Blood Pressure 132/85 130/86 O2 Sat by Pulse 95 97 Oximetry - Reevaluation(s) Reevaluation #1: 03/24/24 21:10 Medical record is reviewed (Andrez Arnold) Reevaluation #2: 03/24/24 21:10 Patient symptoms unchanged (Andrez Arnold) Reevaluation #3: 03/24/24 21:10 Patient informed of results and questions answered (Andrez Arnold) Reevaluation #5: Differential Headache: Migraine, tension, cluster, carbon monoxide, central venous thrombosis, pension karma temporal arteritis, acute closure glaucoma, intercranial hemorrhage, mastoiditis, sinusitis, head injury, this is not meant to be an all-inclusive list. (Andrez Arnold) Procedures - Laceration Laceration #1 Consent Obtained: verbal consent Indication: laceration Site: scalp Size (cm): 20 Description: flap Anesthetic Used: lidocaine 1%, without epi Pre-repair: wound explored Type of Sutures: nylon Size of Sutures: 3-0 Number of Sutures: 11 Technique: simple, interrupted <Francesca Coppola - Last Filed: 03/25/24 03:19> Medical Decision Making - Lab Data Result diagrams: 03/24/24 23:05 03/24/24 23:05 <Francesca Coppola - Last Filed: 03/25/24 03:19> - Medical Decision Making 64-year-old female comes in after a fall at home. She has a large laceration to the scalp. Wound is repaired, see procedure note for details. Patient does have von Willebrand's disease, there is no active bleeding here at her visit. Serum alcohol is 120, her will be taking her home. Patient is educated on today's findings and supportive management at home as well as wound care and signs of infection, And signs of slow bleed that should prompt her return to the ER. Discharged. Follow-up with PCP. Report back to ER with any new or worsening symptoms. Discussed return parameters and answered all questions. Patient conveyed verbal understanding and agreed to the plan. I discussed this case in detail with my attending Dr. Sidhu Diagnosis/symptom? @Head injury, scalp laceration, alcohol intoxication Acute, or Chronic, or Acute on Chronic? @Acute Uncomplicated (without systemic symptoms) or Complicated (systemic symptoms)? @Located Side effects of treatment? @None Exacerbation, Progression, or Severe Exacerbation] @No (Francesca Coppola) - Lab Data Lab Results 03/24/24 03/24/24 Range/Units 23:05 23:05 WBC 10.1 (3.8-10.6) k/uL RBC 4.55 (3.80-5.40) m/uL Hgb 13.5 (11.4-16.0) gm/dL Hct 42.5 (34.0-46.0) % MCV 93.4 (80.0-100.0) fL MCH 29.6 (25.0-35.0) pg MCHC 31.7 (31.0-37.0) g/dL RDW 14.4 (11.5-15.5) % Plt Count 291 (150-450) k/uL MPV 8.4 Neutrophils % 82 % Lymphocytes % 10 % Monocytes % 5 % Eosinophils % 1 % Basophils % 1 % Neutrophils # 8.3 H (1.3-7.7) k/uL Lymphocytes # 1.0 (1.0-4.8) k/uL Monocytes # 0.5 (0-1.0) k/uL Eosinophils # 0.1 (0-0.7) k/uL Basophils # 0.1 (0-0.2) k/uL Sodium 141 (137-145) mmol/L Potassium 3.4 L (3.5-5.1) mmol/L Chloride 104 (98-107) mmol/L Carbon Dioxide 25 (22-30) mmol/L Anion Gap 12 mmol/L BUN 10 (7-17) mg/dL Creatinine 0.61 (0.52-1.04) mg/dL Est GFR (CKD-EPI)AfAm >90 (>60 ml/min/1.73 sqM) Est GFR (CKD-EPI)NonAf >90 (>60 ml/min/1.73 sqM) Glucose 83 (74-99) mg/dL Calcium 9.3 (8.4-10.2) mg/dL Phosphorus 3.6 (2.5-4.5) mg/dL Magnesium 2.1 (1.6-2.3) mg/dL Total Bilirubin 0.6 (0.2-1.3) mg/dL AST 36 (14-36) U/L ALT 18 (4-34) U/L Alkaline Phosphatase 86 (38-126) U/L Total Protein 7.4 (6.3-8.2) g/dL Albumin 4.5 (3.5-5.0) g/dL Serum Alcohol 120 mg/dL Disposition <Andrez Arnold - Last Filed: 03/24/24 21:10> Is patient prescribed a controlled substance at d/c from ED?: No Time of Disposition: 02:58 <Francesca Coppola - Last Filed: 03/25/24 03:19> Clinical Impression: Scalp laceration, Head injury Disposition: HOME SELF-CARE Condition: Good Instructions (If sedation given, give patient instructions): Care For Your Stitches (ED), Head Laceration (ED) Additional Instructions: Follow-up with PCP. Report back to ER with any new or worsening symptoms. Keep the wound clean dry and covered. Wash regularly with soap and water. Avoid fully submerging the wound in water for prolonged periods of time. Monitor for signs of infection, including but not limited to redness, swelling, warmth, tenderness, discharge, fever. Sutures may be removed in 7 to 10 days. Do not wash her hair for 24 hours. Prescriptions: Cephalexin [Keflex] 500 mg PO Q8HR 7 Days #21 cap Referrals: Stefan He DO [REFERRING] - 1-2 days
--- NOTE | 2024-03-24 22:16 | CT ---
EXAMINATION TYPE: CT brain cspine wo con CT DLP: 1364.8 mGycm, Automated exposure control for dose reduction was used. DATE OF EXAM: 03/24/2024 9:56 PM COMPARISON: 08/18/2022 CLINICAL INDICATION: Female, 64 years old with history of fall; [place], head lacerat ions TECHNIQUE: Brain: Multiple axial CT images of the brain were obtained without IV contrast. Cspine: Axial CT images from the skull base to the inferior aspect of T2 we obtained without intraven ous contrast. Coronal and sagittal reformatted images were also reviewed. . FINDINGS: Brain: Extra-axial spaces: No abnormal extra-axial fluid collections. Ventricular system: Within normal limits Cerebral parenchyma: No acute intraparenchymal hemorrhage or mass effect. The beal-white junction is well differentiated. Cerebellum: Unremarkable. Mass effect: No evidence of midline shift. Intracranial vasculature: unremarkable Soft tissues: Left frontal scalp edema/hematoma. Edema. Additional scalp laceration posterior on the right with increased blood products 17th gas. Calvarium/osseous structures: No depressed skull fracture. Paranasal sinuses and mastoid air cells: Clear. Visualized orbits: Orbital contents are intact. Cervical spine: Fracture: None. Fixation changes to the left temporal mandibular joint. Osseous structures: Multilevel degenerative disc disease changes with endplate spurring and disc oste ophyte complex's. Vertebral alignment: Within normal limits. Spinal canal/Neural Foramina: No evidence of significant spinal canal narrowing. No evidence for sign ificant neural foraminal stenosis. Neck soft tissues: Prevertebral soft tissues are within normal limits. Other: The airway is patent. The lung apices are clear. IMPRESSION: 1. No acute intracranial process. 2. Left frontal scalp edema/hematoma. 3. Right posterior scalp laceration with hematoma. 4. No evidence of cervical spine fracture. 5. Mild multilevel degenerative disc disease. [facility], , 03/24/2024 10:13 PM
[2024-03-24] MEDS: TOPICAL SKIN ADHESIVE 1 EACH AMP TOPICAL ONE (23:11)
[2024-03-24] MEDS: HYDROmorphone 0.5 MG/0.5 ML SYRINGE IVP STA (23:12)
[2024-03-24] MEDS: SODIUM CHLORIDE 0.9% 1,000 ML IV STA (23:13)
[2024-03-24] MEDS: MAG HYDROX/AL HYDROX/SIMETH 30 ML CUP PO PRN (23:24)
[2024-03-24] MEDS: ONDANSETRON 4 MG/2 ML VIAL IVP STA (23:24)
[2024-03-24 23:40] LABS: Basophils # (A) 0.1 k/uL (0-0.2); Basophils % (A) 1 %; Eosinophils # (A) 0.1 k/uL (0-0.7); Eosinophils % (A) 1 %; HCT 42.5 % (34.0-46.0); HGB 13.5 gm/dL (11.4-16.0); Lymphocytes % (A) 10 %; MCH 29.6 pg (25.0-35.0); MCHC 31.7 g/dL (31.0-37.0); MCV 93.4 fL (80.0-100.0); Mean Platelet Volume 8.4; Monocytes # (A) 0.5 k/uL (0-1.0); Monocytes % (A) 5 %; Neutrophils # (A) 8.3 k/uL (1.3-7.7); Neutrophils % (A) 82 %; Platelet Count 291 k/uL (150-450); RBC 4.55 m/uL (3.80-5.40); RDW 14.4 % (11.5-15.5); WBC 10.1 k/uL (3.8-10.6)
[2024-03-24 23:55] LABS: ALT 18 U/L (4-34); AST 36 U/L (14-36); African American GFR (CKD) >90 (>60 ml/min/1.73 sqM); Albumin 4.5 g/dL (3.5-5.0); Alkaline Phosphatase 86 U/L (38-126); Anion Gap 12 mmol/L; Blood Urea Nitrogen 10 mg/dL (7-17); Calcium 9.3 mg/dL (8.4-10.2); Carbon Dioxide 25 mmol/L (22-30); Chloride 104 mmol/L (98-107); Glucose 83 mg/dL (74-99); Magnesium 2.1 mg/dL (1.6-2.3); Non-African American GFR(CKD) >90 (>60 ml/min/1.73 sqM); Phosphorus 3.6 mg/dL (2.5-4.5); Potassium 3.4 mmol/L (3.5-5.1); Sodium 141 mmol/L (137-145); Total Bilirubin 0.6 mg/dL (0.2-1.3); Total Protein 7.4 g/dL (6.3-8.2)
[2024-03-25] MEDS: LIDOCAINE 1% INJ 10MG/ML (20 ML MDV) SQ ONE (00:02)
[2024-03-25] MEDS: ACETAMINOPHEN IV (For NPO) 1,000 MG in EMPTY BAG 1 BAG IVPB STA (00:03)
[2024-03-25 00:05] LABS: Alcohol 120 mg/dL
[2024-03-25] MEDS: HYDROmorphone 0.5 MG/0.5 ML SYRINGE IVP STA (01:28)
--- NOTE | 2024-03-25 02:54 | XR ---
EXAM: XR Thoracic Spine, 2 Views CLINICAL HISTORY: ITS.REASON XR Reason: Back pain TECHNIQUE: Frontal and lateral views of the thoracic spine. COMPARISON: No relevant prior studies available. FINDINGS: Vertebrae: No acute fracture. Normal sagittal alignment. Disc spaces: Degenerative changes. Soft tissues: Unremarkable. IMPRESSION: No acute osseous findings.
[2024-03-25 03:27] VITALS: BP 132/84; PULSE 89; TEMP 97.9
== END 2024-03-25 03:26 | disposition home or self-care (01) ==
LOC: EC 20:48
CPT/HCPCS: 12005; 36415; 70450; 72072; 72125; 80053; 80320; 83735; 84100; 85025; 96361; 96365; 96375; 96376; 99284